=== PATIENT | female | born 1960 | race Caucasian/White ===

== ENCOUNTER 2023-08-09 15:04 | Outpatient (AMB) | payer OTHER, SELFPAY ==
[2023-08-09 15:06] VITALS: BP 124/82; PULSE 69; O2SAT 95; BMI 31.0
--- NOTE | 2023-08-09 15:06 | MHC.OFFVIS ---
Vital Signs 08/09/23 15:06 Height 5 ft 11 in Weight 222 lb 2 oz BMI 31.0 BP 124/82 Blood Pressure Location Lt brachial Position Sitting Pulse 69 Pulse Source Pulse Oximeter Pulse Oximetry (%) 95 Oxygen Delivery Method Room Air Intake Visit Reasons: COPD Allergies No Known Allergies Allergy (Verified 08/09/23 15:14) HPI HPI COPD: Details: Orly is a pleasant 63 year old female, former smoker with 34 pack year history, quit 1999, with underlying COPD, h/o PE in 2014 completed 6 months coumadin, and PTSD. She was referred by PCP for pulmonary evaluation. She was previously under the care of Dr. Hidalgo and underwent PFT and chest CT. PFT report is not available, patient reports mild COPD. Chest CT 03/09 report reveals 3 mm nodule, no location noted. 03/[address], nodules are not noted. Images not available today. She reports being suboptimally controlled on Trelegy and can not tolerate the dry powder inhaler. She continues to report dyspnea with moderate exertion, chest tightness and dry cough. She denies wheezing. She denies any hostpializations related to respiratory distress. She denies prior history of asthma. She reports seasonal allergies, no recent allergy testing. She denies any pets. She was in the [employer] x 36 years, retired in 2018, with multiple occupational exposures. She denies any pertinent family history. COUNTS INCLUDE 234 BEDS AT THE [facility] Social History (Updated 08/09/23 @ 15:22 by Grace Hernandez CMA) Patient Tobacco Use Status: Former Tobacco user Quit Date: 24 years ago Tobacco use type: Cigarette Cigarettes Per Day: 30 Review of Systems Const Denies chills, Denies excessive sweating, Denies fever(s), Denies headache(s) and Denies night sweats Eyes Denies dry eyes, Denies irritation and Denies itchy eyes ENT Reports Normal hearing present, Denies headache(s), Denies nasal congestion, Denies nasal discharge and Denies sore throat Card Denies chest pain, Denies chest pain at rest, Denies chest pain with activity, Denies claudication, Denies leg edema, Denies orthopnea and Denies paroxysmal nocturnal dyspnea Resp Denies chest congestion, Denies excessive phlegm production, Denies pain on inspiration, Denies pain with cough, Denies stridor and Denies wheezing Musc Denies myalgias Neuro Reports Normal hearing present and Denies headache(s) Endo Denies excessive sweating Lukas/Lymph Denies lymphadenopathy Aller/Immun Denies itchy eyes, Denies seasonal rhinorrhea and Denies wheezing Physical Exam Vital Signs: Last Vital Signs Pulse 69 08/09/23 15:06 BP 124/82 08/09/23 15:06 Pulse Ox 95 08/09/23 15:06 Oxygen Delivery Method Room Air 08/09/23 15:06 BMI result Body Mass Index 31.0 Const General: cooperative, healthy appearing, comfortable, no acute distress, well developed and alert Orientation/consciousness: patient oriented x3 Limitations: no limitations HEENT Head: Yes normal to inspection, Yes normocephalic and Yes atraumatic Ears: hearing grossly normal bilaterally and external ears normal Eyes General: appearance normal, both eyes and all related structures Eyelids: Yes eyelids normal Sclerae: sclerae normal EOM: EOMs intact bilaterally Neck Neck: Yes normal visual inspection and Yes no lymphadenopathy Lymphatic: no lymphadenopathy noted Chest Chest palpation & inspection: normal inspection of the chest Resp Effort & Inspection: normal respiratory effort, able to speak in complete sentences, no audible wheezes, no cough, no stridor, not tachypneic, no tripod positioning and no use of accessory muscles Auscultation: diminished lung sounds Cardio Jugular venous distension: no JVD Rate: regular rate Rhythm: regular rhythm Skin Other: warm, dry General skin exam: no rashes or lesions noted Neuro General: patient oriented x3 Cranial nerves: Yes Normal hearing present Cognition (Neuro): normal cognition Gait exam (Neuro): Normal gait present Extrem General: Yes normal to inspection, Yes capillary refill normal, Yes no clubbing, cyanosis or edema and Yes no pedal edema Psych Appearance: grossly normal and well kempt Speech and movement: Normal speech and movement present and Clear speech present Affect: normal affect Attitude: cooperative Thought process: Normal thought process present Thought content: Normal thought content present Insight: Good insight present (Psych) Judgement: Good judgement present (Psych) Assessment & Plan Assessment & Plan (1) COPD (chronic obstructive pulmonary disease): Code(s): J44.9 - Chronic obstructive pulmonary disease, unspecified Category: Medical (2) Environmental allergies: Code(s): Z91.09 - Other allergy status, other than to drugs and biological substances Category: Medical (3) Personal history of tobacco use: Code(s): Z87.891 - Personal history of nicotine dependence Category: Social Hx Plan Orly's symptoms are likely related to underlying COPD. Will switch Trelegy to Breztri, as patient can not tolerate dry powder inhaler. Will attempt to obtain CT images as well as prior PFT. Patient reports increase of symptoms suggestive of allergies with the change of season. Will send for allergy testing. All questions were answered and patient is in agreement of plan. Will follow up to review results and response to Breztri. Orders: Orders Immunoglobulin E Today Z91.09 - Other allergy status, other than to drugs and biological substances Complete Blood Count Auto Diff Today Z91.09 - Other allergy status, other than to drugs and biological substances Rast Allergen Today Z91.09 - Other allergy status, other than to drugs and biological substances Medications: New numsmekqie-eslqilen-yfaxxejsdd 160-9-4.8 mcg/actuation (Breztri Aerosphere) 2 inhalations inhalation BID 10.7 grams 6RF Coding Level of Care Code New Pt Level 4 (38626) Diagnoses COPD (chronic obstructive pulmonary disease) J44.9 Environmental allergies Z91.09 Personal history of tobacco use Z87.891
== END 2023-08-09 15:58 | disposition home or self-care (01) ==
PROVIDERS: PCP Nurse Practitioner Gerontology; Visit Provider Nurse Practitioner Family
DX: J44.9 Chronic obstructive pulmonary disease, unspecified (principal); Z91.09 Other allergy status, other than to drugs and biological substances; Z87.891 Personal history of nicotine dependence
CPT/HCPCS: 99204

== ENCOUNTER → 2023-08-09 15:04 | Outpatient (BNVA) | payer OTHER, SELFPAY | PROVIDERS: Visit Provider Nurse Practitioner Family | DX: J44.9 Chronic obstructive pulmonary disease, unspecified (principal); Z91.09 Other allergy status, other than to drugs and biological substances; Z87.891 Personal history of nicotine dependence | CPT/HCPCS: 99202 ==

== ENCOUNTER 2023-08-16 10:53 | Outpatient (REF) | payer OTHER, SELFPAY ==
[2023-08-16 14:19] LABS: MANUAL DIFF FLAG NO
[2023-08-16 14:25] LABS: Basophils Percent Auto 0.4 % (0-2); Eosinophils Absolute Auto 0.1 X10*3/uL (0.0-0.4); Eosinophils Percent Auto 1.5 % (0-4); Hematocrit 45.1 % (37.0-47.0); Hemoglobin 14.7 g/dl (12.0-16.0); Imm Gran Abs Auto 0.02 X10*3/uL (0.00-0.03); Imm Gran Pct Auto 0.4 % (0.0-0.4); Lymphocytes Absolute Auto 1.7 X10*3/uL (1.2-4.9); Lymphocytes Percent Auto 31.5 % (20-40); Mean Corpuscular HGB Conc 32.6 g/dl (31.0-35.0); Mean Corpuscular Hemoglobin 30.7 pg (27.0-33.0); Mean Corpuscular Volume 94.2 fL (80.0-98.0); Mean Platelet Volume 10.6 fL (9.4-12.3); Monocytes Absolute Auto 0.4 X10*3/uL (0.1-1.2); Monocytes Percent Auto 7.5 % (2-11); Neutrophils Absolute Auto 3.1 x10*3/uL (2.0-8.3); Neutrophils Percent Auto 58.7 % (45-73); Platelet Count 242 X10*3/uL (160-400); Red Blood Count 4.79 X10*6/uL (4.20-5.50); Red Cell Distribution Width 13.1 % (11.0-16.0); White Blood Count 5.3 X10*3/uL (4.8-10.8)
[2023-08-17 14:34] LABS: Immunoglobulin E 502 kU/L (<OR=114)
[2023-08-19 23:28] LABS: Class Alternaria alternata 0; Class Aspergillus fumigatus 0; Class Bermuda Grass 2; Class Birch 3; Class Cat Dander 2; Class Cladosporium herbarum 0; Class Cockroach 1; Class Common Ragweed 3; Class Cottonwood 2; Class Derm. pterony 2; Class Dermatophagoides farinae 2; Class Dog Dander 0/1; Class Elm 3; Class Maple Box Elder 1; Class Mountain Cedar 0/1; Class Mouse Urine Protein 0; Class Mugwort 0/1; Class Oak 3; Class Penicillium crysogenum 0; Class Rough Pigweed 2; Class Sheep Sorrel 0; Class Sycamore 1; Class Timothy Grass 3; Class Walnut Tree 2; Class White Ash 1; Class White Mulberry 0; D001 IgE D pteronyssinus 1.58 kU/L; D002 - IgE D farinae 2.91 kU/L; E001 - IgE Cat Dander 0.86 kU/L; E005 - IgE Dog Dander 0.15 kU/L; E072-IgE Mouse Urine <0.10 kU/L; G006 - IgE Timothy Grass 5.31 kU/L; I006-IgE Cockroach, German 0.44 kU/L; M001 IgE Penicillium chrysogen <0.10 kU/L; M002 - IgE Cladosporium herbar <0.10 kU/L; M003 - IgE Aspergillus fumigat <0.10 kU/L; M006 - IgE Alternaria alternat <0.10 kU/L; T001 IgE Maple/Box Elder 0.49 kU/L; T006 - IgE Cedar, Mountain 0.24 kU/L; T010 - IgE Walnut 2.06 kU/L; T011 - IgE Maple Leaf Sycamore 0.52 kU/L; T014 - IgE Cottonwood 1.26 kU/L; T015 - IgE Ash, White 0.51 kU/L; T070 - IgE White Mulberry <0.10 kU/L; W006 - IgE Mugwort 0.25 kU/L; W014 IgE Pigweed, Common 0.72 kU/L; W018 IgE Sheep Sorrel <0.10 kU/L
== END 2023-08-16 10:54 | disposition home or self-care (01) ==
LOC: HO.WFDLDS 10:53
PROVIDERS: Visit Provider Nurse Practitioner Family
DX: Z91.09 Other allergy status, other than to drugs and biological substances (principal)
CPT/HCPCS: 36415; 82785; 85025; 86003

== ENCOUNTER 2023-11-02 09:48 | Outpatient (AMB) | payer OTHER, SELFPAY ==
--- NOTE | 2023-11-02 09:57 | A.OFFVIS_ITS ---
Vital Signs 11/02/23 09:58 Height 5 ft 11 in Weight 224 lb BMI 31.2 BP 124/86 Blood Pressure Location Lt brachial Position Sitting Pulse 74 Pulse Source Pulse Oximeter Pulse Oximetry (%) 97 Oxygen Delivery Method Room Air Intake Visit Reasons: COPD Allergies No Known Allergies Allergy (Verified 11/02/23 10:03) HPI HPI COPD: Details: Orly is a pleasant 63 year old female, former smoker with 34 pack year history, quit 1999, with underlying COPD, h/o PE in 2015 completed 6 months coumadin, and PTSD. She was previously under the care of Dr. Hidalgo and underwent PFT and chest CT. Results reviewed today. FEV1/FVC 75%, DLCO 70. CT revealed emphysematous changes. At the last visit, she was switched from Trelegy to Breztri. She reports minimal improvement in symptoms, however she only recently started using twice daily, as she was unaware of frequency. She also notes that she has occasionally missed the second dose. She continues to report dyspnea with moderate exertion, persistent throat clearing and dry cough. She denies wheezing. Today she presents to review RAST testing. [facility] Social History Patient Tobacco Use Status: Former Tobacco user Tobacco use type: Cigarette Cigarettes Per Day: 30 Review of Systems Const Denies chills, Denies excessive sweating, Denies fever(s), Denies headache(s) and Denies night sweats Eyes Denies dry eyes, Denies irritation and Denies itchy eyes ENT Reports Normal hearing present, Denies headache(s), Denies nasal congestion, Denies nasal discharge and Denies sore throat Card Denies chest pain, Denies chest pain at rest, Denies chest pain with activity, Denies claudication, Denies leg edema, Denies orthopnea and Denies paroxysmal nocturnal dyspnea Resp Denies chest congestion, Denies excessive phlegm production, Denies pain on inspiration, Denies pain with cough, Denies stridor and Denies wheezing Musc Denies myalgias Neuro Reports Normal hearing present and Denies headache(s) Endo Denies excessive sweating Lukas/Lymph Denies lymphadenopathy Aller/Immun Denies itchy eyes, Denies seasonal rhinorrhea and Denies wheezing Physical Exam Vital Signs: Last Vital Signs Pulse 74 11/02/23 09:58 BP 124/86 11/02/23 09:58 Pulse Ox 97 11/02/23 09:58 Oxygen Delivery Method Room Air 11/02/23 09:58 BMI result Body Mass Index 31.2 Const General: cooperative, healthy appearing, comfortable, no acute distress, well developed and alert Orientation/consciousness: patient oriented x3 Limitations: no limitations HEENT Head: Yes normal to inspection, Yes normocephalic and Yes atraumatic Ears: hearing grossly normal bilaterally and external ears normal Eyes General: appearance normal, both eyes and all related structures Eyelids: Yes eyelids normal Sclerae: sclerae normal EOM: EOMs intact bilaterally Neck Neck: Yes normal visual inspection and Yes no lymphadenopathy Lymphatic: no lymphadenopathy noted Chest Chest palpation & inspection: normal inspection of the chest Resp Other: persistent throat clearing and dry cough throughout visit. Effort & Inspection: normal respiratory effort, able to speak in complete sentences, no audible wheezes, no stridor, not tachypneic, no tripod positioning and no use of accessory muscles Auscultation: diminished lung sounds Cardio Jugular venous distension: no JVD Rate: regular rate Rhythm: regular rhythm Skin Other: warm, dry General skin exam: no rashes or lesions noted Neuro General: patient oriented x3 Cranial nerves: Yes Normal hearing present Cognition (Neuro): normal cognition Gait exam (Neuro): Normal gait present Extrem General: Yes normal to inspection, Yes capillary refill normal, Yes no clubbing, cyanosis or edema and Yes no pedal edema Psych Appearance: grossly normal and well kempt Speech and movement: Normal speech and movement present and Clear speech present Affect: normal affect Attitude: cooperative Thought process: Normal thought process present Thought content: Normal thought content present Insight: Good insight present (Psych) Judgement: Good judgement present (Psych) Assessment & Plan Assessment & Plan (1) COPD (chronic obstructive pulmonary disease): Code(s): J44.9 - Chronic obstructive pulmonary disease, unspecified Category: Medical (2) Environmental allergies: Code(s): Z91.09 - Other allergy status, other than to drugs and biological substances Category: Medical (3) Personal history of tobacco use: Code(s): Z87.891 - Personal history of nicotine dependence Category: Social Hx Plan Reviewed RAST and revealed significant environmental allergies. Encouraged patient to use antihistamine PRN. Will consider singulair in the future. Patient also with moderate PND, will trial ipratropium nasal spray. Patient was given spacer in office and encouraged to use Breztri as prescribed to better assess response to regimen. All questions were answered and patient is in agreement of plan. Will follow up in 6-8 weeks or sooner if needed. Medications: New ipratropium bromide administer into each nostril 2 sprays intranasal BID 30 mL 2RF Coding Level of Care Code Est Pt Level 4 (31552) Diagnoses COPD (chronic obstructive pulmonary disease) J44.9 Environmental allergies Z91.09 Personal history of tobacco use Z87.891
[2023-11-02 09:58] VITALS: BP 124/86; PULSE 74; O2SAT 97; BMI 31.2
== END 2023-11-02 10:38 | disposition home or self-care (01) ==
PROVIDERS: PCP Nurse Practitioner Gerontology; Visit Provider Nurse Practitioner Family
DX: J44.9 Chronic obstructive pulmonary disease, unspecified (principal); Z91.09 Other allergy status, other than to drugs and biological substances; Z87.891 Personal history of nicotine dependence
CPT/HCPCS: 99214

== ENCOUNTER → 2023-11-02 09:48 | Outpatient (BNVA) | payer OTHER, SELFPAY | PROVIDERS: Visit Provider Nurse Practitioner Family | DX: J44.9 Chronic obstructive pulmonary disease, unspecified (principal); Z91.09 Other allergy status, other than to drugs and biological substances; Z87.891 Personal history of nicotine dependence; Z79.01 Long term (current) use of anticoagulants | CPT/HCPCS: 99212 ==

== ENCOUNTER 2023-12-14 08:49 | Outpatient (AMB) | payer OTHER, SELFPAY ==
--- NOTE | 2023-12-14 08:51 | MHC.OFFVIS ---
Vital Signs 12/14/23 08:55 Height 5 ft 11 in Weight 226 lb 2 oz BMI 31.5 BP 124/76 Blood Pressure Location Rt brachial Position Sitting Pulse 64 Pulse Source Pulse Oximeter Pulse Oximetry (%) 98 Oxygen Delivery Method Room Air Intake Visit Reasons: COPD Allergies No Known Allergies Allergy (Verified 12/14/23 09:00) HPI HPI COPD: Details: Orly is a pleasant 63 year old female, former smoker with 34 pack year history, quit 1999, with underlying COPD, h/o PE in 2015 completed 6 months coumadin, and PTSD. Orly reports suboptimal effect with Breztri, continues to require albuterol MDI frequently. She attributes poorly controlled symptoms to allergies, prior RAST revealed multiple environmental allergies. She has been using ipratropium nasal and antihistamine PRN with mild improvement. She denies any visits to urgent care or hospitalizations since the last visit. [facility] Social History Patient Tobacco Use Status: Former Tobacco user Tobacco use type: Cigarette Cigarettes Per Day: 30 Review of Systems Const Denies chills, Denies excessive sweating, Denies fever(s), Denies headache(s) and Denies night sweats Eyes Denies dry eyes, Denies irritation and Denies itchy eyes ENT Reports Normal hearing present, Denies headache(s), Denies nasal congestion, Denies nasal discharge and Denies sore throat Card Denies chest pain, Denies chest pain at rest, Denies chest pain with activity, Denies claudication, Denies leg edema, Denies orthopnea and Denies paroxysmal nocturnal dyspnea Resp Denies chest congestion, Denies excessive phlegm production, Denies pain on inspiration, Denies pain with cough, Denies stridor and Denies wheezing Musc Denies myalgias Neuro Reports Normal hearing present and Denies headache(s) Endo Denies excessive sweating Lukas/Lymph Denies lymphadenopathy Aller/Immun Denies itchy eyes, Denies seasonal rhinorrhea and Denies wheezing Physical Exam Vital Signs: Last Vital Signs Pulse 64 12/14/23 08:55 BP 124/76 12/14/23 08:55 Pulse Ox 98 12/14/23 08:55 Oxygen Delivery Method Room Air 12/14/23 08:55 BMI result Body Mass Index 31.5 Const General: cooperative, healthy appearing, comfortable, no acute distress, well developed and alert Orientation/consciousness: patient oriented x3 Limitations: no limitations HEENT Head: Yes normal to inspection, Yes normocephalic and Yes atraumatic Ears: hearing grossly normal bilaterally and external ears normal Eyes General: appearance normal, both eyes and all related structures Eyelids: Yes eyelids normal Sclerae: sclerae normal EOM: EOMs intact bilaterally Neck Neck: Yes normal visual inspection and Yes no lymphadenopathy Lymphatic: no lymphadenopathy noted Chest Chest palpation & inspection: normal inspection of the chest Resp Other: persistent throat clearing and dry cough throughout visit. Effort & Inspection: normal respiratory effort, able to speak in complete sentences, no audible wheezes, no stridor, not tachypneic, no tripod positioning and no use of accessory muscles Auscultation: diminished lung sounds Cardio Jugular venous distension: no JVD Rate: regular rate Rhythm: regular rhythm Skin Other: warm, dry General skin exam: no rashes or lesions noted Neuro General: patient oriented x3 Cranial nerves: Yes Normal hearing present Cognition (Neuro): normal cognition Gait exam (Neuro): Normal gait present Extrem General: Yes normal to inspection, Yes capillary refill normal, Yes no clubbing, cyanosis or edema and Yes no pedal edema Psych Appearance: grossly normal and well kempt Speech and movement: Normal speech and movement present and Clear speech present Affect: normal affect Attitude: cooperative Thought process: Normal thought process present Thought content: Normal thought content present Insight: Good insight present (Psych) Judgement: Good judgement present (Psych) Assessment & Plan Assessment & Plan (1) COPD (chronic obstructive pulmonary disease): Code(s): J44.9 - Chronic obstructive pulmonary disease, unspecified Category: Medical (2) Environmental allergies: Code(s): Z91.09 - Other allergy status, other than to drugs and biological substances Category: Medical (3) Personal history of tobacco use: Code(s): Z87.891 - Personal history of nicotine dependence Category: Social Hx Plan Advised to continue Breztri, will add singulair. Patient also noted suboptimal relief from albuterol MDI, will trial DuoNeb and send nebulizer for home use. She is aware to call the office if worsening control of sympoms. Patient had chest CT last February which did not have concerning nodules. Will send for repeat chest C in February, given prior smoking history. All questions were answered and patient is in agreement of plan. Will follow up in 8-10 weeks or sooner if needed. Medications: New montelukast (Singulair) 10 mg PO BEDTIME 30 tabs 2RF ipratropium-albuterol 0.5 mg-3 mg(2.5 mg base)/3 mL 3 mL inhalation Q6H PRN 180 mL 0RF wheezing Coding Level of Care Code Est Pt Level 4 (91965) Diagnoses COPD (chronic obstructive pulmonary disease) J44.9 Environmental allergies Z91.09 Personal history of tobacco use Z87.891
[2023-12-14 08:55] VITALS: BP 124/76; PULSE 64; O2SAT 98; BMI 31.5
== END 2023-12-14 09:33 | disposition home or self-care (01) ==
PROVIDERS: PCP Nurse Practitioner Gerontology; Visit Provider Nurse Practitioner Family
DX: J44.9 Chronic obstructive pulmonary disease, unspecified (principal); Z91.09 Other allergy status, other than to drugs and biological substances; Z87.891 Personal history of nicotine dependence
CPT/HCPCS: 99214

== ENCOUNTER → 2023-12-14 08:49 | Outpatient (BNVA) | payer OTHER, SELFPAY | PROVIDERS: PCP Nurse Practitioner Gerontology; Visit Provider Nurse Practitioner Family | DX: J44.9 Chronic obstructive pulmonary disease, unspecified (principal); Z91.09 Other allergy status, other than to drugs and biological substances; Z87.891 Personal history of nicotine dependence | CPT/HCPCS: 99212 ==

== ENCOUNTER 2024-02-21 08:45 | Outpatient (AMB) | payer OTHER, SELFPAY ==
--- NOTE | 2024-02-21 08:45 | A.OFFVIS_ITS ---
Vital Signs 02/21/24 08:48 Height 5 ft 11 in Weight 232 lb 4 oz BMI 32.4 BP 114/76 Blood Pressure Location Rt brachial Position Sitting Pulse 77 Pulse Source Pulse Oximeter Pulse Oximetry (%) 98 Oxygen Delivery Method Room Air Intake Visit Reasons: COPD Allergies No Known Allergies Allergy (Verified 02/21/24 08:51) HPI HPI COPD: Details: Orly is a pleasant 63 year old female, former smoker with 34 pack year history, quit 1999, with underlying COPD, h/o PE in 2015 completed 6 months coumadin, and PTSD. At the last visit she reported suboptimal effect with Breztri. Singulair and DuoNeb PRN was trialed. Overall she repors improvement in symptoms however she continues to report cough that worsens at night time however is not using Breztri BID. Today she presents to review chest CT results. She denies any visits to urgent care or hospitalizations since the last visit. [facility] Social History Patient Tobacco Use Status: Former Tobacco user Tobacco use type: Cigarette Cigarettes Per Day: 30 Review of Systems Const Denies chills, Denies excessive sweating, Denies fever(s), Denies headache(s) and Denies night sweats Eyes Denies dry eyes, Denies irritation and Denies itchy eyes ENT Reports Normal hearing present, Denies headache(s), Denies nasal congestion, Denies nasal discharge and Denies sore throat Card Denies chest pain, Denies chest pain at rest, Denies chest pain with activity, Denies claudication, Denies leg edema, Denies orthopnea and Denies paroxysmal nocturnal dyspnea Resp Denies chest congestion, Denies excessive phlegm production, Denies pain on inspiration, Denies pain with cough, Denies stridor and Denies wheezing Musc Denies myalgias Neuro Reports Normal hearing present and Denies headache(s) Endo Denies excessive sweating Lukas/Lymph Denies lymphadenopathy Aller/Immun Denies itchy eyes, Denies seasonal rhinorrhea and Denies wheezing Physical Exam Vital Signs: Last Vital Signs Pulse 77 02/21/24 08:48 BP 114/76 02/21/24 08:48 Pulse Ox 98 02/21/24 08:48 Oxygen Delivery Method Room Air 02/21/24 08:48 BMI result Body Mass Index 32.4 Const General: cooperative, healthy appearing, comfortable, no acute distress, well developed and alert Orientation/consciousness: patient oriented x3 Limitations: no limitations HEENT Head: Yes normal to inspection, Yes normocephalic and Yes atraumatic Ears: hearing grossly normal bilaterally and external ears normal Eyes General: appearance normal, both eyes and all related structures Eyelids: Yes eyelids normal Sclerae: sclerae normal EOM: EOMs intact bilaterally Neck Neck: Yes normal visual inspection and Yes no lymphadenopathy Lymphatic: no lymphadenopathy noted Chest Chest palpation & inspection: normal inspection of the chest Resp Other: persistent throat clearing and dry cough throughout visit. Effort & Inspection: normal respiratory effort, able to speak in complete sentences, no audible wheezes, no stridor, not tachypneic, no tripod positioning and no use of accessory muscles Auscultation: diminished lung sounds Cardio Jugular venous distension: no JVD Rate: regular rate Rhythm: regular rhythm Skin Other: warm, dry General skin exam: no rashes or lesions noted Neuro General: patient oriented x3 Cranial nerves: Yes Normal hearing present Cognition (Neuro): normal cognition Gait exam (Neuro): Normal gait present Extrem General: Yes normal to inspection, Yes capillary refill normal, Yes no clubbing, cyanosis or edema and Yes no pedal edema Psych Appearance: grossly normal and well kempt Speech and movement: Normal speech and movement present and Clear speech present Affect: normal affect Attitude: cooperative Thought process: Normal thought process present Thought content: Normal thought content present Insight: Good insight present (Psych) Judgement: Good judgement present (Psych) Assessment & Plan Assessment & Plan (1) COPD (chronic obstructive pulmonary disease): Code(s): J44.9 - Chronic obstructive pulmonary disease, unspecified Category: Medical (2) Environmental allergies: Code(s): Z91.09 - Other allergy status, other than to drugs and biological substances Category: Medical (3) Personal history of tobacco use: Code(s): Z87.891 - Personal history of nicotine dependence Category: Social Hx Plan Reviewed chest CT which revealed mild emphysematous changes otherwise no concerning pulmonary nodules. No need for further imaging at this time. Advised patient to use Breztri BID, as prescribed as well as singulair, DuoNeb and ipratropium nasal spray. All questions were answered and patient is in agreement of plan. Will follow up3 months or sooner if needed. Medications: Refilled ldjetvrjzk-rpjwccit-rlgmapmkeo 160-9-4.8 mcg/actuation (Breztri Aerosphere) 2 inhalations inhalation BID 10.7 grams 6RF Coding Level of Care Code Est Pt Level 4 (04864) Diagnoses COPD (chronic obstructive pulmonary disease) J44.9 Environmental allergies Z91.09 Personal history of tobacco use Z87.891
[2024-02-21 08:48] VITALS: BP 114/76; PULSE 77; O2SAT 98; BMI 32.4
== END 2024-02-21 09:07 | disposition home or self-care (01) ==
LOC: HO.HPSW 08:45
PROVIDERS: PCP Nurse Practitioner Gerontology; Visit Provider Nurse Practitioner Family
DX: J44.9 Chronic obstructive pulmonary disease, unspecified (principal); Z91.09 Other allergy status, other than to drugs and biological substances; Z87.891 Personal history of nicotine dependence
CPT/HCPCS: 99214

== ENCOUNTER → 2024-02-21 08:45 | Outpatient (BNVA) | payer OTHER, SELFPAY | PROVIDERS: PCP Nurse Practitioner Gerontology; Visit Provider Nurse Practitioner Family | DX: J44.9 Chronic obstructive pulmonary disease, unspecified (principal); Z87.891 Personal history of nicotine dependence; Z79.899 Other long term (current) drug therapy; Z91.09 Other allergy status, other than to drugs and biological substances | CPT/HCPCS: 99212 ==

== ENCOUNTER 2024-05-23 08:53 | Outpatient (AMB) | payer OTHER, SELFPAY ==
[2024-05-23 09:01] VITALS: BP 126/60; PULSE 85; O2SAT 99; BMI 33.1
--- NOTE | 2024-05-23 09:01 | A.OFFVIS_ITS ---
Vital Signs 05/23/24 09:01 Height 5 ft 11 in Weight 237 lb BMI 33.1 BP 126/60 Blood Pressure Location Rt brachial Position Sitting Pulse 85 Pulse Source Pulse Oximeter Pulse Oximetry (%) 99 Oxygen Delivery Method Room Air Intake Visit Reasons: COPD Manager Managing Required: No Security Incident Handler: Security Incident Handler offered & declined Accompanied by: Self / Same As Patient Allergies No Known Allergies Allergy (Verified 05/23/24 09:04) Medication List - Last Reconciled 05/23/24 by Natalia White LPN albuterol sulfate 90 mcg/actuation 2 puffs inhalation Q6H PRN ascorbate calcium (vitamin C) 500 mg PO DAILY aspirin (Adult Low Dose Aspirin) 81 mg PO DAILY atorvastatin 20 mg PO BEDTIME oktcierolv-[id number]-hpchyyfppz 160-9-4.8 mcg/actuation (Breztri Aerosphere) 2 inhalations inhalation BID cholecalciferol (vitamin D3) 25 mcg PO DAILY ferrous sulfate (Feosol) 325 mg PO 2XW ipratropium bromide 2 sprays intranasal BID ipratropium-albuterol 0.5 mg-3 mg(2.5 mg base)/3 mL 3 mL inhalation Q6H PRN losartan 25 mg PO DAILY montelukast (Singulair) 10 mg PO BEDTIME multivitamin (Daily Multi-Vitamin tablet) 1 tab PO DAILY HPI HPI COPD: Details: Orly is a pleasant 64 year old female, former smoker with 34 pack year history, quit 1999, with underlying COPD, h/o provoked PE in 2014 completed 6 months coumadin, now on ASA 81mg and PTSD. At baseline, she has been moderately controlled on Breztri, ipratropium nasal spray and Singulair, using DuoNeb PRN infrequently. She continues to report infrequent use of Breztri and continued dyspnea as well as dry cough. She also notes that exertional dyspnea has been more frequent with associated chest heaviness. She denies any orthopnea or BLE edema. There was note of moderate cardiomegaly on prior imaging as well as CAD. She denies any recent evaluation by cardiology. She denies any visits to urgent care or hospitalizations since the last visit related to respiratory distress. COUNTS INCLUDE 234 BEDS AT THE [facility] Social History Patient Tobacco Use Status: Former Tobacco user Tobacco use type: Cigarette Cigarettes Per Day: 30 Review of Systems Const Denies chills, Denies excessive sweating, Denies fever(s), Denies headache(s) and Denies night sweats Eyes Denies dry eyes, Denies irritation and Denies itchy eyes ENT Reports Normal hearing present, Denies headache(s), Denies nasal congestion, Denies nasal discharge, Denies post nasal drip and Denies sore throat Card Denies chest pain, Denies chest pain at rest, Denies chest pain with activity, Denies claudication, Denies leg edema, Denies orthopnea and Denies paroxysmal nocturnal dyspnea Resp Denies chest congestion, Denies excessive phlegm production, Denies pain on inspiration, Denies pain with cough and Denies stridor Musc Denies myalgias Neuro Reports Normal hearing present and Denies headache(s) Endo Denies excessive sweating Lukas/Lymph Denies lymphadenopathy Aller/Immun Denies itchy eyes and Denies seasonal rhinorrhea Physical Exam Vital Signs: Last Vital Signs Pulse 85 05/23/24 09:01 BP 126/60 05/23/24 09:01 Pulse Ox 99 05/23/24 09:01 Oxygen Delivery Method Room Air 05/23/24 09:01 BMI result Body Mass Index 33.1 Const General: cooperative, healthy appearing, comfortable, no acute distress, well developed and alert Nutritional Appearance: obese Orientation/consciousness: patient oriented x3 Limitations: no limitations HEENT Head: Yes normal to inspection, Yes normocephalic and Yes atraumatic Ears: hearing grossly normal bilaterally and external ears normal Eyes General: appearance normal, both eyes and all related structures Eyelids: Yes eyelids normal Sclerae: sclerae normal EOM: EOMs intact bilaterally Neck Neck: Yes normal visual inspection and Yes no lymphadenopathy Lymphatic: no lymphadenopathy noted Chest Chest palpation & inspection: normal inspection of the chest Resp Effort & Inspection: normal respiratory effort, able to speak in complete sentences, no audible wheezes, no cough, no stridor, not tachypneic, no tripod positioning and no use of accessory muscles Auscultation: clear to auscultation bilaterally Cardio Jugular venous distension: no JVD Rate: regular rate Rhythm: regular rhythm Skin Other: warm, dry General skin exam: no rashes or lesions noted Neuro General: patient oriented x3 Cranial nerves: Yes Normal hearing present Cognition (Neuro): normal cognition Gait exam (Neuro): Normal gait present Extrem General: Yes normal to inspection, Yes capillary refill normal, Yes no clubbing, cyanosis or edema and Yes no pedal edema Psych Appearance: grossly normal and well kempt Speech and movement: Normal speech and movement present and Clear speech present Affect: normal affect Attitude: cooperative Thought process: Normal thought process present Thought content: Normal thought content present Insight: Good insight present (Psych) Judgement: Good judgement present (Psych) Assessment & Plan Assessment & Plan (1) COPD (chronic obstructive pulmonary disease): Code(s): J44.9 - Chronic obstructive pulmonary disease, unspecified Category: Medical (2) Environmental allergies: Code(s): Z91.09 - Other allergy status, other than to drugs and biological substances Category: Medical (3) Personal history of tobacco use: Code(s): Z87.891 - Personal history of nicotine dependence Category: Social Hx (4) Dyspnea on exertion: Code(s): R06.09 - Other forms of dyspnea Category: Medical Plan Since the last visit, Orly reports increased exertional dyspnea with associated chest tightness/heaviness. Prior imaging noted moderate cardiomegaly and on exam patient with irregular extra beat noted. Will send for EKG and Echo as well as enter cardiology referral. We did discuss when to seek emergent care. Advised patient to use Breztri BID, as prescribed as well as singulair, DuoNeb and ipratropium nasal spray. All questions were answered and patient is in agreement of plan. Will follow up in 4-6 weeks or sooner if needed. Orders: Orders ECG 12 lead EKG Today I49.9 - Cardiac arrhythmia, unspecified CA echo transthoracic complete Today R06.09 - Other forms of dyspnea Referrals Cardiology Referral I51.7 - Cardiomegaly, R06.09 - Other forms of dyspnea Coding Level of Care Code Est Pt Level 4 (46195) Diagnoses COPD (chronic obstructive pulmonary disease) J44.9 Environmental allergies Z91.09 Personal history of tobacco use Z87.891 Dyspnea on exertion R06.09
--- OUTSIDE RECORDS SUMMARY | 2024-05-23 09:01 | XMS_ITS | Encounter Summary ---
Author Name [facility] [place] Address [address] [place] [address] Care Team Providers Care Construction Electrician Name Role Phone JULIO CÉSAR ALMEIDA Primary Care Provider Unavailabl e Insurance Providers: All historical and current Section Date Range: From patient's date of to the date document was created. This section includes the names of all active insurance providers for the patient. Insurance Provider Type of Coverage Plan Name Start of Policy Coverage End of Policy Coverage Group Number Member ID Insurance Provider's Telephone Number Policy Stoddard's Name Patient's Relationship to Policy Stoddard HANNAH [address] FEDERAL PREFERRED PROVIDER ORGANIZAT ION (PPO) STAND AMEE SELF Apr 21, 1997 [id number] TINO DYE PATIENT BCBS [place] F[place] PREFERRED PROVIDER ORGANIZAT ION (PPO) STAND AMEE INDIV IDUAL Apr 21, 1997 [id number] TINO DYE PATIENT CAREMARK PRESCRIPT ION [id number] Apr 18, 2020 [id number] [phone] TINO DYE PATIENT [employer] PRESCRIPT ION [id number] 1 Apr 18, 2020 [id number] [phone] [id number] TINO DYE PATIENT CAR[employer]ARK FEPRX PLAN PRESCRIPT ION BCBS FEP Apr 18, 2010 [id number] [phone] TINO DYE PATIENT CAREMARK-F EP BCBS PRESCRIPT ION FEP CAREM ARK Apr 18, 2010 [id number] [phone] TINO DYE PATIENT OPTUM RX PRESCRIPT ION RX Apr 18, 2022 [id number] TINO DYE PATIENT [facility] USP Apr 18, 2020 USP [id number] TINO DYE PATIENT [facility] BRIGH TON DAVE E Apr 18, 2020 [id number] TINO DYE PATIENT Selected Encounter This section includes the information on record at [place] for the Encounter. Date/Time Encounter Type Encounter Description Reason Provider Source Jul 22, 2023 07:30 AM THERAPEUTIC EXERCISES PHYSICAL THERAPY ICD-10-CM M54.50 Low back pain, unspecified BEN NUNEZ Lisa Encounter Template Text not used by [place] Assessments - Encounter Diagnoses This section includes the primary and secondary diagnoses documented for the Encounter. Date/Time Primary/Secondary Diagnosis Diagnosis Name Provider Source Jul 22, 2023 07:37 AM PRIMARY Low back pain, unspecified SANTHOSH NUNEZ Plan of Treatment: Future Appointments (+ 6 months) and Future Tests (+/- 45 days) The Plan of Treatment section includes future care activities for the patient from all [place] treatmentfacilities. This section includes future appointments and future orders which are active, pending or scheduled. Future Appointments This section includes appointments that were scheduled to occur 6 months from the date of the Encounter, up to a maximum of 20 appointments. The data comes from all [place] treatment facilities. Appointment Date/Time Appointment Type Appointme nt Facility Name Jul 26, 2023 08:00 AM AMBULATORY - MEDICINE [facility] Aug 09, 2023 03:15 PM AMBULATORY - MEDICINE [facility] August 26, 2023 08:00 AM AMBULATORY - PSYCHIATRY [facility] Sep 20, 2023 08:00 AM [facility] Sep 30, 2023 08:00 AM AMBULATORY - PSYCHIATRY [facility] Nov 04, 2023 11:00 AM AMBULATORY - PS[facility]CHIATRY [facility] Nov 08, 2023 01:30 PM [facility] [place] [facility] Nov 21, 2023 09:00 AM AMBULAT[facility] [place] [facility] Dec 02, 2023 01:00 PM AMBULATORY - PSYCHIATRY [facility] Dec 23, 2023 08:00 AM AMBULATORY [facility] [place] [facility] Dec 27, 2023 10:30 AM [facility] [place] [facility] Dec 29, 2023 08:00 AM AMBULATORY - [facility]AB [facility]IN [facility] [place] [facility] Jan 16, 2024 10:45 AM AM[facility]UL[facility] - [facility]ICINE [facility] Jan 17, 2024 08:00 AM [facility] [place] [facility] Jan 18, 2024 10:00 AM AMBULATORY - [facility]AB [facility]ICIN [facility] [place] [facility] Jan 18, 2024 01:00 PM AMBULATORY - PSYCHIATRY [facility] Advance Directives: All historical and current Section Date Range: From patient's date of to the date document was created. This section includes ALL of a patient's completed or amended [place] Advance and Rescinded Directives. The entries below indicate that a directive exists for the patient, but an actual copy is not included with this document. The data comes from all [place] facilities. Date Advance Directives Provider Source Dec 21, 2023 ADVANCE DIRECTIVE DESIREE OLIVAREZ [place] [facility] [place] [facility] Encounter Notes: All associated encounter notes This section contains the clinical notes associated to the Encounter. Date/Time Encounter Note(s) Provider Source Jul 22, 2023 07:12 AM PHYSICAL THERAPY N OTE: LOCAL TITLE: PHYSICAL THERAPY STANDARD TITLE: PHYSICAL THERAPY NOTE DATE OF NOTE: JUL 22, 2023@07:12 ENTRY DATE: JUL 22, 2023@07:12:24 AUTHOR: SANTHOSH NUNEZ COSIGNER: URGENCY: STATUS: COMPLETED Initial Evaluation date: 06/24/23 Progress Note Date: 07/25/23 Treatment #: 2 Treatment time: 30 Diagnosis: Low back pain, unspecified(ICD-10-CM M54.50) Provider: JULIO CÉSAR ALMEIDA PT Treatment Precautions: Patient identified by full name and date of SUBJECTIVE: Patient states the lower back has been sore the past few days as they have been doing more lifting at work OBJECTIVE: Therapeutic Exercise: Mins: 24 nustep 6mins standing hip abduction band 2x15 orange standing hip extension band 2x15 orange abdominal curl with ball 10reps sit to stand 10reps Manual therapy: Mins: Neuro re-ed: Mins: Other: Mins: Modalities: Mins: [] contraindication screen completed prior to modality [] skin intact pre/post modality Access Code: [email or web address] URL: [email or web address] Date: 07/15/2023 Prepared by: Santhosh Nunez Exercises - Supine Lower Trunk Rotation - 1 x daily - 7 x weekly - 2 sets - 10-20 reps - Supine Posterior Pelvic Tilt - 1 x daily - 7 x weekly - 3 sets - 10 reps - Supine Bridge with Spinal Articulation - 1 x daily - 7 x weekly - 2 sets - 10-15 reps - Supine Piriformis Stretch with Foot on Ground - 1 x daily - 7 x weekly - 3 sets - 30 hold - Clamshell with Resistance - 1 x daily - 7 x weekly - 2-3 sets - 15-20 reps - Supine Quadriceps Stretch with Strap on Table - 1 x daily - 7 x weekly - 3 sets - 30 hold - Prone Quadriceps Stretch with Strap - 1 x daily - 7 x weekly - 3 sets - 30 hold - Prone Press Up On Elbows - 1 x daily - 7 x weekly - 5-10 reps - 5 hold PATIENT EDUCATION: Mins: 5 Patient education was provided for all aspects of care during this clinical encounter. Provided updated written HEP to patient reviewing proper form sets reps and frequency and safety precautions with patient verbalizing and demonstrating good understanding during visit. Reviewed proper lifting mechanics avoiding lifting with a rounded spine. Patient will require continued teaching for consistent carryover. ASSESSMENT: Patient seen for routine follow up. Instructed patient through progressions in abdominal and gluteal strengthening tolerated well with mod fatigue of glutes with standing band hip extension/abduction. Patient becomes short of breath and slightly lightheaded mid-way through visit today. Patient took their rescue inhaler, sat and rested, and symptoms dissipated fully within 1min of rest. Able to tolerate the rest of the activity during the session without symtpoms. Provided updated written HEP. PLAN: Progress as tolerated focusing on quad/hip flexor and hamstring flexibility, lumbar ROM, abdominal and gluteal strengthening, HEP teaching and progression Progress LE strengthening exercises, squat/deadlift with KB elevated on step [x]Low impact cardio: [x]Nustep []Recumbent bike []Recumbent elliptical []TM []Manual: []STM/DTM []METs/SCS []IASTM []Joint mobilizations [x]Therex: []Progressive UQ [x]Progressive Core [x]Progressive LQ []UQ flex [x] Lumbar flex [x]LQ flex []Foam rolling []Proprioception []Neuro Re-education: []Static []Dynamic []Dual-Task [x]Education: []Posture []Ergonomics [x]Bodymechanics [x]Self-care strategies [] PNE []Modalities(PRN): []Heat/Ice []Estim/Tens []Mechanical traction []K-tape [] Biofreeze /es/ SANTHOSH NUNEZ PT, DPT PHYSICAL THERAPIST Signed: 07/22/2023 07:59 SANTHOSH NUNEZ SPRUCE
--- OUTSIDE RECORDS SUMMARY | 2024-05-23 09:01 | XMS_ITS | Encounter Summary ---
Author Name [facility] [place] Address [address] [place] [id number] Care Team Providers Care Branch Logistics Supervisor Name Role Phone JULIO CÉSAR ALMEIDA Primary [...] Name Patient's Relationship to Policy Stoddard HANNAH [facility] FEDERAL PREFERRED PROVIDER ORGANIZAT ION (PPO) STAND AMEE SELF Apr 21, 1997 [id number] TINO DYE PATIENT BS MA FEP PREFERRED PROVIDER ORGANIZAT ION (PPO) STAND AMEE INDIV IDUAL Apr 21, 1997 [id number] TINO DYE PATIENT CAREMARK PRESCRIPT ION [id number] 1 Apr 18, 2020 [id number] [phone] MARNIETINO RODRIGUEZ PATIENT CAR[employer]ARK PRESCRIPT ION [id number] 1 Apr 18, 2020 [id number] [phone] TINO DYE PATIENT [employer]ARK FEPRX PLAN PRESCRIPT ION BCBS FEP Apr 18, 2010 [id number] TINO DYE PATIENT CAREMARK-F EP BCBS PRESCRIPT ION FEP CAREM ARK Apr 18, 2010 [id number] [phone] TINO DYE PATIENT OPTUM RX PRESCRIPT ION RX Apr 18, 2022 [id number] [phone] TINO DYE PATIENT [facility] USFHP Apr 18, 2020 USP [id number] TINO DYE PATIENT [facility] BRIGH TON DAVE E Apr 18, 2020 [id number] TINO DYE PATIENT Selected Encounter This section includes the information on record at [place] for the Encounter. Date/Time Encounter Type Encounter Description Reason Provider Source Feb 20, 2024 01:00 PM PSYTX W PT 60 [facility]ES [facility] - IND ICD-10-CM F43.12 Post-traumatic stress disorder, chronic [facility]AM [facility]JANDRE [facility] Encounter Template Text not used by [place] Assessments - Encounter Diagnoses This section includes the primary and secondary diagnoses documented for the Encounter. Date/Time Primary/Secondary Diagnosis Diagnosis Name Provider Source Feb 20, 2024 02:43 PM PRIMARY Post-traumatic stress disorder, chronic GAUTAM ALEJANDRE [place] Plan of Treatment: Future Appointments (+ 6 months) and Future Tests (+/- 45 days) The Plan of Treatment section includes future care activities for the patient from all [place] treatmentfacilities. This section includes future appointments and future orders which are active, pending or scheduled. Future Appointments This section includes appointments that were scheduled to occur 6 months from the date of the Encounter, up to a maximum of 20 appointments. The data comes from all [place] treatment facilities. Appointment Date/Time Appointment Type Appointme nt Facility Name Feb 21, 2024 09:00 AM AM[place]ULATORY [place] [facility] [place] [facility] Feb 23, 2024 10:30 AM AMBULATORY [place]IC[place] [facility] [place] [facility] Mar 05, 2024 09:00 AM AMBULATORY - [place]ICINE [place] [facility] [place] [facility] Mar 07, 2024 10:00 AM AMBULATORY - REHAB MEDICIN [place] [facility] [place] [facility] Mar 07, 2024 10:30 AM AMBULATORY - NONE [facility] [place] [facility] Mar 09, 2024 09:15 AM AMBULATORY [place] MEDICINE [facility] [place] [facility] Mar 09, 2024 01:00 PM AMBULATORY - MEDICINE [facility] [place] [facility] Mar 27, 2024 01:00 PM AMBULATORY - [facility]ATRY [facility] Apr 24, 2024 03:00 PM AMBULATORY - MEDICINE [facility] [place] [facility] May 01, 2024 02:00 PM AMBULATORY - PSYCHIATRY [facility] May 18, 2024 10:00 AM AMBULATORY - MEDICINE [facility] [place] [facility] May 29, 2024 01:00 PM AMBULATORY - PSYCHIATRY [facility] May 30, 2024 01:00 PM AMBULATORY - REHAB MEDICIN [place] [facility] [place] [facility] Jul 31, 2024 11:00 AM AMBULATORY - MEDICINE [place] [facility] [place] [facility] Lab Results: +/- 30 days of the encounter This section includes the Chemistry and Hematology Lab Results on record with [place] for the patient. Radiology Reports and Pathology Reports are provided separately, in subsequent sections. Lab Results This section contains the Chemistry/Hematology Results that were resulted 30 days before or 30 daysafter the date of the Encounter. Date/Time Source Result Type Result - Unit Interpretation Reference Range Comment Mar 05, 2024 10:02 AM [place] [facility] [place] [facility] MAGNESIUM Specimen Type: SERUM No comment entered. Ordering Provider: JULIO CÉSAR ALMEIDA Report Released Date/Time: Mar 05, 2024 09:42 AM Reporting Lab: [place] [facility] [place] [facility] [address] [address] Performing Lab: [place] [facility] [place] [facility] [address] [address] MAGNESIUM 2.3 mg/dL 1.6-2.6 Mar 05, 2024 10:02 AM [place] [facility] [place] [facility] FERRITIN Specimen Type: SERUM No comment entered. Ordering Provider: JULIO CÉSAR ALMEIDA Report Released Date/Time: Mar 05, 2024 09:42 AM Reporting Lab: [place] [facility] [place] [facility] [address] [facility] [address] Performing Lab: [facility] [address] [facility] [address] FERRITIN 509 ng/mL H 10-200 Mar 05, 2024 10:02 AM [facility] LIPID PANEL FASTING Specimen Type: SERUM No comment entered. Ordering Provider: JULIO CÉSAR ALMEIDA Report Released Date/Time: Mar 05, 2024 09:42 AM Reporting Lab: [address] [address] Performing Lab: [address] [address] CHOLESTEROL 183 mg/dL TRIGLYCERIDE 109 mg/dL 0-150 LDL calculated 116 mg/dL 0-129 CHOL/HDL 4.1 HDL CHOLESTEROL 45 mg/dL 40-60 Mar 05, 2024 10:02 AM [facility] LIVER FUNCTION Specimen Type: SERUM No comment entered. Ordering Provider: JULIO CÉSAR ALMEIDA Report Released Date/Time: Mar 05, 2024 09:42 AM Reporting Lab: [address] [address] Performing Lab: [address] [address] PROTEIN,TOTAL 6.4 g/dL 6.0-8.3 ALBUMIN 3.5 g/dL 3.5-5.0 ALKALINE PHOSPHATASE 80 U/L 40-150 AST 22 U/L 5-34 ALT 34 U/L BILIRUBIN, TOTAL 0.4 mg/dL 0.2-1.2 Mar 05, 2024 10:02 AM [facility] BASIC METABOLIC PANEL (non-fasting) Specimen Type: SERUM No comment entered. Ordering Provider: JULIO CÉSAR ALMEIDA Report Released Date/Time: Mar 05, 2024 09:42 AM Reporting Lab: [address] [address] Performing Lab: [address] [address] UREA NITROGEN 22 mg/dL 7-25 GLUCOSE 92 mg/dL 65-100 SODIUM 140 mmol/L 135-145 POTASSIUM 4.2 mmol/L 3.5-5.0 CHLORIDE 109 mmol/L 100-110 CO2 22 meq/L 20-30 CREATININE, Serum 0.78 mg/dL 0.50-1.40 eGFR(CKD-EPI 2020) 85 mL/min >60 Mar 05, 2024 10:02 AM [facility] HEMOGLOBIN A1C PANEL Specimen Type: BLOOD Comment: Values obtained from A1C measurements can vary. For atypical A1C assays, a reported value of 7.0 could actually be between 6.72 and 7.28 if measured by a reference method. A reported value of 9.0 could actually be between 8.73 and 9.27. Ref: http://www.ngs p.org/CAPdata. asp Ordering Provider: JULIO CÉSAR ALMEIDA Report Released Date/Time: Mar 05, 2024 09:42 AM Reporting Lab: [address] [address] Performing Lab: [address] [address] HEMOGLOBIN A1C 5.5 4.0-5.6 Mar 05, 2024 10:02 AM [facility] TSH Specimen Type: SERUM No comment entered. Ordering Provider: JULIO CÉSAR ALMEIDA Report Released Date/Time: Mar 05, 2024 09:42 AM Reporting Lab: [facility] [address] [facility] [address] Performing Lab: [facility] [address] TSH 2.43 u[IU]/mL 0.35-5.00 Mar 05, 2024 10:02 AM [facility] CBC AND DIFF (AUTO) Specimen Type: BLOOD No comment entered. Ordering Provider: JULIO CÉSAR ALMEIDA Report Released Date/Time: Mar 05, 2024 09:42 AM Reporting Lab: [address] [address] Performing Lab: [address] [address] WBC 5.14 10*3/uL 4.50-11.00 RBC 4.77 10*6/uL 3.93-5.16 HGB 14.4 g/dL 12-15.2 HCT 43.2 36.6-45.6 MCV 90.6 fL 82-99 MCHC 33.3 g/dL 30.8-35.1 PLT 233 10*3/uL 140-360 RDW-CV 12.7 12.0-16.0 MONO, ABS 0.48 10*3/uL 0.30-1.10 MCH 30.2 pg 26.2-32.6 NEUT % 61.5 43.7-75.8 LYMPH % 26.8 14.0-42.3 MONO % 9.3 5.1-13.7 EOS % 1.8 0.4-6.8 BASO % 0.4 0.1-2.0 NEUT, ABS 3.16 10*3/uL 2.20-7.60 LYMPH, ABS 1.38 10*3/uL 1.00-3.20 EOS, ABS 0.09 10*3/uL 0.03-0.44 BASO, ABS 0.02 10*3/uL 0.01-0.13 IMMATURE GRAN % 0.2 0.0-0.7 IMMATURE GRAN, ABS 0.01 10*3/uL 0.00-0.06 NRBC % 0.0 0.0-0.0 NRBC, ABS 0.00 10*3/uL 0.00-0.00 Advance Directives: All historical and current Section Date Range: From patient's date of to the date document was created. This section includes ALL of a patient's completed or amended [place] Advance and Rescinded Directives. The entries below indicate that a directive exists for the patient, but an actual copy is not included with this document. The data comes from all [place] facilities. Date Advance Directives Provider Source Dec 21, 2023 ADVANCE DIRECTIVE DESIREE OLIVAREZ [place] [facility] Radiology Reports: +/- 30 days of the encounter Radiology Reports For cases when an order for radiology services may have been completed prior to the date of the Encounter, the report list includes the Radiology Reports that were completed up to 30 days before dateof the Encounter. For cases when an order for radiology services may have been completed after the date of the Encounter, the report list also includes the Radiology Reports that were completed up to30 days after date of the Encounter. The data comes from all [place] treatment facilities. Date/Time Radiology Report Provider Source Mar 09, 2024 09:15 AM OUTSIDE MAMMO/SCRE ENING, INCLUDING CAD, BILAT: KENY DYE [id number] -1960 F Exm Date: MAR 09, 2024@09:15 Req Phys: JULIO CÉSAR ALMEIDA Loc: CWM/NO/PACT 5 (Req'g Loc) Img Loc: OUTSIDE GENERAL RADIOLOGY Service: Unknown (Case [id number] COMPLETE) OUTSIDE MAMMO/SCREENING, INCLUDIN(RAD Detailed) CPT:87231 Reason for Study: annual sreening mammogram Clinical History: Report Status: Electronically Filed Date Reported: MAR 09, 2024 Report: Community care exam; see CPRS/JLV for outside radiology report/results Impression: Community care exam; see CPRS/JLV for outside radiology report/results Primary Diagnostic Code: BI-RADS CATEGORY 0 (Incomplete: Need Additional Imaging Evaluation) VERIFIED BY: / *ELECTRONICALLY FILED* [facility] Mar 07, 2024 10:39 AM ULTRASOUND NECK (THYROID,HEAD,SOFT TISSUE): KENY DYE [id number] -[id number] F Exm Date: MAR 07, 2024@10:39 Req Phys: JULIO CÉSAR ALMEIDA Loc: CWM/NO/PACT 5 (Req'g Loc) Img Loc: ULTRASOUND Service: [place] [address] (Case [id number] COMPLETE) ULTRASOUND NECK (THYROID,HEAD,SOF(US Detailed) CPT:27678 Reason for Study: left arm nodule Clinical History: Report Status: Verified Date Reported: MAR 07, 2024 Date Verified: MAR 07, 2024 Customer Experience Leader E-Sig:/ES/EZ DELGADO JR Report: Study: Soft tissue mass evaluation ultrasound of the left forearm. COMPARISON: None. TECHNIQUE: Grayscale and color-flow sonography were used to evaluate a palpable lump in the left forearm soft tissues. FINDINGS: At the site of Doppler abnormality there is a subcutaneous, solid, ovoid, well-circumscribed mass measuring 2.2 cm cephalocaudad by 0.8 cm AP by 2.3 cm transversely that has similar echogenicity to subcutaneous fat. This mass demonstrates no internal calcifications, septations or mural nodules and shows no significant internal color flow. This mass is technically indeterminant but likely represents a small lipoma. Definitive diagnosis is only available via biopsy. Impression: Nonaggressive appearing subcutaneous nodule of the left forearm likely representing lipoma, as described above. Primary Diagnostic Code: No immediate attention required Primary Interpreting Staff: EZ DELGADO JR, Radiologist (Customer Experience Leader) /EZ LARA JR [facility] [place] [facility] Encounter Notes: All associated encounter notes This section contains the clinical notes associated to the Encounter. Date/Time Encounter Note(s) Provider Source Feb 20, 2024 01:00 PM SOCIAL WORK NOTE: LOCAL TITLE: SOCIAL WORK NOTE STANDARD TITLE: SOCIAL WORK NOTE DATE OF NOTE: FEB 20, 2024@13:00 ENTRY DATE: FEB 20, 2024@14:36:27 AUTHOR: GAUTAM ALEJANDRE COSIGNER: URGENCY: STATUS: COMPLETED INFORMED CONSENT REVIEWED: At beginning of session reviewed rights and limits of confidentiality, mandatory reporting situations, duty to warn and protect, [employer] Warning, (if treatment team finds patient to be an acute danger to himself or others, that this information could be relayed to a court of law and presented to a cant hooker), and [facility] access for active duty service members. Provided Suicide Prevention Hotline number, and other contact numbers as necessary. VISIT DURATION 60 minutes [place] identified with 2 identifiers: Full Name, Facial Recognition DIAGNOSES: PTSD chronic (F43.12) [employer] STATEMENT OF GOALS/CONCERNS: I'm good. I am glad my is home. SESSION FOCUS: Met with face to face for individual counseling. stated her was gone for 2 weeks in [place]. He went to take care of some family business but was not able to complete. stated she does not like when he leaves. She worries about him and has a hard time focusing and getting things done. stated he is now home safe and they are spending a lot of time together. She spoke about their upcoming trips, working around their appts. 's dream is to [place]. She feels annoyed that her spends most of his monthly income on his family. She is worried they will not be able to save for a down payment. spoke about her family and her relationship with them. They see each other a few times a year due to people living in different areas and scheduling. She states she always enjoys their times together. INTERVENTIONS: Psychotherapeutic Interventions: CT; Reflective listening and support ASSESSMENT: BRIEF ASSESSMENT OF MENTAL STATUS: 1. Appearance (grooming, attire, apparent age) within normal limits: Yes 2. Thought content was organized and goal directed: Yes 3. Speech was coherent and unimpaired: Yes 4. Affect was appropriate and unremarkable: Yes 5. Demeanor was calm, with no signs of agitation or restlessness: Yes 6. Sleep was largely unimpaired and restful: Yes 7. No evidence of psychosis (hallucinations or delusions): Yes 8. Mood was normal: Yes Other Observations: RISK ASSESSMENT: Denies current suicidal ideation PLAN FOR FOLLOW-UP: Next session planned for: 03/27/24 at 1pm /es/ MEREDITH BRYANT Proteomics Scientist Mental Health Signed: 02/20/2024 14:44 GAUTAM ALEJANDRE
--- OUTSIDE RECORDS SUMMARY | 2024-05-23 09:01 | XMS_ITS ---
Author Name [facility] [place] [facility] [place] Address [address] [place] [id number] Care Team Providers Care Reproduction Artist Name Role Phone JULIO CÉSAR ALMEIDA Primary [...] Name Patient's Relationship to Policy Stoddard HANNAH [facility] CT FEDERAL PREFERRED PROVIDER ORGANIZAT ION (PPO) STAND AMEE SELF Apr 21, 1997 [id number] TINO DYE PATIENT BS [place] FEP PREFERRED PROVIDER ORGANIZAT ION (PPO) STAND AMEE INDIV IDUAL Apr 21, 1997 [id number] TINO DYE PATIENT CAREMARK PRESCRIPT ION [id number] 1 Apr 18, 2020 [id number] TINO DYE PATIENT CAREMARK PRESCRIPT ION [id number] 1 Apr 18, 2020 [id number] TION DYE PATIENT CAREMARK FEPRX PLAN PRESCRIPT ION BCBS FEP Apr 18, 2010 [id number] TINO DYE PATIENT CAREMARK-F EP BCBS PRESCRIPT ION FEP CAREM ARK Apr 18, 2010 [id number] TINO DYE PATIENT OPTUM RX PRESCRIPT ION RX Apr 18, 2022 [id number] TINO DYE PATIENT [facility] USFHP Apr 18, 2020 USP [id number] [phone] TINO DYE PATIENT [facility] BRIGH TON DAVE E Apr 18, 2020 [id number] TINO DYE PATIENT Selected Encounter This section includes the information on record at [place] for the Encounter. Date/Time Encounter Type Encounter Description Reason Provider Source Mar 09, 2024 01:00 PM OFF/OP CNSLTJ NEW/EST MOD 40 GENERAL SURGERY ICD-10-CM 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, subcu of left arm GODULCE MARIA S [facility] Encounter Template Text not used by [place] Assessments - Encounter Diagnoses This section includes the primary and secondary diagnoses documented for the Encounter. Date/Time Primary/Secondary Diagnosis Diagnosis Name Provider Source Mar 09, 2024 05:21 PM PRIMARY Benign lipomatous neoplasm of skin, subcu of left arm JUAN JOSÉMARINODULCE MARIA S [facility] [place] [facility] Mar 09, 2024 05:21 PM SECONDARY Pain in left forearm MINH VALDEZE Jeronimo [facility] [place] [facility] Mar 09, 2024 05:21 PM SECONDARY Paresthesia of skin JUAN JOSÉDULCE MARIA S [facility] [place] [facility] Plan of Treatment: Future Appointments (+ 6 months) and Future Tests (+/- 45 days) The Plan of Treatment section includes future care activities for the patient from all [place] treatmentfacilities. This section includes future appointments and future orders which are active, pending or scheduled. Future Appointments This section includes appointments that were scheduled to occur 6 months from the date of the Encounter, up to a maximum of 20 appointments. The data comes from all [place] treatment facilities. Appointment Date/Time Appointment Type Appointme nt Facility Name Mar 27, 2024 01:00 PM AMBULATORY - PSYCHIATRY [facility] Apr 24, 2024 03:00 PM AMBULATORY - MEDICINE [place] [facility] [place] [facility] May 01, 2024 02:00 PM AMBULATORY - PSYCHIATRY [facility] May 18, 2024 10:00 AM AMBULATORY - MEDICINE [place] [facility] [place] [facility] May 29, 2024 01:00 PM AMBULATORY - PSYCHIATRY [facility] May 30, 2024 01:00 PM AMBULATORY - REH[place] MEDICIN [place] [facility] [place] [facility] Jul 31, 2024 11:00 AM [facility] [place] [facility] Lab Results: +/- 30 days of the encounter This section includes the Chemistry and Hematology Lab Results on record with [place] for the patient. Radiology Reports and Pathology Reports are provided separately, in subsequent sections. Lab Results This section contains the Chemistry/Hematology Results that were resulted 30 days before or 30 daysafter the date of the Encounter. Date/Time Source Result Type Result - Unit Interpretation Reference Range Comment Mar 05, 2024 10:02 AM [facility] MAGNESIUM Specimen Type: SERUM No comment entered. Ordering Provider: JULIO CÉSAR ALMEIDA Report Released Date/Time: Mar 05, 2024 09:42 AM Reporting Lab: [facility] [address] [facility] [address] Performing Lab: [facility] [address] [address] MAGNESIUM 2.3 mg/dL 1.6-2.6 Mar 05, 2024 10:02 AM [facility] FERRITIN Specimen Type: SERUM No comment entered. Ordering Provider: JULIO CÉSAR ALMEIDA Report Released Date/Time: Mar 05, 2024 09:42 AM Reporting Lab: [facility] [address] [facility] [address] Performing Lab: [facility] [address] [address] FERRITIN 509 ng/mL H 10-200 Mar 05, 2024 10:02 AM [facility] LIPID PANEL FASTING Specimen Type: SERUM No comment entered. Ordering Provider: JULIO CÉSAR ALMEIDA Report Released Date/Time: Mar 05, 2024 09:42 AM Reporting Lab: [facility] [address] [facility] [address] Performing Lab: [facility] [address] [facility] [address] CHOLESTEROL 183 mg/dL TRIGLYCERIDE 109 mg/dL 0-150 LDL calculated 116 mg/dL 0-129 CHOL/HDL 4.1 HDL CHOLESTEROL 45 mg/dL 40-60 Mar 05, 2024 10:02 AM [facility] BASIC METABOLIC PANEL (non-fasting) Specimen Type: SERUM No comment entered. Ordering Provider: JULIO CÉSAR ALMEIDA Report Released Date/Time: Mar 05, 2024 09:42 AM Reporting Lab: [facility] [address] [facility] [address] Performing Lab: [facility] [address] [facility] [address] UREA NITROGEN 22 mg/dL 7-25 GLUCOSE 92 mg/dL 65-100 SODIUM 140 mmol/L 135-145 POTASSIUM 4.2 mmol/L 3.5-5.0 CHLORIDE 109 mmol/L 100-110 CO2 22 meq/L 20-30 CREATININE, Serum 0.78 mg/dL 0.50-1.40 eGFR(CKD-EPI 2020) 85 mL/min >60 Mar 05, 2024 10:02 AM [facility] HEMOGLOBIN A1C PANEL Specimen Type: BLOOD Comment: [...] Mar 05, 2024 09:42 AM Reporting Lab: [facility] [address] [facility] [address] Performing Lab: [address] [address] HEMOGLOBIN A1C 5.5 4.0-5.6 Mar 05, 2024 10:02 AM [facility] TSH Specimen Type: SERUM No comment entered. Ordering Provider: JULIO CÉSAR ALMEIDA Report Released Date/Time: Mar 05, 2024 09:42 AM Reporting Lab: [facility] [address] [facility] [address] Performing Lab: [address] [address] TSH 2.43 u[IU]/mL 0.35-5.00 Mar 05, 2024 10:02 AM [facility] LIVER FUNCTION Specimen Type: SERUM No comment entered. Ordering Provider: JULIO CÉSAR ALMEIDA Report Released Date/Time: Mar 05, 2024 09:42 AM Reporting Lab: [facility] [address] [facility] [address] Performing Lab: [address] [address] PROTEIN,TOTAL 6.4 g/dL 6.0-8.3 ALBUMIN 3.5 g/dL 3.5-5.0 ALKALINE PHOSPHATASE 80 U/L 40-150 AST 22 U/L 5-34 ALT 34 U/L BILIRUBIN, TOTAL 0.4 mg/dL 0.2-1.2 Mar 05, 2024 10:02 AM [facility] CBC AND DIFF (AUTO) Specimen Type: BLOOD No comment entered. Ordering Provider: JULIO CÉSAR ALMEIDA Report Released Date/Time: Mar 05, 2024 09:42 AM Reporting Lab: [address] [address] Performing Lab: [address] [address] WBC 5.14 10*3/uL 4.50-11.00 RBC 4.77 10*6/uL [...] 0.0 0.0-0.0 NRBC, ABS 0.00 10*3/uL 0.00-0.00 Vital Signs: All taken on the encounter date This section contains inpatient and outpatient Vital Signs collected on the date of the Encounter. Date/Time Temperature Pulse Blood Pressure Respiratory Rate SP02 Pain Height Weight Body Mass Index Source Mar 09, 2024 01:14 PM 97 76 138/85 18 97 7 234.2 33 [facility] Social History: Smoking Status (Most current) and Tobacco Use (All prior to encounter date) This section includes the most current, and the historical, smoking and tobacco- related health factors from the [place] facility where the Encounter took place. Current Smoking Status This section includes the most current smoking, or tobacco-related health factor, from the [place] facility where the Encounter took place. Date/Time Current Smoking Status Comment [facility] May 27, 2023 09:30 AM [place]-TOBACCO FORMER USER [facility] Tobacco Use History This section includes a history of the smoking, or tobacco-related health factors, that were collected on or before the date of the Encounter. The data comes from the [place] facility where the Encounter took place. Date/Time Smoking Status/Tobac co Use Comment Facility May 27, 2023 09:30 AM VA-TOBACCO QUIT 15 YRS OR MORE [place] [facility] [place] [facility] Feb 02, 2022 08:30 AM VA-TOBACCO FORMER USER [place] [facility] [place] [facility] Feb 02, 2022 08:30 AM VA-TOBACCO QUIT 15 YRS OR MORE [place] [facility] [place] [facility] Dec 09, 2020 10:00 AM VA-TOBACCO FORMER USER [place] [facility] [place] [facility] Dec 09, 2020 10:00 AM VA-TOBACCO QUIT 15 YRS OR MORE [place] [facility] [place] [facility] Nov 28, 2019 11:26 AM VA-TOBACCO FORMER USER [place] [facility] [place] [facility] Nov 28, 2019 11:26 AM VA-TOBACCO QUIT 15 YRS OR MORE [place] [facility] [place] [facility] Oct 23, 2018 02:51 PM VA-TOBACCO FORMER USER [place] [facility] [place] [facility] Oct 23, 2018 02:51 PM VA-TOBACCO QUIT 15 YRS OR MORE [place] [facility] [place] [facility] Oct 17, 2017 09:14 AM QUIT TOBACCO USE > 7 YEARS AGO [place] [facility] [place] [facility] September 15, 2016 08:50 AM QUIT TOBACCO USE > 7 YEARS AGO [place] [facility] [place] [facility] Jul 02, 2015 09:15 AM QUIT TOBACCO USE > 7 YEARS AGO non tobacco user since [facility] [place] [facility] Advance Directives: All historical and current Section Date Range: From patient's date of to the date document was created. This section includes ALL of a patient's completed or amended [place] Advance and Rescinded Directives. The entries below indicate that a directive exists for the patient, but an actual copy is not included with this document. The data comes from all [place] facilities. Date Advance Directives Provider Source Dec 21, 2023 ADVANCE DIRECTIVE DESIREE OLIVAREZ [place] [facility] [place] [facility] Radiology Reports: +/- 30 days of the [...] the Encounter. The data comes from all [place] treatment facilities. Date/Time Radiology Report Provider Source Mar 09, 2024 09:15 AM OUTSIDE MAMMO/SCRE ENING, INCLUDING CAD, BILAT: KENY DYE [id number] F Exm Date: MAR 09, 2024@09:15 Req Phys: JULIO CÉSAR ALMEIDA Loc: CWM/NO/PACT 5 (Req'g Loc) Img Loc: OUTSIDE GENERAL RADIOLOGY Service: Unknown (Case [id number] COMPLETE) OUTSIDE MAMMO/SCREENING, INCLUDIN(RAD Detailed) CPT:20020 Reason for Study: annual sreening mammogram Clinical History: Report Status: Electronically Filed Date Reported: MAR 09, 2024 Report: Community care exam; see CPRS/JLV for outside radiology report/results Impression: Community care exam; see CPRS/JLV for outside radiology report/results Primary Diagnostic Code: BI-RADS CATEGORY 0 (Incomplete: Need Additional Imaging Evaluation) VERIFIED BY: / *ELECTRONICALLY FILED* [facility] RIMAEDDIKARTHIKSUNY [facility] Mar 07, 2024 10:39 AM ULTRASOUND NECK (THYROID,HEAD,SOFT TISSUE): KENY DYE [id number] F Exm Date: MAR 07, 2024@10:39 Req Phys: JULIO CÉSAR ALMEIDA Loc: CWM/NO/PACT 5 (Req'g Loc) Img Loc: ULTRASOUND Service: [place] [address] (Case [id number] COMPLETE) ULTRASOUND NECK (THYROID,HEAD,SOF(US Detailed) CPT:81729 Reason for Study: left arm nodule Clinical History: Report Status: Verified Date Reported: MAR 07, 2024 Date Verified: MAR 07, 2024 Thread Winder E-Sig:/ES/EZ DELGADO JR Report: Study: Soft tissue [...] Primary Interpreting Staff: EZ DELGADO JR, Radiologist (Thread Winder) /EZ LARA JR [place] [facility] [place] [facility] Encounter Notes: All associated encounter notes This section contains the clinical notes associated to the Encounter. Date/Time Encounter Note(s) Provider Source Mar 09, 2024 12:27 PM SURGERY CONSULT: LOCAL TITLE: CONSULT REPORT/SURGICAL EVALUATION STANDARD TITLE: SURGERY CONSULT DATE OF NOTE: MAR 09, 2024@12:27 ENTRY DATE: MAR 09, 2024@12:27:32 AUTHOR: DULCE MARIA VALDEZ COSIGNER: URGENCY: STATUS: COMPLETED MAR 09, 2024 KENY DYE is a 64 y/o FEMALE, previously in the [employer] FROM APR 01, 2013 TO APR 01, 2013 during the [place], who is referred by her PCP with complaints of a lump on her left forearm. The patient says that this forearm lump or mass has been present for about one year. She complains that she has pain and tingling running down her left arm and into her hand, which she blames on the lump in her forearm. She gets the pins and needles sensation in all the fingers of her left hand. When questioned about the lump itself, she denies any pain or tenderness related to the lump. ( I can touch it all day. ) She denies any redness or skin thickening. There has been no drainage or overlying skin changes. The patient was seen by her PCP on 03/05/2024. A non-tender nodule was noted on her left forearm that was thought to possibly be a lipoma. The patient was sent for an ultrasound of the lump which was performed on 03/07/2024. This showed a subcutaneous, solid, ovoid, well-circumscribed mass measuring 2.2 cm cephalocaudad by 0.8 cm AP by 2.3 cm transversely that has similar echogenicity to subcutaneous fat . The patient denies any change in the left forearm mass. She does not think it is growing. It has always remained soft and non-tender. She reports that when she get the pain and tingling running down her left forearm and left hand, it feels better if she raises her left arm and places her left forearm on top of her head. (Of note, the patient reports a history of a DVT in her left leg in 2013. She did not know of it at the time, and so, she ended up going on vacation to [place] where she developed a hacking cough, SOB, mucus, and CP. She subsequently was diagnosed with a pulmonary embous (and DVT). She says that she was hospitalized for 3 days. She was placed on warfarin for 7 months. She was told that the etiology of her blood clots was related to her being on HRT at the time and her eating excessive green leafy vegetables (??). The patient is no longer on any anti-coagulants.) Past Medical History: Active problems - Computerized Problem List is the source for the followin. Lumbago 2. Solitary nodule of lung 3. Exposure to potentially hazardous substance 4. Perimenopausal atrophic vaginitis 5. Former smoker 6. COPD - Chronic Obstructive Pulmonary Disease ([facility] [id number]) 7. Posttraumatic stress disorder 8. Myalgia 9. Bilateral tinnitus 10. Shoulder pain 11. Overweight 12. PE - Pulmonary embolism 13. Menopausal flushing 14. Female urinary stress incontinence Service Connected Disabilities with % Eligibility: SERVICE CONNECTED 50% to 100% VERIFIED Total S/C %: 60 POST-TRAUMATIC STRESS DISORDER 50% S/C CHRONIC OBSTRUCTIVE PULMONARY DISEASE 0% S/C IMPAIRED HEARING 0% S/C TINNITUS 10% S/C Past Surgical History: 1. Excision of basal cell carcinoma on nose 2. Irrigation and clean up of her right knee (after an injury) as a teenager 3. Gum surgery 4. Injection of right knee for pain 5. Ovarian cystectomy plus removal of some sort of polyp ALLERGIES: Patient has answered NKA MEDICATIONS: Active Outpatient Medications (including Supplies): ACETAMINOPHEN 325MG TAB TAKE TWO TABLETS BY MOUTH THREE ACTIVE TIMES DAILY NEEDED FOR PAIN ALBUTEROL 90MCG (CFC-F) 200D ORAL INHL INHALE 2 PUFFS BY ACTIVE MOUTH EVERY 4 HOURS NEEDED FOR BREATHING ASCORBIC ACID 500MG TAB TAKE ONE TABLET BY MOUTH ONCE ACTIVE DAILY FOR VITAMIN/NUTRITION SUPPLEMENT ASPIRIN 81MG EC TAB TAKE ONE TABLET BY MOUTH ONCE DAILY TO ACTIVE PREVENT STROKE/HEART ATTACK ATORVASTATIN CALCIUM 40MG TAB TAKE ONE-HALF TABLET BY ACTIVE MOUTH ONCE DAILY FOR HIGH CHOLESTEROL BREZTRI 160/9/4.8MCG/ACT 120D ORAL INHL INHALE 2 ACTIVE INHALATIONS BY MOUTH TWICE DAILY -RINSE MOUTH AFTER USE CELECOXIB 100MG CAP TAKE ONE CAPSULE BY MOUTH ONCE DAILY ACTIVE FOR ARTHRITIS CHOLECALCIF 50MCG (D3-2,000UNIT) TAB TAKE ONE TABLET BY ACTIVE MOUTH ONCE DAILY FOR VITAMIN SUPPLEMENTATION FERROUS SULFATE 325MG TAB TAKE ONE TABLET BY MOUTH TWICE A ACTIVE WEEK NEEDED TO SUPPLEMENT IRON IPRATROPIUM BR 0.03% NASAL SPRAY INSTILL 2 SPRAYS INTO ACTIVE EACH NOSTRIL TWICE DAILY FOR NASAL IRRITATION/CONGESTION LIDOCAINE 5% OINT APPLY DIRECTED TOPICALLY TWICE DAILY ACTIVE NEEDED FOR MINOR SKIN WOUND PAIN LOSARTAN 25MG TAB TAKE ONE TABLET BY MOUTH ONCE DAILY FOR ACTIVE BLOOD PRESSURE/HEART MONTELUKAST NA 10MG TAB TAKE ONE TABLET BY MOUTH AT ACTIVE BEDTIME FOR ASTHMA Non-VA ALBUTEROL 90MCG (CFC-F) 200D ORAL INHL 1 PUFF BY ACTIVE MOUTH Non-VA FLUTICASONE/UMECLID/VILANT (TRELEGY 200) INHL,ORAL ACTIVE BY MOUTH Non-VA FLUTICASONE/VILANTEROL (BREO) INHL,ORAL BY MOUTH ACTIVE ONCE DAILY NOTE: 03/09/2024: Patient states that she also takes: 30 meq potassium for leg cramps at night Gatorade once in a while for the electrolytes She also takes an occasional ropinirole that she takes from her 's prescription for muscle cramps at night Social History: Patient is to her . She has no children. She has stepchildren. She is a former cigarette smoker, smoking 1.5 ppd x 25 years ([phone]) She drinks about 3 alcoholic drinks per week. However, she says that she has gone over 4 weeks without EtOH. She denies drug use. She was in [place] in 2001 She retired this year in September. MARITAL STATUS - Family History: Her younger sister had ovarian cancer Her older sister had basal cell cancer Review of Systems: Constitutional: (-)fevers (-)chills Eyes: (-)blurry vision (-)diplopia (-)eye pain (-)red eye (-)discharge ENT: (+)mucus from COPD and asthma (+)congestion (+)bilateral tinnitus (-)sore throat (-)cough (-)reflux Cardiac: (-)CP (-)palpitations (-)edema (+)HTN Pulmonary: (-)SOB (-)MORAN (-)orthopnea (-)pleuritic pain (-)recent respiratory illness (+)COPD (+)asthma GI: (-)pain (-)distension (-)N/V : (+)Hx of TRAV Musculoskeletal: (+)shoulder pain (+)arthritis of the lower back (+)lower back pain (+)muscle cramps in legs at night (+)arthritis pains in neck (+)plantar fasciitis Neuro: (+)pain in left forearm (+)shooting pain and pins and needles sensation in left forearm and left hand (-)JUSTICE (-)dizziness (-)falls (+)restless legs at night Psychiatric: (-)anxiety (-)depression (+)PTSD Derm: (-)redness (-)rash (-)ulcers (-)edema (-)pruritis (+)lump on left forearm Vascular: (+)Hx of PE and DVT Vital Signs: T: 97.0 F (36.1 C) P: 76 R: 18 B/P: 138/85 Wt: 234.20 lb (106.23 kg) Body Mass Index: 33* Pulse Oximetry: 97% via AT REST Pain: 7 EXAM: General: Alert, pleasant, very talkative, cooperative, WDWN, NAD. HEENT: NC/AT. She wears glasses. Anicteric. EOMI. Mucous membranes are moist, conjunctivae are clear. Lungs: Clear. No rales or wheezes. No pleuritic pain. Heart: RRR. No murmurs or rubs heard. Abdomen: Obese Ext: She is right-handed. There is a superficial mass on the left forearm on the dorsal surface. One can see a subtle change in the contour of the forearm where the mass is located. Palpation here reveals a 2 cm x 2 cm, non-tender, mobile, well-circumscribed, soft, fatty-textured mass. It is uniform in texture and is completely non-tender. There is no overlying punctum. There is no overlying skin change, edema, or erythema. There is no skin discoloration. There are no other masses. Skin: Warm, dry. Psych: AAO x3. Mood is up, affect is appropriate. Labs/Rads: Collection DT Spec WBC HGB HCT PLT K+/Pot Sodium HGBA1c 03/05/2024 10:02 BLOOD 5.5 03/05/2024 10:02 BLOOD 5.14 14.4 43.2 233 03/05/2024 10:02 SERUM 4.2 140 06/29/2021 10:17 SERUM 4.7 141 06/29/2021 10:17 BLOOD 5.1 Collection DT Spec GLUCOSE CREATIN AST ALT T BILI ALK JEREMIAH CHOL 03/05/2024 10:02 SERUM 92 0.78 22 34 0.4 80 183 06/29/2021 10:17 SERUM 96 0.80 22 30 0.6 85 148 07/24/2020 07:58 SERUM 104 H 0.81 26 29 0.4 85 258H 02/24/2017 07:03 SERUM 88 0.76 24 27 0.4 110 221H Collection DT Spec LDL-c HDL TRIG TSH 03/05/2024 10:02 SERUM 2.43 03/05/2024 10:02 SERUM 116 45 109 06/29/2021 10:17 SERUM 88 51 44 07/24/2020 07:58 SERUM 188 H 56 68 3.05 02/24/2017 07:03 SERUM 156 H 51 71 Other Studies and Medical Notes: ULTRASOUND NECK (THYROID,HEAD,SOFT TISSUE) Exm Date: MAR 07, 2024@10:39 Req Phys: JULIO CÉSAR ALMEIDA Pat Loc: CWM/NO/PACT 5 (Req'g Loc) Img Loc: ULTRASOUND Service: [place] [address] (Case 144 COMPLETE) ULTRASOUND NECK (THYROID,HEAD,SOF(US Detailed) CPT:73577 Reason for Study: left arm nodule Clinical History: Report Status: Verified Date Reported: MAR 07, 2024 Date Verified: MAR 07, 2024 Thread Winder E-Sig:/ES/EZ DELGADO JR Report: Study: Soft tissue [...] Primary Interpreting Staff: EZ DELGADO JR, Radiologist (Thread Winder) /CRYSTAL Outpatient Medication Reconciliation: NO DISCREPANCIES FOUND other than those listed in note. The patient's medication list/medication history to include Active local VA prescriptions, Active remote VA (dispensed from another [place] or [facility] facility) prescriptions, local non-VA medications,recently VA prescriptions (90-180 days), recently discontinued VA prescriptions (90-180 days), and pending Medication Orders where relevant (e.g., patient is seen by multiple providers on the same day) was compared with CPRS and reviewed with the patient and reconciled. Any changes in medications and any medications prescribed by this provider and discontinued are documented in this note. Medications not prescribed by this provider will be addressed by pt's PCM or appropriate specialty provider. The patient was instructed to update the Medication list, discard old lists, and take the current list to appointments, whether it is with a VA or non-VA community provider. MRP - Medication Reconciliation Alphabetized list of outpatient Rx's, inpatient orders, remote and Non-VA meds Legend: OPT = VA issued outpatient prescription, INP = VA issued inpatient order Non-VA Meds Last Documented On: Jul 26, 2023 OPT ACETAMINOPHEN 325MG TAB (Status = ACTIVE) TAKE TWO TABLETS BY MOUTH THREE TIMES DAILY NEEDED FOR PAIN Last Released: 11/25/23 Supply: 45 Rx Expiration Date: 11/21/24 Refills Remainin Non VA ALBUTEROL 90MCG (CFC-F) 200D ORAL INHL INHALE 1 PUFF BY MOUTH Medication prescribed by Non-VA provider. OPT ALBUTEROL 90MCG (CFC-F) 200D ORAL INHL (Status = ACTIVE) INHALE 2 PUFFS BY MOUTH EVERY 4 HOURS NEEDED FOR BREATHING Last Released: 08/30/23 Supply: 90 Rx Expiration Date: 07/26/24 Refills Remainin OPT ASCORBIC ACID 500MG TAB (Status = ACTIVE) TAKE ONE TABLET BY MOUTH ONCE DAILY FOR VITAMIN/NUTRITION SUPPLEMENT Last Released: 08/30/23 Supply: 90 Rx Expiration Date: 07/26/24 Refills Remainin OPT ASPIRIN 81MG EC TAB (Status = ACTIVE) TAKE ONE TABLET BY MOUTH ONCE DAILY TO PREVENT STROKE/HEART ATTACK Last Released: 08/30/23 Supply: 90 Rx Expiration Date: 07/26/24 Refills Remainin OPT ATORVASTATIN CALCIUM 40MG TAB (Status = ACTIVE) TAKE ONE-HALF TABLET BY MOUTH ONCE DAILY FOR HIGH CHOLESTEROL Last Released: 02/22/24 Supply: 90 Rx Expiration Date: 07/26/24 Refills Remainin OPT BREZTRI 160/9/4.8MCG/ACT 120D ORAL INHL (Status = ACTIVE) INHALE 2 INHALATIONS BY MOUTH TWICE DAILY -RINSE MOUTH AFTER USE Last Released: 01/02/24 Supply: 30 Rx Expiration Date: 09/02/24 Refills Remainin OPT CELECOXIB 100MG CAP (Status = ACTIVE) TAKE ONE CAPSULE BY MOUTH ONCE DAILY FOR ARTHRITIS Last Released: 02/24/24 Supply: 90 Rx Expiration Date: 02/23/25 Refills Remainin OPT CHOLECALCIF 50MCG (D3-2,000UNIT) TAB (Status = ACTIVE) TAKE ONE TABLET BY MOUTH ONCE DAILY FOR VITAMIN SUPPLEMENTATION Last Released: 08/30/23 Days Supply: 90 Rx Expiration Date: 07/26/24 Refills Remainin OPT FERROUS SULFATE 325MG TAB (Status = ACTIVE) TAKE ONE TABLET BY MOUTH TWICE A WEEK NEEDED TO SUPPLEMENT IRON Last Released: 08/30/23 Days Supply: 90 Rx Expiration Date: 07/26/24 Refills Remainin Non VA FLUTICASONE/UMECLID/VILANT (TRELEGY 200) INHL,ORAL INHALE BY MOUTH ONCE DAILY Medication prescribed by Non-VA provider. Non VA FLUTICASONE/VILANTEROL (BREO) INHL,ORAL INHALE BY MOUTH ONCE DAILY Medication prescribed by Non-VA provider. OPT IPRATROPIUM BR 0.03% NASAL SPRAY (Status = ACTIVE) INSTILL 2 SPRAYS INTO EACH NOSTRIL TWICE DAILY FOR NASAL IRRITATION/CONGESTION Last Released: 11/10/23 Days Supply: 30 Rx Expiration Date: 11/02/24 Refills Remainin OPT LIDOCAINE 5% OINT (Status = ACTIVE) APPLY DIRECTED TOPICALLY TWICE DAILY NEEDED FOR MINOR SKIN WOUND PAIN Last Released: 05/27/23 Days Supply: 90 Rx Expiration Date: 05/27/24 Refills Remainin OPT LOSARTAN 25MG TAB (Status = ACTIVE) TAKE ONE TABLET BY MOUTH ONCE DAILY FOR BLOOD PRESSURE/HEART Last Released: 08/30/23 Days Supply: 90 Rx Expiration Date: 07/26/24 Refills Remainin OPT MONTELUKAST NA 10MG TAB (Status = ACTIVE) TAKE ONE TABLET BY MOUTH AT BEDTIME FOR ASTHMA Last Released: Days Supply: 90 Rx Expiration Date: 03/06/25 Refills Remainin Other medications previously dispensed in the last year: OPT ALBUTEROL 3/IPRATROP 0.5MG/3ML INHL 3ML (/30 Days Supply Last Released: 12/15/23) INHALE 1 VIAL (3ML) IN NEBULIZER EVERY 6 HOURS NEEDED FOR WHEEZING Assessment/Plan MAR 09, 2024: This is a 64 year old woman with a palpable discrete mass on her left forearm. By exam and US, this mass is likely a benign lipoma. This was discussed with the patient. Discussed with the patient that this mass is superficial and is likely a benign fatty growth or lipoma. On US, it appears likely to be a lipoma. This mass is non-tender. Discussed with the patient that this mass could be removed (with the procedure done under local anesthesia if she was amenable to that). The nature of the excisional procedure was described to the patient. Risks and benefits were discussed. Risks discussed include, but are not limited to, bleeding, infection, having a scar, pain, bruising, numbness, injury to nearby structures, recurrence, and need for further procedures. The patient understood and accepted the risks. All of her questions were answered to her satisfaction. However, I also discussed with the patient that the pains and paresthesias she is complaining of is likely unrelated to this mass. This mass is very superficial under the skin. It would not be really impinging on any nerves that affect the forearm and hand. Discussed that since this mass is superficial and likely a lipoma, removal of the mass would not eliminate the pains and symptoms in her left arm and hand or change her symptoms, and she should not expect this after excision of the mass. The patient was quite dismayed to hear this as she was counting on excision of the mass to relieve all her recurrent left forearm and left hand symptoms of pain, paresthesias, and occasional numbness. Discussed with the patient that the procedure to remove the mass would only remove the mass (which would get evaluated by Pathology) and not resolve her left arm and hand symptoms. I suspect that her recurrent symptoms are related to perhaps a pinched nerve in her neck given the relief that she gets with raising of her arm. To evaluate her symptoms, recommend that the patient have evaluation by Neurology. She would likely need other testing and imaging, such as with an MRI. This was discussed at length with the patient. All of her questions were answered to her satisfaction. Ultimately, the patient wanted to pursue neurologic evaluation as her left arm and left hand symptoms are the most troublesome to her. The patient will follow up with her PCP with regards to arranging for this. (She will return to this Clinic at another time after her neurologic evaluation.) 40 minutes were spent on reviewing the pertinent medical records, obtaining a history from the patient, performing an exam and assessment, counseling, answering questions, and shared decision-making. Dulce Maria Valdez MD Staff General Surgeon Medication Reconciliation: Outpatient: Has the patient been taking medications as documented in the EMLR? No: Discrepencies were identified. See below. Essential Medication List for Review used to complete this medication reconciliation. INCLUDED IN THIS LIST: Alphabetical list of active outpatient prescriptions dispensed from this [place] (local) and dispensed from another [place] or [facility] facility (remote) as well as inpatient orders (local, pending and active), local clinic medications, locally documented non-VA medications, and local prescriptions that have or been discontinued in the past 90 days. - Discrepancies were identified, addressed, and discussed with the patient/caregiver at this encounter. Discrepancies: Patient states that she takes potassium occasionally for leg cramps. She also takes her 's ropinirole at times for restless legs at night. She drinks Gatorade for the electrolytes - All changes in medications, including all non-VA/Herbal/OTC medications were entered into CPRS. - If there were any medications the patient should no longer take, they were discontinued. - The patient/caregiver was instructed to update this list, discard old lists, and take this list to the next appointment, whether with a VA or non-VA provider. JLV Link Data on this list may not be complete. Please check JLV. Allergies/ADRs (Tool #5) FACILITY ALLERGY/ADR -------- No Remote Allergy/ADR Data available for this patient [place] [facility] No Known Allergies Med Recon NoGlossary (Tool #1) INCLUDED IN THIS LIST: Alphabetical list of active outpatient prescriptions dispensed from this [place] (local) and dispensed from another [place] or [facility] facility (remote) as well as inpatient orders (local pending and active), local clinic medications, locally documented non-VA medications, and local prescriptions that have or been discontinued in the past 90 days. Non-VA Meds Last Documented On: Jul 26, 2023 NOTE The display of VA prescriptions dispensed from another [place] or [facility]D facility (remote) is limited to active outpatient prescription entries matched to National Drug File at the originating site and may not include some items such as investigational drugs, compounds, etc. NOT INCLUDED IN THIS LIST: Medications self-entered by the patient into personal health records (i.e. [employer]) are NOT included in this list. Non-VA medications documented outside this [place], remote inpatient orders (regardless of status) and remote clinic medications are NOT included in this list. The patient and provider must always discuss medications the patient is taking, regardless of where the medication was dispensed or obtained. OUTPT ACETAMINOPHEN 325MG TAB (Status = Active) TAKE TWO TABLETS BY MOUTH THREE TIMES DAILY NEEDED FOR PAIN Rx# [id number] Last Released: 11/25/23 Qty/Days Supply: 300/45 Rx Expiration Date: 11/21/24 Refills Remainin Indication: FOR PAIN OUTPT ALBUTEROL 3/IPRATROP 0.5MG/3ML INHL 3ML (Status = ) INHALE 1 VIAL (3ML) IN NEBULIZER EVERY 6 HOURS NEEDED FOR WHEEZING Rx# [id number] Last Released: 12/15/23 Qty/Days Supply: 120/30 Rx Expiration Date: 01/13/24 Refills Remainin Non-VA ALBUTEROL 90MCG (CFC-F) 200D ORAL INHL INHALE 1 PUFF BY MOUTH Medication prescribed by Non-VA provider. OUTPT ALBUTEROL 90MCG (CFC-F) 200D ORAL INHL (Status = Active) INHALE 2 PUFFS BY MOUTH EVERY 4 HOURS NEEDED FOR BREATHING Rx# [id number] Last Released: 08/30/23 Qty/Days Supply: Rx Expiration Date: 07/26/24 Refills Remainin Indication: FOR ASTHMA ATTACK OUTPT ASCORBIC ACID 500MG TAB (Status = Active) TAKE ONE TABLET BY MOUTH ONCE DAILY FOR VITAMIN/NUTRITION SUPPLEMENT Rx# [id number] Last Released: 08/30/23 Qty/Days Supply: 100/ Rx Expiration Date: 07/26/24 Refills Remainin Indication: FOR INADEQUATE VITAMIN C OUTPT ASPIRIN 81MG EC TAB (Status = Active) TAKE ONE TABLET BY MOUTH ONCE DAILY TO PREVENT STROKE/HEART ATTACK Rx# [id number] Last Released: 08/30/23 Qty/Days Supply: 120 Rx Expiration Date: 07/26/24 Refills Remainin Indication: FOR BLOOD CLOT PREVENTION FOLLOWING PCI OUTPT ATORVASTATIN CALCIUM 40MG TAB (Status = Active) TAKE ONE-HALF TABLET BY MOUTH ONCE DAILY FOR HIGH CHOLESTEROL Rx# [id number] Last Released: 02/22/24 Qty/Days Supply: 45 Rx Expiration Date: 07/26/24 Refills Remainin Indication: FOR HIGH CHOLESTEROL OUTPT BREZTRI 160/9/4.8MCG/ACT 120D ORAL INHL (Status = Active) INHALE 2 INHALATIONS BY MOUTH TWICE DAILY -RINSE MOUTH AFTER USE Rx# [id number] Last Released: 01/02/24 Qty/Days Supply: 05/17 Rx Expiration Date: 09/02/24 Refills Remainin OUTPT CELECOXIB 100MG CAP (Status = Active) TAKE ONE CAPSULE BY MOUTH ONCE DAILY FOR ARTHRITIS Rx# [id number] Last Released: 02/24/24 Qty/Days Supply: Rx Expiration Date: 02/23/25 Refills Remainin Indication: ARTHRITIS OUTPT CHOLECALCIF 50MCG (D3-2,000UNIT) TAB (Status = Active) TAKE ONE TABLET BY MOUTH ONCE DAILY FOR VITAMIN SUPPLEMENTATION Rx# [id number] Last Released: 08/30/23 Qty/Days Supply: 100/90 Rx Expiration Date: 07/26/24 Refills Remainin Indication: FOR VITAMIN D DEFICIENCY OUTPT FERROUS SULFATE 325MG TAB (Status = Active) TAKE ONE TABLET BY MOUTH TWICE A WEEK NEEDED TO SUPPLEMENT IRON Rx# [id number] Last Released: 08/30/23 Qty/Days Supply: Rx Expiration Date: 07/26/24 Refills Remainin Indication: TO SUPPLEMENT IRON Non-VA FLUTICASONE/UMECLID/VILANT (TRELEGY 200) INHL,ORAL INHALE BY MOUTH ONCE DAILY Medication prescribed by Non-VA provider. Non-VA FLUTICASONE/VILANTEROL (BREO) INHL,ORAL INHALE BY MOUTH ONCE DAILY Medication prescribed by Non-VA provider. OUTPT IPRATROPIUM BR 0.03% NASAL SPRAY (Status = Active) INSTILL 2 SPRAYS INTO EACH NOSTRIL TWICE DAILY FOR NASAL IRRITATION/CONGESTION Rx# [id number] Last Released: 11/10/23 Qty/Days Supply: Rx Expiration Date: 11/02/24 Refills Remainin OUTPT LIDOCAINE 5% OINT (Status = Active) APPLY DIRECTED TOPICALLY TWICE DAILY NEEDED FOR MINOR SKIN WOUND PAIN Rx# [id number] Last Released: 05/27/23 Qty/Days Supply: Rx Expiration Date: 05/27/24 Refills Remainin Indication: FOR MINOR SKIN WOUND PAIN OUTPT LOSARTAN 25MG TAB (Status = Active) TAKE ONE TABLET BY MOUTH ONCE DAILY FOR BLOOD PRESSURE/HEART Rx# [id number] Last Released: 08/30/23 Qty/Days Supply: Rx Expiration Date: 07/26/24 Refills Remainin Indication: FOR HIGH BLOOD PRESSURE OUTPT MONTELUKAST NA 10MG TAB (Status = Discontinued) TAKE ONE TABLET BY MOUTH AT BEDTIME FOR ASTHMA Rx# [id number] Last Released: 03/01/24 Qty/Days Supply: Rx Expiration Date: 12/14/24 Refills Remainin OUTPT MONTELUKAST NA 10MG TAB (Status = Active) TAKE ONE TABLET BY MOUTH AT BEDTIME FOR ASTHMA Rx# [id number] Last Released: Qty/Days Supply: Rx Expiration Date: 03/06/25 Refills Remainin SUPPLIES /gustabo/ DULCE MARIA VALDEZ MD SURGEON Signed: 03/12/2024 08:24 DULCE MARIA VALDEZ [facility]
--- OUTSIDE RECORDS SUMMARY | 2024-05-23 09:01 | XMS_ITS ---
Author Name [facility] [place] [facility] [place] Address [address] [place] [id number] Care Team Providers Care Mastic Sprayer Name Role Phone JUAN PABLOJULIO CÉSAR GOLDMAN Primary Care Provider Unavailabl e Insurance Providers: [...] Name Patient's Relationship to Policy [facility] FEDERAL PREFERRED PROVIDER ORGANIZAT ION (PPO) STAND AMEE SELF Apr 21, 1997 [id number] [phone] TINO DYE PATIENT BS MA FEP PREFERRED PROVIDER ORGANIZAT ION (PPO) STAND AMEE INDIV IDUAL Apr 21, 1997 [id number] TINO DYE PATIENT [place] PRESCRIPT ION [id number] 1 Apr 18, 2020 [id number] [phone] TINO DYE PATIENT [place] PRESCRIPT ION [id number] 1 Apr 18, 2020 [id number] [phone] TINO DYE PATIENT [place] FEPRX PLAN PRESCRIPT ION BCBS FEP Apr 18, 2010 [id number] TINO DYE PATIENT CAREMARK-F EP BCBS PRESCRIPT ION FEP CAREM ARK Apr 18, 2010 [id number] TINO DYE PATIENT OPTUM RX PRESCRIPT ION RX Apr 18, 2022 [id number] [phone] TINO DYE PATIENT [facility] USP Apr 18, 2020 USP [id number] TINO DYE PATIENT [facility] BRLUKE TON DAVE E Apr 18, 2020 [id number] [phone] TINO DYE PATIENT Selected Encounter This section includes the information on record at [place] for the Encounter. Date/Time Encounter Type Encounter Description Reason Provider Source Dec 23, 2023 08:00 AM HEARING AID FITTING/CHECKIN G AUDIOLOGY ICD-10-CM H90.3 Sensorineural hearing loss, bilateral RICE,KIMBERL Y KAYA E Encounter Template Text not used by [place] Assessments - Encounter Diagnoses This section includes the primary and secondary diagnoses documented for the Encounter. Date/Time Primary/Secondary Diagnosis Diagnosis Name Provider Source Dec 23, 2023 08:49 AM PRIMARY Sensorineural hearing loss, bilateral RICE,KIMBERL Y KAYA [facility] Dec 23, 2023 08:49 AM SECONDARY Encounter for fitting and adjustment [facility] hearing aid [facility] Dec 23, 2023 08:49 AM SECONDARY Tinnitus, bilateral RICE,KIMBERL Y KAYA [facility] Plan of Treatment: Future Appointments (+ 6 months) and Future Tests (+/- 45 days) The Plan of Treatment section includes future care activities for the patient from all [place] treatmentfacilities. This section includes future appointments and future orders which are active, pending or scheduled. Future Appointments This section includes appointments that were scheduled to occur 6 months from the date of the Encounter, up to a maximum of 20 appointments. The data comes from all [place] treatment facilities. Appointment Date/Time Appointment Type Appointme nt Facility Name Dec 27, 2023 10:30 AM AMBULATORY [facility] MEDICINE [facility] [place] [facility] Dec 29, 2023 08:00 AM AMBULATORY - REHAB MEDICIN E [facility] [place] [facility] Jan 16, 2024 10:45 AM AMBULATORY - MED[facility] Jan 17, 2024 08:00 AM AMBULATORY - MEDICINE [facility] [place] [facility] Jan 18, 2024 10:00 AM AMBULATORY - REHAB MEDICIN E [facility] [place] [facility] Jan 18, 2024 01:00 PM AMBULATORY - PSYCHIATRY [facility] Jan 24, 2024 08:00 AM AMBULATORY - MEDICINE [facility] [place] [facility] Jan 26, 2024 01:30 PM AMBULATORY - REHAB MEDICIN E [facility] [place] [facility] Jan 31, 2024 08:00 AM AMBULATORY - MEDICINE [facility] [place] [facility] Feb 09, 2024 01:30 PM AMBULATORY - REHAB MEDICIN E [facility] [place] [facility] Feb 20, 2024 01:00 PM AMBULATORY - PSYCHIATRY [facility] Feb 21, 2024 09:00 AM AMBULATORY - MEDICINE [facility] [place] [facility] Feb 23, 2024 10:30 AM AMBULATORY - MEDICINE [facility] [place] [facility] Mar 05, 2024 09:00 AM AMBULATORY - MEDICINE [facility] [place] [facility] Mar 07, 2024 10:00 AM AMBULATORY - REHAB MEDICIN E [facility] [place] [facility] Mar 07, 2024 10:30 AM AMBULATORY - NONE [facility] [place] [facility] Mar 09, 2024 09:15 AM AMBULATORY - MEDICINE [facility] [place] [facility] Mar 09, 2024 01:00 PM AMBULATORY - MEDICINE [facility] [place] [facility] Mar 27, 2024 01:00 PM AMBULATORY - PSYCHIATRY [facility] Apr 24, 2024 03:00 PM AMBULATORY - MEDICINE [facility] [place] [facility] Social History: Smoking Status (Most current) and Tobacco Use (All prior to encounter date) This section includes the most current, and the historical, smoking and tobacco- related health factors from the [place] facility where the Encounter took place. Current Smoking Status This section includes the most current smoking, or tobacco-related health factor, from the [place] facility where the Encounter took place. Date/Time Current Smoking Status Comment [facility] May 27, 2023 09:30 AM VA-TOBACCO FORMER USER [place] [facility] [place] [facility] Tobacco Use History This section includes a history of the smoking, or tobacco-related health factors, that were collected on or before the date of the Encounter. The data comes from the [place] facility where the Encounter took place. Date/Time Smoking Status/Tobac co Use Comment Facility May 27, 2023 09:30 AM VA-TOBACCO QUIT 15 YRS OR MORE [place] [facility] [place] [facility] Feb 02, 2022 08:30 AM VA-TOBACCO FORMER USER [place] [facility] [place] [facility] Feb 02, 2022 08:30 AM VA-TOBACCO QUIT 15 YRS OR MORE [place] [facility] [place] [facility] Dec 09, 2020 10:00 AM VA-TOBACCO FORMER USER [place] [facility] [place] [facility] Dec 09, 2020 10:00 AM VA-TOBACCO QUIT 15 YRS OR MORE [place] [facility] [place] [facility] Nov 28, 2019 11:26 AM VA-TOBACCO FORMER USER [place] [facility] [place] [facility] Nov 28, 2019 11:26 AM VA-TOBACCO QUIT 15 YRS OR MORE [place] [facility] [place] [facility] Oct 23, 2018 02:51 PM VA-TOBACCO FORMER USER [place] [facility] [place] [facility] Oct 23, 2018 02:51 PM VA-TOBACCO QUIT 15 YRS OR MORE [place] [facility] [place] [facility] Oct 17, 2017 09:14 AM QUIT TOBACCO USE > 7 YEARS AGO [place] [facility] [place] [facility] September 15, 2016 08:50 AM QUIT TOBACCO USE > 7 YEARS AGO [place] [facility] [place] [facility] Jul 02, 2015 09:15 AM QUIT TOBACCO USE > 7 YEARS AGO non tobacco user since 1998 [place] [facility] [place] [facility] Advance Directives: All historical and current Section Date Range: From patient's date of to the date document was created. This section includes ALL of a patient's completed or amended VA Advance and Rescinded Directives. The entries below indicate that a directive exists for the patient, but an actual copy is not included with this document. The data comes from all [place] facilities. Date Advance Directives Provider Source Dec 21, 2023 ADVANCE DIRECTIVE DESIREE OLIVAREZ [place] [facility] Encounter Notes: All associated encounter notes This section contains the clinical notes associated to the Encounter. Date/Time Encounter Note(s) Provider Source Dec 23, 2023 07:15 AM AUDIOLOGY E & M NOTE: LOCAL TITLE: AUDIOLOGY CLINIC STANDARD TITLE: AUDIOLOGY E & M NOTE DATE OF NOTE: DEC 23, 2023@07:15 ENTRY DATE: DEC 23, 2023@07:15:17 AUTHOR: SAMIR RICE COSIGNER: URGENCY: STATUS: COMPLETED Dx CODE: H90.3-Sensorineural Hearing Loss, Bilateral; Z46.1- Encounter for Fitting/Adjusting Hearing Aid(s) APPOINTMENT TYPE: Hearing Re-Evaluation and Hearing Aid Programming BACKGROUND/HISTORY: [place] was seen 12/23/23 for a hearing re-evaluation and hearing aid programming appointment, unaccompanied. Her last hearing evaluation was a C&P on 05/26/22 and she believes her hearing has declined since then, as she has increased difficulty in daily conversation. She has also noticed a worsening in her bilateral tinnitus. She reports feeling dizzy if she closes her eyes in the shower. She was fit with ReSound One 61 mini PRATEEK-Rs on 01/27/22. She reports these devices do not help with her tinnitus. ASSESMENT: Results of today's testing are as follows: Otoscopy was WNL bilaterally. Normal tympanograms obtained bilaterally. Pure tone audiometric testing under headphones in the right ear revealed hearing WNL through 1 kHz sloping to a severe SNHL. Testing in the left ear revealed hearing WNL through 2 kHz sloping to a severe SNHL. Stable asymmetry at 3 kHz, right ear poorer. SRT WORD RECOGNITION (Recorded [place] CNC 1/2 Word List) Right 20dBHL 68% @ 75dBHL/45dBm Left 15dBHL 72% @ 80dBHL/50dBm No significant changes were found when compared to the 05/26/22 audiological evaluation. HEARING AID CHECK: Both hearing aids were cleaned and checked, and found to be in good working order. Domes, wax guards, and retention tails were replaced. Hearing aids were adjusted to today's test results. She will try out the new settings and return as needed. *PTM was offered to , however she declined. EDUCATION/COUNSELING: The patient was counseled re: today's hearing test results. He demonstrated satisfactory understanding of the education and plan, and was given the opportunity to ask questions throughout today's visit. PLAN: 1. Follow-up for hearing aid programming as needed. 2. Hearing re-evaluation in 1-2 years, or sooner if change in hearing occurs. * Patient Education Education provided on the following topics: Hearing test results Education provided to: P Response to Education: VU Gallo Patient P Family F Significant Other SO Verbalizes Understanding VU Returns Demonstration RD Performs Independently PI Lacks Comprehension LC Refused Education RE Not Applicable NA * /gustabo/ SAMIR RICE STAFF HOMOGENIZER OPERATOR Signed: 12/23/2023 08:49 SAMIR RICE [facility] Dec 21, 2023 09:30 AM ADVANCE DIRECTIVE: LOCAL TITLE: ADVANCE DIRECTIVE STANDARD TITLE: ADVANCE DIRECTIVE DATE OF NOTE: DEC 21, 2023@09:30 ENTRY DATE: DEC 21, 2023@09:30:33 AUTHOR: DESIREE OLIVAREZ EXP COSIGNER: URGENCY: STATUS: COMPLETED * [ ]Advance Directive executed with . [X]Patient brought in his/her own Advance Directive. Scanned Advance Directive or Advance Directive/AOD Flowsheet is located in [employer]. /gustabo/ DESIREE OLIVAREZ [employer] Signed: 12/21/2023 09:30 DESIREE OLIVAREZ [facility]
--- OUTSIDE RECORDS SUMMARY | 2024-05-23 09:02 | XMS_ITS ---
Author Name [facility] [facility] [place] [facility] [place] Address [address] [place] [address] Care Team Providers Care Cotton Roll Packer Name Role Phone JUAN PABLOSYBILA Primary Care Provider Unavailabl e Insurance Providers: [...] Name Patient's Relationship to Policy Stoddard HANNAH [facility] FEDERAL PREFERRED PROVIDER ORGANIZAT ION (PPO) STAND AMEE SELF Apr 21, 1997 [id number] [phone] TINO DYE PATIENT BS MA FEP PREFERRED PROVIDER ORGANIZAT ION (PPO) STAND AMEE INDIV IDUAL Apr 21, 1997 [id number] TINO DYE PATIENT [employer] PRESCRIPT ION [id number] 1 Apr 18, 2020 [id number] [phone] TINO DYE PATIENT [employer] PRESCRIPT ION [id number] 1 Apr 18, 2020 [id number] TINO DYE PATIENT [place] FEPRX PLAN PRESCRIPT ION BCBS FEP Apr 18, 2010 [id number] TINO DYE PATIENT CAREMARK-F EP BCBS PRESCRIPT ION FEP CAREM ARK Apr 18, 2010 [id number] TINO DYE PATIENT OPTUM RX PRESCRIPT ION RX Apr 18, 2022 [id number] TINO DYE PATIENT [facility] USP Apr 18, 2020 [id number] [id number] [phone] TINO DYE PATIENT [facility] BRIGH TON DAVE E Apr 18, 2020 [id number] [phone] TINO DYE PATIENT Selected Encounter This section includes the information on record at [place] for the Encounter. Date/Time Encounter Type Encounter Description Reason Provider Source Nov 08, 2023 01:30 PM OFFICE O/P EST MOD 30 MIN PODIATRY ICD-10-CM S93.611A Sprain of tarsal ligament of right foot, initial encounter MICHEL ROJO [facility] Encounter Template Text not used by [place] Assessments - Encounter Diagnoses This section includes the primary and secondary diagnoses documented for the Encounter. Date/Time Primary/Secondary Diagnosis Diagnosis Name Provider Source Nov 08, 2023 04:29 PM PRIMARY Sprain of tarsal ligament of right foot, initial encounter MICHEL ROJO [facility] Plan of Treatment: Future Appointments (+ 6 [...] Date/Time Appointment Type Appointme nt Facility Name Nov 21, 2023 09:00 AM [facility] Dec 02, 2023 01:00 PM AMBULATORY - PSYCHIATRY [facility] Dec 23, 2023 08:00 AM [facility] Dec 27[facility] 2023 10:30 AM [facility] [place] [facility] Dec 29, 2023 08:00 AM AMBULAT[facility] [place] [facility] Jan 16, 2024 10:45 AM AMBULAT[facility]ICINE [facility] Jan 17, 2024 08:00 AM [facility] [place] [facility] Jan 18, 2024 10:00 AM AMBULATORY [facility] [place] [facility] Jan 18, 2024 01:00 PM AMBULATORY - PSYCHIATRY [facility] Jan 24, 2024 08:00 AM [facility] [place] [facility] Jan 26, 2024 01:30 PM AMBULATORY [facility] [place] [facility] Jan 31, 2024 08:00 AM AMBULATORY [facility]IC[facility] [place] [facility] Feb 09, 2024 01:30 PM AMBULATORY - [facility]ICIN [facility] [place] [facility] Feb 20, 2024 01:00 PM AMBULATORY - PSYCHIATRY [facility] Feb 21, 2024 09:00 AM [facility]ORY [facility] [place] [facility] Feb 23, 2024 10:30 AM AMBULATORY [facility]IC[facility] [place] [facility] Mar 05, 2024 09:00 AM AMBULATORY [facility] MEDICINE [facility] [place] [facility] Mar 07, 2024 10:00 AM AMBULATORY - [facility]ICIN [facility] [place] [facility] Mar 07, 2024 10:30 AM AMBULATORY - NONE [facility] [place] [facility] Mar 09, 2024 09:15 AM AMBULATORY [facility] MEDIC[facility] [place] [facility] Vital Signs: All taken on the encounter date This section contains inpatient and outpatient Vital Signs collected on the date of the Encounter. Date/Time Temperature Pulse Blood Pressure Respiratory Rate SP02 Pain Height Weight Body Mass Index Source Nov 08, 2023 03:10 PM 98 64 153/79 18 95 [facility] [place] [facility] Social History: Smoking Status (Most current) and Tobacco Use (All prior to encounter date) This section includes the most current, and the historical, smoking and tobacco- related health factors from the [place] facility where the Encounter took place. Current Smoking Status This section includes the most current smoking, or tobacco-related health factor, from the [place] facility where the Encounter took place. Date/Time Current Smoking Status Comment Becka hi May 27, 2023 09:30 AM VA-TOBACCO FORMER USER [place] [facility] [place] [facility] Tobacco Use History This section includes a history of the smoking, or tobacco-related health factors, that were collected on or before the date of the Encounter. The data comes from the [place] facility where the Encounter took place. Date/Time Smoking Status/Tobac co Use Comment Facility May 27, 2023 09:30 AM VA-TOBACCO QUIT 15 YRS OR MORE [facility] [place] [facility] Feb 02, 2022 08:30 AM VA-TOBACCO FORMER USER [place] [facility] [place] [facility] Feb 02, 2022 08:30 AM VA-TOBACCO QUIT 15 YRS OR MORE [facility] [place] [facility] Dec 09, 2020 10:00 AM VA-TOBACCO FORMER USER [facility] [place] [facility] Dec 09, 2020 10:00 AM VA-TOBACCO QUIT 15 YRS OR MORE [facility] [place] [facility] Nov 28, 2019 11:26 AM VA-TOBACCO FORMER USER [facility] [place] [facility] Nov 28, 2019 11:26 AM VA-TOBACCO QUIT 15 YRS OR MORE [facility] [place] [facility] Oct 23, 2018 02:51 PM VA-TOBACCO FORMER USER [facility] [place] [facility] Oct 23, 2018 02:51 PM VA-TOBACCO QUIT 15 YRS OR MORE [facility] [place] [facility] Oct 17, 2017 09:14 AM QUIT TOBACCO USE > 7 YEARS AGO [facility] [place] [facility] September 15, 2016 08:50 AM QUIT TOBACCO USE > 7 YEARS AGO [facility] [place] [facility] Jul 02, 2015 09:15 AM QUIT TOBACCO USE > 7 YEARS AGO non tobacco user since 1998 [facility] [place] [facility] Advance Directives: All historical and current Section [...] Dec 21, 2023 ADVANCE DIRECTIVE DESIREE OLIVAREZ [facility] Radiology Reports: +/- 30 days of the [...] the Encounter. The data comes from all [place] treatment facilities. Date/Time Radiology Report Provider Source Nov 08, 2023 02:04 PM CALCANEOUS 2 VIEWS: KENY DYE [id number] -[id number] F Exm Date: NOV 08, 2023@14:04 Req Phys: MICHEL ROJO Loc: CWM/NO/PODIATRY A (Req'g Loc) Img Loc: [facility]/BUILDING 1 Service: Unknown [facility] , (Case [id number] COMPLETE) CALCANEOUS 2 VIEWS (RAD Detailed) CPT:22365 Proc Modifiers : RIGHT Reason for Study: pain heel 9 mons Clinical History: Report Status: Verified Date Reported: NOV 08, 2023 Date Verified: NOV 08, 2023 Invasive Manager E-Sig:/ES/EZ DELGADO JR Report: Study: AP and lateral views of the right calcaneus. Comparison: None. Findings: No abnormal soft tissue swelling is identified. No radiopaque foreign body is identified. The Achilles tendon stripe appears intact and normal. There is a small inferior calcaneal spur present. The calcaneus is otherwise unremarkable. The plantar arch appears maintained on these nonweightbearing views. The bony mineralization appears normal. No bony fracture, dislocation or subluxation is identified. The visualized joint spaces are intact. Impression: No acute abnormality identified with small inferior calcaneal spur, as described above. Primary Diagnostic Code: No immediate attention required Primary Interpreting Staff: EZ DELGADO JR, Radiologist (Invasive Manager) /EZ LARA JR [facility] [place] [facility] Encounter Notes: All associated encounter notes This section contains the clinical notes associated to the Encounter. Date/Time Encounter Note(s) Provider Source Nov 08, 2023 01:56 PM PODIATRY NOTE: LOCAL TITLE: PODIATRY NOTE STANDARD TITLE: PODIATRY NOTE DATE OF NOTE: NOV 08, 2023@13:56 ENTRY DATE: NOV 08, 2023@13:56:34 AUTHOR: MICHEL ROJO EXP COSIGNER: URGENCY: STATUS: COMPLETED Podiatry [facility] New Consult Provider: Michel Rojo Date: NOV 08, 2023 KENY CERON MARNIE [address] [place], [place] [address] Jan 63 FEMALE [id number] PATIENT PHONE - NONE FOUND Primary Care: JULIO CÉSAR ALMEIDA Visit concern: 63-year-old female with history of bilateral plantar fasciitis more so diagnosed by other providers in who had chronic heel pain in both feet for many years 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 She has been treated with orthotics. She states that when she retired her symptoms improved significantly but approximately 9 months ago she redeveloped pain in the right heel and has had significant and severe pain in this area since. She reports inability to bear weight on the heel for at least 20 to 30 minutes in the morning and then able to put her foot down but continues to have pain throughout the day pain again intensifies after she has been off of it. She also has a history of significant low back pain to the extent that when she leaned over the sink in the morning to brush her teeth and then stand back up she has to push against the sink in order to avoid significant pain in the back. She has tried CBD oil on her heel she has tried diclofenac gel applied up to 3 or 4 times a day of the heel and has orthotics none of which are currently benefiting her. 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] Surgical Hx: No foot or ankle prior surgical history, no history of ankle or foot trauma Medical problems active: Active Problem Lumbago M54.50 07/26/2023 JULIO CÉSAR ALMEIDA Solitary nodule of lung R91.1 04/29/2022 EBONI S[facility] Exposure to potentially hazardous s 03/26/2022 [facility] Perimenopausal atrophic vaginitis N 03/26/2022 [facility] Former smoker Z87.891 02/02/2022 EBONI SONG COPD - Chronic Obstructive Pulmonar 02/02/2022 EBONI SONG Posttraumatic stress disorder F43.1 04/01/2020 DIONNA NICHOLS Myalgia M79.10 11/28/2019 [facility] Bilateral tinnitus H93.13 07/02/2015 [facility] Shoulder pain M25.519 07/02/2015 [facility] Overweight E66.3 07/02/2015 [facility] PE - Pulmonary embolism Z86.711 07/02/2015 [facility] Menopausal flushing N95.1 07/02/2015 [facility] Female urinary stress incontinence 07/02/2015 [facility] Active mediciation: Active Outpatient Medications (including Supplies): Active Outpatient Medications Status 1) ALBUTEROL 90MCG (CFC-F) 200D ORAL INHL INHALE 2 PUFFS ACTIVE BY MOUTH EVERY 4 HOURS NEEDED FOR BREATHING 2) ASCORBIC ACID 500MG TAB TAKE ONE TABLET BY MOUTH ONCE ACTIVE DAILY FOR VITAMIN/NUTRITION SUPPLEMENT 3) ASPIRIN 81MG EC TAB TAKE ONE TABLET BY MOUTH ONCE ACTIVE DAILY TO PREVENT STROKE/HEART ATTACK 4) ATORVASTATIN CALCIUM 40MG TAB TAKE ONE-HALF TABLET BY ACTIVE MOUTH ONCE DAILY FOR HIGH CHOLESTEROL 5) BREZTRI 160/9/4.8MCG/ACT 120D ORAL INHL INHALE 2 ACTIVE INHALATIONS BY MOUTH TWICE DAILY -RINSE MOUTH AFTER USE 6) CHOLECALCIF 50MCG (D3-2,000UNIT) TAB TAKE ONE TABLET ACTIVE BY MOUTH ONCE DAILY FOR VITAMIN SUPPLEMENTATION 7) FERROUS SULFATE 325MG TAB TAKE ONE TABLET BY MOUTH ACTIVE TWICE A WEEK NEEDED TO SUPPLEMENT IRON 8) IPRATROPIUM BR 0.03% NASAL SPRAY INSTILL 2 SPRAYS ACTIVE INTO EACH NOSTRIL TWICE DAILY FOR NASAL IRRITATION/CONGESTION 9) LIDOCAINE 5% OINT APPLY DIRECTED TOPICALLY TWICE ACTIVE DAILY NEEDED FOR MINOR SKIN WOUND PAIN 10) LOSARTAN 25MG TAB TAKE ONE TABLET BY MOUTH ONCE DAILY ACTIVE FOR BLOOD PRESSURE/HEART Active Non-VA Medications Status 1) Non-VA ALBUTEROL 90MCG (CFC-F) 200D ORAL INHL 1 PUFF ACTIVE BY MOUTH 2) Non-VA FLUTICASONE/UMECLID/VILANT (TRELEGY 200) ACTIVE INHL,ORAL BY MOUTH 3) Non-VA FLUTICASONE/VILANTEROL (BREO) INHL,ORAL BY ACTIVE MOUTH ONCE DAILY 13 Total Medications Allergies: Data on this list may not be complete. Please check [facility] ALLERGY/ADR -------- No Remote Allergy/ADR Data available for this patient [place] [facility] No Known Allergies Lab data: CBC TREND Collection DT Spec WBC RBC HGB HCT MCV MCH PLT 06/29/2021 10:17 BLOOD 4.93 5.01 14.8 46.1 H 92.0 29.5 244 07/24/2020 07:58 BLOOD 4.38 L 5.01 15.2 46.3 H 92.4 30.3 250 02/24/2017 07:03 BLOOD 4.75 4.81 14.5 43.9 91.3 30.1 239 -- -- PT INR TREND No data available -- Imaging Reports: Report Status: Verified Date Reported: FEB 03, 2022 Date Verified: FEB 03, 2022 Invasive Manager E-Sig: Report: SPINE LUMBOSACRAL MIN 2 VIEWS History: low back pain Comparison: None. Findings: There are 5 [id number] lumbar vertebrae. Vertebral body heights are normal. No listhesis. Degenerative changes characterized by disc space narrowing and osteophytosis,mild L1-S1 . Facet and spinous process arthrosis in the lower lumbar spine. No radiopaque foreign bodies. Impression: 1. Lumbar spine- bone mineral density is considered osteopenic, based on WHO criteria. 2. Left hip- bone mineral density is considered osteopenic, based on WHO criteria. Reference values: T Score > -1 considered normal T Score between -1 to -2.5 = Osteopenia T Scrore < -2.5 = Osteoporosis READING PHYSICIAN: Tiffanie Taveras M.D. -[id number] 04/27/2022 6:40 EST [facility] Burppleradiology Program [phone] (For Medical Practitioner Use Only) Attention Patients / Veterans: If you have questions or concerns about these test results, please contact your ordering provider or primary care team. Primary Diagnostic Code: SIGNIFICANT ABNORMALITY, ATTN NEEDED REVIEW OF SYSTEMS: CONSTITUTIONAL: No fever/chills, unintended wgt loss. SKIN: No rashes, pruritis, new/changed skin lesions. ENDOCRINE: No excess thirst, heat/cold intolerance ALLERGY/IMMUNE: No recurrent infections. HEMATOL/LYMPH: No hx of abnl bleeding/bruising, no night sweats. EYES: No change in vision, no eye pain. ENMT: no tinnitus and hearing loss, has had audiology exam. No nasal rachel/rhinorrhea, sore throat/gums/mouth, difficulty swallowing. CARDIOVASCULAR: No chest pain, palpitations, no orthopnea/pnd. RESPIRATORY: No dyspnea at rest or with exertion. No cough, wheezing GI: No n/v, abd pain, change in bowel habits, blood in stool, melena. : No dysuria, hematuria, frequency. No difficulty starting the stream, hesitancy, nocturia. No difficulty achieving or maintaining erection. MSC-SKEL: No arthralgias, myalgias. NEURO: No vertigo, espinosa, numbness/weakness, unstable balance or falls. PSYCHIATRIC: no depressed mood, racing thought, anxiety, or difficulty sleeping General exam: Patient is a 63-year-old female who was awake alert oriented x3 independently ambulatory casually dressed neatly groomed NAD. Bilateral pulses are palpable DP PT Skin is warm pink and well hydrated Muscle bulk and tone is normal bilateral bilateral Sensation to light touch pain and temperature is normal Tarsal tunnel percussion bilaterally is unremarkable Lower leg ankle hindfoot midfoot and forefoot alignment is all normal though patient has well-formed arch it is not pathologically cavus there are no hallux varus or valgus deformities no hammertoe deformities present. There is no soft tissue swelling present in the right heel there is no palpable plantar fascial deficit or plantar fascial fibromatosis appreciated. Side to side compression of the calcaneal tuber does not produce pain[stress fracture] Tarsal tunnel percussion is noted above is unremarkable Palpation to the central heel is acutely painful Palpation to the posterior medial lateral and central areas of the Achilles insertion are unremarkable and nontender The Achilles tendon itself is normal and without anatomic anomolly Staight leg raise and df foot produces pain into the heel and also felt down the leg. Report Status: Verified Date Reported: NOV 08, 2023 Date Verified: NOV 08, 2023 [email or web address] E-Sig:/ES/EZ DELGADO JR Report: Study: AP and lateral views of the right calcaneus. Comparison: None. Findings: No abnormal soft tissue swelling is identified. No radiopaque foreign body is identified. The Achilles tendon stripe appears intact and normal. There is a small inferior calcaneal spur present. The calcaneus is otherwise unremarkable. The plantar arch appears maintained on these nonweightbearing views. The bony mineralization appears normal. No bony fracture, dislocation or subluxation is identified. The visualized joint spaces are intact. Impression: No acute abnormality identified with small inferior calcaneal spur, as described above. Primary Diagnostic Code: No immediate attention required Primary Interpreting Staff: EZ DELGADO JR, Radiologist (Invasive Manager) /CRYSTAL Impression: -Although condition has features of possible S1 radiculopathy, the majority of the clinical findings suggest acute on chronic Planter fasciitis. Patient already has custom and very supportive orthotics that are appropriate and not harmful in nature, she does not have significant other biomechanical faults, she has had physical therapy in terms of stretching and other soft tissue mobilization treatments without benefit. -It is reasonable to consider a steroid injection. Plan: -Discussed steroid injection into the right heel plantar fascia with about 80% success rate in terms of at least a 50% reduction symptoms and a 10% possibility of complete resolution with a 10% risk of no benefit at all. There is about a 1 and 1000 risk of abrupt and acute plantar fascial rupture after steroid injection otherwise risks include toes attendant with injection such as bruising and irritation at the site. After discussing this with patient patient would like to proceed -And consent was obtained for injection right heel plantar fascia steroid -Timeout performed patient's FULL name, date of , FULL Social Security number, procedure identification, laterality, medication review, allergy review, all verified with patient and correlated to the medical record AND CONSENT prior to start of procedure. Staff present during timeout: [place] Carlos -Right heel was prepped with alcohol -1 mL of Kenalog 40 triamcinolone acetonide 40 mg/mL, and 4 mg/mL of dexamethasone 1 mL, and 1 mL of 2% lidocaine plain for a total volume of 3 mL injected to the right heel -Patient monitored for 10 minutes after procedure -Patient cautioned to avoid heavy lifting pushing or pulling of anything over 50 pounds, to avoid any high impact aerobic activities but may engage in normal walking and other ADLs. Vital signs taken post discharge stable Date Vital Measurement Qualifiers 11/08/2023 15:10 Temp F (C) 98 (36.7) Pulse 64 Respir 18 BP 153/79 POx (L/Min)(%) 95 At Rest Follow-up: Patient will follow up via iGo within 5 to 7 days /gustabo/ MICHEL ROJO DPM PODIATRY ATTENDING Signed: 11/08/2023 16:29 MICHEL ROJO [facility]
--- OUTSIDE RECORDS SUMMARY | 2024-05-23 09:02 | XMS_ITS ---
Author Name [facility] [facility] [place] Address [address] [place] [id number] Care Team Providers Care Mutton Puncher Name Role Phone JUAN PABLOJULIO CÉSAR GOLDMAN [...] Name Patient's Relationship to Policy Stoddard [facility] FEDERAL PREFERRED PROVIDER ORGANIZAT ION (PPO) STAND AMEE SELF Apr 21, 1997 [id number] TINO DYE PATIENT BS MA FEP PREFERRED PROVIDER ORGANIZAT ION (PPO) STAND AMEE INDIV IDUAL Apr 21, 1997 [id number] TINO DYE PATIENT CAREMARK PRESCRIPT ION [id number] Apr 18, 2020 [id number] TINO DYE PATIENT [place]ARK PRESCRIPT ION [id number] 1 Apr 18, 2020 [id number] TINO DYE PATIENT [place]ARK FEPRX PLAN PRESCRIPT ION BCBS FEP Apr 18, 2010 [id number] TINO DYE PATIENT CAREMARK-F EP BCBS PRESCRIPT ION FEP CAREM ARK Apr 18, 2010 [id number] TINO DYE PATIENT OPTUM RX PRESCRIPT ION RX Apr 18, 2022 [id number] TINO DYE PATIENT [facility] USFHP Apr 18, 2020 [id number] TINO DYE PATIENT [facility] BRLUKE TON DAVE E Apr 18, 2020 [id number] [phone] TINO DYE PATIENT Selected Encounter This section includes the information on record at [place] for the Encounter. Date/Time Encounter Type Encounter Description Reason Provider Source Jan 24, 2024 08:00 AM MANUAL THERAPY 1/> [facility] RN BSN ICD-10-CM M54.59 Other low back pain PETER JEFFERS [facility] Encounter Template Text not used by [place] Assessments - Encounter Diagnoses This section includes the primary and secondary diagnoses documented for the Encounter. Date/Time Primary/Secondary Diagnosis Diagnosis Name Provider Source Jan 24, 2024 08:29 AM PRIMARY Other low back pain PETER JEFFERS [facility] Plan of Treatment: Future Appointments (+ 6 months) and Future Tests (+/- 45 days) The Plan of Treatment section includes future care activities for the patient from all [place] treatmentfacilities. This section includes future appointments and future orders which are active, pending or scheduled. Future Appointments This section includes appointments that were scheduled to occur 6 months from the date of the Encounter, up to a maximum of 20 appointments. The data comes from all [place] treatment facilities. Appointment Date/Time Appointment Type Appointme nt Facility Name Jan 26, 2024 01:30 PM [facility] [place] [facility] Jan 31, 2024 08:00 AM [facility] Feb 09, 2024 01:30 PM AMBULATORY - [place] [facility] [place] [place] [facility] Feb 20, 2024 01:00 PM AMBULATORY - PSYCHIATRY [facility] Feb 21, 2024 09:00 AM [facility] [place] [facility] Feb 23, 2024 10:30 AM AM[facility]ULATORY [facility] MEDIC[place] [facility] [place] [facility] Mar 05, 2024 09:00 AM AMBULATORY - MEDICINE [facility] [place] [facility] Mar 07, 2024 10:00 AM AMBULATORY - RE[facility]AB [facility]ICIN [place] [facility] [place] [facility] Mar 07, 2024 10:30 AM AMBULATORY - NONE [facility] [place] [facility] Mar 09, 2024 09:15 AM AMBULATORY - MEDICINE [place] [facility] [place] [facility] Mar 09, 2024 01:00 PM AMBULATORY - MEDICINE [place] [facility] [place] [facility] Mar 27, 2024 01:00 PM AMBULATORY - PSYCHIATRY [facility] Apr 24, 2024 03:00 PM AMBULATORY - MEDICINE [place] [facility] [place] [facility] May 01, 2024 02:00 PM AMBULATORY - PSYCHIATRY [facility] May 18, 2024 10:00 AM AMBULATORY - MEDICINE [place] [facility] [place] [facility] May 29, 2024 01:00 PM AMBULATORY - PSYCHIATRY [facility] May 30, 2024 01:00 PM AMBULATORY - REHAB MEDICIN [place] [facility] [place] [facility] Social History: Smoking Status (Most current) and Tobacco Use (All prior to encounter date) This section includes the most current, and the historical, smoking and tobacco- related health factors from the NE facility where the Encounter took place. Current Smoking Status This section includes the most current smoking, or tobacco-related health factor, from the NE facility where the Encounter took place. Date/Time Current Smoking Status Comment [facility] May 27, 2023 09:30 AM VA-TOBACCO FORMER USER [facility] Tobacco Use History This section includes a history of the smoking, or tobacco-related health factors, that were collected on or before the date of the Encounter. The data comes from the NE facility where the Encounter took place. Date/Time Smoking Status/Tobac co Use Comment Facility May 27, 2023 09:30 AM VA-TOBACCO QUIT 15 YRS OR MORE [place] [facility] [place] [facility] Feb 02, 2022 08:30 AM VA-TOBACCO FORMER USER [place] [facility] [place] [facility] Feb 02, 2022 08:30 AM VA-TOBACCO QUIT 15 YRS OR MORE [place] [facility] [place] [facility] Dec 09, 2020 10:00 AM VA-TOBACCO FORMER USER [place] [facility] [place] [facility] Dec 09, 2020 10:00 AM VA-TOBACCO QUIT 15 YRS OR MORE [place] [facility] [place] [facility] Nov 28, 2019 11:26 AM VA-TOBACCO FORMER USER [place] [facility] [place] [facility] Nov 28, 2019 11:26 AM VA-TOBACCO QUIT 15 YRS OR MORE [place] [facility] [place] [facility] Oct 23, 2018 02:51 PM VA-TOBACCO FORMER USER [place] [facility] [place] [facility] Oct 23, 2018 02:51 PM VA-TOBACCO QUIT 15 YRS OR MORE [place] [facility] [place] [facility] Oct 17, 2017 09:14 AM QUIT TOBACCO USE > 7 YEARS AGO [place] [facility] [place] [facility] September 15, 2016 08:50 AM QUIT TOBACCO USE > 7 YEARS AGO [place] [facility] [place] [facility] Jul 02, 2015 09:15 AM QUIT TOBACCO USE > 7 YEARS AGO non tobacco user since 1998 [facility] Advance Directives: All historical and current Section Date Range: From patient's date of to the date document was created. This section includes ALL of a patient's completed or amended [place] Advance and Rescinded Directives. The entries below indicate that a directive exists for the patient, but an actual copy is not included with this document. The data comes from all [place] facilities. Date Advance Directives Provider Source Dec 21, 2023 ADVANCE DIRECTIVE DESIREE OLIVAREZ [place] [facility] [place] [facility] Encounter Notes: All associated encounter notes This section contains the clinical notes associated to the Encounter. Date/Time Encounter Note(s) Provider Source Jan 24, 2024 08:09 AM CHIROPRACTIC NOTE: LOCAL TITLE: CHIROPRACTOR PROGRESS NOTE STANDARD TITLE: CHIROPRACTIC NOTE DATE OF NOTE: JAN 24, 2024@08:09 ENTRY DATE: JAN 24, 2024@08:09:16 AUTHOR: PETER JEFFERS EXP COSIGNER: URGENCY: STATUS: COMPLETED WALKERKENY is a 63 DECLINED TO ANSWER FEMALE with prior history of COMBAT SERVICE INDICATED: No POS: PERIOD OF SERVICE - OTHER OR NONE SERVICE BRANCH: Service Connected Disabilities with % Eligibility: Active Problem Lumbago M54.50 07/26/2023 JULIO CÉSAR [...] Female urinary stress incontinence 07/02/2015 [facility] Past Surgeries: HX R shoulder injury and had PT HX Osteopenia Injection with cortisone into the heel of R foot for calcaneal spur Surgeries - None [facility] with C/C of low back pain, bilat. After the last visit her low back is improving. she felt relief for a couple of days. She reports lbp when folding laundry which involves reaching down and pulling up ----- She C/O Numbness in R anterior thigh Vet rates the pain on the NPRS today 9/10 but now a 7/10 Onset: couple of years ago during heavy lifting at her work; one time she twisted to change directions and felt a shooting pain. The pain resolved after a couple of days with heating pad and Voltarin, Biofreeze application. Palliative: warm shower, Tylenol on occasion Provocative: bending, laundry; bending over sink; stretching hursts Timing: feels good in morning Prior treatment: last year Physical therapy. 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 Patient denies bowel/bladder dysfunction saddle anesthesia, recent fevers, infections, night sweats, unexplained weight loss, dysphagia, dysarthria, numbness, diploplia Reviewed Radiologist's reports: FEB 03, 2022 Report: SPINE LUMBOSACRAL MIN 2 VIEWS History: low back pain Comparison: None. Findings: There are 5 [id number] lumbar vertebrae. Vertebral body heights are normal. No listhesis. Degenerative changes characterized by disc space narrowing and osteophytosis,mild L1-S1 . Facet and spinous process arthrosis in the lower lumbar spine. No radiopaque foreign bodies. EXAM Patient enters clinic FWB without need of assistive device - without signs of acute distress, antalgia, or gait alteration Patient appears to be well nourished, is well groomed, pleasant, cooperative in NAD, gait and station unremarkable. AAOx3, speech is fluent. Ramos's: Neg bilat Rhombergs no sway Toe walk/Heel walk General exam findings Cursory PE demonstrates no acute or emergent health conditions. No signs of acute pulmonary distress, breathing is steady and non-labored. No distal edema or signs of peripheral circulatory distress. No saddle paresthesia and no acute bowel or bladder dysfunction. Active CERVICAL ROM NOT perforemd largely WNL limited and provocative into: Extension Flexion Lateral Bending Rotation UE Motor strength graded 5/5 NOT perforemd Sensation grossly intact to light touch DTRs 2+ biceps triceps brachioradialis Cervical Orthopedic Tests NOT perforemd Compression Distraction Shoulder depression UE tension test Active LUMBAR ROM limited and provocative into: all the following Extension Flexion Lateral Bendin Motor strength graded 5/5 hip flexion 5/5 5/5 knee extension 5/5 5/5 foot dorsifexion 5/5 5/5 foot inversion 5/5 5/5 foot eversion 5/5 5/5 L4-S1 (B) DTR's at L4 & S1 Sensation grossly intact to light touch L4-S1 (B) No clonus appreciated upon ankle dorsiflexion. Denies calf tenderness (B) Lumbar Orthopedic testing: Valsalva Maneuver: Neg SLR/seated slump pos Kemps pos Prone knee bending Neg SI provocation testing NEG Fabere's pos L FADIR pos L Seated Dural Tension Test neg Direct S-I palpation pos supine SLR pos pain in low back and L hip Soft tissue palpation reveals hypertonicity and tenderness mario iliopsoas, L/S and lumbar paraspinal mm Motion palpation reveals intersegmental lumbar somatic dysfunction with relative joint hypomobility. IMPRESSION: It is reasonable in this case to apply a conservative course of manual therapy to address myofascial and joint findings while encouraging activity and stretching specific to the patient's presentation. PLAN: Treatment #1. I explained all of this to the patient and the patient seemed to understand. Treatment options from least invasive to most with the associated risks, benefits, alternatives, and potential outcomes were discussed in detail. Potential risks associated with spinal manipulative therapy, the following were shared with the patient: Likely (transient mild post-treatment soreness); Less Likely (Bruising, sprain/strain); Rare but potentially serious (disc herniation, fracture); Extremely Rare but serious (epidural spinal hematoma, cauda equina syndrome). Informed consent obtained to provide management consisting of: ~ Lumbar F/D decompression manipulation with the intended goal of the reduction of LBP and limitations related to LBP through the mechanical action of lumbar flexion with a gentle distractive force. ~ MFR as per palpation (10 minutes) ~ Mobilization/SMT to Cervical, Thoracic, and/or Lumbar and S-I regions in lateral decubitus posture ~ Prone or supine thoracic mobilization/SMT ~ Prone hip flexor/quadriceps stretching as per palpation ~ Supine gluteal stretching as per palpation objectives 01/24/24 hypertonicity and tenderness lumbar, L/S Restrictions lumbar and lower thoracic Treatment: active/corrective Manual therapy, 8 min, lumbar and mid thoracic MFR CMT lumbar side posture CMT thoracic seated Treatment The prognosis,at this time,is fair to good Short term goals include improvement in excess 25% on regional disability questionnaire and/or NRS over the first 3-4 treatment visits. It was explained to the patient that resolution of soft tissue complaints through conservative management requires compliance with at home recommendations and avoidance of aggravating factors. Self-Care Recommendations: take breaks from sitting ~Patient encouraged to engage in activities such as a walking program with established goals to reduce fear-avoidance behaviors with regard to movement,and improve overall health and fitness. emphasis placed upon function over pain with effort made each day to remain active understanding that normal daily activities may temporarily increase pain experience but are not inherently injurious and should be explored to the extent possible. Provided patient with Yoga flyer ~ Activity such as Yoga encouraged to enhance relaxation, flexibility, posture, core stability, balance, and pain modulation. Plan: Trial Chiropractic Visit 4 F/U 1 more scheduled weekly Seek urgent care as needed. CMT: chiropractic manipulative therapy SMT: Spinal Manipulative Therapy F/D: Flexion Distraction MFR: Myofascial Release S-I: Sacroiliac MFTP: Myofascial Trigger Point NRS: Numeric Rating Scale N/T: Numbness/Tingling PIR: Post isometric relaxation /es/ PETER JEFFERS D[facility] CHIROPRACTOR Signed: 01/24/2024 08:29 PETER JEFFERS [facility]
--- OUTSIDE RECORDS SUMMARY | 2024-05-23 09:02 | XMS_ITS | Encounter Summary ---
Author Name [facility] [place] Organization [place] Address [address] [place] [address] Care Team Providers Care Shoe Associate Name Role Phone JUAN PABLOSYBILA Primary Care [...] Name Patient's Relationship to Policy Stoddard [facility] CT FEDERAL PREFERRED PROVIDER ORGANIZAT ION (PPO) STAND AMEE SELF Apr [birth year], 1997 [id number] TINO DYE PATIENT BS MA FEP PREFERRED PROVIDER ORGANIZAT ION (PPO) STAND AMEE INDIV IDUAL Apr 21, 1997 [id number] TINO DYE PATIENT CAREMARK PRESCRIPT ION [id number] 1 Apr 18, 2020 [id number] TINO DYE PATIENT CAREMARK PRESCRIPT ION [id number] 1 Apr 18, 2020 [id number] TINO DYE PATIENT [employer]ARK FEPRX PLAN PRESCRIPT ION BCBS FEP Apr 18, 2010 [id number] TINO DYE PATIENT CAREMARK-F EP BCBS PRESCRIPT ION FEP CAREM ARK Apr 18, 2010 [id number] [phone] TINO DYE PATIENT OPTUM RX PRESCRIPT ION RX Apr 18, 2022 [id number] TINO DYE PATIENT [facility] USP Apr 18, 2020 [id number] TINO DYE PATIENT [facility] BRIGH TON DAVE E Apr 18, 2020 [id number] TINO DYE PATIENT Selected Encounter This section includes the information on record at [place] for the Encounter. Date/Time Encounter Type Encounter Description Reason Provider Source Feb 23, 2024 10:30 AM OFFICE O/P EST LOW 20 MIN PM&RS PHYSICIAN ICD-10-CM M54.50 Low back pain, unspecified YOLY NICHOLAS [facility] Encounter Template Text not used by [place] Assessments - Encounter Diagnoses This section includes the primary and secondary diagnoses documented for the Encounter. Date/Time Primary/Secondary Diagnosis Diagnosis Name Provider Source Feb 23, 2024 11:17 AM PRIMARY Low back pain, unspecified [facility] Feb 23, 2024 11:17 AM SECONDARY Other spondylosis, lumbar region YOLY NICHOLAS [facility] Plan of Treatment: Future Appointments (+ 6 months) and Future Tests (+/- 45 days) The Plan of Treatment section includes future care activities for the patient from all [place] treatmentfacilities. This section includes future appointments and future orders which are active, pending or scheduled. Future Appointments This section includes appointments that were scheduled to occur 6 months from the date of the Encounter, up to a maximum of 20 appointments. The data comes from all [place] treatment facilities. Appointment Date/Time Appointment Type Appointme nt Facility Name Mar 05, 2024 09:00 AM [facility] Mar 07, 2024 10:00 AM [facility] Mar 07, 2024 10:30 AM [facility]BULATORY - NONE [facility] [place] [facility] Mar 09, 2024 09:15 AM AMBULATORY [facility] MEDICINE [facility] [place] [facility] Mar 09, 2024 01:00 PM AMBULATORY - MEDICINE [facility] [place] [facility] Mar 27, 2024 01:00 PM AMBULATORY - PSYCHIATRY [facility] Apr 24, 2024 03:00 PM AMBULATORY - MEDICINE [facility] [place] [facility] May 01, 2024 02:00 PM AMBULATORY - PSYCHIATRY [facility] May 18, 2024 10:00 AM AMBULATORY - MEDICINE [facility] [place] [facility] May 29, 2024 01:00 PM AMBULATORY - PSYCHIATRY [facility] May 30, 2024 01:00 PM AMBULATORY - REHAB MEDICIN E [facility] [place] [facility] Jul 31, 2024 11:00 AM AMBULATORY - MEDICINE [facility] Lab Results: +/- 30 days of the encounter This section includes the Chemistry and Hematology Lab Results on record with [place] for the patient. Radiology Reports and Pathology Reports are provided separately, in subsequent sections. Lab Results This section contains the Chemistry/Hematology Results that were resulted 30 days before or 30 daysafter the date of the Encounter. Date/Time Source Result Type Result - Unit Interpretation Reference Range Comment Mar 05, 2024 10:02 [facility] MAGNESIUM Specimen Type: SERUM No comment entered. Ordering Provider: JULIO CÉSAR ALMEIDA Report Released Date/Time: Mar 05, 2024 09:42 AM Reporting Lab: [facility] [place] [facility] [address] [facility] [address] Performing Lab: [facility] [place] [address] [address] MAGNESIUM 2.3 mg/dL 1.6-2.6 Mar 05, 2024 10:02 AM [facility] [place] [facility] FERRITIN Specimen Type: SERUM No comment entered. Ordering Provider: JULIO CÉSAR ALMEIDA Report Released Date/Time: Mar 05, 2024 09:42 AM Reporting Lab: [facility] [place] [address] [address] Performing Lab: [facility] [address] [facility] [address] FERRITIN 509 ng/mL H 10-200 Mar 05, 2024 10:02 AM [facility] LIPID PANEL FASTING Specimen Type: SERUM No comment entered. Ordering Provider: JULIO CÉSAR ALMEIDA Report Released Date/Time: Mar 05, 2024 09:42 AM Reporting Lab: [facility] [address] [facility] [address] Performing Lab: [facility] [address] [facility] [address] CHOLESTEROL 183 mg/dL TRIGLYCERIDE 109 mg/dL 0-150 LDL calculated 116 mg/dL 0-129 CHOL/HDL 4.1 HDL CHOLESTEROL 45 mg/dL 40-60 Mar 05, 2024 10:02 AM [facility] BASIC METABOLIC PANEL (non-fasting) Specimen Type: SERUM No comment entered. Ordering Provider: JULIO CÉSAR ALMEIDA Report Released Date/Time: Mar 05, 2024 09:42 AM Reporting Lab: [facility] [address] [facility] [address] Performing Lab: [facility] [address] [facility] [address] UREA NITROGEN 22 mg/dL 7-25 GLUCOSE 92 mg/dL 65-100 SODIUM 140 mmol/L 135-145 POTASSIUM 4.2 mmol/L 3.5-5.0 CHLORIDE 109 mmol/L 100-110 CO2 22 meq/L 20-30 CREATININE, Serum 0.78 mg/dL 0.50-1.40 eGFR(CKD-EPI 2020) 85 mL/min >60 Mar 05, 2024 10:02 AM [facility] HEMOGLOBIN A1C PANEL Specimen Type: BLOOD [...] Mar 05, 2024 09:42 AM Reporting Lab: [facility] [place] [facility] [address] [facility] [address] Performing Lab: [facility] [place] [facility] [address] [facility] [address] HEMOGLOBIN A1C 5.5 4.0-5.6 Mar 05, 2024 10:02 AM [facility] [place] [facility] TSH Specimen Type: SERUM No comment entered. Ordering Provider: JULIO CÉSAR ALMEIDA Report Released Date/Time: Mar 05, 2024 09:42 AM Reporting Lab: [facility] [place] [facility] [address] [facility] [address] Performing Lab: [facility] [place] [facility] [address] [facility] [address] TSH 2.43 u[IU]/mL 0.35-5.00 Mar 05, 2024 10:02 AM [facility] LIVER FUNCTION Specimen Type: SERUM No comment entered. Ordering Provider: JULIO CÉSAR ALMEIDA Report Released Date/Time: Mar 05, 2024 09:42 AM Reporting Lab: [facility] [address] [facility] [address] Performing Lab: [facility] [address] [facility] [address] PROTEIN,TOTAL 6.4 g/dL 6.0-8.3 ALBUMIN 3.5 g/dL 3.5-5.0 ALKALINE PHOSPHATASE 80 U/L 40-150 AST 22 U/L 5-34 ALT 34 U/L BILIRUBIN, TOTAL 0.4 mg/dL 0.2-1.2 Mar 05, 2024 10:02 AM [facility] CBC AND DIFF (AUTO) Specimen Type: BLOOD No comment entered. Ordering Provider: JULIO CÉSAR ALMEIDA Report Released Date/Time: Mar 05, 2024 09:42 AM Reporting Lab: [facility] [address] [facility] [address] Performing Lab: [facility] [address] [address] WBC 5.14 10*3/uL 4.50-11.00 RBC 4.77 10*6/uL [...] Pain Height Weight Body Mass Index Source Feb 23, 2024 10:29 AM 70 100/70 16 96 3 [facility] Social History: Smoking Status (Most current) and Tobacco Use (All prior to encounter date) This section includes the most current, and the historical, smoking and tobacco- related health factors from the [place] facility where the Encounter took place. Current Smoking Status This section includes the most current smoking, or tobacco-related health factor, from the [place] facility where the Encounter took place. Date/Time Current Smoking Status Terrance roblero May 27, 2023 09:30 AM VA-TOBACCO FORMER USER [facility] [place] [facility] Tobacco Use History This section includes a history of the smoking, or tobacco-related health factors, that were collected on or before the date of the Encounter. The data comes from the [place] facility where the Encounter took place. Date/Time Smoking Status/Tobac co Use Comment Facility May 27, 2023 09:30 AM VA-TOBACCO QUIT 15 YRS OR MORE [facility] [place] [facility] Feb 02, 2022 08:30 AM VA-TOBACCO FORMER USER [facility] [place] [facility] Feb 02, 2022 08:30 AM VA-TOBACCO QUIT 15 YRS OR MORE [facility] [place] [facility] Dec 09, 2020 10:00 AM VA-TOBACCO FORMER USER [facility] [place] [facility] Dec 09, 2020 10:00 AM VA-TOBACCO QUIT 15 YRS OR MORE [facility] [place] [facility] Nov 28, 2019 11:26 AM VA-TOBACCO FORMER USER [facility] [place] [facility] Nov 28, 2019 11:26 AM VA-TOBACCO QUIT 15 YRS OR MORE [facility] [place] [facility] Oct 23, 2018 02:51 PM VA-TOBACCO FORMER USER [facility] [place] [facility] Oct 23, 2018 02:51 PM VA-TOBACCO QUIT 15 YRS OR MORE [facility] [place] [facility] Oct 17, 2017 09:14 AM QUIT TOBACCO USE > 7 YEARS AGO [facility] [place] [facility] September 15, 2016 08:50 AM QUIT TOBACCO USE > 7 YEARS AGO [facility] [place] [facility] Jul 02, 2015 09:15 AM QUIT TOBACCO USE > 7 YEARS AGO non tobacco user since 1998 [facility] [place] [facility] Advance Directives: All historical and current Section Date Range: From patient's date of to the date document was created. This section includes ALL of a patient's completed or amended [place] Advance and Rescinded Directives. The entries below indicate that a directive exists for the patient, but an actual copy is not included with this document. The data comes from all [place] facilities. Date Advance Directives Provider Source Dec 21, 2023 ADVANCE DIRECTIVE DESIREE OLIVAREZ [facility] Radiology Reports: +/- 30 days of [...] the Encounter. The data comes from all [place] treatment facilities. Date/Time Radiology Report Provider Source Mar 09, 2024 09:15 AM OUTSIDE MAMMO/SCRE ENING, INCLUDING CAD, BILAT: KENY DYEN -1960 F Exm Date: MAR 09, 2024@09:15 Req Phys: JULIO CÉSAR ALMEIDA Loc: CWM/NO/PACT 5 (Req'g Loc) Img Loc: OUTSIDE GENERAL RADIOLOGY Service: Unknown (Case [id number] COMPLETE) OUTSIDE MAMMO/SCREENING, INCLUDIN(RAD Detailed) CPT:65560 Reason for Study: annual sreening mammogram Clinical History: Report Status: Electronically Filed Date Reported: MAR 09, 2024 Report: Community care exam; see CPRS/JLV for outside radiology report/results Impression: Community care exam; see CPRS/JLV for outside radiology report/results Primary Diagnostic Code: BI-RADS CATEGORY 0 (Incomplete: Need Additional Imaging Evaluation) VERIFIED BY: / *ELECTRONICALLY FILED* [facility] Mar 07, 2024 10:39 AM ULTRASOUND NECK (THYROID,HEAD,SOFT TISSUE): KENY DYE -1960 F Exm Date: MAR 07, 2024@10:39 Req Phys: JULIO CÉSAR ALMEIDA Loc: CWM/NO/PACT 5 (Req'g Loc) Img Loc: ULTRASOUND Service: Unknown [facility] [place] [id number] (Case [id number] COMPLETE) ULTRASOUND NECK (THYROID,HEAD,SOF(US Detailed) CPT:25637 Reason for Study: left arm nodule Clinical History: Report Status: Verified Date Reported: MAR 07, 2024 Date Verified: MAR 07, 2024 Child Care Lead Teacher E-Sig:/ES/EZ DELGADO JR Report: Study: Soft tissue [...] Primary Interpreting Staff: EZ DELGADO JR, Radiologist (Veto) /EZ LARA JR [facility] Encounter Notes: All associated encounter notes This section contains the clinical notes associated to the Encounter. Date/Time Encounter Note(s) Provider Source Feb 23, 2024 11:10 AM PHYSICAL MEDICINE REHAB PHYSICIAN NOTE: LOCAL TITLE: PM&R FOLLOW-UP STANDARD TITLE: PHYSICAL MEDICINE REHAB PHYSICIAN NOTE DATE OF NOTE: FEB 23, 2024@11:10 ENTRY DATE: FEB 23, 2024@11:10:40 AUTHOR: KRYSTA NICHOLAS COSIGNER: URGENCY: STATUS: COMPLETED FEB 23, 2024 KENY DYE is a 64 y/o FEMALE who presents today for follow-up of low back pain. She is making gains through physical therapy. Pain levels have been downward trending. She continues to have some pain particularly with slight forward flexion and lifting. Home chores aggravate symptoms. She is a tall woman and food preparation oftentimes aggravate symptoms as well. She has pain with extension activities getting up from seated position is uncomfortable. She is not experiencing any pain radiating distally to the lower extremities. She has been walking using a treadmill on her own for which she is quite proud. She additionally has been effective in losing 5 pounds. PMHx as obtained from Chart: Active problems - Computerized Problem List is the source for the followin. Lumbago 2. Solitary nodule of lung 3. Exposure to potentially hazardous substance 4. Perimenopausal atrophic vaginitis 5. Former smoker 6. COPD - Chronic Obstructive Pulmonary Disease (SCT [id number]) 7. Posttraumatic stress disorder 8. Myalgia 9. Bilateral tinnitus 10. Shoulder pain 11. Overweight 12. PE - Pulmonary embolism 13. Menopausal flushing 14. 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 Head/Eyes/Ears/Neck- Denies headaches, visual changes. Cardiovascular - Denies chest pain/tightness, lower extremity swelling. Respiratory - Denies shortness of breath, or cough. GI - Denies nausea, vomiting, or loss of bowel fx/control. - Denies pelvic pain or loss of bladder function. Musculoskeletal - See HPI. Neuro - Denies numbness or tingling of the extremities. Skin/integuments - Denies rashes, lesions, or skin breakdown in the extremities. All other systems reviewed and are negative. PHYSICAL EXAMINATION: Vitals in chart. GEN: WD, WN. Awake, alert, cooperative with exam. PSYCH: Good eye contact. Appropriate affect and social interaction. HEENT: Normocephalic, atraumatic. CVS: Extremities warm/well perfused. No lower extremity edema. PULM: Breathing unlabored, no accessory muscle use. ABD: Nondistended. EXTREMITIES: No cyanosis or edema of bilateral upper and lower extremities. MUSCULOSKELETAL EXAM: Low back pain is present particularly with extension and lateral flexion. More prominent on the right than on the left today. Lateral flexion is to 15 degrees and she experiences discomfort with extension and rotation as well. No sciatic notch irritability. No sensory changes in lower extremities. No SI joint irritability with Panda's and Gaenslen's. Lower extremity strength is adequate. She does have some weakness with hip abduction. Diagnostic Studies: X-rays January 2022 There are 5 [id number] lumbar vertebrae. Vertebral body heights are normal. No listhesis. Degenerative changes characterized by disc space narrowing and osteophytosis,mild L1-S1 . Facet and spinous process arthrosis in the lower lumbar spine. No radiopaque foreign bodies. ASSESSMENT/PLAN: Patient is a 64-year-old with spondylosis lumbar spine. We will proceed with MBB L3-L4 and L5 with corticosteroid. If she sees significant improvement she may be candidate for RFNA. Encouraged to continue strengthening. Encouraged to continue efforts in lower extremity mobility. She does take a low-dose aspirin. We discussed risks and benefits to anti- inflammatory. She sees improvement when she takes Tylenol but she may see more benefit from anti-inflammatory and a trial of low-dose Celebrex would be reasonable. She will be monitored for bleeding. Risks and benefits discussed today. FOLLOW-UP: MBB L3-L4-L5 bilateral with corticosteroid. Potential risks and side effects of any medication(s) prescribed today was reviewed with . Patient had many excellent questions, which I answered to the best of my ability and to patient's apparent satisfaction. MDM: __20___ minutes which includes reviewing records, evaluating patient, documenting in medical record, educating, counseling and coordinating care. /gustabo/ [facility] Signed: 02/23/2024 11:17 KRYSTA NICHOLAS [facility]
--- OUTSIDE RECORDS SUMMARY | 2024-05-23 09:02 | XMS_ITS | Encounter Summary ---
Author Name [facility] [place] Organization [place] Address [address] [place] [id number] Care Team Providers Care Facility Maintenance Mechanic Name Role Phone JULIO CÉSAR ALMEIDA Primary [...] Name Patient's Relationship to Policy Stoddard HANNAH [facility] CT FEDERAL PREFERRED PROVIDER ORGANIZAT ION (PPO) STAND AMEE SELF Apr 21, 1997 [id number] TINO DYE PATIENT BS MA FEP PREFERRED PROVIDER ORGANIZAT ION (PPO) STAND AMEE INDIV IDUAL Apr 21, 1997 [id number] TINO DYE PATIENT CAREMARK PRESCRIPT ION [id number] 1 Apr 18, 2020 [id number] MARNIETINO RODRIGUEZ PATIENT CAREMARK PRESCRIPT ION [id number] 1 Apr 18, 2020 [id number] [phone] TINO DYE PATIENT CAREMARK FEPRX PLAN PRESCRIPT ION BCBS FEP Apr 18, 2010 [id number] TINO DYE PATIENT CAREMARK-F EP BCBS PRESCRIPT ION FEP CAREM ARK Apr 18, 2010 [id number] [phone] [id number] TINO DYE PATIENT OPTUM RX PRESCRIPT ION RX Apr 18, 2022 [id number] TINO DYE PATIENT [facility] USFHP Apr 18, 2020 USP [id number] [phone] TINO DYE PATIENT [facility] BRIGH TON DAVE E Apr 18, 2020 [id number] [phone] TINO DYE PATIENT Selected Encounter This section includes the information on record at [place] for the Encounter. Date/Time Encounter Type Encounter Description Reason Provider Source May 01, 2024 02:00 PM PSYTX W PT 60 MINUTES [facility] - IND ICD-10-CM F43.12 Post-traumatic stress disorder, chronic GAUTAM ALEJANDRE [facility] Encounter Template Text not used by [place] Assessments - Encounter Diagnoses This section includes the primary and secondary diagnoses documented for the Encounter. Date/Time Primary/Secondary Diagnosis Diagnosis Name Provider Source May 01, 2024 04:04 PM PRIMARY Post-traumatic stress disorder, chronic GAUTAM ALEJANDRE [place] Plan of Treatment: Future Appointments (+ 6 months) and Future Tests (+/- 45 days) The Plan of Treatment section includes future care activities for the patient from all [place] treatmentfacilities. This section includes future appointments and future orders which are active, pending or scheduled. Future Appointments This section includes appointments that were scheduled to occur 6 months from the date of the Encounter, up to a maximum of 20 appointments. The data comes from all [place] treatment facilities. Appointment Date/Time Appointment Type Appointme nt Facility Name May 18, 2024 10:00 AM AMBULATORY - MEDICINE [place] [facility] [place] [facility] May 29, 2024 01:00 PM AMBULATORY - PSYCHIATRY [facility] May 30, 2024 01:00 PM AMBULATORY - REHAB MEDICIN [facility] [place] [facility] Jul 31, 2024 11:00 AM AMBULATORY - MEDICINE [facility] Active, Pending, and Scheduled Orders This section includes a listing of several types of active, pending, and scheduled orders, including clinic medications orders, diagnostic test orders, procedure orders and consult orders; where the start date of the order is 45 days before the date of the Encounter or 45 days after the date of theEncounter. The data comes from all [place] treatment facilities. Test Date/Time Test Type Test Details Facility Name May 18, 2024 11:18 AM Consult Order COMMUNITY CARE-MRI Cons [employer] [facility] Advance Directives: All historical and current Section Date Range: From patient's date of to the date document was created. This section includes ALL of a patient's completed or amended [place] Advance and Rescinded Directives. The entries below indicate that a directive exists for the patient, but an actual copy is not included with this document. The data comes from all [place] facilities. Date Advance Directives Provider Source Dec 21, 2023 ADVANCE DIRECTIVE DESIREE OLIVAREZ [facility] Encounter Notes: All associated encounter notes This section contains the clinical notes associated to the Encounter. Date/Time Encounter Note(s) Provider Source May 01, 2024 02:00 PM SOCIAL WORK NOTE: LOCAL TITLE: SOCIAL WORK NOTE STANDARD TITLE: SOCIAL WORK NOTE DATE OF NOTE: MAY 01, 2024@14:00 ENTRY DATE: MAY 01, 2024@15:59:13 AUTHOR: GAUTAM ALEJANDRE EXP COSIGNER: URGENCY: STATUS: COMPLETED INFORMED CONSENT REVIEWED: At beginning of session reviewed rights and limits of confidentiality, mandatory reporting situations, duty to warn and protect, [employer] Warning, (if treatment team finds patient to be an acute danger to himself or others, that this information could be relayed to a court of law and presented to a field horticultural specialty grower), and [facility] access for active duty service members. Provided Suicide Prevention Hotline number, and other contact numbers as necessary. VISIT DURATION 60 minutes identified with 2 identifiers: Full Name, Facial Recognition DIAGNOSES: PTSD chronic (F43.12) [employer] STATEMENT OF GOALS/CONCERNS: I'm ok, I've had better days. SESSION FOCUS: Met with [place] face to face for individual counseling. [place] stated her Anuja was not good. Her woke up in the middle of the night the Tuesday before [place] with extreme pains in his abdomen. called 911 and [facility] [place]. They assessed him and thought it better to send him to [place]. [place] stated they kept him through [place] so she was with him. He was discharged with no diagnosis. [place] spoke about the home in [facility] that they had put an offer on. They could not afford it so they backed out. was very disappointed. She became teary eyed and stated all I want in life is to own my own home. Encouraged her to keep looking. She agreed. INTERVENTIONS: Psychotherapeutic Interventions: CO; Reflective listening and support ASSESSMENT: BRIEF ASSESSMENT [...] PLAN FOR FOLLOW-UP: Next session planned for: 05/29/24 at 1pm /es/ MEREDITH BRYANT Prior Authorization Nurse Mental Health Signed: 05/01/2024 16:04 GAUTAM ALEJANDRE
--- OUTSIDE RECORDS SUMMARY | 2024-05-23 09:02 | XMS_ITS | Encounter Summary ---
Author Name [facility] [place] Address [address] [place] [address] Care Team Providers Care Brake Coupler Dinkey Name Role Phone JULIO CÉSAR ALMEIDA Primary [...] STAND AMEE SELF Apr 21, 1997 [id number] [phone] TINO DYE PATIENT BCBS [place] FEP PREFERRED PROVIDER ORGANIZAT ION (PPO) STAND AMEE INDIV IDUAL Apr 21, 1997 [id number] TINO DYE PATIENT CAREMARK PRESCRIPT ION [id number] 1 Apr 18, 2020 [id number] TINO DYE PATIENT CAREMARK PRESCRIPT ION [id number] 1 Apr 18, 2020 [id number] [phone] TINO DYE PATIENT CAREMARK FEPRX PLAN PRESCRIPT ION BCBS FEP Apr 18, 2010 [id number] TINO DYE PATIENT CAREMARK-F EP BCBS PRESCRIPT ION FEP CAREM ARK Apr 18, 2010 [id number] TINO DYE PATIENT OPTUM RX PRESCRIPT ION RX Apr 18, 2022 [id number] TINO DYE PATIENT [facility] USFHP Apr 18, 2020 USP [id number] TINO DYE PATIENT [facility] BRIGH TON DAVE E Apr 18, 2020 [id number] TINO DYE PATIENT Selected Encounter This section includes the information on record at [place] for the Encounter. Date/Time Encounter Type Encounter Description Reason Provider Source Jul 15, 2023 07:30 AM THERAPEUTIC EXERCISES PHYSICAL THERAPY ICD-10-CM M54.50 Low back pain, unspecified BEN NUNEZ Lisa Encounter Template Text not used by [place] Assessments - Encounter Diagnoses This section includes the primary and secondary diagnoses documented for the Encounter. Date/Time Primary/Secondary Diagnosis Diagnosis Name Provider Source Jul 15, 2023 07:58 AM PRIMARY Low back pain, unspecified SANTHOSH NUNEZ Plan of Treatment: Future Appointments (+ 6 months) and Future Tests (+/- 45 days) The Plan of Treatment section includes future care activities for the patient from all [place] treatmentfacilities. This section includes future appointments and future orders which are active, pending or scheduled. Future Appointments This section includes appointments that were scheduled to occur 6 months from the date of the Encounter, up to a maximum of 20 appointments. The data comes from all [place] treatment facilities. Appointment Date/Time Appointment Type Appointme nt Facility Name Jul 22, 2023 07:30 AM AMBULATORY - RE[facility]AB [facility]ICIN [facility] Jul 22, 2023 08:00 AM AMBULATORY - PSYCHIATRY [facility] Jul 26, 2023 08:00 AM AMBULATORY - MEDICINE [facility] [place] [facility] Aug 09, 2023 03:15 PM AMBULATORY - MEDICINE [place] [facility] August 26, 2023 08:00 AM AMBULATORY - PSYCHIATRY [facility] Sep 20, 2023 08:00 AM AMBULATORY - REHAB MEDICIN [place] [facility] Sep 30, 2023 08:00 AM AMBULATORY - PSYCHIATRY [facility] Nov 04, 2023 11:00 AM AMBULATORY - PSYCHIATRY [facility] Nov 08, 2023 01:30 PM AMBULATORY - MEDICINE [place] [facility] Nov 21, 2023 09:00 AM AMBULATORY - REHAB MEDICIN [place] [facility] Dec 02, 2023 01:00 PM AMBULATORY - PSYCHIATRY [facility] Dec 23, 2023 08:00 AM AMBULATORY - REHAB MEDICIN [place] [facility] Dec 27, 2023 10:30 AM AMBULATORY - MEDICINE [place] [facility] Dec 29, 2023 08:00 AM AMBULATORY - [facility] [place] [facility] Advance Directives: All historical and current Section Date Range: From patient's date of to the date document was created. This section includes ALL of a patient's completed or amended [place] Advance and Rescinded Directives. The entries below indicate that a directive exists for the patient, but an actual copy is not included with this document. The data comes from all [place] facilities. Date Advance Directives Provider Source Dec 21, 2023 ADVANCE DIRECTIVE [facility]REE [facility]Z [facility] Encounter Notes: All associated encounter notes This section contains the clinical notes associated to the Encounter. Date/Time Encounter Note(s) Provider Source Jul 15, 2023 07:18 AM PHYSICAL THERAPY N OTE: LOCAL TITLE: PHYSICAL THERAPY STANDARD TITLE: PHYSICAL THERAPY NOTE DATE OF NOTE: JUL 15, 2023@07:18 ENTRY DATE: JUL 15, 2023@07:18:55 AUTHOR: SANTHOSH NUNEZ COSIGNER: URGENCY: STATUS: COMPLETED Initial Evaluation date: 06/24/23 Progress Note Date: 07/25/23 Treatment #: 1 Treatment time: 30 Diagnosis: Low back pain, unspecified(ICD-10-CM M54.50) Provider: JULIO CÉSAR ALMEIDA PT Treatment Precautions: Patient identified by full name and date of SUBJECTIVE: Patient states they had a bad day yesterday. 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 and their back pain worsened OBJECTIVE: Therapeutic Exercise: Mins: 24 lower trunk rotation with ball between knees 20reps pelvic tilt 15reps articulating bridge 10reps 90/90 hamstring stretch 30s piriformis stretch 30s quad/hip flexor stretch off table 30s sidelying clamshell 15reps prone press up on elbows 10x5s Manual therapy: Mins: Neuro re-ed: Mins: Other: Mins: Modalities: Mins: [] contraindication screen completed prior to modality [] skin intact pre/post modality Access Code: [email or web address] URL: [email or web address] Date: 07/15/2023 Prepared by: Santhosh Nunez Exercises [...] reps - 5 hold PATIENT EDUCATION: Mins: 2 Patient education was provided for all aspects of care during this clinical encounter. Provided updated written HEP to patient reviewing proper form sets reps and frequency and safety precautions with patient verbalizing and demonstrating good understanding during visit. ASSESSMENT: Patient seen for routine follow up. Instructed patient in progressions in lumbar ROM and LE flexibility exercises as patient reports higher pain levels yesterday. Patient tolerated therex well without increase in symptoms. Provided updated written HEP for carryover. PLAN: Progress as tolerated focusing on quad/hip flexor and hamstring flexibility, lumbar ROM, abdominal and gluteal strengthening, HEP teaching and progression [x]Low impact cardio: [x]Nustep []Recumbent bike []Recumbent elliptical []TM []Manual: []STM/DTM []METs/SCS []IASTM []Joint mobilizations [x]Therex: []Progressive UQ [x]Progressive Core [x]Progressive LQ []UQ flex [x] Lumbar flex [x]LQ flex []Foam rolling []Proprioception []Neuro Re-education: []Static []Dynamic []Dual-Task [x]Education: []Posture []Ergonomics [x]Bodymechanics [x]Self-care strategies [] PNE []Modalities(PRN): []Heat/Ice []Estim/Tens []Mechanical traction []K-tape [] Biofreeze /es/ SANTHOSH NUNEZ PT, DPT PHYSICAL THERAPIST Signed: 07/15/2023 07:58 SANTHOSH NUNEZ [facility]
--- OUTSIDE RECORDS SUMMARY | 2024-05-23 09:02 | XMS_ITS ---
Author Name [place] Address [address] [place] [id number] Care Team Providers Care Supervisor Furnace Room Name Role Phone JULIO CÉSAR ALMEIDA Primary [...] Patient's Relationship to Policy Stoddard HANNAH [facility] FEDERAL PREFERRED PROVIDER ORGANIZAT ION (PPO) STAND AMEE SELF Apr 21, 1997 [id number] TINO DYE PATIENT BS MA FEP PREFERRED PROVIDER ORGANIZAT ION (PPO) STAND AMEE INDIV IDUAL Apr 21, 1997 [id number] TINO DYE PATIENT CAREMARK PRESCRIPT ION [id number] 1 Apr 18, 2020 [id number] [phone] TINO DYE PATIENT CAREMARK PRESCRIPT ION [id number] 1 Apr 18, 2020 [id number] TINO DYE PATIENT CAREMARK FEPRX PLAN PRESCRIPT ION BCBS FEP Apr 18, 2010 [id number] [phone] TINO DYE PATIENT CAREMARK-F EP BCBS PRESCRIPT ION FEP CAREM ARK Apr 18, 2010 [id number] TINO DYE PATIENT OPTUM RX PRESCRIPT ION RX Apr 18, 2022 [id number] TINO DYE PATIENT [facility] USP Apr 18, 2020 USP [id number] [phone] TINO DYE PATIENT [facility] DANTE TON DAVE E Apr 18, 2020 [id number] TINO DYE PATIENT Selected Encounter This section includes the information on record at [place] for the Encounter. Date/Time Encounter Type Encounter Description Reason Provider Source Jan 18, 2024 10:00 AM THERAPEUTIC EXERCISES PHYSICAL THERAPY ICD-10-CM M47.896 Other spondylosis, lumbar region PARKER PALOMINO [facility] Encounter Template Text not used by [place] Assessments - Encounter Diagnoses This section includes the primary and secondary diagnoses documented for the Encounter. Date/Time Primary/Secondary Diagnosis Diagnosis Name Provider Source Jan 18, 2024 02:07 PM PRIMARY Other spondylosis, lumbar region PARKER PALOMINO [facility] Plan of Treatment: Future Appointments (+ 6 [...] Appointment Type Appointme nt Facility Name Jan 24, 2024 08:00 AM [facility] Jan 26, 2024 01:30 PM [place] [facility] [place] [facility] [place] [facility] Jan 31, 2024 08:00 AM AMBULATORY - [facility]IC[facility] [facility] Feb 09, 2024 01:30 PM AMBULAT[facility] [place] [facility] Feb 20, 2024 01:00 PM AMBULATORY - PSYCHIATRY [facility] Feb 21, 2024 09:00 AM AMBULATORY - MEDICINE [place] [facility] Feb 23, 2024 10:30 AM AMBULATORY - MEDICINE [place] [facility] Mar 05, 2024 09:00 AM AMBULATORY - MEDICINE [place] [facility] Mar 07, 2024 10:00 AM AMBULATORY - REHAB MEDICIN [place] [facility] Mar 07, 2024 10:30 AM AMBULATORY - NONE [place] [facility] Mar 09, 2024 09:15 AM AMBULATORY - MEDICINE [place] [facility] Mar 09, 2024 01:00 PM AMBULATORY - MEDICINE [place] [facility] Mar 27, 2024 01:00 PM AMBULATORY - PSYCHIATRY [facility] Apr 24, 2024 03:00 PM AMBULATORY - MEDICINE [place] [facility] May 01, 2024 02:00 PM AMBULATORY - PSYCHIATRY [facility] May 18, 2024 10:00 AM AMBULATORY - MEDICINE [facility] [place] [place] [facility] May 29, 2024 01:00 PM AMBULATORY - PSYCHIATRY [facility] May 30, 2024 01:00 PM AMBULATORY - REHAB MEDICIN [place] [facility] Social History: Smoking Status (Most current) [...] took place. Date/Time Current Smoking Status Comment [facility] May 27, 2023 09:30 AM [place]-TOBACCO FORMER USER [facility] Tobacco Use History This section includes a history of the smoking, or tobacco-related health factors, that were collected on or before the date of the Encounter. The data comes from the [place] facility where the Encounter took place. Date/Time Smoking Status/Tobac co Use Comment Facility May 27, 2023 09:30 AM [place]-TOBACCO QUIT 15 YRS OR MORE [place] [facility] Feb 02, 2022 08:30 AM VA-TOBACCO FORMER USER [place] [facility] Feb 02, 2022 08:30 AM VA-TOBACCO QUIT 15 YRS OR MORE [place] [facility] Dec 09, 2020 10:00 AM VA-TOBACCO FORMER USER [place] [facility] Dec 09, 2020 10:00 AM VA-TOBACCO QUIT 15 YRS OR MORE [place] [facility] Nov 28, 2019 11:26 AM VA-TOBACCO FORMER USER [place] [facility] Nov 28, 2019 11:26 AM VA-TOBACCO QUIT 15 YRS OR MORE [place] [facility] Oct 23, 2018 02:51 PM VA-TOBACCO FORMER USER [place] [facility] Oct 23, 2018 02:51 PM VA-TOBACCO QUIT 15 YRS OR MORE [place] [facility] Oct 17, 2017 09:14 AM QUIT TOBACCO USE > 7 YEARS AGO [place] [facility] September 15, 2016 08:50 AM QUIT TOBACCO USE > 7 YEARS AGO [place] [facility] Jul 02, 2015 09:15 AM QUIT TOBACCO USE > 7 YEARS AGO non tobacco user since 1998 [place] [facility] Advance Directives: All historical and current [...] ADVANCE DIRECTIVE DESIREE OLIVAREZ [place] [facility] Encounter Notes: All associated encounter notes This section contains the clinical notes associated to the Encounter. Date/Time Encounter Note(s) Provider Source Jan 18, 2024 10:22 AM PHYSICAL THERAPY N OTE: LOCAL TITLE: PHYSICAL THERAPY STANDARD TITLE: PHYSICAL THERAPY NOTE DATE OF NOTE: JAN 18, 2024@10:22 ENTRY DATE: JAN 18, 2024@10:22:13 AUTHOR: PARKER PALOMINO EXP COSIGNER: URGENCY: STATUS: COMPLETED Initial Evaluation date: 12/29/23 Progress Note Date: n/a Treatment #: 1 Treatment time: 30min Diagnosis: Spondylosis lumbar region Provider: bong PT Treatment Precautions: n/a Patient identified by full name and date of SUBJECTIVE: I had a bad couple days when we drove down to [place] but after that the pain cleared up and it felt okay Pt reports consistency with HEP One of the exercises you gave me really huts my hips/leg OBJECTIVE: currently at rest 2/10 central and out to the sides B, pain earlier today 7-8/10 intermittent/sharp centrally located non radicular THERAPEUTIC EXERCISE: MINUTES: 30 - nustep x6min L1-2 - review of hip abd in s/l 2x10 review of this, muscle burn noted per pt report no elevation in LBP with the activity - bridging 2x10 - clamshells 2x10 B - paloff press red band 2x10 SELF CARE/EDUCATION: MINUTES: -- HEP modified, encouraged regular low impact activity and continued HEP performance Access Code: [email or web address] URL: [email or web address] Date: 12/29/2023 Prepared by: [facility] Patient education was provided for all aspects of care during this clinical encounter. ASSESSMENT: tolerated treatment well, fatigue noted with hip abd activity d/t glut weakness this could account for the increase in B trunk SB during gait PLAN: continue per plan of care, continue to maximize glut strength work on core/L stab in neutral and slight extension, pt going to [place] in February for the winter so several more appts reassess and anticipate dc with HEP in place /gustabo/ PARKER PALOMINO PT PHYSICAL THERAPIST Signed: 01/18/2024 14:07 PARKER PALOMINO [place] [facility]
--- OUTSIDE RECORDS SUMMARY | 2024-05-23 09:02 | XMS_ITS | Encounter Summary ---
Author Name [place] Address [address] [place] [address] Care Team Providers Care Wool Grower Name Role Phone JULIO CÉSAR ALMEIDA Primary [...] Patient's Relationship to Policy Stoddard HANNAH [facility] FEDERAL PREFERRED PROVIDER ORGANIZAT ION (PPO) STAND AMEE SELF Apr 21, 1997 [id number] TINO DYE PATIENT BS MA FEP PREFERRED PROVIDER ORGANIZAT ION (PPO) STAND AMEE INDIV IDUAL Apr 21, 1997 [id number] TINO DYE PATIENT CAREMARK PRESCRIPT ION [id number] 1 Apr 18, 2020 [id number] TINO DYE PATIENT CAREMARK PRESCRIPT ION [id number] 1 Apr 18, 2020 [id number] TINO DYE PATIENT CAREMARK FEPRX PLAN PRESCRIPT ION BCBS FEP Apr 18, 2010 [id number] TINO DYE PATIENT CAREMARK-F EP BCBS PRESCRIPT ION FEP CAREM ARK Apr 18, 2010 [id number] TINO DYE PATIENT OPTUM RX PRESCRIPT ION RX Apr 18, 2022 [id number] TINO DYE PATIENT [facility] USFHP Apr 18, 2020 USP [id number] TINO DYE PATIENT [facility] BRIGH TON DAVE E Apr 18, 2020 [id number] TINO DYE PATIENT Selected Encounter This section includes the information on record at [place] for the Encounter. Date/Time Encounter Type Encounter Description Reason Provider Source September 02, 2023 03:48 PM QNHP OL DIG ASSMT&MGMT 11-20 CLINICAL PHARMACY ICD-10-CM J44.9 Chronic obstructive pulmonary disease, unspecified VAMSHI JAMES IHE Encounter Template Text not used by [place] Assessments - Encounter Diagnoses This section includes the primary and secondary diagnoses documented for the Encounter. Date/Time Primary/Secondary Diagnosis Diagnosis Name Provider Source September 02, 2023 04:03 PM PRIMARY Chronic obstructive pulmonary disease, unspecified VAMSHI JAMES [facility] ([id number]) Plan of Treatment: Future Appointments (+ 6 months) and Future Tests (+/- 45 days) The Plan of Treatment section includes future care activities for the patient from all [place] treatmentfacilities. This section includes future appointments and future orders which are active, pending or scheduled. Future Appointments This section includes appointments that were scheduled to occur 6 months from the date of the Encounter, up to a maximum of 20 appointments. The data comes from all [place] treatment facilities. Appointment Date/Time Appointment Type Appointme nt Facility Name Sep 20, 2023 08:00 AM AMBULATORY - [place]HAB MEDICIN [place] [facility]UN[facility] Sep 30, 2023 08:00 AM AMBULATORY - PSYCHIATRY [facility] Nov 04, 2023 11:00 AM AMBULATORY - PSYCHIATRY [facility] Nov 08, 2023 01:30 PM AMBULATORY - MEDICINE [place] C NTRL Y[facility]I [facility] Nov 21, 2023 09:00 AM AMBULATORY - REHAB MEDICIN [place] [facility] Dec 02, 2023 01:00 PM AMBULATORY - PSYCHIATRY [facility] Dec 23, 2023 08:00 AM AMBULATORY - REHAB MEDICIN E [place] [facility] Dec 27, 2023 10:30 AM AMBULATORY - MEDICINE [place] [facility] Dec 29, 2023 08:00 AM AMBULATORY - REHAB MEDICIN E [place] [facility] Jan 16, 2024 10:45 AM AMBULATORY - MEDICINE [facility] Jan 17, 2024 08:00 AM AMBULATORY - MEDICINE [place] [facility] Jan 18, 2024 10:00 AM AMBULATORY - REHAB MEDICIN E [place] [facility] Jan 18, 2024 01:00 PM AMBULATORY - PSYCHIATRY [facility] Jan 24, 2024 08:00 AM AMBULATORY - MEDICINE [place] [facility] Jan 26, 2024 01:30 PM AMBULATORY - REHAB MEDICIN E [place] [facility] Jan 31, 2024 08:00 AM AMBULATORY - MEDICINE [place] [facility] Feb 09, 2024 01:30 PM AMBULATORY - REHAB MEDICIN E [place] [facility] Feb 20, 2024 01:00 PM AMBULATORY - PSYCHIATRY [facility] Feb 21, 2024 09:00 AM AMBULATORY - MEDICINE [place] [facility] Feb 23, 2024 10:30 AM AMBULATORY - MEDICINE [place] [facility] Advance Directives: All historical and current Section Date Range: From patient's date of to the date document was created. This section includes ALL of a patient's completed or amended [place] Advance and Rescinded Directives. The entries below indicate that a directive exists for the patient, but an actual copy is not included with this document. The data comes from all [place] facilities. Date Advance Directives Provider Source Dec 21, 2023 ADVANCE DIRECTIVE DESIREE OLIVAREZ [place] [facility] Encounter Notes: All associated encounter notes This section contains the clinical notes associated to the Encounter. Date/Time Encounter Note(s) Provider Source September 02, 2023 03:48 PM PHARMACY OUTPATIEN T MEDICATION MGT NOTE: LOCAL TITLE: COMM[facility]ITY PHARMACY PRESCRIPTION NOTE STANDARD TITLE: PHARMACY OUTPATIENT MEDICATION MGT NOTE DATE OF NOTE: SEPTEMBER 02, 2023@15:48 ENTRY DATE: SEPTEMBER 02, 2023@15:48:32 AUTHOR: VAMSHI JAMES EXP COSIGNER: URGENCY: STATUS: COMPLETED [place] Keny Dye is approved for community care PULMONARY though Referral Number: [id number] Expiration Date: 2024-02-05 First Appointment Date: 2023-08-09 [facility] [address] [place] [address] [place] [address] Received prescription for the following: [MEDICATION NAME/DOSE] THE ABOVE MEDICATION(S) ARE NON-FORMULARY NON-VA PRESCRIPTION DETAILS Rx written: BREZTRI AEROSPHERE [id number]/ACTUATIO N HFA AEROSOL INHALER Dose/Directions: 2 INH INHALED 2 TIMES A DAY Quantity: 10.7 Refills: 6 Prescriber: APRYL HERNÁNDEZ Practice site: [address] [place] [address], [facility] [address] [address] JOEY: [id number] NPI (if available): [id number] Medical history relevant to this request: The answers to ALL of the following must be fulfilled in order to meet criteria. [MET] Initial prescription is by or in consult with a [place] Care checker stocker or designated expert [MET] Diagnosis of chronic obstructive pulmonary disease (post- bronchodilator ratio of FEV1/FVC less than 70%) [MET] Receiving ICS/LABA or LAMA/LABA but requires additional maintenance treatment for uncontrolled COPD symptoms and/or exacerbations1 [N/A] If currently receiving an ICS, patient is NOT a candidate for ICS de- escalation AND at least ONE of the following: [N/A] Documented difficulty adhering to 3-drug therapy via 2 separate inhalers (ICS/LABA + LAMA or LABA/LAMA + ICS) [N/A] Unable to use multiple inhalers due to underlying conditions (e.g., cognitive deficits, dexterity or visual impairment, etc.) [MET] Uncontrolled COPD symptoms and/or exacerbations while using formulary LABA/LAMA + ICS or ICS/LABA + LAMA Per provider's note (service date 08/09/23): Pt reports being suboptimally controlled on Trelegy (fluticasone/umeclidinium/v ilanterol) and cannot tolerate the dry power inhaler. She continues to report dyspnea with moderate exertion, chest tightness and dry cough. She denies wheezing. Even though pt was on Trelegy (nonVA) which is not a VA formulary alternative, the cost of obtaining current VA alternative ciclesonide + Stiolto together is actually higher than single Breztri MDI ACTION TAKEN/STATUS OF NON-VA RX: [ ] Initiate request for Non-formulary or Prior Authorization medication ( ) Contacted provider's office to consider a formulary therapeutic alternative ( ) Contacted provider's office for additional necessary information to review PA & N/F ( ) Requested PA & NF to be reviewed by Clinical Pharmacist Specialist (x) Medication approved and processed ( ) Medication does not meet criteria and therapeutic alternative suggested Time Spent: 15 MIN /gustabo/ VAMSHI JAMES PHARMD CLINICAL SKATE SHOP ATTENDANT Signed: 09/02/2023 16:03 Receipt Acknowledged By: 09/05/2023 13:10 /es/ RICKY R HASSAN CC Title I Assistant VAMSHI JAMES [facility] ([id number])
--- OUTSIDE RECORDS SUMMARY | 2024-05-23 09:02 | XMS_ITS ---
Author Name [facility] [place] [facility] [place] Organization [place] Address [address] [place] [address] Care Team Providers Care Aerospace Engineer Officer Armament Name Role Phone JUAN PABLOSYBILA Primary Care [...] Policy Stoddard's Name Patient's Relationship to Policy Stoddrad [facility]ANNAH [facility] FEDERAL PREFERRED PROVIDER ORGANIZAT ION (PPO) STAND AMEE SELF Apr 21, 1997 [id number] TINO DYE PATIENT BS MA FEP PREFERRED PROVIDER ORGANIZAT ION (PPO) STAND AMEE INDIV IDUAL Apr [birth year], 1997 [id number] TINO DYE PATIENT CAREMARK PRESCRIPT ION [id number] 1 Apr 18, 2020 [id number] [phone] TINO DYE PATIENT CAREMARK PRESCRIPT ION [id number] 1 Apr 18, 2020 [id number] TINO DYE PATIENT CAR[facility]ARK FEPRX PLAN PRESCRIPT ION BCBS FEP Apr 18, 2010 [id number] TINO DYE PATIENT CAREMARK-F EP BCBS PRESCRIPT ION FEP CAREM ARK Apr 18, 2010 [id number] TINO DYE PATIENT OPTUM RX PRESCRIPT ION RX Apr 18, 2022 [id number] TINO DYE PATIENT [facility] USFHP Apr 18, 2020 USP [id number] TINO DYE PATIENT [facility] BRIGH TON DAVE E Apr 18, 2020 [id number] TINO DYE PATIENT Selected Encounter This section includes the information on record at [place] for the Encounter. Date/Time Encounter Type Encounter Description Reason Provider Source May 27, 2023 09:30 AM OFFICE O/P EST LOW 20 MIN PRIMARY CARE/MEDICINE ICD-10-CM M62.830 Muscle spasm of back VICKI [facility] Encounter Template Text not used by [place] Assessments - Encounter Diagnoses This section includes the primary and secondary diagnoses documented for the Encounter. Date/Time Primary/Secondary Diagnosis Diagnosis Name Provider Source May 27, 2023 10:22 AM PRIMARY Muscle spasm of back VICKI MC [place] [facility] [place] [facility] Plan of Treatment: Future Appointments (+ 6 months) and Future Tests (+/- 45 days) The Plan of Treatment section includes future care activities for the patient from all [place] treatmentfacilities. This section includes future appointments and future orders which are active, pending or scheduled. Future Appointments This section includes appointments that were scheduled to occur 6 months from the date of the Encounter, up to a maximum of 20 appointments. The data comes from all [place] treatment facilities. Appointment Date/Time Appointment Type Appointme nt Facility Name Jun 24, 2023 08:00 AM AMBULATORY - PSYCHIATRY [facility] Jun 24, 2023 10:00 AM AMBULATORY - REHAB [facility] Jul 15, 2023 07:30 AM [facility] Jul 22, 2023 07:30 AM [facility] Jul 22, 2023 08:00 AM AMBULATORY - PSYCHIATRY [facility] Jul 26, 2023 08:00 AM AMBULATORY [place]ICINE [place] [facility] [place] [facility] Aug 09, 2023 03:15 PM AMBULATORY - MEDICINE [place] [facility] [place] [facility] August 26, 2023 08:00 AM AMBULATORY - PSYCHIATRY [facility] Sep 20, 2023 08:00 AM AMBULATORY - [facility]AB [facility] [place] [facility] [place] [facility] Sep 30, 2023 08:00 AM AMBULATORY - PSYCHIATRY [facility] Nov 04, 2023 11:00 AM AMBULATORY - PSYCHIATRY [facility] Nov 08, 2023 01:30 PM AMBULATORY - MEDICINE [place] [facility] [place] [facility] Nov 21, 2023 09:00 AM AMBULATORY - REHAB MEDICIN [place] [facility] [place] [facility] Vital Signs: All taken on the encounter date This section contains inpatient and outpatient Vital Signs collected on the date of the Encounter. Date/Time Temperature Pulse Blood Pressure Respiratory Rate SP02 Pain Height Weight Body Mass Index Source May 27, 2023 09:35 AM 75 135/85 19 97 [place] [facility] [place] [facility] Social History: Smoking Status (Most current) and Tobacco Use (All prior to encounter date) This section includes the most current, and the historical, smoking and tobacco- related health factors from the [place] facility where the Encounter took place. Current Smoking Status This section includes the most current smoking, or tobacco-related health factor, from the [place] facility where the Encounter took place. Date/Time Current Smoking Status Comment [facility] May 27, 2023 09:30 AM VA-TOBACCO [facility] Tobacco Use History This section includes a history of the smoking, or tobacco-related health factors, that were collected on or before the date of the Encounter. The data comes from the [place] facility where the Encounter took place. Date/Time Smoking Status/Tobac co Use Comment Facility May 27, 2023 09:30 AM VA-TOBACCO QUIT 15 YRS OR MORE [place] [facility] [facility] Feb 02, 2022 08:30 AM VA-TOBACCO FORMER USER [place] [facility] [place] [facility] Feb 02, 2022 08:30 AM VA-TOBACCO QUIT 15 YRS OR MORE [place] [facility] Dec 09, 2020 10:00 AM [facility]AC[facility] [place] [facility] Dec 09, 2020 10:00 AM VA-TOBACCO QUIT 15 YRS OR MORE [facility] Nov 28, 2019 11:26 AM VA-TOBACCO [facility] Nov 28, 2019 11:26 AM VA-TOBACCO QUIT 15 YRS OR MORE [facility] Oct 23, 2018 02:51 PM VA-TOBACCO [facility] Oct 23, 2018 02:51 PM VA-TOBACCO QUIT 15 YRS OR MORE [facility] Oct 17, 2017 09:14 AM QUIT TOBACCO USE > 7 YEARS AGO [facility] September 15, 2016 08:50 AM QUIT TOBACCO USE > 7 YEARS AGO [facility] Jul 02, 2015 09:15 AM QUIT TOBACCO USE > 7 YEARS AGO non tobacco user since 1998 [facility] Advance Directives: All historical and current Section Date Range: From patient's date of to the date document was created. This section includes ALL of a patient's completed or amended [place] Advance and Rescinded Directives. The entries below indicate that a directive exists for the patient, but an actual copy is not included with this document. The data comes from all [place] facilities. Date Advance Directives Provider Source Dec 21, 2023 ADVANCE DIRECTIVE DESIREE OLIVAREZ [facility] Encounter Notes: All associated encounter notes This section contains the clinical notes associated to the Encounter. Date/Time Encounter Note(s) Provider Source May 27, 2023 10:00 AM PHYSICIAN NOTE: LOCAL TITLE: MD NOTE STANDARD TITLE: PHYSICIAN NOTE DATE OF NOTE: MAY 27, 2023@10:00 ENTRY DATE: MAY 27, 2023@10:00:14 AUTHOR: VICKI MC COSIGNER: URGENCY: STATUS: COMPLETED Patient Name: KENY DYE Ms. is here for a sick visit. cc: back pain Yesterday, she was walking around around the floor at her work. When she got back to her office, she felt sever muscle spasms in the lower back b/l. She took some Tylenol 500mg without relief. When she got home, her gave her a massage with menthol and she used a TENS unit. This lessened her pain, she felt 100% better and was able to move easily. When she woke this morning, she felt the muscle spasm again, but not as severe as yesterday. When she is sitting still, she feels ok, but getting into and out of a seated postion is painful with muscle spasm. 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 She is not able to bend her knees. She reports drinking 1 beer a day on weekdays and 2-3 on weekends. A bottle of Baileys will last her a month. Past Medical History: Active problems - Computerized Problem List is the source for the followin. Solitary nodule of lung 0.3mm nodule on ct 02/[address] 2. Exposure to potentially hazardous substance 3. Perimenopausal atrophic vaginitis 4. Former smoker quit around [id number] 5. COPD - Chronic Obstructive Pulmonary Disease ([facility] [id number]) following nonVA Pulmonary 6. Posttraumatic stress disorder 7. Myalgia 8. Bilateral tinnitus 9. Shoulder pain 10. Overweight 11. PE - Pulmonary embolism b/l lower lobe PE 09/2014 on HRT s/p 6mo coumadin 12. Menopausal flushing 13. Female urinary stress incontinence Allergies: Patient has answered NKA Current Medications: Active Outpatient Medications (including Supplies): LIDOCAINE 5% OINT APPLY DIRECTED TOPICALLY TWICE DAILY ACTIVE NEEDED FOR MINOR SKIN WOUND PAIN Non-VA ALBUTEROL 90MCG (CFC-F) 200D ORAL INHL 1 PUFF BY ACTIVE MOUTH Non-VA ASCORBIC ACID 500MG TAB 1000MG BY MOUTH ONCE DAILY ACTIVE Non-VA ASPIRIN 81MG EC TAB 81MG BY MOUTH DAILY ACTIVE Non-VA ATORVASTATIN CALCIUM 40MG TAB 20MG BY MOUTH ONCE ACTIVE DAILY Non-VA CHOLECALCIF 25MCG (D3-1,000UNIT) TAB 25MCG BY MOUTH ACTIVE ONCE DAILY Non-VA FERROUS SULFATE 325MG TAB 325MG BY MOUTH TWO TIMES ACTIVE A WEEK Non-VA FLUTICASONE/VILANTEROL (BREO) INHL,ORAL BY MOUTH ACTIVE ONCE DAILY Non-VA LOSARTAN 25MG TAB 25MG BY MOUTH ONCE DAILY ACTIVE Non-VA MULTIVITAMIN/MINERALS CAP/TAB 1 TABLET BY MOUTH ACTIVE DAILY ROS: General: no fever CV: no cp, no sob, no palpitations Lung: no MORAN, no cough, no wheezing Abd: no n/v/d, no pain Psych: no SI PE: BP:135/85 (05/27/2023 09:35) Pulse:75 (05/27/2023 09:35) Resp:19 (05/27/2023 09:35) Temp:97.6 F [36.4 C] (07/26/2022 08:07) Pulse Oximetry VITAL SIGNS SELECTED Measurement DT POx (L/MIN)(%) 05/27/2023 09:35 97 Pain:9 (07/26/2022 08:07) Weight:216 lb [97.98 kg] (07/26/2022 08:07) Height:71 in [180.3 cm] (07/02/2015 09:55) BMI: 30.2 General: moving very stiffly when changing positions, not in distress when sitting still no warmth or mass over lower back, ttp throughout lumbar paraspinals b/l, no erythema, 4+/5 streght and hip flexors and extendors due to pain, nl DTR at knee and nl great toe strength b/l, back flexion to 90 degrees limitted by pain and tightness in lower back and hamstrings, nl toe and heel walk, nl back extension and side twist and bend Psych: A&O x3, appropriate mood and affect A/P LUMBAR MUSCLE SPASMS -continue with topical menthol creams and TENS unit for acute relief - recommend local heat - NSAID or Tylenol prn - referring to PT for core strengthening and better body mechanics - advised to limit alcohol to one drink a day f/u PCP as melinda The above plan and education was reviewed with the and they verbalized understanding. Alcohol Use Screen (AUDIT-C): Alcohol Screen: SCREEN FOR ALCOHOL (AUDIT-C) An alcohol screening test (AUDIT-C) was negative (score=4). 1. How often did you have a drink containing alcohol in the past year? Consider a drink to be a 12 ounce can or bottle of regular beer, 8 ounces of malt liquor, a 5 ounce glass of table wine, or a 1.5 ounce shot of liquor (like scotch, gin, or vodka). Four or more times a week 2. How many drinks containing alcohol did you have on a typical day when you were drinking in the past year? One or two drinks 3. How often did you have 4 or more drinks on one occasion in the past year? Never Medication Reconciliation: Outpatient: Has the patient been taking medications as documented in the EMLR? YES: The patient has been taking medications as documented in the EMLR. Essential Medication List for Review used to complete this medication reconciliation. INCLUDED IN THIS LIST: Alphabetical list of active outpatient prescriptions dispensed from this [place] (local) and dispensed from another [place] or [facility] facility (remote) as well as inpatient orders (local, pending and active), local clinic medications, locally documented non-VA medications, and local prescriptions that have or been discontinued in the past 90 days. - All changes in medications, including all non-VA/Herbal/OTC medications were entered into CPRS. - If there were any medications the patient should no longer take, they were discontinued. - The patient/caregiver was instructed to update this list, discard old lists, and take this list to the next appointment, whether with a VA or non-VA provider. Tobacco Use Screening: The patient is a former tobacco user. The patient quit fifteen or more years ago. /gustabo/ VICKI MC M.D. PHYSICIAN Signed: 05/27/2023 10:22 [facility]ICKI [facility]
--- OUTSIDE RECORDS SUMMARY | 2024-05-23 09:02 | XMS_ITS | Encounter Summary ---
Author Name [facility] [place] Address [address] [place] [id number] Care Team Providers Care Senior Estimator Name Role Phone JULIO CÉSAR ALMEIDA Primary [...] Name Patient's Relationship to Policy Stoddard [facility] FEDERAL PREFERRED PROVIDER ORGANIZAT ION (PPO) STAND AMEE SELF Apr 21, 1997 [id number] TINO DYE PATIENT BS MA FEP PREFERRED PROVIDER ORGANIZAT ION (PPO) STAND AMEE INDIV IDUAL Apr 21, 1997 [id number] TINO DYE PATIENT CAREMARK PRESCRIPT ION [id number] 1 Apr 18, 2020 [id number] MARNIETINO RODRIGUEZ PATIENT CAREMARK PRESCRIPT ION [id number] 1 Apr 18, 2020 [id number] MARNIETINO RODRIGUEZ PATIENT CAREMARK FEPRX PLAN PRESCRIPT ION BCBS FEP Apr 18, 2010 [id number] TINO DYE PATIENT CAREMARK-F EP BCBS PRESCRIPT ION FEP CAREM ARK Apr 18, 2010 [id number] TINO DYE PATIENT OPTUM RX PRESCRIPT ION RX Apr 18, 2022 [id number] TINO DYE PATIENT [facility] USFHP Apr 18, 2020 USP [id number] [phone] TINO DYE PATIENT [facility] BRIGH TON DAVE E Apr 18, 2020 [id number] [phone] TINO DYE PATIENT Selected Encounter This section includes the information on record at [place] for the Encounter. Date/Time Encounter Type Encounter Description Reason Provider Source Jun 24, 2023 08:00 AM PSYTX W PT 60 MINUTES [facility] - IND ICD-10-CM F43.12 Post-traumatic stress disorder, chronic GAUTAM ALEJANDRE [facility] Encounter Template Text not used by [place] Assessments - Encounter Diagnoses This section includes the primary and secondary diagnoses documented for the Encounter. Date/Time Primary/Secondary Diagnosis Diagnosis Name Provider Source Jun 24, 2023 11:10 AM PRIMARY Post-traumatic stress disorder, chronic GAUTAM ALEJANDRE [place] Plan of Treatment: Future Appointments (+ 6 months) and Future Tests (+/- 45 days) The Plan of Treatment section includes future care activities for the patient from all [place] treatmentfacilities. This section includes future appointments and future orders which are active, pending or scheduled. Future Appointments This section includes appointments that were scheduled to occur 6 months from the date of the Encounter, up to a maximum of 20 appointments. The data comes from all [place] treatment facilities. Appointment Date/Time Appointment Type Appointme nt Facility Name Jul 15, 2023 07:30 AM AMBULATORY - REHAB [facility] Jul 22, 2023 07:30 AM AMBULATORY - REHAB [facility] Jul 22, 2023 08:00 AM AMBULATORY - PSYCHIATRY [facility] Jul 26, 2023 08:00 AM [facility] Aug 09, 2023 03:15 PM AMBULATORY - MEDICINE [facility] August 26, 2023 08:00 AM AMBULATORY - PSYCHIATRY [facility] Sep 20, 2023 08:00 AM AMBULATORY - REHAB MEDICIN [place] [facility] [place] [facility] Sep 30, 2023 08:00 AM AMBULATORY - PSYCHIATRY [facility] Nov 04, 2023 11:00 AM AMBULATORY - PSYCHIATRY [facility] Nov 08, 2023 01:30 PM AMBULATORY - MEDICINE [facility] [place] [facility] Nov 21, 2023 09:00 AM AMBULATORY - REHAB MEDICIN [place] [facility] [place] [facility] Dec 02, 2023 01:00 PM AMBULATORY - PSYCHIATRY [facility] Dec 23, 2023 08:00 AM AMBULATORY - REHAB MEDICIN [place] [facility] [place] [facility] Advance Directives: All historical and current Section Date Range: From patient's date of to the date document was created. This section includes ALL of a patient's completed or amended [place] Advance and Rescinded Directives. The entries below indicate that a directive exists for the patient, but an actual copy is not included with this document. The data comes from all [place] facilities. Date Advance Directives Provider Source Dec 21, 2023 ADVANCE DIRECTIVE DESIREE OLIVAREZ [place] [facility] [place] [facility] Encounter Notes: All associated encounter notes This section contains the clinical notes associated to the Encounter. Date/Time Encounter Note(s) Provider Source Jun 24, 2023 08:00 AM SOCIAL WORK NOTE: LOCAL TITLE: SOCIAL WORK NOTE STANDARD TITLE: SOCIAL WORK NOTE DATE OF NOTE: JUN 24, 2023@08:00 ENTRY DATE: JUN 24, 2023@11:02:56 AUTHOR: GAUTAM ALEJANDRE EXP COSIGNER: URGENCY: STATUS: COMPLETED INFORMED CONSENT REVIEWED: At beginning of session reviewed rights and limits of confidentiality, mandatory reporting situations, duty to warn and protect, [employer] Warning, (if treatment team finds patient to be an acute danger to himself or others, that this information could be relayed to a court of law and presented to a clinical services manager), and DOD access for active duty service members. Provided Suicide Prevention Hotline number, and other contact numbers as necessary. VISIT DURATION 60 minutes DIAGNOSES: PTSD chronic (F43.12) [employer]ERANS STATEMENT OF GOALS/CONCERNS: I had a good vacation and now I am back at work SESSION FOCUS: Met with [place] face to face for individual counseling. [place] stated she and her went [place] [facility] [place]. [place] and [place] and had a good time. She stated she was stressed when traveling but was able to relax while there. She stated now that she is back at work she is realizing she cannot work for much longer. Her feet and back hurt while walking on the cement floor. She is anticipating that she can retire either in September or October and is looking forward to doing more traveling when she has more time. She spoke alot about the trip and how relaxing it was. INTERVENTIONS: Psychotherapeutic Interventions: NH; Reflective listening and support ASSESSMENT: BRIEF ASSESSMENT [...] PLAN FOR FOLLOW-UP: Next session planned for: 07/22/23 at 8am /gustabo/ MEREDITH BRYANT Pump Assembler Mental Health Signed: 06/24/2023 11:10 GAUTAM ALEJANDRE
--- OUTSIDE RECORDS SUMMARY | 2024-05-23 09:02 | XMS_ITS ---
Author Name [facility] [place] Organization [place] Address [address] [place] [id number] Care Team Providers Care Restaurant Attendant Name Role Phone JUAN PABLOJULIO CÉSAR GOLDMAN [...] Name Patient's Relationship to Policy Stoddard [facility] FEDERAL PREFERRED PROVIDER ORGANIZAT ION (PPO) STAND AMEE SELF Apr 21, 1997 104 [id number] TINO DYE PATIENT BS MA FEP PREFERRED PROVIDER ORGANIZAT ION (PPO) STAND AMEE INDIV IDUAL Apr 21, 1997 [id number] TINO DYE PATIENT [facility] PRESCRIPT ION [id number] 1 Apr 18, 2020 [id number] TINO DYE PATIENT [facility] PRESCRIPT ION [id number] 1 Apr 18, 2020 [id number] TINO DYE PATIENT [facility] FEPRX PLAN PRESCRIPT ION BCBS FEP Apr 18, 2010 [id number] TINO DYE PATIENT CAREMARK-F EP BCBS PRESCRIPT ION FEP CAREM ARK Apr 18, 2010 [id number] TINO DYE PATIENT OPTUM RX PRESCRIPT ION RX Apr 18, 2022 [id number] TINO DYE PATIENT [facility] USFHP Apr 18, 2020 [id number] [phone] [id number] TINO DYE PATIENT [facility] BRIGH TON DAVE E Apr 18, 2020 [id number] TINO DYE PATIENT Selected Encounter This section includes the information on record at [place] for the Encounter. Date/Time Encounter Type Encounter Description Reason Provider Source Jan 17, 2024 08:00 AM MANUAL THERAPY 1/> [facility] ASSOCIATE ICD-10-CM M54.59 Other low back pain PETER JEFFERS [facility] Encounter Template Text not used by [place] Assessments - Encounter Diagnoses This section includes the primary and secondary diagnoses documented for the Encounter. Date/Time Primary/Secondary Diagnosis Diagnosis Name Provider Source Jan 17, 2024 08:28 AM PRIMARY Other low back pain PETER JEFFERS [facility] Plan of Treatment: Future [...] Appointment Type Appointme nt Facility Name Jan 18, 2024 10:00 AM AMBULATORY - REHAB MEDICIN E [facility] Jan 18, 2024 01:00 PM AMBULATORY - PSYCHIATRY [facility] Jan 24, 2024 08:00 AM AMBULATORY - MEDICINE [facility] Jan 26, 2024 01:30 PM AMBULATORY - REHAB MEDICIN E [facility] Jan 31, 2024 08:00 AM [facility] [place] [facility] Feb 09, 2024 01:30 PM AMBULATORY - REHAB MEDICIN E [facility] [place] [facility] Feb 20, 2024 01:00 PM AMBULATORY - PSYCHIATRY [facility] Feb 21, 2024 09:00 AM AMBULATORY - MEDICINE [facility] [place] [place] [facility] Feb 23, 2024 10:30 AM AMBULATORY - MEDICINE [facility] [place] [facility] Mar 05, 2024 09:00 AM AMBULATORY - MEDICINE [facility] [place] [facility] Mar 07, 2024 10:00 AM AMBULATORY - REHAB MEDICIN E [facility] [place] [facility] Mar 07, 2024 10:30 AM AMBULATORY - NONE [facility] [place] [facility] Mar 09, 2024 09:15 AM AMBULATORY - MEDICINE [facility] [place] [facility] Mar 09, 2024 01:00 PM AMBULATORY - MEDICINE [facility] [place] [facility] Mar 27, 2024 01:00 PM AMBULATORY - PSYCHIATRY [facility] Apr 24, 2024 03:00 PM AMBULATORY - MEDICINE [place] [facility] [place] [facility] May 01, 2024 02:00 PM AMBULATORY - PSYCHIATRY [facility] May 18, 2024 10:00 AM AMBULATORY - MEDICINE [place] [facility] [place] [facility] May 29, 2024 01:00 PM AMBULATORY - PSYCHIATRY [facility] May 30, 2024 01:00 PM AMBULATORY - REHAB MEDICIN E [facility] [place] [facility] Social History: Smoking Status (Most current) and Tobacco Use (All prior to encounter date) This section includes the most current, and the historical, smoking and tobacco- related health factors from the [place] facility where the Encounter took place. Current Smoking Status This section includes the most current smoking, or tobacco-related health factor, from the [place] facility where the Encounter took place. Date/Time Current Smoking Status Terrance roblero May 27, 2023 09:30 AM [facility] Tobacco Use History This section includes a history of the smoking, or tobacco-related health factors, that were collected on or before the date of the Encounter. The data comes from the [place] facility where the Encounter took place. Date/Time Smoking Status/Tobac co Use Comment Facility May 27, 2023 09:30 AM VA-TOBACCO QUIT 15 YRS OR MORE [place] [facility] [place] [facility] Feb 02, 2022 08:30 AM VA-TOBACCO FORMER USER [place] [facility] [place] [facility] Feb 02, 2022 08:30 AM VA-TOBACCO QUIT 15 YRS OR MORE [place] [facility] [place] [facility] Dec 09, 2020 10:00 AM VA-TOBACCO FORMER USER [place] [facility] [place] [facility] Dec 09, 2020 10:00 AM VA-TOBACCO QUIT 15 YRS OR MORE [place] [facility] [place] [facility] Nov 28, 2019 11:26 AM VA-TOBACCO FORMER USER [place] [facility] [place] [facility] Nov 28, 2019 11:26 AM VA-TOBACCO QUIT 15 YRS OR MORE [place] [facility] [place] [facility] Oct 23, 2018 02:51 PM VA-TOBACCO FORMER USER [place] [facility] [place] [facility] Oct 23, 2018 02:51 PM VA-TOBACCO QUIT 15 YRS OR MORE [place] [facility] [place] [facility] Oct 17, 2017 09:14 AM QUIT TOBACCO USE > 7 YEARS AGO [place] [facility] [place] [facility] September 15, 2016 08:50 AM QUIT TOBACCO USE > 7 YEARS AGO [place] [facility] [place] [facility] Jul 02, 2015 09:15 AM QUIT TOBACCO USE > 7 YEARS AGO non tobacco user since 1998 [place] [facility] Advance Directives: All historical and current [...] Dec 21, 2023 ADVANCE DIRECTIVE DESIREE OLIVAREZ [facility]SN [facility] Encounter Notes: All associated encounter notes This section contains the clinical notes associated to the Encounter. Date/Time Encounter Note(s) Provider Source Jan 17, 2024 08:03 AM CHIROPRACTIC NOTE: LOCAL TITLE: CHIROPRACTOR PROGRESS NOTE STANDARD TITLE: CHIROPRACTIC NOTE DATE OF NOTE: JAN 17, 2024@08:03 ENTRY DATE: JAN 17, 2024@08:03:16 AUTHOR: PETER JEFFERS COSIGNER: URGENCY: STATUS: COMPLETED WALKERKENY is a [...] VICKI MC Menopausal flushing N95.1 07/02/2015 VICKI CM Female urinary stress incontinence 07/02/2015 VICKI MC Past Surgeries: HX R shoulder injury and had PT HX Osteopenia Injection with cortisone into the heel of R foot for calcaneal spur Surgeries - None Patient [facility] [place] [facility] with C/C of low back pain, bilat. After the last visit she felt relief for a couple of days. Drive to [place] exacerbated the sx. She also aggravated sx by filling a tea kettle. She reports a pinching pain in upper back. She C/O Numbness in R anterior thigh [...] last year Physical therapy. 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 Patient denies bowel/bladder dysfunction saddle anesthesia, recent fevers, infections, night sweats, unexplained weight loss, dysphagia, dysarthria, numbness, diploplia Reviewed Radiologist's reports: FEB 03, 2022 Report: SPINE LUMBOSACRAL MIN 2 VIEWS History: low back pain Comparison: None. Findings: There are 5 ipq-pam-avogtpb lumbar vertebrae. Vertebral body heights are normal. [...] ~ Supine gluteal stretching as per palpation Treatment: active/corrective Manual therapy, 8 min, lumbar and mid thoracic MFR CMT lumbar side posture CMT thoracic seated The prognosis,at this time,is fair to good [...] and pain modulation. Plan: Trial Chiropractic Visit 3 F/U 2 more scheduled weekly Seek urgent care as needed. CMT: chiropractic manipulative therapy SMT: Spinal Manipulative Therapy F/D: Flexion Distraction MFR: Myofascial Release S-I: Sacroiliac MFTP: Myofascial Trigger Point NRS: Numeric Rating Scale N/T: Numbness/Tingling PIR: Post isometric relaxation /es/ PETER JEFFERS [facility] CHIROPRACTOR Signed: 01/17/2024 08:28 PETER JEFFERS [facility]
--- OUTSIDE RECORDS SUMMARY | 2024-05-23 09:02 | XMS_ITS ---
Author Name [facility] [place] Organization [place] Address [address] [place] [address] Care Team Providers Care Barber Apprentice Name Role Phone JUAN PABLOSYBILA Primary Care [...] Patient's Relationship to Policy Stoddard [facility] CT FEDERAL PREFERRED PROVIDER ORGANIZAT ION (PPO) STAND AMEE SELF Apr 21, 1997 [id number] TINO DYE PATIENT BS MA FEP PREFERRED PROVIDER ORGANIZAT ION (PPO) STAND AMEE INDIV IDUAL Apr 21, 1997 [id number] TINO DYE PATIENT [facility] PRESCRIPT ION [id number] 1 Apr 18, 2020 [id number] TINO DYE PATIENT [facility] PRESCRIPT ION [id number] 1 Apr 18, 2020 [id number] TINO DYE PATIENT [facility] FEPRX PLAN PRESCRIPT ION BCBS FEP Apr 18, 2010 [id number] TINO YDE PATIENT CAREMARK-F EP BCBS PRESCRIPT ION FEP CAREM ARK Apr 18, 2010 [id number] TINO DYE PATIENT OPTUM RX PRESCRIPT ION RX Apr 18, 2022 [id number] TINO DYE PATIENT [facility] USP Apr 18, 2020 [id number] TINO DYE PATIENT [facility] BRLUKE TON DAVE E Apr 18, 2020 [id number] [phone] TINO DYE PATIENT Selected Encounter This section includes the information on record at [place] for the Encounter. 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 Date/Time Primary/Secondary Diagnosis Diagnosis Name Provider Source Jan 17, 2024 01:07 PM PRIMARY Other low back pain [facility] JEFFERS [facility] Plan of Treatment: Future Appointments (+ 6 months) and Future Tests (+/- 45 days) The Plan of Treatment section includes future care activities for the patient from all [place] treatmentfacilities. This section includes future appointments and future orders which are active, pending or scheduled. Future Appointments This section includes appointments that were scheduled to occur 6 months from the date of the Encounter, up to a maximum of 20 appointments. The data comes from all [place] treatment facilities. Appointment Date/Time Appointment Type Appointme nt Facility Name Dec 29, 2023 08:00 AM AMBULATORY - REHAB MEDICIN E [place] [facility] [place] [facility] Jan 16, 2024 10:45 AM AMBULATORY - MEDICINE [facility] Jan 17, 2024 08:00 AM AMBULATORY - MEDICINE [place] [facility] [place] [facility] Jan 18, 2024 10:00 AM AMBULATORY - REHAB MEDICIN E [place] [facility] [place] [facility] Jan 18, 2024 01:00 PM AMBULATORY - PSYCHIATRY [facility] Jan 24, 2024 08:00 AM AMBULATORY - MEDICINE [facility] [place] [facility] Jan 26, 2024 01:30 PM AMBULATORY - REHAB MEDICIN E [facility] [place] [facility] Jan 31, 2024 08:00 AM AMBULATORY - MEDICINE [facility] [place] [facility] Feb 09, 2024 01:30 PM AMBULATORY - REHAB MEDICIN E [facility] [place] [facility] Feb 20, 2024 01:00 PM AMBULATORY - PSYCHIATRY [facility] Feb 21, 2024 09:00 AM AMBULATORY - MEDICINE [facility] [place] [facility] Feb 23, 2024 10:30 AM AMBULATORY - MEDICINE [facility] [place] [facility] Mar 05, 2024 09:00 AM AMBULATORY - MEDICINE [facility] [place] [facility] Mar 07, 2024 10:00 AM AMBULATORY - REHAB MEDICIN E [facility] [place] [facility] Mar 07, 2024 10:30 AM AMBULATORY - NONE [place] [facility] [place] [facility] Mar 09, 2024 09:15 AM AMBULATORY - MEDICINE [facility] [place] [facility] Mar 09, 2024 01:00 PM AMBULATORY - MEDICINE [facility] [place] [facility] Mar 27, 2024 01:00 PM AMBULATORY - PSYCHIATRY [facility] Apr 24, 2024 03:00 PM AMBULATORY - MEDICINE [place] [facility] May 01, 2024 02:00 PM AMBULATORY - PSYCHIATRY [facility] Social History: Smoking Status (Most current) and Tobacco Use (All prior to encounter date) This section includes the most current, and the historical, smoking and tobacco- related health factors from the [place] facility where the Encounter took place. Current Smoking Status This section includes the most current smoking, or tobacco-related health factor, from the [place] facility where the Encounter took place. Date/Time Current Smoking Status Comment Becka roblero May 27, 2023 09:30 AM VA-TOBACCO FORMER USER [place] CNT [facility] Tobacco Use History This section includes a history of the smoking, or tobacco-related health factors, that were collected on or before the date of the Encounter. The data comes from the [place] facility where the Encounter took place. Date/Time Smoking Status/Tobac co Use Comment Facility May 27, 2023 09:30 AM VA-TOBACCO QUIT 15 YRS OR MORE [place] [facility] [place] [facility] Feb 02, 2022 08:30 AM VA-TOBACCO FORMER USER [place] [facility] [place] [facility] Feb 02, 2022 08:30 AM VA-TOBACCO QUIT 15 YRS OR MORE [place] [facility] [place] [facility] Dec 09, 2020 10:00 AM VA-TOBACCO FORMER USER [place] [facility] [place] [facility] Dec 09, 2020 10:00 AM VA-TOBACCO QUIT 15 YRS OR MORE [place] [facility] [place] [facility] Nov 28, 2019 11:26 AM VA-TOBACCO FORMER USER [place] [facility] [place] [facility] Nov 28, 2019 11:26 AM VA-TOBACCO QUIT 15 YRS OR MORE [place] [facility] [place] [facility] Oct 23, 2018 02:51 PM VA-TOBACCO FORMER USER [place] [facility] [place] [facility] Oct 23, 2018 02:51 PM VA-TOBACCO QUIT 15 YRS OR MORE [place] [facility] [place] [facility] Oct 17, 2017 09:14 AM QUIT TOBACCO USE > 7 YEARS AGO [place] [facility] [place] [facility] September 15, 2016 08:50 AM QUIT TOBACCO USE > 7 YEARS AGO [place] [facility] [place] [facility] Jul 02, 2015 09:15 AM QUIT TOBACCO USE > 7 YEARS AGO non tobacco user since 1998 [facility]N [facility] Advance Directives: All historical and current Section Date Range: From patient's date of to the date document was created. This section includes ALL of a patient's completed or amended [place] Advance and Rescinded Directives. The entries below indicate that a directive exists for the patient, but an actual copy is not included with this document. The data comes from all [place] facilities. Date Advance Directives Provider Source Dec 21, 2023 ADVANCE DIRECTIVE DESIREE OLIVAREZ [facility] WSN [facility] Encounter Notes: All associated encounter notes This section contains the clinical notes associated to the Encounter. Date/Time Encounter Note(s) Provider Source Dec 27, 2023 11:15 AM CHIROPRACTIC CONSU LT: LOCAL TITLE: CONSULT REPORT/CHIROPRACTOR STANDARD TITLE: CHIROPRACTIC CONSULT DATE OF NOTE: DEC 27, 2023@11:15 ENTRY DATE: DEC 27, 2023@11:15:54 AUTHOR: PETER JEFFERS COSIGNER: URGENCY: STATUS: COMPLETED [...] spur Surgeries - None Patient [facility] [place] [facility] with C/C of low back pain, bilat. Occasional pain posterior R LE to thigh Quality: deep ache and constant Vet rates the pain on the NPRS [...] last year Physical therapy. 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 Patient denies bowel/bladder dysfunction saddle anesthesia, recent fevers, infections, night sweats, unexplained weight loss, dysphagia, dysarthria, numbness, diploplia Reviewed Radiologist's reports: FEB 03, 2022 Report: SPINE LUMBOSACRAL MIN 2 VIEWS History: low back pain Comparison: None. Findings: There are 5 loy-ell-ylmwecf lumbar vertebrae. Vertebral body heights are normal. [...] gluteal stretching as per palpation Treatment: active/corrective Mechanical lumbar traction w F/D CMT lumbar side posture CMT thoracic seated F/D provoked lbp Treatment carried out today and well tolerated. Lying prone with table tilted and cough aggravated LBP The prognosis,at this time,is fair to good [...] and pain modulation. Plan: Trial Chiropractic Visit 1 F/U 3 weekly Seek urgent care as needed. CMT: chiropractic manipulative therapy SMT: Spinal Manipulative Therapy F/D: Flexion Distraction MFR: Myofascial Release S-I: Sacroiliac MFTP: Myofascial Trigger Point NRS: Numeric Rating Scale N/T: Numbness/Tingling PIR: Post isometric relaxation /es/ [facility]ER JE[facility]ERS [facility] CHIROPRACTOR Signed: 12/27/2023 12:38 PETER JEFFERS [facility]
--- OUTSIDE RECORDS SUMMARY | 2024-05-23 09:02 | XMS_ITS | Encounter Summary ---
Author Name [facility] [place] Address [address] [place] [id number] Care Team Providers Care Airveyor Operator Name Role Phone JULIO CÉSAR ALMEIDA Primary [...] Name Patient's Relationship to Policy Stoddard [facility] FEDERAL PREFERRED PROVIDER ORGANIZAT ION (PPO) STAND AMEE SELF Apr 21, 1997 104 [id number] TINO DYE PATIENT BS MA FEP PREFERRED PROVIDER ORGANIZAT ION (PPO) STAND AMEE INDIV IDUAL Apr 21, 1997 104 [id number] TINO DYE PATIENT [facility] PRESCRIPT ION [id number] 1 Apr 18, 2020 [id number] [phone] MARNIETINO RODRIGUEZ PATIENT [facility]ARK PRESCRIPT ION [id number] 1 Apr 18, 2020 [id number] MARNIETINO RODRIGUEZ PATIENT [facility] FEPRX PLAN PRESCRIPT ION BCBS FEP Apr 18, 2010 [id number] TINO DYE PATIENT CAREMARK-F EP BCBS PRESCRIPT ION FEP CAREM ARK Apr 18, 2010 [id number] TINO DYE PATIENT OPTUM RX PRESCRIPT ION RX Apr 18, 2022 [id number] [phone] [id number] TINO DYE PATIENT [facility] USFHP Apr 18, 2020 [id number] [id number] TINO DYE PATIENT [facility] BRIGH TON DAVE E Apr 18, 2020 [id number] TINO DYE PATIENT Selected Encounter This section includes the information on record at [place] for the Encounter. Date/Time Encounter Type Encounter Description Reason Provider Source Jan 18, 2024 01:00 PM PSYTX W PT 60 MINUTES [facility] ICD-10-CM F43.12 Post-traumatic stress disorder, chronic GAUTAM ALEJANDRE [facility] Encounter Template Text not used by [place] Assessments - Encounter Diagnoses This section includes the primary and secondary diagnoses documented for the Encounter. Date/Time Primary/Secondary Diagnosis Diagnosis Name Provider Source Jan 18, 2024 02:06 PM PRIMARY Post-traumatic stress disorder, chronic GAUTAM ALEJANDRE [place] Plan of Treatment: Future Appointments (+ 6 [...] 24, 2024 08:00 AM AMBULATORY - MEDICINE [facility] Jan 26, 2024 01:30 PM AMBULATORY - [place] [facility] Jan 31, 2024 08:00 AM AMBULATORY - MEDICINE [facility] N[place] [facility] Feb 09, 2024 01:30 PM AMBULATORY - [place] [facility] Feb 20, 2024 01:00 PM AMBULATORY - PSYCHIATRY [facility] [place] Feb 21, 2024 09:00 AM AMBULATORY [place]ICINE [place] [facility] Feb 23, 2024 10:30 AM AM[facility] [place]INE [place] [facility] [place] [facility] Mar 05, 2024 09:00 AM AMBULATORY - MEDICINE [place] [facility] [place] [facility] Mar 07, 2024 10:00 AM AMBULATORY - REHAB MEDICIN [place] [facility] [place] [facility] Mar 07, 2024 10:30 AM AMBULATORY - NONE [place] [facility] Mar 09, 2024 09:15 AM AM[place]ORY [place] [facility] Mar 09, 2024 01:00 PM AMBULATORY [place] [facility] Mar 27, 2024 01:00 PM AMBULATORY - PSYCHIATRY [facility] Apr 24, 2024 03:00 PM AM[place]UL[place]ORY [place]INE [place] [facility] May 01, 2024 02:00 PM AMBULATORY - PSYCHIATRY [facility] May 18, 2024 10:00 AM AM[place]ULATORY [place] [facility] May 29, 2024 01:00 PM AMBULATORY - PSYCHIATRY [facility] May 30, 2024 01:00 PM AMBULATORY - REHAB MEDICIN [place] [facility] [place] [facility] Advance Directives: All historical and current Section Date Range: From patient's date of to the date document was created. This section includes ALL of a patient's completed or amended [place] Advance and Rescinded Directives. The entries below indicate that a directive exists for the patient, but an actual copy is not included with this document. The data comes from all [place] facilities. Date Advance Directives Provider Source Dec 21, 2023 ADVANCE DIRECTIVE DESIREE OLIVAREZ [place] [facility] Encounter Notes: All associated encounter notes This section contains the clinical notes associated to the Encounter. Date/Time Encounter Note(s) Provider Source Jan 18, 2024 01:00 PM SOCIAL WORK NOTE: LOCAL TITLE: SOCIAL WORK NOTE STANDARD TITLE: SOCIAL WORK NOTE DATE OF NOTE: JAN 18, 2024@13:00 ENTRY DATE: JAN 18, 2024@13:58:16 AUTHOR: GAUTAM ALEJANDRE EXP COSIGNER: URGENCY: STATUS: COMPLETED INFORMED CONSENT REVIEWED: At beginning of session reviewed rights and limits of confidentiality, mandatory reporting situations, duty to warn and protect, [place] Warning, (if treatment team finds patient to be an acute danger to himself or others, that this information could be relayed to a court of law and presented to a staff anesthetist), and DOD access for active duty service members. Provided Suicide Prevention Hotline number, and other contact numbers as necessary. VISIT DURATION 60 minutes DIAGNOSES: PTSD chronic (F43.12) V[employer]ERANS STATEMENT OF GOALS/CONCERNS: I'm good. Our trip to [place] was wonderful. SESSION FOCUS: Met with [place] face to face for individual counseling. stated she [place] her [place] a few weeks this past month. They wanted to explore the community and inquire about homes for sale. She stated they really enjoyed themselves and would definately like to purchase a home there. The problem right now is the cost. She stated the home they want is much to expensive for them. She stated they will work on saving more for a significant down payment. [place] spoke about her family and her husbands family. She has good relationships with all although she mentioned wanting to have more friends to hang out with. She believes she would have more ability to make friends in [place]. Overall she states she is enjoying [facility] and doing well. INTERVENTIONS: Psychotherapeutic Interventions: GA; Reflective listening and support ASSESSMENT: BRIEF ASSESSMENT [...] PLAN FOR FOLLOW-UP: Next session planned for: 02/20/24 at 1pm /gustabo/ MEREDITH BRYANT Fireworks Inspector Mental Health Signed: 01/18/2024 14:06 GAUTAM ALEJANDRE
--- OUTSIDE RECORDS SUMMARY | 2024-05-23 09:02 | XMS_ITS ---
Author Name [facility] [place] Address [address] [place] [address] Care Team Providers Care Robot Programmer Name Role Phone JUAN PABLOSYBILA Primary Care [...] Name Patient's Relationship to Policy Stoddard [facility] CT FEDERAL PREFERRED PROVIDER ORGANIZAT ION (PPO) STAND AMEE SELF Apr 21, 1997 [id number] TINO DYE PATIENT BS MA FEP PREFERRED PROVIDER ORGANIZAT ION (PPO) STAND AMEE INDIV IDUAL Apr 21, 1997 [id number] TINO DYE PATIENT [facility] PRESCRIPT ION [id number] 1 Apr 18, 2020 [id number] TINO DYE PATIENT [facility] PRESCRIPT ION [id number] 1 Apr 18, 2020 [id number] TINO DYE PATIENT [facility] FEPRX PLAN PRESCRIPT ION BCBS FEP Apr 18, 2010 [id number] TINO DYE PATIENT [facility]-F EP BCBS PRESCRIPT ION FEP CAREM ARK Apr 18, 2010 [id number] TINO DYE PATIENT OPTUM RX PRESCRIPT ION RX Apr 18, 2022 [id number] TINO DYE PATIENT [facility] USP Apr 18, 2020 USP [id number] TINO DYE PATIENT [facility] BRIGH TON DAVE E Apr 18, 2020 [id number] [phone] TINO DYE PATIENT Selected Encounter This section includes the information on record at [place] for the Encounter. Date/Time Encounter Type Encounter Description Reason Provider Source Dec 29, 2023 08:00 AM OFFICE O/P NEW LOW 30 MIN PHYSICAL THERAPY ICD-10-CM M47.896 Other spondylosis, lumbar region PARKER PALOMINO E Encounter Template Text not used by [place] Assessments - Encounter Diagnoses This section includes the primary and secondary diagnoses documented for the Encounter. Date/Time Primary/Secondary Diagnosis Diagnosis Name Provider Source Jan 10, 2024 09:34 AM PRIMARY Other spondylosis, lumbar region PARKER PALOMINO [facility] Plan of Treatment: Future Appointments (+ 6 months) and Future Tests (+/- 45 days) The Plan of Treatment section includes future care activities for the patient from all [place] treatmentfacilities. This section includes future appointments and future orders which are active, pending or scheduled. Future Appointments This section includes appointments that were scheduled to occur 6 months from the date of the Encounter, up to a maximum of 20 appointments. The data comes from all [place] treatment facilities. Appointment Date/Time Appointment Type Appointme nt Facility Name Jan 16, 2024 10:45 AM AMBULATORY - [place]ICINE [place] [facility] Jan 17, 2024 08:00 AM [facility] Jan 18, 2024 10:00 AM [facility] Jan 18, 2024 01:00 PM AMBULATORY - PSYCHIATRY [facility] Jan 24, 2024 08:00 AM AMBULATORY [place] MEDICINE [place] [facility] Jan 26, 2024 01:30 PM AMBULATORY - REH[place] MEDICIN [place] [facility] Jan 31, 2024 08:00 AM AMBULATORY [place] MEDICINE [place] [facility] Feb 09, 2024 01:30 PM AMBULATORY - REHAB MEDICIN [place] [facility] Feb 20, 2024 01:00 PM AMBULATORY - PSYCHIATRY [facility] Feb 21, 2024 09:00 AM AM[facility]ULATORY [place] MEDICINE [place] [facility] Feb 23, 2024 10:30 AM AMBULATORY [place] MEDICINE [place] [facility] [place] [facility] Mar 05, 2024 09:00 AM AMBULATORY - MEDICINE [place] [facility] [place] [facility] Mar 07, 2024 10:00 AM AMBULATORY - REHAB MEDICIN [place] [facility] [place] [facility] Mar 07, 2024 10:30 AM AMBULATORY - NONE [place] [facility] [place] [facility] Mar 09, 2024 09:15 AM AMBULATORY - MEDICINE [place] [facility] [place] [facility] Mar 09, 2024 01:00 PM AMBULATORY - MEDICINE [place] [facility] [place] [facility] Mar 27, 2024 01:00 PM AMBULATORY - PSYCHIATRY [facility] Apr 24, 2024 03:00 PM AMBULATORY - MEDICINE [place] [facility] May 01, 2024 02:00 PM AMBULATORY - PSYCHIATRY [facility] May 18, 2024 10:00 AM AMBULATORY [place] MEDICINE [place] [facility] Social History: Smoking Status (Most current) and Tobacco Use (All prior to encounter date) This section includes the most current, and the historical, smoking and tobacco- related health factors from the [place] facility where the Encounter took place. Current Smoking Status This section includes the most current smoking, or tobacco-related health factor, from the [place] facility where the Encounter took place. Date/Time Current Smoking Status Comment Becka roblero May 27, 2023 09:30 AM VA-TOBACCO FORMER USER [facility] [place] [facility] Tobacco Use History This section includes a history of the smoking, or tobacco-related health factors, that were collected on or before the date of the Encounter. The data comes from the [place] facility where the Encounter took place. Date/Time Smoking Status/Tobac co Use Comment Facility May 27, 2023 09:30 AM VA-TOBACCO QUIT 15 YRS OR MORE [place] [facility] [facility] Feb 02, 2022 08:30 AM VA-TOBACCO FORMER USER [place] [facility] [facility] Feb 02, 2022 08:30 AM VA-TOBACCO QUIT 15 YRS OR MORE [place] [facility] [place] [facility] Dec 09, 2020 10:00 AM VA-TOBACCO FORMER USER [place] [facility] [facility] Dec 09, 2020 10:00 AM VA-TOBACCO QUIT 15 YRS OR MORE [place] [facility] [facility] Nov 28, 2019 11:26 AM VA-TOBACCO FORMER USER [place] [facility] [place] [facility] Nov 28, 2019 11:26 AM VA-TOBACCO QUIT 15 YRS OR MORE [place] [facility] [place] [facility] Oct 23, 2018 02:51 PM VA-TOBACCO FORMER USER [place] [facility] [place] [facility] Oct 23, 2018 02:51 PM VA-TOBACCO QUIT 15 YRS OR MORE [place] [facility] [place] [facility] Oct 17, 2017 09:14 AM QUIT TOBACCO USE > 7 YEARS AGO [place] [facility] [place] [facility] September 15, 2016 08:50 AM QUIT TOBACCO USE > 7 YEARS AGO [place] [facility] [facility] Jul 02, 2015 09:15 AM QUIT TOBACCO USE > 7 YEARS AGO non tobacco user since 1998 [facility] Advance Directives: All historical and current Section Date Range: From patient's date of to the date document was created. This section includes ALL of a patient's completed or amended [place] Advance and Rescinded Directives. The entries below indicate that a directive exists for the patient, but an actual copy is not included with this document. The data comes from all [place] facilities. Date Advance Directives Provider Source Dec 21, 2023 ADVANCE DIRECTIVE DESIREE OLIVAREZ [facility] Encounter Notes: All associated encounter notes This section contains the clinical notes associated to the Encounter. Date/Time Encounter Note(s) Provider Source Dec 29, 2023 08:05 AM PHYSICAL THERAPY CONSULT: LOCAL TITLE: PHYSICAL THERAPY CONSULT STANDARD TITLE: PHYSICAL THERAPY CONSULT DATE OF NOTE: DEC 29, 2023@08:05 ENTRY DATE: DEC 29, 2023@08:05:17 AUTHOR: PARKER PALOMINO COSIGNER: URGENCY: STATUS: COMPLETED Initial Evaluation date: 12/29/23 Progress Note Date: n/a Treatment #: eval Treatment time: 45min Diagnosis: Spondylosis lumbar region Provider: bong VENTURA Treatment Precautions: n/a Patient identified by full name and date of SUBJECTIVE: Pt with recent visit to PT in May 2023 several visits . Issues getting up/off the floor issues w/ getting up/down etc so not doing all of them, cut back on some of them. 3 or 4 of them on a regular basis and not necessarily daily. LBP off and on for the past couple years, visit in june she had pain ongoing for several weeks. LBP used to come and go, now there every morning. Doesn't subside until later on in the afternoon, flexing at the sink to brush teeth to get upright has to push against the sink, difficulty getting up off the bed has to log roll and push self up w/ hand. C/O: ( x ) Pain: central, intermittent radicular pains down R LE a couple times over the last yr or so, lasts a couple days and then subsides avg 4/10 increasing to 8-9/10 first thing in morning ( ) ROM: ( x ) Strength: not new but yes progressively weaker over last 5-10 years ( x ) Sensation: no parasthesias into the feet at all Pt. goal: get exercises that help Pain decreases with: rest (kind of) resting does stop the pain, sitting/relaxing 30-45min Pain increase with: Tuesday morning does laundry folding it off the bed causes LBP, flexing forward at the trunk, longer walks 15-20min walks will increase the pain, uneven ground walking, lifting grocery bags, cases of water, anything more than 10lbs, getting in/out of car, driving longer distances (drives to [place] often) Has tried HP, CP, voltarin, cream not helpful a lot Medical Screening Questionnaire: 1)Does your pain ease when in a comfortable position? Yes 2)Have you recently had a major trauma such as a vehicle accident, or a fall from a height? (consider Fracture) No 3)Have you noticed a recent onset of difficulty with retaining your urine? No, occasionally may have a problem ongoing for a while when at work the bathroom was very far 4)Have you noticed a recent need to urinate more frequently? yes but drinking more water 5)Have you noticed a recent onset of numbness in the area of our bottom where you would sit on a bicycle seat? No 6)Have you recently noticed your legs becoming weak while walking or climbing stairs? yes but ongoing for a while Muscle cramps at night LE spasms, ongoing for 20 years Exercise: mago on phone trying to do exercises that involve legs and arms and some for LB but most of the time they hurt, using the mgao 3 times stretching/strengthening, walking for cardio 3 times/week 15-20min at a time husbands knee pain pending RED FLAGS: []Recent Trauma [x]Age (50+) [x]Hx of Cancer carcinoma on nose- 12 years ago no reoccurrences [x]Fever/chills/night sweats suffering from menopause no longer estrogen as it was caused blood clot so not on hormones []Unexplained weight loss []Recent infection []Immunosuppression []Night pain []Saddle anesthesia []Bowel/bladder dysfunction []LE neurological deficit OBJECTIVE: Vitals: BP 139/82 O2 97% HR 72 Posture: stands with decrease in lordosis, remainder of posture unremarkable Functional Mobility: Amb I'ly w/o A.D. increase in trunk B SB Palpation: TTP L3-5 centrally, R sided erector spinae more tight than L Lumbar AROM: Flexion: decreased by 30% * Extension: Full R SB: impaired by 25% * L SB: Full R Rot: Full L Rot: Full B LE wnl's PROM Neurological: Deep Tendon Reflexes: 1. Quadriceps (L3): normal B 2. Achilles (L5-S1): normal B Sensation: intact LT t/o LE's Resisted Tests: Hip Flexion (L2-L4): L:5 R:5 Hip Extension(L5-S2): L:4- R:4- Knee Extension(L2-L4): L:5 R:5 Ankle Dorsiflexion(L4): L:5 R:5 Ankle Plantarflexion (S1-2) L:5 R:5 Ankle Eversion (S1): L:5 R:5 Great Toe Extension(L5): L:5 R:5 Hip Abduction (L5-S1) L:4 R:4 Muscle Length/Flexibility: Diego Test: Left: Normal____x_ Limited Degrees: Pain Right: Normal_x Limited Degrees: Yamila's Test: Left: Normal___x__ Limited Degrees: Right: Normal__x____ Limited Degrees: Hamstring (90-90): Left: Normal____ Limited__x___ Degrees:__135 Right: Normal Limited____x____ Degrees:_135 Joint Mobility Assessment: TTP w/ CPA mobs L5- L3 Lumbar Special Tests Straight Leg Raise (sn=0.91): neg B Crossed Straight Leg Raise (sp=0.88): neg B Slump Test (sn=0.84 sp=0.83): neg B Pelvic Special Tests CONCEPCION: neg Distraction test (sp=0.81): neg Thigh Thrust (sn=0.88): neg Compression test(sn=0.69 sp=0.69): neg Sacral Thrust(sp=0.75): neg Gaenslen's Test(sp=0.71): neg Directional Preference: Extension bias (-) Symptoms distal to the buttock Symptoms centralize with lumbar extension Symptoms peripheralize with lumbar flexion Flexion bias (-) Older age >50 years Imaging evidence of spinal stenosis Symptoms worsen with lumbar extension Lumbar Traction Test Cluster (identified positive variables) (-) Pain in the leg Signs of nerve root compression Peripheralization of symptoms with lumbar extension movements Positive Crossed SLR Lumbar Stenosis Test Cluster (-) Bilateral symptoms Leg pain>back pain Pain during walking/standing Pain relief upon sitting >48 years old Treatment Provided: Access Code: [email or web address] URL: [email or web address] Date: 12/29/2023 Prepared by: [facility] Exercises - Supine Piriformis Stretch with Foot on Ground - 1 x daily - 7 x weekly - 3 sets - 30 hold - Supine Quadriceps Stretch with Strap on Table - 1 x daily - 7 x weekly - 3 sets - 30 hold - Prone Press Up On Elbows - 1 x daily - 7 x weekly - 5-10 reps - 5 hold - Seated Hamstring Stretch - 1 x daily - 7 x weekly - 3 sets - 5 reps - 30sec hold - Sidelying Hip Abduction - 1 x daily - 7 x weekly - 2 sets - 10 reps - Supine Single Knee to Chest Stretch - 1 x daily - 7 x weekly - 3 sets - 5 reps - 30sec hold Assessment:Pt presents to PT with LBP more chronic in nature, pt with recent visit to PT was provided HEP at that time however, has not been performing HEP consistently. Pt with lower back pain without radiation today. PMH significant for Solitary nodule of lung, Exposure to potentially hazardous substance, Perimenopausal atrophic vaginitis, Former smoker, COPD - Chronic Obstructive Pulmonary Disease, Posttraumatic stress disorder, Myalgia, Bilateral tinnitus, Shoulder pain, Overweight, PE - Pulmonary embolism b/l lower lobe PE 09/2014 on HRT s/p 6mo coumadin, Menopausal flushing, Female urinary stress incontinence. Pt demonstrates with reduced hip strength, impaired core strength, impaired knowledge of diagnosis and management of it, does go to [place] for 6 months in the winter time but won't be leaving until early February Rehabilitation Potential: good Goals (4 Weeks) 1. Pt will decrease pain to by 1 pt on VAS to improve ability to return to walking program 2. Pt to demonstrate with B hip abd 5/5 to aid in negotiating stairs 3. I and consistency with HEP for improved carryover PLAN: Pt to be seen 1x/week for 2-3 weeks POC to include: use of nustep/cardio for warm up LE stretching Core stab/lumbar stab strengthening, neutral and slight extension bias lifting techniques HEP assignment /gustabo/ PARKER PALOMINO PT PHYSICAL THERAPIST Signed: 01/04/2024 12:56 PARKER PALOMINO [place] [facility] [place] [facility]
--- OUTSIDE RECORDS SUMMARY | 2024-05-23 09:02 | XMS_ITS | Encounter Summary ---
Author Name [facility] [facility] [facility] [place] Address [address] [place] [address] Care Team Providers Care Biological Chemist Name Role Phone JUAN PABLOSYBILA Primary Care [...] Name Patient's Relationship to Policy Stoddard [facility] FEDERAL PREFERRED PROVIDER ORGANIZAT ION (PPO) STAND AMEE SELF Apr 21, 1997 [id number] TINO DYE PATIENT BS MA FEP PREFERRED PROVIDER ORGANIZAT ION (PPO) STAND AMEE INDIV IDUAL Apr 21, 1997 [id number] TINO DYE PATIENT [place] PRESCRIPT ION [id number] 1 Apr 18, 2020 [id number] TINO DYE PATIENT [place] PRESCRIPT ION [id number] 1 Apr 18, 2020 [id number] TINO DYE PATIENT [place] FEPRX PLAN PRESCRIPT ION BCBS FEP Apr 18, 2010 [id number] TINO DYE PATIENT CAREMARK-F EP BCBS PRESCRIPT ION FEP CAREM ARK Apr 18, 2010 [id number] TINO DYE PATIENT OPTUM RX PRESCRIPT ION RX Apr 18, 2022 [id number] TINO DYE PATIENT [facility] USFHP Apr 18, 2020 [id number] [phone] TINO DYE PATIENT [facility] BRIGH TON DAVE E Apr 18, 2020 [id number] TINO DYE PATIENT Selected Encounter This section includes the information on record at [place] for the Encounter. Date/Time Encounter Type Encounter Description Reason Provider Source Apr 24, 2024 03:00 PM NRV CNDJ TEST 7-8 STUDIES EMG - ELECTROMYOGRAM ICD-10-CM R20.2 Paresthesia of skin MILLY ROSARIO Encounter Template Text not used by [place] Assessments - Encounter Diagnoses This section includes the primary and secondary diagnoses documented for the Encounter. Date/Time Primary/Secondary Diagnosis Diagnosis Name Provider Source Apr 24, 2024 03:00 PM PRIMARY Paresthesia of skin JULIAN ROSARIO [facility] ([id number]) Plan of Treatment: Future Appointments (+ 6 months) and Future Tests (+/- 45 days) The Plan of Treatment section includes future care activities for the patient from all [place] treatmentfacilities. This section includes future appointments and future orders which are active, pending or scheduled. Future Appointments This section includes appointments that were scheduled to occur 6 months from the date of the Encounter, up to a maximum of 20 appointments. The data comes from all [place] treatment facilities. Appointment Date/Time Appointment Type Appointme nt Facility Name May 01, 2024 02:00 PM AMBULATORY - PSYCHIATRY [facility] May 18, 2024 10:00 AM [facility] [place] [facility] May 29, 2024 01:00 PM AMBULATORY - PSYCHIATRY [facility] May 30, 2024 01:00 PM AMBULATORY - [facility]HAB MEDICIN [facility] Jul 31, 2024 11:00 AM AMBULATORY - MEDICINE [facility] Active, Pending, and Scheduled Orders This section includes a listing of several types of active, pending, and scheduled orders, including clinic medications orders, diagnostic test orders, procedure orders and consult orders; where the start date of the order is 45 days before the date of the Encounter or 45 days after the date of theEncounter. The data comes from all [place] treatment facilities. Test Date/Time Test Type Test Details Facility Name May 18, 2024 11:18 AM Consult Order COMMUNITY CARE-MRI Cons [facility] Advance Directives: All historical and current Section Date Range: From patient's date of to the date document was created. This section includes ALL of a patient's completed or amended [place] Advance and Rescinded Directives. The entries below indicate that a directive exists for the patient, but an actual copy is not included with this document. The data comes from all [place] facilities. Date Advance Directives Provider Source Dec 21, 2023 ADVANCE DIRECTIVE DESIREE OLIVAREZ [facility] Encounter Notes: All associated encounter notes This section contains the clinical notes associated to the Encounter. Date/Time Encounter Note(s) Provider Source Apr 24, 2024 02:58 PM NEUROLOGY CONSULT: LOCAL TITLE: CONSULT REPORT/NCS ELECTROMYOGRAPHY NEUROLOGY STANDARD TITLE: NEUROLOGY CONSULT DATE OF NOTE: APR 24, 2024@14:58 ENTRY DATE: APR 24, 2024@14:58:19 AUTHOR: KRISTEN ROSARIO EXP COSIGNER: URGENCY: STATUS: COMPLETED EMG/NCS [address] REFERRING PHYSICIAN: Dr. Florian HISTORY: Left lateral upper arm and medial forearm numbness, tingling and pain triggered by pain in the left medial forearm Samad lipoma, rule out neuropathy, radiculopathy. She is right-handed. SUMMARY: 1. The left median, ulnar and radial sensory nerve conductions were normal. The left median and ulnar palmar mixed nerve action potential peak latencies were symmetrical without any significant difference. 2. The left median and ulnar (for both ADM and FDI muscles) motor nerve conductions were also normal. 3. The needle examination of the left upper extremity muscles including the left Cervical paraspinal muscles did not show any evidence of acute or chronic denervation changes. IMPRESSION: This is a normal EMG study without electrodiagnostic evidence of Left ulnar neuropathy, other mononeuropathy, cervical radiculopathy or large fiber peripheral neuropathy in the left upper extremity. NOTE: For NCS/EMG data sheet please see vista images. Kristen Rosario MD Staff Neurologist, [facility], [place] Suicide Screen: C-SSRS Screening [place]-Suicide Severity Rating Scale (C-SSRS Screener) 1. Over the past month, have you wished you were or wished you could go to sleep and not wake up? No 2. Over the past month, have you had any actual thoughts of killing yourself? No 3. Over the past month, have you been thinking about how you might do this? Response not required due to responses to other questions. 4. Over the past month, have you had these thoughts and had some intention of acting on them? Response not required due to responses to other questions. 5. Over the past month, have you started to work out or worked out the details of how to kill yourself? Response not required due to responses to other questions. 6. If yes, at any time in the past month did you intend to carry out this plan? Response not required due to responses to other questions. 7. In your lifetime, have you ever done anything, started to do anything, or prepared to do anything to end your life (for example, collected pills, obtained a gun, gave away valuables, went to the roof but didn't jump)? No 8. If YES, was this within the past 3 months? Response not required due to responses to other questions. /gustabo/ KRISTEN ROSARIO MD NEUROLOGIST Signed: 04/24/2024 15:48 KRISTEN ROSARIO [facility] ([id number])
--- OUTSIDE RECORDS SUMMARY | 2024-05-23 09:02 | XMS_ITS | Encounter Summary ---
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 Name Role Phone JUAN PABLOSYBILA Primary Care [...] STAND AMEE SELF Apr 21, 1997 [id number] [phone] TINO DYE PATIENT BS MA FEP PREFERRED PROVIDER ORGANIZAT ION (PPO) STAND AMEE INDIV IDUAL Apr 21, 1997 104 [id number] TINO DYE PATIENT CAREMARK PRESCRIPT ION [id number] Apr 18, 2020 [id number] TINO DYE PATIENT [place] PRESCRIPT ION [id number] Apr 18, 2020 [id number] TINO DYE PATIENT [place] FEPRX PLAN PRESCRIPT ION BCBS FEP Apr 18, 2010 [id number] TINO DYE PATIENT CAREMARK-F EP BCBS PRESCRIPT ION FEP CAREM ARK Apr 18, 2010 [id number] [phone] TINO DYE PATIENT OPTUM RX PRESCRIPT ION RX Apr 18, 2022 [id number] TINO DYE PATIENT [facility] USP Apr 18, 2020 [id number] [id number] TINO DYE PATIENT [facility] DANTE ABELN E Apr 18, 2020 [id number] TINO DYE PATIENT Selected Encounter This section includes the information on record at [place] for the Encounter. Date/Time Encounter Type Encounter Description Reason Provider Source Sep 20, 2023 08:00 AM OFFICE O/P NEW MOD 45 MIN PM&RS PHYSICIAN ICD-10-CM M54.50 Low back pain, unspecified YOLY NICHOLAS [facility] Encounter Template Text not used by [place] Assessments - Encounter Diagnoses This section includes the primary and secondary diagnoses documented for the Encounter. Date/Time Primary/Secondary Diagnosis Diagnosis Name Provider Source Sep 21, 2023 10:20 AM PRIMARY Low back pain, unspecified YOLY NICHOLAS [facility] Sep 21, 2023 10:20 AM SECONDARY Myalgia, unspecified site YOLY NICHOLAS [facility] Plan of Treatment: Future Appointments (+ 6 months) and Future Tests (+/- 45 days) The Plan of Treatment section includes future care activities for the patient from all [place] treatmentfacilities. This section includes future appointments and future orders which are active, pending or scheduled. Future Appointments This section includes appointments that were scheduled to occur 6 months from the date of the Encounter, up to a maximum of 20 appointments. The data comes from all [place] treatment facilities. Appointment Date/Time Appointment Type Appointme nt Facility Name Sep 30, 2023 08:00 AM AMBULATORY - PSYCHIATRY [facility] Nov 04, 2023 11:00 AM AMBULATORY - PSYCHIATRY [facility] Nov 08, 2023 01:30 PM [facility] Nov 21, 2023 09:00 AM AMBULAT[facility] Dec 02, 2023 01:00 PM AMBULATORY - PSYCHIATRY [facility] Dec 23, 2023 08:00 AM AMBULATORY [facility] Dec 27, 2023 10:30 AM [facility] Dec 29, 2023 08:00 AM AMBULATORY - REHAB MEDICIN [facility] Jan 16, 2024 10:45 AM AMBULATORY - MEDICINE [facility] Jan 17, 2024 08:00 AM AM[facility]ORY [facility]IC[facility] Jan 18, 2024 10:00 AM AMBULATORY - REHAB MEDICIN [facility] Jan 18, 2024 01:00 PM AMBULATORY - PSYCHIATRY [facility] Jan 24, 2024 08:00 AM [facility]ORY [facility] Jan 26, 2024 01:30 PM AMBULATORY - [facility]AB MEDICIN [facility] Jan 31, 2024 08:00 AM AM[facility]ULATORY [facility] Feb 09, 2024 01:30 PM AMBULATORY - REHAB MEDICIN [facility] Feb 20, 2024 01:00 PM AMBULATORY - PSYCHIATRY [facility] Feb 21, 2024 09:00 AM [facility] Feb 23, 2024 10:30 AM [facility]UL[facility]ORY [facility] Mar 05, 2024 09:00 AM AMBULATORY [facility] MEDICINE [facility] Vital Signs: All taken on the encounter date This section contains inpatient and outpatient Vital Signs collected on the date of the Encounter. Date/Time Temperature Pulse Blood Pressure Respiratory Rate SP02 Pain Height Weight Body Mass Index Source Sep 20, 2023 08:05 AM 160/90 2 [facility] Social History: Smoking Status (Most current) and Tobacco Use (All prior to encounter date) This section includes the most current, and the historical, smoking and tobacco- related health factors from the VA facility where the Encounter took place. Current Smoking Status This section includes the most current smoking, or tobacco-related health factor, from the [place] facility where the Encounter took place. Date/Time Current Smoking Status Comment Becka hi May 27, 2023 09:30 AM VA-TOBACCO FORMER USER [facility] Tobacco Use History This section includes a history of the smoking, or tobacco-related health factors, that were collected on or before the date of the Encounter. The data comes from the [place] facility where the Encounter took place. Date/Time Smoking Status/Tobac co Use Comment Facility May 27, 2023 09:30 AM VA-TOBACCO QUIT 15 YRS OR MORE [facility] Feb 02, 2022 08:30 AM VA-TOBACCO FORMER USER [facility] Feb 02, 2022 08:30 AM VA-TOBACCO QUIT 15 YRS OR MORE [facility] Dec 09, 2020 10:00 AM VA-TOBACCO FORMER USER [facility] Dec 09, 2020 10:00 AM VA-TOBACCO QUIT 15 YRS OR MORE [facility] Nov 28, 2019 11:26 AM VA-TOBACCO FORMER USER [facility] Nov 28, 2019 11:26 AM VA-TOBACCO QUIT 15 YRS OR MORE [facility] Oct 23, 2018 02:51 PM VA-TOBACCO FORMER USER [facility] Oct 23, 2018 02:51 PM VA-TOBACCO QUIT 15 YRS OR MORE [facility] Oct 17, 2017 09:14 AM QUIT TOBACCO USE > 7 YEARS AGO [facility] September 15, 2016 08:50 AM QUIT TOBACCO USE > 7 YEARS AGO [facility] Jul 02, 2015 09:15 AM QUIT TOBACCO USE > 7 YEARS AGO non tobacco user since 1998 [facility] Advance Directives: All historical and current Section Date Range: From patient's date of to the date document was created. This section includes ALL of a patient's completed or amended VA Advance and Rescinded Directives. The entries below indicate that a directive exists for the patient, but an actual copy is not included with this document. The data comes from all [place] facilities. Date Advance Directives Provider Source Dec 21, 2023 ADVANCE DIRECTIVE DESIREE OLIVAREZ [facility] Encounter Notes: All associated encounter notes This section contains the clinical notes associated to the Encounter. Date/Time Encounter Note(s) Provider Source Sep 20, 2023 08:12 AM PHYSICAL MEDICINE REHAB CONSULT: LOCAL TITLE: CONSULT REPORT/PM&R STANDARD TITLE: PHYSICAL MEDICINE REHAB CONSULT DATE OF NOTE: SEP 20, 2023@08:12 ENTRY DATE: SEP 20, 2023@08:12:29 AUTHOR: KRYSTA NICHOLAS COSIGNER: URGENCY: STATUS: COMPLETED SEP 20, 2023 KENY DYE is a 63 y/o RHD DECLINED TO ANSWER FEMALE, previously in AIR [employer] FROM Mar TO Mar from PERIOD OF SERVICE - [place] [employer], who was seen today for consultation requested by _ today for chief complaint of low back pain. 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 She was lifting 40 lbs and pushed 50 lbs. Trauma/inciting events:Repetetive Quality/associated symptoms:aching pain low back daily. Sitting is uncomfortable when upright. Denies weakness, numbness, or tingling in the lower extremities. Radiation: Aggravating factors:She has plantar fasciitis bilaterally and is treated by podiatry. She has inserts for her steel toed sneakers. Alleviating factors:Voltaren can help. Ice can help Severity: 7/10 Overall average level of function: 8/10 Timing: (constant) Medications/Therapy/Interv entions history:tylenol helps for about 3 hours, Voltaren gel in am and possibly at end of day. Biofreeze. No nsaid. Aleve was not as helpful as the tylenol. Systemic/Other symptoms: Denies fever, Does have night sweats since menopause 15 years ago, weight loss, saddle paresthesia, or bowel/bladder incontinence. Daily activities/exercise:Works 7 am - 430 five days per week Pertinent prior procedures and/or imaging: No injections in the back PMHx as obtained from Chart: Active problems - Computerized Problem List is the source for the followin. Lumbago 2. Solitary nodule of lung 3. Exposure to potentially hazardous substance 4. Perimenopausal atrophic vaginitis 5. Former smoker 6. COPD - Chronic Obstructive Pulmonary Disease ([facility] [id number]) 7. Posttraumatic stress disorder 8. Myalgia 9. Bilateral tinnitus 10. Shoulder pain 11. Overweight 12. PE - Pulmonary embolism 13. Menopausal flushing 14. 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 Service Connected Disabilities with % Eligibility: SERVICE CONNECTED 50% to 100% VERIFIED Total S/C %: 60 CHRONIC OBSTRUCTIVE PULMONARY DISEASE 0% S/C IMPAIRED HEARING 0% S/C TINNITUS 10% S/C POST-TRAUMATIC STRESS DISORDER 50% S/C ALL: Patient has answered NKA MEDS: Active Outpatient Medications (including Supplies): ALBUTEROL 90MCG (CFC-F) 200D ORAL INHL INHALE [...] MOUTH TWICE DAILY -RINSE MOUTH AFTER USE CHOLECALCIF 50MCG (D3-2,000UNIT) TAB TAKE ONE TABLET BY ACTIVE MOUTH ONCE DAILY FOR VITAMIN SUPPLEMENTATION FERROUS SULFATE 325MG TAB TAKE ONE TABLET BY MOUTH TWICE A ACTIVE WEEK NEEDED TO SUPPLEMENT IRON LIDOCAINE 5% OINT APPLY DIRECTED TOPICALLY TWICE DAILY ACTIVE NEEDED FOR MINOR SKIN WOUND PAIN LOSARTAN 25MG TAB TAKE ONE TABLET BY MOUTH ONCE DAILY FOR ACTIVE BLOOD PRESSURE/HEART Non-VA ALBUTEROL 90MCG (CFC-F) 200D ORAL INHL 1 PUFF BY ACTIVE MOUTH Non-VA FLUTICASONE/UMECLID/VILANT (TRELEGY 200) INHL,ORAL ACTIVE BY MOUTH Non-VA FLUTICASONE/VILANTEROL (BREO) INHL,ORAL BY MOUTH ACTIVE ONCE DAILY No Active Remote Medications for this patient ROS: Constitutional - Denies fever or chills, night sweats, or unexplained weight loss. Head/Eyes/Ears/Neck- Denies headaches, dizziness, visual changes. Cardiovascular - Denies chest pain/palpitations, lower extremity swelling. Respiratory - Denies shortness of breath, or cough. GI - Denies nausea, vomiting, or loss of bowel fx/control. - Denies urinary difficulties or loss of bladder function. Musculoskeletal - See HPI. Neuro - See HPI. Psychiatric - See PMHx. Denies mood swings or change in behavior. Sleep - Denies nocturnal pain or excessive daytime fatigue. Skin/integuments - Denies rashes, lesions, or skin breakdown in the extremities. All other systems reviewed and are negative. PHYSICAL EXAMINATION: Vitals in chart. GEN: WD, WN. Awake, alert, cooperative with exam. In NAD. PSYCH: Good eye contact. Normal mood. Appropriately concerned. CVS: Extremities warm/well perfused. No lower extremity edema appreciated. PULM: Breathing unlabored, no accessory muscle use. ABD: Nondistended. EXTREMITIES: No cyanosis or edema of bilateral upper and lower extremities. SKIN: No rashes, lesions, or skin breakdown over exposed areas. MUSCULOSKELETAL/NEURO EXAM: Gait: normal, symmetric, negative Trendelenburg. Able to perform tandem walk and heel/toe walk. Labs: Collection DT Spec WBC HGB HCT PLT K+/Pot Sodium HGBA1c 06/29/2021 10:17 SERUM 4.7 141 06/29/2021 10:17 BLOOD 5.1 06/29/2021 10:17 BLOOD 4.93 14.8 46.1 H 244 07/24/2020 07:58 BLOOD 5.3 07/24/2020 07:58 BLOOD 4.38 L 15.2 46.3 H 250 Collection DT Spec GLUCOSE CREATIN AST ALT T BILI ALK JEREMIAH CHOL 06/29/2021 10:17 SERUM 96 0.80 22 30 0.6 85 148 07/24/2020 07:58 SERUM 104 H 0.81 26 29 0.4 85 258 H 02/24/2017 07:03 SERUM 88 0.76 24 27 0.4 110 221 H Collection DT Spec LDL-c HDL TRIG TSH 06/29/2021 10:17 SERUM 88 51 44 07/24/2020 07:58 SERUM 188 H 56 68 3.05 02/24/2017 07:03 SERUM 156 H 51 71 CHEM 7 TREND LAB CUMULATIVE SELECTED Collection DT Spec GLUCOSE BUN CREATIN Sodium K+/Pot CL CO2 06/29/2021 10:17 SERUM 96 22 0.80 141 4.7 107 27 07/24/2020 07:58 SERUM 104 H 24 0.81 142 4.3 107 25 02/24/2017 07:03 SERUM 88 18 0.76 142 4.3 109 27 LAB CUMULATIVE SELECTED 2 No selection items chosen for this component. CHEM 7 Results Collection DT Spec Sodium K+/Pot CL CO2 GLUCOSE BUN 06/29/2021 10:17 SERUM 141 4.7 107 27 96 22 07/24/2020 07:58 SERUM 142 4.3 107 25 104 H 24 02/24/2017 07:03 SERUM 142 4.3 109 27 88 18 Liver Function Tests No data available for: AST ALT ALKALINE PHOSPHATASE ALBUMIN BILIRUBIN, TOTAL LDH PROTEIN,TOTAL HEMOGLOBIN A1C TREND Collection DT Spec HGBA1c 06/29/2021 10:17 BLOOD 5.1 07/24/2020 07:58 BLOOD 5.3 Diagnostic Studies: X-rays lumbar [facility], 2021-month minimal disc degeneration and spondylosis lumbar ASSESSMENT/PLAN: Patient is a 63 year old with spondylosis and impaired lower extremity mobility. Continue working with PT on ankle knee and hip mobility. She is retiring as of the end of this month and therefore will not be lifting as frequently. Her body mechanics have been a large contributor to her overall back discomfort. She would have minimal strength contribution from the lower extremities given her rigidity and therefore overload of the small muscles of the back is the result. Encouraged to work on lower extremity mobility. She is hopeful that they will be doing a great deal of traveling. A home exercise program that does not require gym facility but could be done while in transit such as aleida chi or Xigong may be a reasonable strategy for her. FOLLOW-UP: 2 months. Potential risks and side effects of any medication(s) prescribed today was reviewed with [place]. Patient had many excellent questions, which I answered to the best of my ability and to patient's apparent satisfaction. MDM: 40 minutes which includes reviewing records, evaluating patient, documenting in medical record, educating, counseling and coordinating care. Medication Reconciliation: Outpatient: Has the patient been taking medications as documented in the EMLR? YES: The patient has been taking medications as documented in the EMLR. Essential Medication List for Review used to complete this medication reconciliation. INCLUDED IN THIS LIST: Alphabetical list of active outpatient prescriptions dispensed from this [place] (local) and dispensed from another VA or DoD facility (remote) as well as [...] whether with a VA or non-VA provider. Medication List: JLV Link Data on this list may not be complete. Please check JLV. Allergies/ADRs (Tool #5) FACILITY ALLERGY/ADR -------- No Remote Allergy/ADR Data available for this patient [facility] No Known Allergies Med. Reconciliation (Tool #1) INCLUDED IN THIS LIST: Alphabetical list of active outpatient prescriptions dispensed from this VA (local) and dispensed from another VA or DoD facility (remote) as well as inpatient orders (local pending and active), local clinic medications, locally documented non-VA medications, and local prescriptions that have or been discontinued in the past 90 days. Non-VA Meds Last Documented On: Jul 26, 2023 NOTE The display of VA prescriptions dispensed from another [place] or [facility] facility (remote) is limited to active outpatient prescription entries matched to National Drug File at the originating site and may not include some items such as investigational drugs, compounds, etc. NOT INCLUDED IN THIS LIST: Medications self-entered by the patient into personal health records (i.e. [employer]) are NOT included in this list. Non-VA medications documented outside this [place], remote inpatient orders (regardless of status) and remote clinic medications are NOT included in this list. The patient and provider must always discuss medications the patient is taking, regardless of where the medication was dispensed or obtained. Non-VA ALBUTEROL 90MCG (CFC-F) 200D ORAL INHL INHALE 1 PUFF BY MOUTH Medication prescribed by Non-VA provider. OUTPT ALBUTEROL 90MCG (CFC-F) 200D ORAL INHL (Status = Active) INHALE 2 PUFFS BY MOUTH EVERY 4 HOURS NEEDED FOR BREATHING Rx# [id number] Last Released: 08/30/23 Qty/Days Supply: Rx Expiration Date: 07/26/24 Refills Remainin Indication: FOR ASTHMA ATTACK OUTPT ASCORBIC ACID 500MG TAB (Status = Active) TAKE ONE TABLET BY MOUTH ONCE DAILY FOR VITAMIN/NUTRITION SUPPLEMENT Rx# [id number] Last Released: 08/30/23 Qty/Days Supply: 100 Rx Expiration Date: 07/26/24 Refills Remainin Indication: FOR INADEQUATE VITAMIN C OUTPT ASPIRIN 81MG EC TAB (Status = Active) TAKE ONE TABLET BY MOUTH ONCE DAILY TO PREVENT STROKE/HEART ATTACK Rx# [id number] Last Released: 08/30/23 Qty/Days Supply: 120 Rx Expiration Date: 07/26/24 Refills Remainin Indication: FOR BLOOD CLOT PREVENTION FOLLOWING PCI OUTPT ATORVASTATIN CALCIUM 40MG TAB (Status = Active) TAKE ONE-HALF TABLET BY MOUTH ONCE DAILY FOR HIGH CHOLESTEROL Rx# [id number] Last Released: 08/30/23 Qty/Days Supply: Rx Expiration Date: 07/26/24 Refills Remainin Indication: FOR HIGH CHOLESTEROL OUTPT BREZTRI 160/9/4.8MCG/ACT 120D ORAL INHL (Status = Active) INHALE 2 INHALATIONS BY MOUTH TWICE DAILY -RINSE MOUTH AFTER USE Rx# [id number] Last Released: 09/06/23 Qty/Days Supply: 05/17 Rx Expiration Date: 09/02/24 Refills Remainin OUTPT CHOLECALCIF 50MCG (D3-2,000UNIT) TAB (Status = Active) TAKE ONE TABLET BY MOUTH ONCE DAILY FOR VITAMIN SUPPLEMENTATION Rx# [id number] Last Released: 08/30/23 Qty/Days Supply: Rx Expiration Date: 07/26/24 Refills Remainin Indication: FOR VITAMIN D DEFICIENCY OUTPT FERROUS SULFATE 325MG TAB (Status = Active) TAKE ONE TABLET BY MOUTH TWICE A WEEK NEEDED TO SUPPLEMENT IRON Rx# [id number] Last Released: 08/30/23 Qty/Days Supply: Rx Expiration Date: 07/26/24 Refills Remainin Indication: TO SUPPLEMENT IRON Non-VA FLUTICASONE/UMECLID/VILANT (TRELEGY 200) INHL,ORAL INHALE BY MOUTH ONCE DAILY Medication prescribed by Non-VA provider. Non-VA FLUTICASONE/VILANTEROL (BREO) INHL,ORAL INHALE BY MOUTH ONCE DAILY Medication prescribed by Non-VA provider. OUTPT LIDOCAINE 5% OINT (Status = Active) APPLY DIRECTED TOPICALLY TWICE DAILY NEEDED FOR MINOR SKIN WOUND PAIN Rx# [id number] Last Released: 05/27/23 Qty/Days Supply: Rx Expiration Date: 05/27/24 Refills Remainin Indication: FOR MINOR SKIN WOUND PAIN OUTPT LOSARTAN 25MG TAB (Status = Active) TAKE ONE TABLET BY MOUTH ONCE DAILY FOR BLOOD PRESSURE/HEART Rx# [id number] Last Released: 08/30/23 Qty/Days Supply: Rx Expiration Date: 07/26/24 Refills Remainin Indication: FOR HIGH BLOOD PRESSURE SUPPLIES PHARMACY TERMS AND POSSIBLE PATIENT ACTIONS INPT = HI inpatient order IV = HI intravenous medication OUTPT = HI outpatient prescription PHARMACY POSSIBLE PATIENT TERMS EXPLANATION ACTIONS -------- ------ ACTIVE A prescription that can be If you have refills, filled at the local [place] pharmacy. you may request a refill of this prescription from your HI pharmacy. CLINIC A medication you received during If you have questions a visit to a HI clinic or about this medication emergency department. contact your HI healthcare team. DISCONTINUED A prescription your provider has Contact your HI stopped. It is no longer healthcare team if you available to be sent to you or need more of this picked up at the HI pharmacy medication. window. A prescription which is too old Contact your VA to fill. This does not refer to healthcare team if you the expiration date of the need more of this medication in the container. medication. NON-VA A medication that came from If this medication someplace other than a VA information is pharmacy. This may be a incorrect or out of prescription from either the VA date, please tell your or non VA providers that was VA healthcare team. filled outside the VA. Or, it may be an [id number] (OTC), herbal, dietary supplements or sample medication. ON HOLD An active prescription that will Contact your VA not be filled until pharmacy pharmacy when you need resolves the issue. more of this medication. PARKED An active prescription that will Contact your VA not be filled until the patient pharmacy when you need requests it. this medication. PENDING This prescription order has been If you have been sent to the pharmacy for review instructed to start and is not ready yet. this medication now, contact your VA pharmacy. SUSPENDED An active prescription that is Contact your VA not scheduled to be filled yet. pharmacy if you need You should receive it before this medication now. you run out. /gustabo/ KRYSTA NICHOLAS [facility] Signed: 09/20/2023 08:44 KRYSTA NICHOLAS [facility]
--- OUTSIDE RECORDS SUMMARY | 2024-05-23 09:02 | XMS_ITS | Encounter Summary ---
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 Name Role Phone JULIO CÉSAR ALMEIDA [...] STAND AMEE SELF Apr 21, 1997 [id number] TINO DYE PATIENT BS MA FEP PREFERRED PROVIDER ORGANIZAT ION (PPO) STAND AMEE INDIV IDUAL Apr 21, 1997 [id number] TINO DYE PATIENT CAREMARK PRESCRIPT ION [id number] 1 Apr 18, 2020 [id number] TINO DYE PATIENT [employer] PRESCRIPT ION [id number] 1 Apr 18, 2020 [id number] TINO DYE PATIENT [employer]ARK FEPRX PLAN PRESCRIPT ION BCBS FEP Apr 18, 2010 [id number] TINO DYE PATIENT CAREMARK-F EP BCBS PRESCRIPT ION FEP CAREM ARK Apr 18, 2010 [id number] [phone] TINO DYE PATIENT [employer] RX PRESCRIPT ION RX Apr 18, 2022 [id number] [id number] TINO DYE PATIENT [facility] USFHP Apr 18, 2020 [id number] TINO DYE PATIENT [facility] BRLUKE ABELN E Apr 18, 2020 [id number] TINO DYE PATIENT Selected Encounter This section includes the information on record at [place] for the Encounter. Date/Time Encounter Type Encounter Description Reason Provider Source Jun 24, 2023 10:00 AM SELF CARE MNGMENT TRAINING PHYSICAL THERAPY ICD-10-CM M54.50 Low back pain, unspecified MONTSE NUNEZ Lisa Encounter Template Text not used by DC Assessments - Encounter Diagnoses This section includes the primary and secondary diagnoses documented for the Encounter. Date/Time Primary/Secondary Diagnosis Diagnosis Name Provider Source Jun 24, 2023 12:35 PM PRIMARY Low back pain, unspecified MONTSE NUNEZ [place] Plan of Treatment: Future Appointments (+ 6 months) and Future Tests (+/- 45 days) The Plan of Treatment section includes future care activities for the patient from all [place] treatmentfacilities. This section includes future appointments and future orders which are active, pending or scheduled. Future Appointments This section includes appointments that were scheduled to occur 6 months from the date of the Encounter, up to a maximum of 20 appointments. The data comes from all [place] treatment facilities. Appointment Date/Time Appointment Type Appointme nt Facility Name Jul 15, 2023 07:30 AM AMBULATORY - REHAB [facility] Jul 22, 2023 07:30 AM AMBULATORY - REHAB [facility] Jul 22, 2023 08:00 AM AMBULATORY - PSYCHIATRY [facility] Jul 26, 2023 08:00 AM AMBULATORY - MEDICINE [facility] NTR YONI ABARCAGEMA [facility] Aug 09, 2023 03:15 PM AMBULATORY - [facility] August 26, 2023 08:00 AM AMBULATORY - PSYCHIATRY [facility] Sep 20, 2023 08:00 AM AMBULATORY - REHAB MEDICIN [place] [facility] [place] [facility] Sep 30, 2023 08:00 AM AMBULATORY - PSYCHIATRY [facility] Nov 04, 2023 11:00 AM AMBULATORY - PSYCHIATRY [facility] Nov 08, 2023 01:30 PM AMBULATORY - MEDICINE [place] [facility] [place] [facility] Nov 21, 2023 09:00 AM AMBULATORY - REHAB MEDICIN E [place] [facility] [place] [facility] Dec 02, 2023 01:00 PM AMBULATORY - PSYCHIATRY [facility] Dec 23, 2023 08:00 AM AMBULAT[facility] - [facility] Advance Directives: All historical and current Section Date Range: From patient's date of to the date document was created. This section includes ALL of a patient's completed or amended [place] Advance and Rescinded Directives. The entries below indicate that a directive exists for the patient, but an actual copy is not included with this document. The data comes from all [place] facilities. Date Advance Directives Provider Source Dec 21, 2023 ADVANCE DIRECTIVE DESIREE OLIVAREZ [facility] Encounter Notes: All associated encounter notes This section contains the clinical notes associated to the Encounter. Date/Time Encounter Note(s) Provider Source Jun 24, 2023 07:29 AM PHYSICAL THERAPY C ONSULT: [facility] TITLE: PHYSICAL THERAPY CONSULT STANDARD TITLE: PHYSICAL THERAPY CONSULT DATE OF NOTE: JUN 24, 2023@07:29 ENTRY DATE: JUN 24, 2023@07:29:55 AUTHOR: MONTSE NUNEZ COSIGNER: URGENCY: STATUS: COMPLETED Initial Evaluation date: 06/24/23 Progress Note Date: 07/25/23 Treatment #: eval Treatment time: 45 Diagnosis: Low back pain, unspecified(ICD-10-CM M54.50) Provider: JULIO CÉSAR ALMEIDA PT Treatment Precautions: Patient identified by full name and date of Vitals: HR: 62 BP: 134/82 SUBJECTIVE: History of Current injury: Patient states about 2-3 weeks ago they molina to notice onset of lower back pain/spasms while working at [employer]. Notes the pain went across their lower back, but denies radiation down the legs. Patient notes that symptoms have improved since their onset, but reports their pain does tend to worsen after a day at work doing manual labor. Patient noted that the transition from sit to stand and stand to sit were the most painful. Reports the pain was not too bad once they were sitting and once they were standing. Patient notes the pain was localized to the lower back at the beltline. Patient notes lifting tasks at work primarily aggravate their symptoms. Patient notes previous hx of bilateral plantar fasciitis pain. Notes these symptoms were under control, however notes the R foot has been symptomatic since back pain worsened. Notes the pain is primarly in the R heel. Patient denies previous hx of trauma or surgery to the lower backs or hips. 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 Patient Goal: develop more strength in the legs and back to avoid having pain at work Number of days per week with pain: 10/22 ADIE report Please rate your ability to use your injured area on a 0% to 100% scale, with 0% being unable to use the injured area and 100% being normal use of injured area in your daily activity: 70% OBJECTIVE: * = pain during testing Red flags:Age (50+) Psychosocial flags: mental health dx Lumbar ROM: Lumbar Flexion WNL* Lumbar Extension WNL* Lumbar Left side bend WNL Lumbar Right side bend WNL Lumbar Left rotation WNL Lumbar Right rotation WNL Hip ROM: Hip flexion(120): L: R: Hip Abduction(40): L: R: Hip Internal rotation(30): L: R: Hip external rotation(30): L: R: Hip Extension(20): L: 5 R: 0 Lumbar/Hip Special Tests: SLR - SLUMP - Sign of the Buttock - CONCEPCION + Scour - FADDIR - SHILA ADRIEL + 90/90 HS + LEG LENGTH [facility] battery SI joint: - distraction thigh thrust Compression sacral thrust Strength: Hip flexion L: /5 R: /5 Knee extension: L: /5 R: /5 Knee flexion L: /5 R: /5 Ankle DF L: /5 R: /5 Ankle INV L: /5 R: /5 Ankle EV L: /5 R: /5 Hip ER L: /5 R: /5 Hip ABD L: 4-/5 R: 4-/5 Hip Extension L: 4/5 R: 4/5 Glute Max: L: 3+/5 R: 3+/5 Palpation: Joint Mobility: normal 3/6 CPA glides and non-tender Directional Preference: Extension bias (-) Symptoms distal [...] Pain relief upon sitting >48 years old Sacroiliac joint dysfunction Rosi Finger Test (-) (-) Trendelenburg (-) (-) INTERVENTIONS: Therapeutic Exercise: Mins: 12 lower trunk rotation with ball between knees 20reps abdominal press into ball 15reps exhale press, inhale release pelvic tilting in hooklying 15reps in pain free ROM Clamshell with resistance 10reps each orange band cat cow 10reps q-ped alt LE extension 10reps Manual therapy: Mins: Neuro re-ed: Mins: Other: Mins: Modalities: Mins: [] contraindication screen completed prior to modality [] skin intact pre/post modality Access Code: [email or web address] URL: [email or web address] Date: 06/24/2023 Prepared by: Montse Nunez Exercises - Supine Lower Trunk Rotation - 1 x daily - 7 x weekly - 2 sets - 10-20 reps - Abdominal Press into Ball - 1 x daily - 7 x weekly - 2 sets - 10-15 reps - Supine Posterior Pelvic Tilt - 1 x daily - 7 x weekly - 3 sets - 10 reps - Clamshell with Resistance - 1 x daily - 7 x weekly - 2 sets - 6-10 reps - Cat Cow - 1 x daily - 7 x weekly - 2 sets - 5-10 reps - Quadruped Alternating Leg Extensions - 1 x daily - 7 x weekly - 2 sets - 5-10 reps Patient education: Mins: 10 Discussed potential etiology of symptoms with patient including potential structures involved and how this relates to exercises prescribed and POC discussing frequency and duration of services to be provided with patient verbalizing good understanding and agreement with POC. Provided written HEP to patient with therex from today reviewing proper form sets reps and frequency and safety precautions with patient verbalizing and demonstrating good understanding in clinic. ASSESSMENT: Patient is a 63yo seen for physical therapy evaluation following referral for acute lower back pain without radiation. PMH significant for Solitary nodule of lung, Exposure to potentially hazardous substance, Perimenopausal atrophic vaginitis, Former smoker, COPD - Chronic Obstructive Pulmonary Disease, Posttraumatic stress disorder, Myalgia, Bilateral tinnitus, Shoulder pain, Overweight, PE - Pulmonary embolism b/l lower lobe PE 09/2014 on HRT s/p 6mo coumadin, Menopausal flushing, Female urinary stress incontinence. Patient presents with primary complaint of acute lower back pain without radiation. Onset reported to be 2-3weeks ago with DAISY reported to be lifting something heavy at work. Symptoms reported to be improving since onset. Pain localized midline lower back around the beltline with occasional pain spreaing out to the L/R side of the lower back. Pain rated 2/10 at best and current, 10/10 at worst on NPRS. Primary aggravating factors include lifting objects, transitioning from sit to stand and stand to sit. On physical assessment, patient primary symptoms reproduced with repeated lumbar extension > flexion. Additional impairments that may contribute to condition include significant glute max and hip ABD/ER weakness, impaired abdominal strength. Based on patient hx and findings of assessment, symptoms appear most consistent with lumbar sprain/strain. Patient reports these symptoms impact their ability to complete their normal daily tasks like rise from chair and sit in chair, lift objects at work. Patient requires skilled physical therapy services in order to address these impairments ad activity limitations and to achieve patient goal of develop more strength in the legs and back to avoid having pain at work . GOALS: in 4-6weeks, patient will demonstrate: consistent carryover of HEP 5/7 days per week with patient able to independently teach back 75% of exercises 2pt decrease in pain level at worst to improve patient ability to complete most symptomatic tasks 10% improvement on SANE score to improve patient ability to complete typical daily tasks decrease in total days with pain by 2 days to improve patient QOL 1/2 grade improvement in glute max MMT 1/2 grade improvement in hip ABD MT PLAN: Discussed POC with patient who verbalizes agreement with skilled PT services [id number] focusing on quad/hip flexor and hamstring flexibility, lumbar ROM, abdominal and gluteal strengthening, HEP teaching and progression Next visit: hamstring and quad/hip flexor stretching, progress abdominal and glute strengthening [x]Low impact cardio: [x]Nustep []Recumbent bike []Recumbent elliptical []TM []Manual: []STM/DTM []METs/SCS []IASTM []Joint mobilizations [x]Therex: []Progressive UQ [x]Progressive Core [x]Progressive LQ []UQ flex [x] Lumbar flex [x]LQ flex []Foam rolling []Proprioception []Neuro Re-education: []Static []Dynamic []Dual-Task [x]Education: []Posture []Ergonomics [x]Bodymechanics [x]Self-care strategies [] PNE []Modalities(PRN): []Heat/Ice []Estim/Tens []Mechanical traction []K-tape [] Biofreeze /es/ MONTSE NUNEZ PT, DPT PHYSICAL THERAPIST Signed: 06/24/2023 12:35 MONTSE NUNEZ [place]
--- OUTSIDE RECORDS SUMMARY | 2024-05-23 09:02 | XMS_ITS ---
Author Name [facility] [place] Organization [place] Address [address] [place] [address] Care Team Providers Care Fur Cleaner Name Role Phone JUAN PABLOSYBILA Primary Care [...] Name Patient's Relationship to Policy Stoddard HANNAH [facility] CT FEDERAL PREFERRED PROVIDER ORGANIZAT ION (PPO) STAND AMEE SELF Apr 21, 1997 [id number] TINO DYE PATIENT BS MA FEP PREFERRED PROVIDER ORGANIZAT ION (PPO) STAND AMEE INDIV IDUAL Apr 21, 1997 [id number] TINO DYE PATIENT CAREMARK PRESCRIPT ION [id number] 1 Apr 18, 2020 [id number] TINO DYE PATIENT CAREMARK PRESCRIPT ION [id number] 1 Apr 18, 2020 [id number] TINO DYE PATIENT CAREMARK FEPRX PLAN PRESCRIPT ION BCBS FEP Apr 18, 2010 [id number] TINO DYE PATIENT CAREMARK-F EP BCBS PRESCRIPT ION FEP CAREM ARK Apr 18, 2010 [id number] TINO DYE PATIENT OPTUM RX PRESCRIPT ION RX Apr 18, 2022 [id number] TINO DYE PATIENT [facility] USP Apr 18, 2020 USP [id number] TINO DYE PATIENT [facility] [place] TON DAVE E Apr 18, 2020 [facility] [id number] [phone] TINO DYE PATIENT Selected Encounter This section includes the information on record at [place] for the Encounter. Date/Time Encounter Type Encounter Description Reason Provider Source Nov 21, 2023 09:00 AM OFFICE O/P EST LOW 20 MIN PM&RS PHYSICIAN ICD-10-CM M54.50 Low back pain, unspecified YOLY NICHOLAS [facility] Encounter Template Text not used by [place] Assessments - Encounter Diagnoses This section includes the primary and secondary diagnoses documented for the Encounter. Date/Time Primary/Secondary Diagnosis Diagnosis Name Provider Source Nov 30, 2023 07:11 AM PRIMARY Low back pain, unspecified [facility] [place] [facility] Nov 30, 2023 07:11 AM SECONDARY Other spondylosis, lumbar region [facility] Plan of Treatment: Future Appointments (+ 6 months) and Future Tests (+/- 45 days) The Plan of Treatment section includes future care activities for the patient from all [place] treatmentfacilities. This section includes future appointments and future orders which are active, pending or scheduled. Future Appointments This section includes appointments that were scheduled to occur 6 months from the date of the Encounter, up to a maximum of 20 appointments. The data comes from all [place] treatment facilities. Appointment Date/Time Appointment Type Appointme nt Facility Name Dec 02, 2023 01:00 PM AMBULATORY - PSYCHIATRY [facility] Dec 23, 2023 08:00 AM AMBULATORY - REHAB MEDICIN [place] [facility] [place] [place] [facility] Dec 27, 2023 10:30 AM AMBULATORY [facility] MEDICINE [facility] [place] [facility] Dec 29, 2023 08:00 AM AMBULATORY - REHAB MEDICIN E [facility] [place] [facility] Jan 16, 2024 10:45 AM [facility]INE [facility] Jan 17, 2024 08:00 AM AMBULATORY - MEDICINE [facility] [place] [facility] Jan 18, 2024 10:00 AM AMBULATORY - REHAB MEDICIN E [facility] [place] [facility] Jan 18, 2024 01:00 PM AMBULATORY - PSYCHIATRY [facility] Jan 24, 2024 08:00 AM AMBULATORY - MEDICINE [facility] [place] [facility] Jan 26, 2024 01:30 PM AMBULATORY - REHAB MEDICIN E [facility] [place] [facility] Jan 31, 2024 08:00 AM AMBULATORY - MEDICINE [facility] [place] [place] [facility] Feb 09, 2024 01:30 PM AMBULATORY - REHAB MEDICIN E [facility] [place] [facility] Feb 20, 2024 01:00 PM AMBULATORY - PSYCHIATRY [facility] Feb 21, 2024 09:00 AM AMBULATORY - MEDICINE [facility] [place] [place] [facility] Feb 23, 2024 10:30 AM AMBULATORY - MEDICINE [facility] [place] [facility] Mar 05, 2024 09:00 AM AMBULATORY - MEDICINE [facility] [place] [facility] Mar 07, 2024 10:00 AM AMBULATORY - REHAB MEDICIN E [facility] [place] [facility] Mar 07, 2024 10:30 AM AMBULATORY - NONE [facility] [place] [facility] Mar 09, 2024 09:15 AM AMBULATORY - MEDICINE [facility] [place] [place] [facility] Mar 09, 2024 01:00 PM AMBULATORY - MEDICINE [facility] [place] [facility] Vital Signs: All taken on the encounter date This section contains inpatient and outpatient Vital Signs collected on the date of the Encounter. Date/Time Temperature Pulse Blood Pressure Respiratory Rate SP02 Pain Height Weight Body Mass Index Source Nov 21, 2023 09:00 AM 140/70 2 [place] [facility] [place] [facility] Social History: Smoking Status (Most current) and Tobacco Use (All prior to encounter date) This section includes the most current, and the historical, smoking and tobacco- related health factors from the [place] facility where the Encounter took place. Current Smoking Status This section includes the most current smoking, or tobacco-related health factor, from the [place] facility where the Encounter took place. Date/Time Current Smoking Status Comment Becka hi May 27, 2023 09:30 AM VA-TOBACCO QUIT 15 YRS OR MORE IN [place] [facility] Tobacco Use History This section includes a history of the smoking, or tobacco-related health factors, that were collected on or before the date of the Encounter. The data comes from the [place] facility where the Encounter took place. Date/Time Smoking Status/Tobac co Use Comment Facility May 27, 2023 09:30 AM VA-TOBACCO QUIT 15 YRS OR MORE IN [facility] [place] [facility] Feb 02, 2022 08:30 AM VA-TOBACCO FORMER USER [facility] [facility] Feb 02, 2022 08:30 AM VA-TOBACCO QUIT 15 YRS OR MORE IN [facility] [place] [facility] Dec 09, 2020 10:00 AM VA-TOBACCO FORMER USER [facility] [facility] Dec 09, 2020 10:00 AM VA-TOBACCO QUIT 15 YRS OR MORE IN [facility] [place] [facility] Nov 28, 2019 11:26 AM VA-TOBACCO FORMER USER [facility] [facility] Nov 28, 2019 11:26 AM VA-TOBACCO QUIT 15 YRS OR MORE IN [facility] [place] [facility] Oct 23, 2018 02:51 PM VA-TOBACCO FORMER USER [facility] [place] [facility] Oct 23, 2018 02:51 PM VA-TOBACCO QUIT 15 YRS OR MORE [facility] [place] [facility] Oct 17, 2017 09:14 AM QUIT TOBACCO USE > 7 YEARS AGO [facility] [place] [facility] September 15, 2016 08:50 AM QUIT TOBACCO USE > 7 YEARS AGO [facility] [place] [facility] Jul 02, 2015 09:15 AM QUIT TOBACCO USE > 7 YEARS AGO non tobacco user since 1998 [place] [facility] [facility] Advance Directives: All historical and current Section Date Range: From patient's date of to the date document was created. This section includes ALL of a patient's completed or amended [place] Advance and Rescinded Directives. The entries below indicate that a directive exists for the patient, but an actual copy is not included with this document. The data comes from all [place] facilities. Date Advance Directives Provider Source Dec 21, 2023 ADVANCE DIRECTIVE DESIREE OLIVAREZ [facility] Radiology Reports: +/- 30 days of the [...] the Encounter. The data comes from all [place] treatment facilities. Date/Time Radiology Report Provider Source Nov 08, 2023 02:04 PM CALCANEOUS 2 VIEWS: MARNIEKENYPRASHANT CERON [id number] -[id number] F Exm Date: NOV 08, 2023@14:04 Req Phys: TRE STARKEY Loc: CWM/NO/PODIATRY A (Req'g Loc) Img Loc: [facility]/BUILDING 1 Service: Unknown [facility] , (Case [id number] COMPLETE) CALCANEOUS 2 VIEWS (RAD Detailed) CPT:63845 Proc Modifiers : RIGHT Reason for Study: pain heel 9 mons Clinical History: Report Status: Verified Date Reported: NOV 08, 2023 Date Verified: NOV 08, 2023 [employer] E-Sig:/ES/EZ DELGADO JR Report: Study: AP and [...] Primary Interpreting Staff: EZ DELGADO JR, Radiologist ([employer]) /EZ LARA JR [facility] Encounter Notes: All associated encounter notes This section contains the clinical notes associated to the Encounter. Date/Time Encounter Note(s) Provider Source Nov 21, 2023 09:20 AM PHYSICAL MEDICINE REHAB PHYSICIAN NOTE: LOCAL TITLE: PM&R FOLLOW-UP STANDARD TITLE: PHYSICAL MEDICINE REHAB PHYSICIAN NOTE DATE OF NOTE: NOV 21, 2023@09:20 ENTRY DATE: NOV 21, 2023@09:20:13 AUTHOR: KRYSTA NICHOLAS COSIGNER: URGENCY: STATUS: COMPLETED NOV 21, 2023 NOV 21, 2023 KENY DYE is a 63 y/o FEMALE who presents today for follow-up of low back pain due to spondylosis. Back pain has improved since beginning her fdc however they are doing a fair bit of driving. Sitting for long periods of time aggravates the low back. She feels stiffness when initiating movement. She has a very stiff lower extremities. She does not feel that she has the strength to get up easily from the ground. She went through 4 visits with physical therapy and then a home program was provided. She has been somewhat diligent with this and is following an mago but finds that 8 minutes of activity is very fatiguing. No previous experience with chiropractic treatment. PMHx as obtained from Chart: Active problems - Computerized Problem List is the source for the followin. Lumbago 2. Solitary nodule of lung 3. Exposure to potentially hazardous substance 4. Perimenopausal atrophic vaginitis 5. Former smoker 6. COPD - Chronic Obstructive Pulmonary Disease ([facility] [id number]) 7. Posttraumatic stress disorder 8. Myalgia 9. [...] bilateral upper and lower extremities. MUSCULOSKELETAL EXAM: Limited motion in the lumbar spine with extension and lateral flexion. Fascia is tight laterally over the obliques. Core strength is poor. Hip mobility is limited with internal and external rotation. No hip irritability is noted with internal and external rotation. Hip flexion is difficult for her and she has weakness with hip flexion against resistance. She ambulates with a heavy heel strike and with limited motion through the ankles and knees. Knee examination shows some parapatellar tenderness bilaterally. Range of motion lacks terminal flexion beyond 120 degrees. She has terminal extension. Valgus alignment. Diagnostic Studies: No new studies. ASSESSMENT/PLAN: Patient is a 63-year-old with degenerative disc and spondylosis lumbar spine. Encouraged to follow-up with the PT program. Patience was encouraged and certainly we are grateful that she is having less discomfort from standing on cement floors for long periods of time but it will take some time for her to build up mobility and strength in the lower extremities. Tylenol 650 mg tid prn prescribed. FOLLOW-UP: 3 months. Potential risks and side effects of any medication(s) prescribed today was reviewed with [place]. Patient had many excellent questions, which I answered to the best of my ability and to patient's apparent satisfaction. MDM: __20 minutes which includes reviewing records, evaluating patient, [...] Remote Allergy/ADR Data available for this patient [place] [facility] [facility] No Known Allergies Med Recon NoGlossary (Tool [...] display of VA prescriptions dispensed from another VA or DoD facility (remote) is limited to active outpatient prescription entries matched to National Drug File at the originating site and may not include some items such as investigational drugs, compounds, etc. NOT INCLUDED IN THIS LIST: Medications self-entered by the patient into personal health records (i.e. [employer]) are NOT included in this list. Non-VA medications documented outside this [place], remote inpatient orders (regardless of status) and remote clinic medications are NOT included in this list. The patient and provider must always discuss medications the patient is taking, regardless of where the medication was dispensed or obtained. OUTPT ACETAMINOPHEN 325MG TAB (Status = Pending) TAKE TWO TABLETS BY MOUTH THREE TIMES DAILY NEEDED Login Date: 11/21/23 Qty/Days Supply: 270/45 Refills Ordered: 2 Non-VA ALBUTEROL 90MCG (CFC-F) 200D ORAL INHL INHALE 1 PUFF BY MOUTH Medication prescribed by Non-VA provider. OUTPT ALBUTEROL 90MCG (CFC-F) 200D ORAL INHL (Status = Active) INHALE 2 PUFFS BY MOUTH EVERY 4 HOURS NEEDED FOR BREATHING Rx# [id number] Last Released: 08/30/23 Qty/Days Supply: Rx Expiration Date: 07/26/24 Refills Remainin Indication: FOR ASTHMA ATTACK OUTPT ASCORBIC ACID 500MG TAB (Status = Active) TAKE ONE TABLET BY MOUTH ONCE DAILY FOR VITAMIN/NUTRITION SUPPLEMENT Rx# [id number] Last Released: 08/30/23 Qty/Days Supply: 10090 Rx Expiration Date: 07/26/24 Refills Remainin Indication: FOR INADEQUATE VITAMIN C OUTPT ASPIRIN 81MG EC TAB (Status = Active) TAKE ONE TABLET BY MOUTH ONCE DAILY TO PREVENT STROKE/HEART ATTACK Rx# [id number] Last Released: 08/30/23 Qty/Days Supply: 120/90 Rx Expiration Date: 07/26/24 Refills Remainin Indication: FOR BLOOD CLOT PREVENTION FOLLOWING PCI OUTPT ATORVASTATIN CALCIUM 40MG TAB (Status = Active) TAKE ONE-HALF TABLET BY MOUTH ONCE DAILY FOR HIGH CHOLESTEROL Rx# [id number] Last Released: 08/30/23 Qty/Days Supply: Rx Expiration Date: 07/26/24 Refills Remainin Indication: FOR HIGH CHOLESTEROL OUTPT BREZTRI 160/9/4.8MCG/ACT 120D ORAL INHL (Status = Active) INHALE 2 INHALATIONS BY MOUTH TWICE DAILY -RINSE MOUTH AFTER USE Rx# [id number] Last Released: 10/26/23 Qty/Days Supply: 05/17 Rx Expiration Date: 09/02/24 Refills Remainin OUTPT CHOLECALCIF 50MCG (D3-2,000UNIT) TAB (Status = Active) TAKE ONE TABLET BY MOUTH ONCE DAILY FOR VITAMIN SUPPLEMENTATION Rx# [id number] Last Released: 08/30/23 Qty/Days Supply: Rx Expiration Date: 07/26/24 Refills Remainin Indication: FOR VITAMIN D DEFICIENCY OUTPT FERROUS SULFATE 325MG TAB (Status = Active) TAKE ONE TABLET BY MOUTH TWICE A WEEK NEEDED TO SUPPLEMENT IRON Rx# [id number] Last Released: 08/30/23 Qty/Days Supply: Rx Expiration [...] NOSTRIL TWICE DAILY FOR NASAL IRRITATION/CONGESTION Rx# [id number] Last Released: 11/10/23 Qty/Days Supply: Rx Expiration Date: 11/02/24 Refills Remainin OUTPT LIDOCAINE 5% OINT (Status = Active) APPLY DIRECTED TOPICALLY TWICE DAILY NEEDED FOR MINOR SKIN WOUND PAIN Rx# [id number] Last Released: 05/27/23 Qty/Days Supply: Rx Expiration Date: 05/27/24 Refills Remainin Indication: FOR MINOR SKIN WOUND PAIN OUTPT LOSARTAN 25MG TAB (Status = Active) TAKE ONE TABLET BY MOUTH ONCE DAILY FOR BLOOD PRESSURE/HEART Rx# [id number] Last Released: 08/30/23 Qty/Days Supply: Rx Expiration Date: 07/26/24 Refills Remainin Indication: FOR HIGH BLOOD PRESSURE SUPPLIES /gustabo/ KRYSTA NICHOLAS [facility] Signed: 11/21/2023 09:27 KRYSTA NICHOLAS [facility]
--- OUTSIDE RECORDS SUMMARY | 2024-05-23 09:03 | XMS_ITS | Encounter Summary ---
Author Name [place] Organization [place] Address [address] [place] [id number] Care Team Providers Care Curing Pickling Packer Name Role Phone JULIO CÉSAR ALMEIDA Primary [...] Patient's Relationship to Policy Stoddard HANNAH [facility] CT FEDERAL PREFERRED PROVIDER ORGANIZAT ION (PPO) STAND AMEE SELF Apr 21, 1997 [id number] TINO DYE PATIENT BS MA FEP PREFERRED PROVIDER ORGANIZAT ION (PPO) STAND AMEE INDIV IDUAL Apr 21, 1997 [id number] TINO DYE PATIENT CAREMARK PRESCRIPT ION [id number] 1 Apr 18, 2020 [id number] TINO DYE PATIENT CAREMARK PRESCRIPT ION [id number] 1 Apr 18, 2020 [id number] TINO DYE PATIENT CAREMARK FEPRX PLAN PRESCRIPT ION BCBS FEP Apr 18, 2010 [id number] TINO DYE PATIENT CAREMARK-F EP BCBS PRESCRIPT ION FEP CAREM ARK Apr 18, 2010 [id number] TINO DYE PATIENT OPTUM RX PRESCRIPT ION RX Apr 18, 2022 [id number] [phone] TINO DYE PATIENT [facility] USP Apr 18, 2020 USP [id number] TINO DYE PATIENT [facility] [place] [place] DAVE E Apr 18, 2020 [id number] TINO DYE PATIENT Selected Encounter This section includes the information on record at [place] for the Encounter. Date/Time Encounter Type Encounter Description Reason Provider Source Jan 26, 2024 01:30 PM THERAPEUTIC EXERCISES PHYSICAL THERAPY ICD-10-CM M47.896 Other spondylosis, lumbar region PARKER PALOMINO E Encounter Template Text not used by [place] Assessments - Encounter Diagnoses This section includes the primary and secondary diagnoses documented for the Encounter. Date/Time Primary/Secondary Diagnosis Diagnosis Name Provider Source Jan 26, 2024 02:13 PM PRIMARY Other spondylosis, lumbar region PARKER PALOMINO [facility] Plan of Treatment: Future Appointments (+ [...] Appointment Type Appointme nt Facility Name Jan 31, 2024 08:00 AM [facility] Feb 09, 2024 01:30 PM AMBUL[facility] Feb 20, 2024 01:00 PM AMBULATORY - PSYCHIATRY [facility] Feb 21, 2024 09:00 AM AMBULATORY - MEDICINE [facility] Feb 23, 2024 10:30 AM AMBULATORY - MEDICINE [place] [facility] [place] [facility] Mar 05, 2024 09:00 AM AMBULATORY - MEDICINE [place] [facility] Mar 07, 2024 10:00 AM AMBULATORY - REHAB MEDICIN E [facility] [place] [facility] Mar 07, 2024 10:30 AM AMBULATORY - NONE [facility] [place] [facility] Mar 09, 2024 09:15 AM AMBULATORY - MEDICINE [place] [place] [facility] Mar 09, 2024 01:00 PM AMBULATORY - MEDICINE [place] [facility] [place] [place] [facility] Mar 27, 2024 01:00 PM AMBULATORY - PSYCHIATRY [facility] Apr 24, 2024 03:00 PM AMBULATORY - MEDICINE [place] [place] [facility] May 01, 2024 02:00 PM AMBULATORY - PSYCHIATRY [facility] May 18, 2024 10:00 AM AMBULATORY - MEDICINE [facility] [place] [facility] May 29, 2024 01:00 PM AMBULATORY - PSYCHIATRY [facility] May 30, 2024 01:00 PM AMBULATORY - REHAB MEDICIN E [place] [facility] [place] [facility] Social History: Smoking Status (Most current) [...] took place. Date/Time Current Smoking Status Comment [facility] May 27, 2023 09:30 AM VA-TOBACCO [facility] Tobacco Use History This section includes a history of the smoking, or tobacco-related health factors, that were collected on or before the date of the Encounter. The data comes from the [place] facility where the Encounter took place. Date/Time Smoking Status/Tobac co Use Comment Facility May 27, 2023 09:30 AM VA-TOBACCO QUIT 15 YRS OR MORE [place] [facility] [place] [facility] Feb 02, 2022 08:30 AM VA-TOBACCO FORMER USER [place] [facility] [place] [facility] Feb 02, 2022 08:30 AM VA-TOBACCO QUIT 15 YRS OR MORE [place] [facility] [place] [facility] Dec 09, 2020 10:00 AM VA-TOBACCO FORMER USER [place] [facility] [place] [facility] Dec 09, 2020 10:00 AM VA-TOBACCO QUIT 15 YRS OR MORE [place] [facility] Nov 28, 2019 11:26 AM VA-TOBACCO FORMER USER [place] [facility] [place] [facility] Nov 28, 2019 11:26 AM VA-TOBACCO QUIT 15 YRS OR MORE [place] [place] [facility] Oct 23, 2018 02:51 PM VA-TOBACCO FORMER USER [place] [facility] [place] [facility] Oct 23, 2018 02:51 PM VA-TOBACCO QUIT 15 YRS OR MORE [place] [facility] [place] [facility] Oct 17, 2017 09:14 AM QUIT TOBACCO USE > 7 YEARS AGO [place] [facility] [place] [facility] September 15, 2016 08:50 AM QUIT TOBACCO USE > 7 YEARS AGO [place] [facility] [place] [facility] Jul 02, 2015 09:15 AM QUIT TOBACCO USE > 7 YEARS AGO non tobacco user since [facility] Advance Directives: All historical and current [...] 21, 2023 ADVANCE DIRECTIVE DESIREE OLIVAREZ [place] [facility] Encounter Notes: All associated encounter notes This section contains the clinical notes associated to the Encounter. Date/Time Encounter Note(s) Provider Source Jan 26, 2024 01:37 PM PHYSICAL THERAPY N OTE: LOCAL TITLE: PHYSICAL THERAPY STANDARD TITLE: PHYSICAL THERAPY NOTE DATE OF NOTE: JAN 26, 2024@13:37 ENTRY DATE: JAN 26, 2024@13:37:25 AUTHOR: PARKER PALOMINO COSIGNER: URGENCY: STATUS: COMPLETED Initial Evaluation date: 12/29/23 Progress Note Date: n/a Treatment #: 2 Treatment time: 30min Diagnosis: Spondylosis lumbar region Provider: woody PT Treatment Precautions: n/a Patient identified by full name and date of SUBJECTIVE: I still have the intense pain when I brush my teeth or fold the clothes and bend over OBJECTIVE: currently at rest 3-5/10 central and out to the sides B, pain earlier today 8/10 intermittent/sharp centrally located non radicular with lumbar flexion. Pt ambulates in with less apparent compensatory movements noted during gait (less trunk SB) THERAPEUTIC EXERCISE: MINUTES: 30 - nustep x7min L1-2 - Clamshells yellow band 2x10 - hip abd yellow band 2x10 - bridge with abd 2x10 - sit to/from stand good form slow eccentric control 2x10 SELF CARE/EDUCATION: MINUTES: -- HEP modified, encouraged regular low impact activity and continued HEP performance Access Code: [email or web address] URL: [email or web address] Date: 12/29/2023 Prepared by: [facility] Patient education was provided for all aspects of care during this clinical encounter. ASSESSMENT: tolerated treatment well, less compensatory gait pattern noted today, LE strength overall improving, improving tolerance to activity PLAN: continue per plan of care maximize core/lumbar strength with neutral/ext bias, maximize glut med/max strength, pt reports no longer going to Pr until April/ PARKER PALOMINO PT PHYSICAL THERAPIST Signed: 01/26/2024 14:13 PARKER PALOMINO [facility]
--- OUTSIDE RECORDS SUMMARY | 2024-05-23 09:03 | XMS_ITS | Encounter Summary ---
Author Name [place] Organization [place] Address [address] [place] [id number] Care Team Providers Care Pharmacy Order Entry Technician Name Role Phone JULIO CÉSAR ALMEIDA Primary [...] Name Patient's Relationship to Policy [facility]oddard [facility] CT FEDERAL PREFERRED PROVIDER ORGANIZAT ION (PPO) STAND AMEE SELF Apr 21, 1997 [id number] TINO DYE PATIENT BCBS [place] FEP PREFERRED PROVIDER ORGANIZAT ION (PPO) STAND AMEE INDIV IDUAL Apr 21, 1997 [id number] TINO DYE PATIENT [facility] PRESCRIPT ION [id number] 1 Apr 18, 2020 [id number] [phone] TINO DYE PATIENT [facility] PRESCRIPT ION [id number] 1 Apr 18, 2020 [id number] [phone] TINO DYE PATIENT [facility] FEPRX PLAN PRESCRIPT ION BCBS FEP Apr 18, 2010 [id number] TINO DYE PATIENT CAREMARK-F EP BCBS PRESCRIPT ION FEP CAREM ARK Apr 18, 2010 [id number] TINO DYE PATIENT OPTUM RX PRESCRIPT ION RX Apr 18, 2022 [id number] [phone] TINO DYE PATIENT [facility] USFHP Apr 18, 2020 USP [id number] TINO DYE PATIENT [facility] BRIGH TON DAVE E Apr 18, 2020 [id number] [phone] TINO DYE PATIENT Selected Encounter This section includes the information on record at [place] for the Encounter. Date/Time Encounter Type Encounter Description Reason Pro vider Source IHE Encounter Template Text not used by [place] Advance Directives: All historical and current Section [...] Dec 21, 2023 ADVANCE DIRECTIVE DESIREE OLIVAREZ [place] [facility]
--- OUTSIDE RECORDS SUMMARY | 2024-05-23 09:03 | XMS_ITS ---
Author Name [facility] [place] Organization [place] Address [address] [place] [address] Care Team Providers Care Project Management Professor Name Role Phone JUAN PABLOSYBILA Primary Care [...] Relationship to Policy Stoddard [facility] FEDERAL PREFERRED PROVIDER ORGANIZAT ION (PPO) STAND AMEE SELF Apr 21, 1997 [id number] TINO DYE PATIENT BS [place] FEP PREFERRED PROVIDER ORGANIZAT ION (PPO) STAND AMEE INDIV IDUAL Apr 21, 1997 104 [id number] TINO DYE PATIENT [facility] PRESCRIPT ION [id number] 1 Apr 18, 2020 [id number] TINO DYE PATIENT [facility]ARK PRESCRIPT ION [id number] 1 Apr 18, 2020 [id number] [phone] TINO DYE PATIENT [facility]ARK FEPRX PLAN PRESCRIPT ION BCBS FEP Apr 18, 2010 [id number] TINO DYE PATIENT CAREMARK-F EP BCBS PRESCRIPT ION FEP CAREM ARK Apr 18, 2010 [id number] TINO DYE PATIENT OPTUM RX PRESCRIPT ION RX Apr 18, 2022 [id number] TINO DYE PATIENT [facility] USP Apr 18, 2020 USP [id number] TINO DYE PATIENT [facility] DAVE E Apr 18, 2020 [facility] [id number] TINO DYE PATIENT Selected Encounter This section includes the information on record at CT for the Encounter. Date/Time Encounter Type Encounter Description Reason Provider Source Mar 05, 2024 09:00 AM OFFICE O/P EST MOD 30 MIN PRIMARY CARE/MEDICINE ICD-10-CM R22.9 Localized swelling, mass and lump, unspecified JUAN PABLOJULIO CÉSAR [facility] Encounter Template Text not used by CT Assessments - Encounter Diagnoses This section includes the primary and secondary diagnoses documented for the Encounter. Date/Time Primary/Secondary Diagnosis Diagnosis Name Provider Source Mar 05, 2024 01:16 PM PRIMARY Localized swelling, mass and lump, unspecified JULIO CÉSAR ALMEIDA [facility] Plan of Treatment: Future Appointments (+ 6 months) and Future Tests (+/- 45 days) The Plan of Treatment section includes future care activities for the patient from all CT treatmentfacilities. This section includes future appointments and future orders which are active, pending or scheduled. Future Appointments This section includes appointments that were scheduled to occur 6 months from the date of the Encounter, up to a maximum of 20 appointments. The data comes from all CT treatment facilities. Appointment Date/Time Appointment Type Appointme nt Facility Name Mar 07, 2024 10:00 AM AMBULATORY - REHAB MEDICIN E [facility] [place] [facility] Mar 07, 2024 10:30 AM AMBULATORY - NONE [facility] [place] [facility] Mar 09, 2024 09:15 AM AMBULAT[facility] Mar 09, 2024 01:00 PM AMBULATORY - MEDICINE CT [facility] [place] [facility] Mar 27, 2024 01:00 PM AMBULATORY - PSYCHIATRY [facility] Apr 24, 2024 03:00 PM AMBULATORY - MEDICINE CT C [facility] [place] [facility] May 01, 2024 02:00 PM AMBULATORY - PSYCHIATRY [facility] May 18, 2024 10:00 AM AMBULATORY - MEDICINE CT C [facility] [place] [facility] May 29, 2024 01:00 PM AMBULATORY - PSYCHIATRY [facility] May 30, 2024 01:00 PM AMBULATORY - REHAB MEDICIN [facility] [place] [facility] Jul 31, 2024 11:00 AM AMBULATORY - MEDICINE CT C [facility] [place] [facility] Lab Results: +/- 30 days of the encounter This section includes the Chemistry and Hematology Lab Results on record with CT for the patient. Radiology Reports and Pathology Reports are provided separately, in subsequent sections. Lab Results This section contains the Chemistry/Hematology Results that were resulted 30 days before or 30 daysafter the date of the Encounter. Date/Time Source Result Type Result - Unit Interpretation Reference Range Comment Mar 05, 2024 10:02 AM [facility] [place] [facility] MAGNESIUM Specimen Type: SERUM No comment entered. Ordering Provider: JULIO CÉSAR ALMEIDA Report Released Date/Time: Mar 05, 2024 09:42 AM Reporting Lab: [facility] [place] [facility] [address] [facility] [address] Performing Lab: [facility] [place] [address] [address] MAGNESIUM 2.3 mg/dL 1.6-2.6 Mar 05, 2024 10:02 AM [facility] FERRITIN Specimen Type: SERUM No comment entered. Ordering Provider: JULIO CÉSAR ALMEIDA Report Released Date/Time: Mar 05, 2024 09:42 AM Reporting Lab: [facility] [place] [facility] [address] [facility] [address] Performing Lab: [facility] [place] [address] [address] FERRITIN 509 ng/mL H 10-200 Mar 05, 2024 10:02 AM [facility] LIPID PANEL FASTING Specimen Type: SERUM No comment entered. Ordering Provider: JULIO CÉSAR ALMEIDA Report Released Date/Time: Mar 05, 2024 09:42 AM Reporting Lab: [facility] [address] [facility] [address] Performing Lab: [address] [address] CHOLESTEROL 183 mg/dL TRIGLYCERIDE 109 mg/dL 0-150 LDL calculated 116 mg/dL 0-129 CHOL/HDL 4.1 HDL CHOLESTEROL 45 mg/dL 40-60 Mar 05, 2024 10:02 AM [facility] LIVER FUNCTION Specimen Type: SERUM No comment entered. Ordering Provider: JULIO CÉSAR ALMEIDA Report Released Date/Time: Mar 05, 2024 09:42 AM Reporting Lab: [address] [address] Performing Lab: [address] [address] PROTEIN,TOTAL 6.4 g/dL 6.0-8.3 ALBUMIN 3.5 g/dL 3.5-5.0 ALKALINE PHOSPHATASE 80 U/L 40-150 AST 22 U/L 5-34 ALT 34 U/L BILIRUBIN, TOTAL 0.4 mg/dL 0.2-1.2 Mar 05, 2024 10:02 AM [facility] BASIC METABOLIC PANEL (non-fasting) Specimen Type: SERUM No comment entered. Ordering Provider: JULIO CÉSAR ALMEIDA Report Released Date/Time: Mar 05, 2024 09:42 AM Reporting Lab: [facility] [address] [facility] [address] Performing Lab: [address] [address] UREA NITROGEN 22 mg/dL 7-25 GLUCOSE 92 mg/dL 65-100 SODIUM 140 mmol/L 135-145 POTASSIUM 4.2 mmol/L 3.5-5.0 CHLORIDE 109 mmol/L 100-110 CO2 22 meq/L 20-30 CREATININE, Serum 0.78 mg/dL 0.50-1.40 eGFR(CKD-EPI 2020) 85 mL/min >60 Mar 05, 2024 10:02 AM [facility] HEMOGLOBIN A1C PANEL Specimen Type: BLOOD [...] Mar 05, 2024 09:42 AM Reporting Lab: [address] [address] Performing Lab: [address] [address] HEMOGLOBIN A1C 5.5 4.0-5.6 Mar 05, 2024 10:02 AM [facility] TSH Specimen Type: SERUM No comment entered. Ordering Provider: JULIO CÉSAR ALMEIDA Report Released Date/Time: Mar 05, 2024 09:42 AM Reporting Lab: [address] [address] Performing Lab: [address] [address] TSH 2.43 u[IU]/mL 0.35-5.00 Mar 05, 2024 10:02 AM [facility] CBC AND DIFF (AUTO) Specimen Type: BLOOD No comment entered. Ordering Provider: JULIO CÉSAR ALMEIDA Report Released Date/Time: Mar 05, 2024 09:42 AM Reporting Lab: [address] [address] Performing Lab: [address] [address] WBC 5.14 10*3/uL 4.50-11.00 RBC 4.77 10*6/uL [...] Height Weight Body Mass Index Source Mar 05, 2024 09:45 AM 138/82 [facility] Mar 05, 2024 09:08 AM 98.5 75 158/89 16 96 233 33 [facility] Social History: Smoking Status (Most current) and Tobacco Use (All prior to encounter date) This section includes the most current, and the historical, smoking and tobacco- related health factors from the CT facility where the Encounter took place. Current Smoking Status This section includes the most current smoking, or tobacco-related health factor, from the CT facility where the Encounter took place. Date/Time Current Smoking Status Terrance roblero May 27, 2023 09:[address]-TOBACCO FORMER USER [facility] Tobacco Use History This section includes a history of the smoking, or tobacco-related health factors, that were collected on or before the date of the Encounter. The data comes from the CT facility where the Encounter took place. Date/Time Smoking Status/Tobac co Use Comment Facility May 27, 2023 09:30 AM VA-TOBACCO QUIT [address] [facility] [place] [facility] Feb 02, 2022 08:30 AM VA-TOBACCO FORMER USER CT [facility] [place] [facility] Feb 02, 2022 08:30 AM VA-TOBACCO QUIT [address] [facility] [place] [facility] Dec 09, 2020 10:00 AM VA-TOBACCO FORMER USER CT [facility] [place] [facility] Dec 09, 2020 10:00 AM VA-TOBACCO QUIT [address] [facility] [place] [facility] Nov 28, 2019 11:26 AM VA-TOBACCO FORMER USER CT [facility] [place] [facility] Nov 28, 2019 11:26 AM VA-TOBACCO QUIT [address] [facility] [place] [facility] Oct 23, 2018 02:51 PM VA-TOBACCO FORMER USER CT [facility] [place] [facility] Oct 23, 2018 02:51 PM VA-TOBACCO QUIT [address] [facility] [place] [facility] Oct 17, 2017 09:14 AM QUIT TOBACCO USE > [address] [facility] [place] [facility] September 15, 2016 08:50 AM QUIT TOBACCO USE > [address] [facility] [place] [facility] Jul 02, 2015 09:15 AM QUIT TOBACCO USE > 7 YEARS AGO non tobacco user since 1998 CT [facility] [place] [facility] Advance Directives: All historical and current Section Date Range: From patient's date of to the date document was created. This section includes ALL of a patient's completed or amended CT Advance and Rescinded Directives. The entries below indicate that a directive exists for the patient, but an actual copy is not included with this document. The data comes from all CT facilities. Date Advance Directives Provider Source Dec 21, 2023 ADVANCE DIRECTIVE DESIREE OLIVAREZ CT [facility] Radiology Reports: +/- 30 days of [...] the Encounter. The data comes from all CT treatment facilities. Date/Time Radiology Report Provider Source Mar 09, 2024 09:15 AM OUTSIDE MAMMO/SCRE ENING, INCLUDING CAD, BILAT: KENY DYE [id number] -[id number] F Exm Date: MAR 09, 2024@09:15 Req Phys: JULIO CÉSAR ALMEIDA Loc: CWM/NO/PACT 5 (Req'g Loc) Img Loc: OUTSIDE GENERAL RADIOLOGY Service: Unknown (Case [id number] COMPLETE) OUTSIDE MAMMO/SCREENING, INCLUDIN(RAD Detailed) CPT:20681 Reason for Study: annual sreening mammogram Clinical History: Report Status: Electronically Filed Date Reported: MAR 09, 2024 Report: Community care exam; see CPRS/JLV for outside radiology report/results Impression: Community care exam; see CPRS/JLV for outside radiology report/results Primary Diagnostic Code: BI-RADS CATEGORY 0 (Incomplete: Need Additional Imaging Evaluation) VERIFIED BY: / *ELECTRONICALLY FILED* [facility] Mar 07, 2024 10:39 AM ULTRASOUND NECK (THYROID,HEAD,SOFT TISSUE): KENY DYE [id number] DOB-[id number] F Exm Date: MAR 07, 2024@10:39 Req Phys: JULIO CÉSAR ALMEIDA Loc: CWM/NO/PACT 5 (Req'g Loc) Img Loc: ULTRASOUND Service: [place] [address] (Case [id number] COMPLETE) ULTRASOUND NECK (THYROID,HEAD,SOF(US Detailed) CPT:24569 Reason for Study: left arm nodule Clinical History: Report Status: Verified Date Reported: MAR 07, 2024 Date Verified: MAR 07, 2024 Diamond Grinder E-Sig:/ES/EZ DELGADO JR Report: Study: Soft tissue [...] Primary Interpreting Staff: EZ DELGADO JR, Radiologist (Diamond Grinder) /EAEZ SEXTON JR [facility] Encounter Notes: All associated encounter notes This section contains the clinical notes associated to the Encounter. Date/Time Encounter Note(s) Provider Source Mar 07, 2024 03:45 PM LETTERS: LOCAL TITLE: PATIENT LETTER (B) STANDARD TITLE: LETTERS DATE OF NOTE: MAR 07, 2024@15:45 ENTRY DATE: MAR 07, 2024@15:45:45 AUTHOR: JULIO CÉSAR ALMEIDA EXP COSIGNER: URGENCY: STATUS: COMPLETED DEPARTMENT OF [facility] [employer] and [facility] Toll Free Number Telephone Assistance can be reached at [id number] [phone] Date:MAR 07, 2024 KENY DYE [address] [place], [place], [address] Dear KENY DYE, I have reviewed your recent lab work and they are all normal. Below are a listing of upcoming appointments you have scheduled at [employer]: 03/09/2024 09:15 COM CARE-MAMMO FEM SCRN 03/09/2024 13:00 CWM/NO/GS 03/27/2024 13:00 CWM/SO/MHC/[facility] 05/30/2024 13:00 CWM/NO/MED REHAB/SPINE IN 07/31/2024 11:00 CWM/NO/PACT 5 Please feel free to call with any questions at [phone]. Sincerely, JACKIE Allen Family Nurse Practitioner Women's [facility] Environmental [employer] [facility] [address] [facility] [address] [place] [address] [place] [address] [phone] [facility] [address] [address] [place] [address] [phone] JULIO CÉSAR ALMEIDA [facility] [place] [facility] Mar 05, 2024 09:32 AM PRIMARY CARE NURSE PRACTITIONER OUTPATIENT NOTE: LOCAL TITLE: NURSE PRACTITIONER OUTPATIENT NOTE STANDARD TITLE: PRIMARY CARE NURSE PRACTITIONER OUTPATIENT NOTE DATE OF NOTE: MAR 05, 2024@09:32 ENTRY DATE: MAR 05, 2024@09:35:13 AUTHOR: JULIO CÉSAR ALMEIDA EXP COSIGNER: URGENCY: STATUS: COMPLETED is here for a Well Woman Exam HPI: Left forearm nodule that has become larger over the year and starting to cause her left hand to go numb occasionally, she denies trauma or any insect bites denies pain when pressing on nodule but has ot lift arm up occasionally to stop the pins and needles sensation She would like removed if possible PMHx: Active problems - Computerized Problem List is the source for the followin. Lumbago 2. Solitary nodule of lung 0.3mm nodule on ct 02/[address] 3. Exposure to potentially hazardous substance 4. Perimenopausal atrophic vaginitis 5. Former smoker quit around [id number] 6. COPD - Chronic Obstructive Pulmonary Disease (SCT [id number]) following nonVA Pulmonary 7. Posttraumatic stress disorder 8. Myalgia 9. Bilateral tinnitus 10. Shoulder pain 11. Overweight 12. PE - Pulmonary embolism b/l lower lobe PE 09/2014 on HRT s/p 6mo coumadin 13. Menopausal flushing 14. Female urinary stress incontinence MEDICATIONS VA and Non VA meds were reconciled with the patient who left with a corrected copy. See medication page for details. Active Outpatient Medications (including Supplies): ACETAMINOPHEN 325MG [...] (BREO) INHL,ORAL BY MOUTH ACTIVE ONCE DAILY Allergies: Patient has answered NKA ROS: General: no fever, no unexplained weight loss or gain CV: denies CP, SOB, palpitations Lung: denies Dyspnea or wheezing Abd: denies n/v/d Breast: denies discharge, lumps or pain : denies vaginal discharge, pruritis, dysuria; no urinary incontinence Ext: denies edema (+) non ttp nodule left forearm Skin: denies rash or other lesions Psych: denies SI -VITAL SIGNS- 98.5 F [36.9 C] (03/05/2024 09:08) 75 (03/05/2024 09:08) 16 (03/05/2024 09:08) 138/82 (03/05/2024 09:45) 3 (02/23/2024 10:29) 71 in [180.3 cm] (07/02/2015 09:55) 233 lb [105.69 kg] (03/05/2024 09:08) BMI: 32.6 PHYSICAL EXAM General: No acute distress, speech is clear, forming sentences. Ext: no edema, warm and well perfused bilat. Skin: Non ttp slightly bouncy nodule in left forearm around 2cm round Neuro: CN 2-12 grossly intact Psych: A&Ox3, appropriate mood and affect ASSESSMENT AND PLAN: 1)Skin nodule -US ordered -referral to Surgery/Dr Go Return to clinic to see me in 6 months, RTC sooner if needed. Clinical Reminders Medication Reconciliation: Outpatient: Has the patient been taking medications as documented in the EMLR? YES: The patient has been taking medications as documented in the EMLR. Essential Medication List for Review used to complete this medication reconciliation. INCLUDED IN THIS LIST: Alphabetical list of active outpatient prescriptions dispensed from this CT (local) and dispensed from another CT or DoD facility (remote) as well as [...] whether with a VA or non-VA provider. /gustabo/ JACKIE SPENCER Nurse Practitioner Signed: 03/05/2024 13:17 [address]MEIDA [address] [facility] [place] [facility] Mar 05, 2024 08:43 AM PREVENTIVE MEDICINE NURSING NOTE: LOCAL TITLE: CLINICAL REMINDERS/NURSING STANDARD TITLE: PREVENTIVE MEDICINE NURSING NOTE DATE OF NOTE: MAR 05, 2024@08:43 ENTRY DATE: MAR 05, 2024@08:43:30 AUTHOR: JOSE ALFREDO ENCISO COSIGNER: URGENCY: STATUS: COMPLETED Influenza Immunization: The patient has received the seasonal influenza vaccine for the current season at another location. Documented: INFLUENZA, UNSPECIFIED FORMULATION Historical Date Administered: Jan 16, 2024 Information Source: FROM PATIENT'S WRITTEN RECORD COVID-19 Immunization: Patient received a prior dose of the Moderna Monovalent vaccine. Documented: COVID-19 (MODERNA), MRNA, LNP-S, PF, 50 MCG/0.5 ML (AGES 12+ YEARS) Historical Date Administered: Jan 16, 2024 Information Source: FROM PATIENT'S WRITTEN RECORD Mammogram Screening: A mammogram is currently scheduled. /gustabo/ JOSE ALFREDO ENCISO REGISTERED NURSE Signed: 03/05/2024 09:08 JOSE ALFREDO ENCISO [facility] [place] [facility]
--- OUTSIDE RECORDS SUMMARY | 2024-05-23 09:03 | XMS_ITS ---
Author Name [facility] [place] [facility] [place] Organization [facility] [place] Address [address] [place] [address] Care Team Providers Care Court Specialist Name Role Phone JUAN PABLOSYBILA Primary Care [...] Name Patient's Relationship to Policy Stoddard [facility] FEDERAL PREFERRED PROVIDER ORGANIZAT ION (PPO) STAND AMEE SELF Apr 21, 1997 104 [id number] TINO DYE PATIENT BS MA FEP PREFERRED PROVIDER ORGANIZAT ION (PPO) STAND AMEE INDIV IDUAL Apr 21, 1997 104 [id number] TINO DYE PATIENT CAREMARK PRESCRIPT ION [id number] 1 Apr 18, 2020 [id number] TINO DYE PATIENT CAREMARK PRESCRIPT ION [id number] 1 Apr 18, 2020 [id number] TINO DYE PATIENT CAREMARK FEPRX PLAN PRESCRIPT ION BCBS FEP Apr 18, 2010 [id number] TINO DYE PATIENT CAREMARK-F EP BCBS PRESCRIPT ION FEP CAREM ARK Apr 18, 2010 [id number] TINO DYE PATIENT OPTUM RX PRESCRIPT ION RX Apr 18, 2022 [id number] TINO DYE PATIENT [facility] USP Apr 18, 2020 USP [id number] [phone] TINO DYE PATIENT [facility] DANTE ABELN E Apr 18, 2020 [facility] [id number] TINO DYE PATIENT Selected Encounter This section includes the information on record at [place] for the Encounter. 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 Date/Time Primary/Secondary Diagnosis Diagnosis Name Provider Source May 18, 2024 04:39 PM PRIMARY Benign lipomatous neoplasm of skin, subcu of left arm GODULCE MARIA S [facility] [place] [facility] May 18, 2024 04:39 PM SECONDARY Pain in left forearm [facility] [place] [facility] May 18, 2024 04:39 PM SECONDARY Radiculopathy, cervical region GO,DULCE MARIA S [facility] [place] [facility] Plan of Treatment: Future Appointments (+ [...] Appointment Type Appointme nt Facility Name May 29, 2024 01:00 PM AMBULATORY - [facility]IATRY [facility] May 30, 2024 01:00 PM AMBULATORY - REHAB MEDICIN E [place] [facility] [place] [facility] Jul 31, 2024 11:00 AM [facility] Active, Pending, and Scheduled Orders This section includes a listing of several types of active, pending, and scheduled orders, including clinic medications orders, diagnostic test orders, procedure orders and consult orders; where the start date of the order is 45 days before the date of the Encounter or 45 days after the date of theEncounter. The data comes from all [place] treatment facilities. Test Date/Time Test Type Test Details Facility Name May 18, 2024 11:18 AM Consult Order COMMUNITY CARE-MRI Cons Legal Analyst's Choice [facility] Vital Signs: All taken on the encounter date This section contains inpatient and outpatient Vital Signs collected on the date of the Encounter. Date/Time Temperature Pulse Blood Pressure Respiratory Rate SP02 Pain Height Weight Body Mass Index Source May 18, 2024 10:24 AM 98 76 128/83 18 96 2 238.3 33 [facility] Social History: Smoking Status (Most current) and Tobacco Use (All prior to encounter date) This section includes the most current, and the historical, smoking and tobacco- related health factors from the [place] facility where the Encounter took place. Current Smoking Status This section includes the most current smoking, or tobacco-related health factor, from the [place] facility where the Encounter took place. Date/Time Current Smoking Status Comment [facility] May 27, 2023 09:30 AM VA-TOBACCO FORMER USER [facility] Tobacco Use History This section includes a history of the smoking, or tobacco-related health factors, that were collected on or before the date of the Encounter. The data comes from the [place] facility where the Encounter took place. Date/Time Smoking Status/Tobac co Use Comment Facility May 27, 2023 09:30 AM VA-TOBACCO QUIT 15 YRS OR MORE [place] [facility] [place] [facility] Feb 02, 2022 08:30 AM VA-TOBACCO FORMER USER [facility] Feb 02, 2022 08:30 AM VA-TOBACCO QUIT 15 YRS OR MORE [facility] [place] [facility] Dec 09, 2020 10:00 AM VA-TOBACCO FORMER USER [facility] [place] [facility] Dec 09, 2020 10:00 AM VA-TOBACCO QUIT 15 YRS OR MORE [place] [facility] [place] [facility] Nov 28, 2019 11:26 AM VA-TOBACCO FORMER USER [place] [facility] Nov 28, 2019 11:26 AM VA-TOBACCO QUIT 15 YRS OR MORE [facility] Oct 23, 2018 02:51 PM VA-TOBACCO FORMER USER [place] [facility] [place] [facility] Oct 23, 2018 02:51 PM VA-TOBACCO QUIT 15 YRS OR MORE [facility] Oct 17, 2017 09:14 AM QUIT TOBACCO USE > 7 YEARS AGO [facility] September 15, 2016 08:50 AM QUIT TOBACCO USE > 7 YEARS AGO [facility] Jul 02, 2015 09:15 AM QUIT TOBACCO USE > 7 YEARS AGO non tobacco user since 1998 [facility] Advance Directives: All historical and current Section [...] Dec 21, 2023 ADVANCE DIRECTIVE DESIREE OLIVAREZ [facility] Encounter Notes: All associated encounter notes This section contains the clinical notes associated to the Encounter. Date/Time Encounter Note(s) Provider Source May 18, 2024 10:23 AM SURGERY OUTPATIENT NOTE: LOCAL TITLE: SURGICAL CLINIC NOTE STANDARD TITLE: SURGERY OUTPATIENT NOTE DATE OF NOTE: MAY 18, 2024@10:23 ENTRY DATE: MAY 18, 2024@10:23:27 AUTHOR: DULCE MARIA VALDEZ COSIGNER: URGENCY: STATUS: COMPLETED DATE: MAY 18, 2024 KENY DYE comes in for a follow up visit. Since she was seen here in this Clinic on 03/09/2024, she has had an EMG which was performed in [place] on April 24, 2024. Per the patient, the test was extremely painful and she did not enjoy it. She says that she was told that everything looks normal. Apparently, there are no plans for any other testing. The patient says that she continues to have pain, tingling, and paresthesias in her left arm and down to her left hand. This occurs every day in the afternoon and into the evening. The pain can last a few hours (though she recalls an episode last year that lasted 2-3 days). The pain never occurs in the morning. She has found that if she places her left arm on top of her head, then the pain resolves. However, once she puts her arm back down, the pain usually recurs. The patient says that this pain as well as back pains are affecting her quality of life. 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 With regards to the lump on her left forearm, for which she was originally referred to this Clinic, she denies any pain or tenderness. She denies any redness, skin changes, or skin thickening. She denies any changes in the lump. There has been no drainage. Touching the lump does not precipitate any pain in the area or any pain in her left arm or hand. She says that the lump does not bother her. Review of Systems is negative except for the complaints noted above. Also has arthritic back pains . She states she has an appointment on , for an injection . EXAMINATION: General: Alert, calm, pleasant, very talkative, NAD. HEENT: NC/AT. Anicteric. She wears glasses. EOMI. Mucous membranes are moist, conjunctivae are clear. Lungs: Clear. No rales, no wheezes. Heart: RRR Skin: Over the dorsal surface of the left forearm, in the midportion, there is a superficial, 2.5 cm x 1.8 cm, dome-like, rounded, firm, non-tender mass. There is no erythema or skin thickening. There is no skin discoloration. There is no overlying punctum. There is no fluctuance. One can see a subtle prominence in the contour of the forearm where this mass is located. The mass appears to be well-circumscribed and is uniform in texture. There are no other masses. Neuro: There is no current left arm or left hand pain, tingling, or paresthesias. Insurance Verification Rep strength is normal. Psych: AAO x3. Mood and affect are appropriate. Skin: Warm, dry. EMG of 04/24/2024 SUMMARY: 1. The left median, ulnar and [...] data sheet please see vista images. Kristen Bustamante MD Staff Neurologist, [facility], [place] IMPRESSION: Unchanged superficial mass in left mid forearm. This mass is likely a benign lipoma or possibly an epidermal cyst. Discussed with the patient what this mass likely is. Discussed that this mass could be removed under local anesthesia in a very straightforward fashion. Risks, benefits, and alternatives were once more discussed. However, the patient is more concerned about the pain, tingling, and paresthesias she keeps getting in her left arm and left hand. She asked again whether all her left arm and left hand symptoms would go away with excision of this superficial mass in her left forearm. I believe that excision of this mass would not affect her left arm and left hand symptoms at all. The patient reports that the pain continually recurs and is a daily occurrence that lasts for a few hours starting in the afternoon and continuing into every evening. It is becoming more problematic and frequent for her. On further questioning, by history, she has a positive Bakody's sign, with relief of her symptoms by placing her left arm on top of her head. The pain then comes back when she puts her left arm back down. I believe, that this appears to indicate a cervical radiculopathy. This is really all out of my purview, but I believe that the patient would benefit from cervical neck imaging (?MRI) and a formal Neurology evaluation. Discussed this with the patient. I will also reach out to her PCP about this. Of note, the patient stated that she did not want to undergo any excision or surgery to remove the left forearm lump if it won't take away the pains and tingling . Instead, the patient wants to address her left arm and left hand recurrent symptoms of pain, tingling, and paresthesias, and this is very reasonable of her. Will plan on discussing this with her PCP and hopefully a further workup can be done. If the patient changes her mind and desires in the future to have the left forearm mass excised, or if anything about the lump were to change, then the patient can follow up in this Clinic. The patient was happy with this plan. Follow up in this Clinic is PRN. Dulce Maria Valdez MD Staff General Surgeon 05/18/2024 Addendum: Spoke with the patient's PCP. She will arrange for MRI imaging and will call the patient with regards to what the next steps will be. (This was told to the patient prior to her leaving the Clinic.) /gustabo/ DULCE MARIA VALDEZ MD SURGEON Signed: 05/18/2024 16:41 DULCE MARIA VALDEZ [place] [facility]
--- OUTSIDE RECORDS SUMMARY | 2024-05-23 09:03 | XMS_ITS | Encounter Summary ---
Author Name [facility] [place] Organization [facility] [place] Address [address] [place] [address] Care Team Providers Care Overlock Sewing Machine Operator Name Role Phone JULIO CÉSAR [...] Name Patient's Relationship to Policy Stoddard [facility] CT FEDERAL PREFERRED PROVIDER ORGANIZAT ION (PPO) STAND AMEE SELF Apr 21, 1997 [id number] TINO DYE PATIENT BS MA FEP PREFERRED PROVIDER ORGANIZAT ION (PPO) STAND AMEE INDIV IDUAL Apr 21, 1997 [id number] TINO DYE PATIENT CAREMARK PRESCRIPT ION [id number] 1 Apr 18, 2020 [id number] MARNIETINO RODRIGUEZ PATIENT CAREMARK PRESCRIPT ION [id number] 1 Apr 18, 2020 [id number] TINO DYE PATIENT CAREMARK FEPRX PLAN PRESCRIPT ION BCBS FEP Apr 18, 2010 [id number] TINO DYE PATIENT CAREMARK-F EP BCBS PRESCRIPT ION FEP CAREM ARK Apr 18, 2010 [id number] TINO DYE PATIENT OPTUM RX PRESCRIPT ION RX Apr 18, 2022 [id number] TINO DYE PATIENT [facility] USFHP Apr 18, 2020 USP [id number] TINO DYE PATIENT [facility] BRIGH TON DAVE E Apr 18, 2020 [id number] TINO DYE PATIENT Selected Encounter This section includes the information on record at [place] for the Encounter. Date/Time Encounter Type Encounter Description Reason Provider Source August 26, 2023 08:00 AM PSYTX W PT 60 MINUTES [facility] - IND ICD-10-CM F43.12 Post-traumatic stress disorder, chronic GAUTAM ALEJANDRE [facility] Encounter Template Text not used by [place] Assessments - Encounter Diagnoses This section includes the primary and secondary diagnoses documented for the Encounter. Date/Time Primary/Secondary Diagnosis Diagnosis Name Provider Source August 26, 2023 09:09 AM PRIMARY Post-traumatic stress disorder, chronic GAUTAM ALEJANDRE [place] Plan of Treatment: Future Appointments (+ 6 months) and Future Tests (+/- 45 days) The Plan of Treatment section includes future care activities for the patient from all [place] [facility]. This section includes future appointments and future orders which are active, pending or scheduled. Future Appointments This section includes appointments that were scheduled to occur 6 months from the date of the Encounter, up to a maximum of 20 appointments. The data comes from all [place] treatment facilities. Appointment Date/Time Appointment Type Appointme nt Facility Name Sep 20, 2023 08:00 AM [facility] Sep 30, 2023 08:00 AM AM[facility]ULAT[facility] - PS[facility]CHIATRY [facility] Nov 04, 2023 11:00 AM AMBULATORY - PSYCHIATRY [facility] Nov 08, 2023 01:30 PM AMBULATORY [facility] Nov 21, 2023 09:00 AM AMBULATORY - REHAB MEDICIN E [place] [facility] [place] [facility] Dec 02, 2023 01:00 PM AMBULATORY - PSYCHIATRY [facility] Dec 23, 2023 08:00 AM AMBULATORY - REHAB MEDICIN E [facility] [place] [facility] Dec 27, 2023 10:30 AM AMBULATORY - MEDICINE [facility] [place] [facility] Dec 29, 2023 08:00 AM AMBULATORY - REHAB MEDICIN E [facility] [place] [facility] Jan 16, 2024 10:45 AM AMBULATORY - MEDICINE [facility] Jan 17, 2024 08:00 AM AMBULATORY - MEDICINE [facility] [place] [facility] Jan 18, 2024 10:00 AM AMBULATORY - REHAB MEDICIN E [facility] [place] [facility] Jan 18, 2024 01:00 PM AMBULATORY - PSYCHIATRY [facility] Jan 24, 2024 08:00 AM AMBULATORY - MEDICINE [facility] [place] [facility] Jan 26, 2024 01:30 PM AMBULATORY - REHAB MEDICIN E [facility] [place] [facility] Jan 31, 2024 08:00 AM AMBULATORY - MEDICINE [facility] [place] [facility] Feb 09, 2024 01:30 PM AMBULATORY - REHAB MEDICIN E [facility] [place] [facility] Feb 20, 2024 01:00 PM AMBULATORY - PSYCHIATRY [facility] Feb 21, 2024 09:00 AM AMBULATORY - MEDICINE [facility] [place] [facility] Feb 23, 2024 10:30 AM AMBULATORY - MEDICINE [facility] [place] [facility] Advance Directives: All historical and current Section Date Range: From patient's date of to the date document was created. This section includes ALL of a patient's completed or amended [place] Advance and Rescinded Directives. The entries below indicate that a directive exists for the patient, but an actual copy is not included with this document. The data comes from all [place] facilities. Date Advance Directives Provider Source Dec 21, 2023 ADVANCE DIRECTIVE DESIREE OLIVAREZ [facility] [place] [facility] Encounter Notes: All associated encounter notes This section contains the clinical notes associated to the Encounter. Date/Time Encounter Note(s) Provider Source August 26, 2023 08:00 AM SOCIAL WORK NOTE: LOCAL TITLE: SOCIAL WORK NOTE STANDARD TITLE: SOCIAL WORK NOTE DATE OF NOTE: AUGUST 26, 2023@08:00 ENTRY DATE: AUGUST 26, 2023@09:02:14 AUTHOR: GAUTAM ALEJANDREIGNER: URGENCY: STATUS: COMPLETED INFORMED CONSENT REVIEWED: At beginning of session reviewed rights and limits of confidentiality, mandatory reporting situations, duty to warn and protect, [employer] Warning, (if treatment team finds patient to be an acute danger to himself or others, that this information could be relayed to a court of law and presented to a coach wirer), and DOD access for active duty service members. Provided Suicide Prevention Hotline number, and other contact numbers as necessary. VISIT DURATION 60 minutes DIAGNOSES: PTSD chronic (F43.12) [employer] STATEMENT OF GOALS/CONCERNS: I'm ok, my feet are sore. It's difficult to walk. SESSION FOCUS: Met with face to face for individual counseling. stated she is finished with PT but her feet still hurt. She is continuing her PT on her own. stated her 's daughter got tickets for the [employer] and did not include her. They invited her but did not even mention it to her. She was angry and hurt. She agrees that loud sounds bother her but she would have liked to have been invited. Kelly is excited about her upcoming custodial. She and her have plans for the fall through the winter in [place] and [place]. She is hopeful it will work out. She shared that she is worried about her 's health. He is older than her and has some issues. He is getting medical care but she does not want to lose him. We discussed catastrophizing and she agreed. INTERVENTIONS: Psychotherapeutic Interventions: ND; Reflective listening and support ASSESSMENT: BRIEF ASSESSMENT [...] PLAN FOR FOLLOW-UP: Next session planned for: 09/30/23 at 8am /gustabo/ MEREDITH BRYANT [employer] [facility] Signed: 08/26/2023 09:09 GAUTAM ALEJANDRE
--- OUTSIDE RECORDS SUMMARY | 2024-05-23 09:03 | XMS_ITS | Encounter Summary ---
Author Name [facility] Organization [facility] [place] Address [address] [place] [id number] Care Team Providers Care Heel Padder Name Role Phone JULIO CÉSAR ALMEIDA Primary [...] Name Patient's Relationship to Policy Stoddard [facility] CT FEDERAL PREFERRED PROVIDER ORGANIZAT ION (PPO) STAND AMEE SELF Apr 21, 1997 [id number] TINO DYE PATIENT BS MA FEP PREFERRED PROVIDER ORGANIZAT ION (PPO) STAND AMEE INDIV IDUAL Apr 21, 1997 104 [id number] TION DYE PATIENT CAREMARK PRESCRIPT ION [id number] 1 Apr 18, 2020 [id number] MARNIETINO RODRIGUEZ PATIENT CAREMARK PRESCRIPT ION [id number] 1 Apr 18, 2020 [id number] MARNIETINO RODRIGUEZ PATIENT CAR[facility]ARK FEPRX PLAN PRESCRIPT ION BCBS FEP Apr 18, 2010 [id number] TINO DYE PATIENT CAREMARK-F EP BCBS PRESCRIPT ION FEP CAREM ARK Apr 18, 2010 [id number] TINO DYE PATIENT OPTUM RX PRESCRIPT ION RX Apr 18, 2022 THPRX [id number] TINO DYE PATIENT [facility] USFHP Apr 18, 2020 USP [id number] TINO DYE PATIENT [facility] BRIGH TON DAVE E Apr 18, 2020 [id number] TINO DYE PATIENT Selected Encounter This section includes the information on record at ID for the Encounter. Date/Time Encounter Type Encounter Description Reason Provider Source Sep 30, 2023 08:00 AM PSYTX W PT 60 MINUTES [facility] - IND ICD-10-CM F43.12 Post-traumatic stress disorder, chronic GAUTAM ALEJANDRE [facility] Encounter Template Text not used by ID Assessments - Encounter Diagnoses This section includes the primary and secondary diagnoses documented for the Encounter. Date/Time Primary/Secondary Diagnosis Diagnosis Name Provider Source Sep 30, 2023 09:14 AM PRIMARY Post-traumatic stress disorder, chronic GAUTAM ALEJANDRE [place] Plan of Treatment: Future Appointments (+ 6 months) and Future Tests (+/- 45 days) The Plan of Treatment section includes future care activities for the patient from all ID treatmentfacilities. This section includes future appointments and future orders which are active, pending or scheduled. Future Appointments This section includes appointments that were scheduled to occur 6 months from the date of the Encounter, up to a maximum of 20 appointments. The data comes from all ID treatment facilities. Appointment Date/Time Appointment Type Appointme nt Facility Name Nov 04, 2023 11:00 AM AMBULATORY - PSYCHIATRY [facility] Nov 08, 2023 01:30 PM [facility] Nov 21, 2023 09:00 AM [facility] [place] [facility] Dec 02, 2023 01:00 PM AMBULATORY - PSYCHIATRY [facility] Dec 23, 2023 08:00 AM [facility] Dec 27, 2023 10:30 AM [facility] [place] [facility] Dec 29, 2023 08:00 AM AMBULATORY - [facility]HAB [facility]IN [facility] [place] [facility] Jan 16, 2024 10:45 AM AM[facility]UL[facility]ORY - [facility]IC[place] [facility] Jan 17, 2024 08:00 AM AMBULATORY - MEDICINE [facility] [place] [facility] Jan 18, 2024 10:00 AM AMBULATORY - REHAB MEDICIN E [facility] [place] [facility] Jan 18, 2024 01:00 PM AMBULATORY - PSYCHIATRY [facility] Jan 24, 2024 08:00 AM AMBULATORY - MEDICINE [facility] [place] [facility] Jan 26, 2024 01:30 PM AMBULATORY - REHAB MEDICIN E [facility] [place] [facility] Jan 31, 2024 08:00 AM AMBULATORY - MEDICINE [facility] [place] [facility] Feb 09, 2024 01:30 PM AMBULATORY - REHAB MEDICIN E [facility] [place] [facility] Feb 20, 2024 01:00 PM AMBULATORY - PSYCHIATRY [facility] Feb 21, 2024 09:00 AM AMBULATORY - MEDICINE [facility] [place] [facility] Feb 23, 2024 10:30 AM AMBULATORY - MEDICINE [facility] [place] [facility] Mar 05, 2024 09:00 AM AMBULATORY - MEDICINE [facility] [place] [facility] Mar 07, 2024 10:00 AM AM[facility] Advance Directives: All historical and current Section Date Range: From patient's date of to the date document was created. This section includes ALL of a patient's completed or amended VA Advance and Rescinded Directives. The entries below indicate that a directive exists for the patient, but an actual copy is not included with this document. The data comes from all ID facilities. Date Advance Directives Provider Source Dec 21, 2023 ADVANCE DIRECTIVE DESIREE OLIVAREZ [facility] [place] [facility] Encounter Notes: All associated encounter notes This section contains the clinical notes associated to the Encounter. Date/Time Encounter Note(s) Provider Source Sep 30, 2023 08:00 AM SOCIAL WORK NOTE: LOCAL TITLE: SOCIAL WORK NOTE STANDARD TITLE: SOCIAL WORK NOTE DATE OF NOTE: SEP 30, 2023@08:00 ENTRY DATE: SEP 30, 2023@09:09:33 AUTHOR: GAUTAM ALEJANDRE EXP COSIGNER: URGENCY: STATUS: COMPLETED INFORMED CONSENT REVIEWED: At beginning of session reviewed rights and limits of confidentiality, mandatory reporting situations, duty to warn and protect, Calix Warning, (if treatment team finds patient to be an acute danger to himself or others, that this information could be relayed to a court of law and presented to a paddock judge), and DOD access for active duty service members. Provided Suicide Prevention Hotline number, and other contact numbers as necessary. 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 SESSION FOCUS: Met with [facility] face to face for individual counseling. stated her went to [place] for 2 weeks, came home and then went back for 10 days. She stated it makes her anxious when he is away. She worries about his health and she does not like being alone. She stated she did stay busy while he was gone but the thoughts are always there. She has 9 more days until she retires and is very excited about it. She is looking forward to doing more things and traveling with . INTERVENTIONS: Psychotherapeutic Interventions: CA; Reflective listening and support ASSESSMENT: BRIEF ASSESSMENT [...] PLAN FOR FOLLOW-UP: Next session planned for: 11/04/23 at 11am /gustabo/ MEREDITH BRYANT Primary Therapist Mental Health Signed: 09/30/2023 09:14 GAUTAM ALEJANDRE [place]
--- OUTSIDE RECORDS SUMMARY | 2024-05-23 09:03 | XMS_ITS ---
Author Name [facility] [place] [facility] [place] Organization [facility] [place] [facility] [place] Address [address] [place] [address] Care Team Providers Care Perishable Freight Inspector Name Role Phone JUAN PABLOSYBILA Primary Care [...] Name Patient's Relationship to Policy Stoddard [facility] CT FEDERAL PREFERRED PROVIDER ORGANIZAT ION (PPO) STAND AMEE SELF Apr 21, 1997 104 [id number] TINO DYE PATIENT BS MA FEP PREFERRED PROVIDER ORGANIZAT ION (PPO) STAND AMEE INDIV IDUAL Apr 21, 1997 104 [id number] TINO DYE PATIENT CAREMARK PRESCRIPT ION [id number] 1 Apr 18, 2020 [id number] TINO DYE PATIENT CAR[facility]ARK PRESCRIPT ION [id number] 1 Apr 18, 2020 [id number] TINO DYE PATIENT [facility] FEPRX PLAN PRESCRIPT ION BCBS FEP Apr 18, 2010 [id number] TINO DYE PATIENT CAREMARK-F EP BCBS PRESCRIPT ION FEP CAREM ARK Apr 18, 2010 [id number] TINO DYE PATIENT OPTUM RX PRESCRIPT ION RX Apr 18, 2022 THPRX [id number] TINO DYE PATIENT [facility] USP Apr 18, 2020 USP [id number] TINO DYE PATIENT [facility] DANTE DAVE E Apr 18, 2020 [facility] EMERGENC[facility] DEPART[facility] [id number] [phone] TINO DYE PATIENT Selected Encounter This section includes the information on record at [place] for the Encounter. Date/Time Encounter Type Encounter Description Reason Provider Source Jul 26, 2023 08:00 AM OFFICE O/P EST MOD 30 MIN PRIMARY CARE/MEDICINE ICD-10-CM R91.1 Solitary pulmonary nodule JULIO CÉSAR ALMEIDA [facility] Encounter Template Text not used by [place] Assessments - Encounter Diagnoses This section includes the primary and secondary diagnoses documented for the Encounter. Date/Time Primary/Secondary Diagnosis Diagnosis Name Provider Source Jul 26, 2023 10:28 AM PRIMARY Solitary pulmonary nodule JUAN PABLOJULIO CÉSARNita MARIN [place] [facility] [place] [facility] Jul 26, 2023 10:28 AM SECONDARY Chronic obstructive pulmonary disease, unspecified JUAN PABLOJULIO CÉSAR GOLDMAN [place] [facility] [place] [facility] Jul 26, 2023 10:28 AM SECONDARY Low back pain, unspecified JUAN PABLO,JULIO CÉSAR MARIN [place] [facility] [place] [facility] Jul 26, 2023 10:28 AM SECONDARY Personal history of pulmonary embolism SYBIL ALMEIDAA TANIA [place] [facility] [place] [facility] Jul 26, 2023 10:28 AM SECONDARY Post-traumatic stress disorder, chronic JUAN PABLO,JULIO CÉSAR MARIN [place] [facility] [place] [facility] Plan of Treatment: Future Appointments (+ 6 months) and Future Tests (+/- 45 days) The Plan of Treatment section includes future care activities for the patient from all [place] treatmentfacilities. This section includes future appointments and future orders which are active, pending or scheduled. Future Appointments This section includes appointments that were scheduled to occur 6 months from the date of the Encounter, up to a maximum of 20 appointments. The data comes from all [place] treatment [facility]. Appointment Date/Time Appointment Type Appointme nt Facility Name Aug 09, 2023 03:15 PM AMBULATORY - MEDICINE [facility] [place] [facility] August 26, 2023 08:00 AM AMBULATORY - PSYCHIATRY [facility] Sep 20, 2023 08:00 AM AMBULATORY - REHAB MEDICIN E [facility] [place] [facility] Sep 30, 2023 08:00 AM AMBULATORY - PSYCHIATRY [facility] Nov 04, 2023 11:00 AM AMBULATORY - PS[facility]CHIATRY [facility] Nov 08, 2023 01:30 PM AMBULATORY - MEDICINE [facility] [place] [facility] Nov 21, 2023 09:00 AM AMBULATORY - REHAB MEDICIN E [facility] [place] [facility] Dec 02, 2023 01:00 PM AMBULATORY - PSYCHIATRY [facility] Dec 23, 2023 08:00 AM AMBULATORY - REHAB MEDICIN E [facility] [place] [facility] Dec 27, 2023 10:30 AM AMBULATORY - MEDICINE [facility] [place] [facility] Dec 29, 2023 08:00 AM AMBULATORY - REHAB MEDICIN E [facility] [place] [facility] Jan 16, 2024 10:45 AM AMBULATORY - MEDICINE [facility] Jan 17, 2024 08:00 AM AMBULATORY - MEDICINE [facility] [place] [facility] Jan 18, 2024 10:00 AM AMBULATORY - REHAB MEDICIN E [facility] [place] [facility] Jan 18, 2024 01:00 PM AMBULATORY - PSYCHIATRY [facility] Jan 24, 2024 08:00 AM AMBULATORY - MEDICINE [place] [facility] [place] [facility] Vital Signs: All taken on the encounter date This section contains inpatient and outpatient Vital Signs collected on the date of the Encounter. Date/Time Temperature Pulse Blood Pressure Respiratory Rate SP02 Pain Height Weight Body Mass Index Source Jul 26, 2023 08:10 AM 98.1 72 129/82 16 97 5 213.7 30 [place] [facility] [facility] Social History: Smoking Status (Most current) and Tobacco Use (All prior to encounter date) This section includes the most current, and the historical, smoking and tobacco- related health factors from the [place] facility where the Encounter took place. Current Smoking Status This section includes the most current smoking, or tobacco-related health factor, from the [place] facility where the Encounter took place. Date/Time Current Smoking Status Comment Becka hi May 27, 2023 09:30 AM VA-TOBACCO FORMER USER [place] [facility] [place] [facility] Tobacco Use History This section includes a history of the smoking, or tobacco-related health factors, that were collected on or before the date of the Encounter. The data comes from the [place] facility where the Encounter took place. Date/Time Smoking Status/Tobac co Use Comment Facility May 27, 2023 09:30 AM VA-TOBACCO QUIT 15 YRS OR MORE [place] [facility] [place] [facility] Feb 02, 2022 08:30 AM VA-TOBACCO FORMER USER [facility] [place] [facility] Feb 02, 2022 08:30 AM VA-TOBACCO QUIT 15 YRS OR MORE [place] [facility] [place] [facility] Dec 09, 2020 10:00 AM VA-TOBACCO FORMER USER [place] [facility] [place] [facility] Dec 09, 2020 10:00 AM VA-TOBACCO QUIT 15 YRS OR MORE [place] [facility] [place] [facility] Nov 28, 2019 11:26 AM VA-TOBACCO FORMER USER [place] [facility] [place] [facility] Nov 28, 2019 11:26 AM VA-TOBACCO QUIT 15 YRS OR MORE [place] [facility] [facility] Oct 23, 2018 02:51 PM VA-TOBACCO FORMER USER [facility] [place] [facility] Oct 23, 2018 02:51 PM VA-TOBACCO QUIT 15 YRS OR MORE [facility] [place] [facility] Oct 17, 2017 09:14 AM QUIT TOBACCO USE > 7 YEARS AGO [facility] [place] [facility] September 15, 2016 08:50 AM QUIT TOBACCO USE > 7 YEARS AGO [facility] [place] [facility] Jul 02, 2015 09:15 AM QUIT TOBACCO USE > 7 YEARS AGO non tobacco user since 1998 [place] [facility] [place] [facility] Advance Directives: All historical and current Section Date Range: From patient's date of to the date document was created. This section includes ALL of a patient's completed or amended [place] Advance and Rescinded Directives. The entries below indicate that a directive exists for the patient, but an actual copy is not included with this document. The data comes from all [place] facilities. Date Advance Directives Provider Source Dec 21, 2023 ADVANCE DIRECTIVE DESIREE OLIVAREZ [place] [facility] [place] [facility] Encounter Notes: All associated encounter notes This section contains the clinical notes associated to the Encounter. Date/Time Encounter Note(s) Provider Source Jul 26, 2023 08:08 AM PRIMARY CARE NURSE PRACTITIONER OUTPATIENT NOTE: LOCAL TITLE: NURSE PRACTITIONER OUTPATIENT NOTE STANDARD TITLE: PRIMARY CARE NURSE PRACTITIONER OUTPATIENT NOTE DATE OF NOTE: JUL 26, 2023@08:08 ENTRY DATE: JUL 26, 2023@08:08:34 AUTHOR: JULIO CÉSAR ALMEIDA EXP COSIGNER: URGENCY: STATUS: COMPLETED Chief complaint: Pt is a 63 who comes in for follow up of medical problems as noted below. Follow with Rhys Michael MD/Zoltan Armenta NP she wants to start getting all care and meds from here at [place] HPI: Low back pain with Sciatica, Had Lumbar spine x-rays in Late 2021 APAP as needed Also doing PT on her back follows with [facility] Plantar fasciitis has inserts and had seen POD PE Cleared by heme -Continue with ASA but no longer needing DOAC/Anticoags COPD newer dx follows with Dr Monica Ramey inhaler daily and PRN albuterol Seems to be well controlled on that, I entered a Pulm consult so hopefully he can call that into our pharmacy I did counselor at law her that we have wixela on formulary here 0.3mm Pulmonary nodule repeat CT in 2022 did not reveal any pulmonary nodules, they had subsided HTN stable on losartan 25mg daily also on baby ASA for risk reduction HDL stable on Atorva her LDL was 121 in fall Takes Vitmain C and D for overall health and bone health PTSD working with here PMH: Active problems - Computerized Problem List is the source for the followin. Solitary nodule of lung 0.3mm nodule on cut 02/[address] 2. Exposure to potentially hazardous substance 3. Perimenopausal atrophic vaginitis 4. Former smoker quit around 2125-7437 5. COPD - Chronic Obstructive Pulmonary Disease (SCT [id number]) following nonVA Pulmonary 6. Posttraumatic stress disorder 7. Myalgia 8. Bilateral tinnitus 9. Shoulder pain 10. Overweight 11. PE - Pulmonary embolism b/l lower lobe PE 09/2014 on HRT s/p 6mo coumadin 12. Menopausal flushing 13. Female urinary stress incontinence Allergies: Patient has answered NKA The following VA and Non-VA meds were reconciled with patient: Active and Recently Outpatient Medications (excluding Supplies): Active Outpatient Medications Status 1) LIDOCAINE 5% OINT APPLY DIRECTED TOPICALLY TWICE ACTIVE DAILY NEEDED FOR MINOR SKIN WOUND PAIN Active Non-VA Medications Status 1) Non-VA ALBUTEROL 90MCG (CFC-F) 200D ORAL INHL 1 PUFF ACTIVE BY MOUTH 2) Non-VA ASCORBIC ACID 500MG TAB 1000MG BY MOUTH ONCE ACTIVE DAILY 3) Non-VA ASPIRIN 81MG EC TAB 81MG BY MOUTH DAILY ACTIVE 4) Non-VA ATORVASTATIN CALCIUM 40MG TAB 20MG BY MOUTH ACTIVE ONCE DAILY 5) Non-VA CHOLECALCIF 25MCG (D3-1,000UNIT) TAB 25MCG BY ACTIVE MOUTH ONCE DAILY 6) Non-VA FERROUS SULFATE 325MG TAB 325MG BY MOUTH TWO ACTIVE TIMES A WEEK 7) Non-VA FLUTICASONE/VILANTEROL (BREO) INHL,ORAL BY ACTIVE MOUTH ONCE DAILY 8) Non-VA LOSARTAN 25MG TAB 25MG BY MOUTH ONCE DAILY ACTIVE 9) Non-VA MULTIVITAMIN/MINERALS CAP/TAB 1 TABLET BY ACTIVE MOUTH DAILY 10 Total Medications Allergies: Patient has answered NKA VITAL SIGNS: 98.1 F [36.7 C] (07/26/2023 08:10) 72 (07/26/2023 08:10) 16 (07/26/2023 08:10) 129/82 (07/26/2023 08:10) 5 (07/26/2023 08:10) 71 in [180.3 cm] (07/02/2015 09:55) 213.7 lb [96.93 kg] (07/26/2023 08:10) BMI: 29.9 ROS General: no fever, no unexplained weight loss or gain HEENT: denies vision changes, CV: denies CP, SOB, palpitations Lung: denies Dyspnea, cough, wheezing Abd: denies constipation, diarrhea, reflux, abdominal pain Breast: denies discharge, lumps or pain : denies vaginal pain, discharge, pruritis denies hematuria or dysuria; no urinary incontinence Ext: denies edema, weakness, falls Skin: denies rash or other lesions Psych: denies depression, SI Neuro: denies weakness, dizziness, falls, JUSTICE PHYS ICAL EXAM General: No acute distress, speech is clear, forming sentences. HEENT: PERRL, EOMI, OP clear, No cervical lymphadenopathy, no thyromegaly CV: S1S2, RRR, no m/r/g Lung: CTAB, no wheeze, rhonchi, or crackles, good breath sounds to bases b/l Ext: no edema, warm and well perfused bilat. Skin: no lesions or rashes NEURO CN II-XII grossly intact, gait steady without shuffle MENTAL A&Ox3 Appropriate, Pleasant, Cooperative LAB RESULTS LAST 1440 HRS - NONE FOUND Future Clinic Visits 07/29/2023 07:30 CWM/SO/PHYSICAL THERAPY C 08/26/2023 08:00 CWM/SO/MHC/[facility] 11/08/2023 13:30 CWM/NO/PODIATRY A ASSESSMENT AND PLAN: #Low back pain with Sciatica -Had Lumbar spine x-rays in Late 2021 -APAP PRN -Continue PT on her back [facility] -Referral to Med rehab #Plantar fasciitis -Follows with POD and has inserts #PE -Cleared by heme -Continue with ASA but no longer needing DOAC/Anticoags #COPD -follows with Dr Anderson -Trelegy inhaler daily and PRN albuterol #Pulmonary nodule -repeat CT in 2022 did not reveal any pulmonary nodules -Monitor clinically also follows with Pulmonary who noted this #PTSD -working with here Of note she just had routine labs done in Fall 2022 through [facility] other than slightly elevated LDL 121 all normal we discussed rechecking in fall 2023 here at [place] since she will get care here now Return to clinic to see me in 6 months, RTC sooner if needed. Clinical Reminders Lipid Screening: [facility] has documentation of outside lipid profile results. Outside Location and date. Date: March 02, 2023 Location: Outside Healthcare Provider Medication Reconciliation: Outpatient: Has the patient been [...] provider. /gustabo/ JACKIE SPENCER Nurse Practitioner Signed: 07/26/2023 10:27 JULIO CÉSAR ALMEIDA [place] [facility] [place] [facility] Jul 26, 2023 08:01 AM PREVENTIVE MEDICINE NURSING NOTE: LOCAL TITLE: CLINICAL REMINDERS/NURSING STANDARD TITLE: PREVENTIVE MEDICINE NURSING NOTE DATE OF NOTE: JUL 26, 2023@08:01 ENTRY DATE: JUL 26, 2023@08:01:31 AUTHOR: TAYLER ROSALES EXP COSIGNER: URGENCY: STATUS: COMPLETED Advance Directive Screen MH AD: Patient does not have an Advance Directive completed and is requesting more information. A consult was sent to Social Work Services at this visit so that an appointment can be made with the patient to review the advance directive. The patient received education about Advance Directives and written notification of his/her rights. Homelessness/Food Insecurity Screen: In the past 2 months, have you been living in stable housing that you own, rent, or stay in as part of a household? Yes - Living in stable housing. Are you worried or concerned that in the next 2 months you may NOT have stable housing that you own, rent, or stay in as part of a household? No - Not worried about housing near future The [facility] reports the following: Within the past 12 months, you worried whether your food would run out before you got money to buy more. Never true Within the past 12 months, the food you bought just didn't last and you didn't have money to get more. Never true Depression Screening: Perform PHQ-2 A PHQ-2 screen was performed. The score was 2 which is a negative screen for depression. Over the past two weeks, how often have you been bothered by the following problems? 1. Little interest or pleasure in doing things Several days 2. Feeling down, depressed, or hopeless Several days Sexual Orientation: The patient thinks of their sexual orientation as: Straight or Heterosexual Influenza Immunization: The patient has received the seasonal influenza vaccine for the current season at another location. Documented: INFLUENZA, UNSPECIFIED FORMULATION Historical Date Administered: Jan 16, 2023 Outside Location: [facility] Information Source: FROM PATIENT'S WRITTEN RECORD COVID-19 Immunization: Patient received a prior dose of the Moderna Monovalent vaccine. Documented: COVID-19 (MODERNA), MRNA, LNP-S, PF, 50 MCG/0.5 ML (AGES 12+ YEARS) Historical Date Administered: Jan 16, 2023 Series: Series 1 Outside Location: [facility] Information Source: FROM PATIENT'S WRITTEN RECORD RHS Screen: RHS Screen Session Format: Face to Face Environmental Check Screening was not completed at this time due to: Another adult present /es/ TAYLER ROSALES, MSN, RN, CNL PRIMARY CARE TEAM NURSE Signed: 07/26/2023 08:10 T[facility]ER ROSALES [facility]
--- OUTSIDE RECORDS SUMMARY | 2024-05-23 09:03 | XMS_ITS | Encounter Summary ---
Author Name [facility] [place] [facility] [place] Address [address] [place] [id number] Care Team Providers Care Assistant Film Editor Name Role Phone JULIO CÉSAR ALMEIDA Primary [...] STAND AMEE SELF Apr 21, 1997 [id number] [phone] TINO DYE PATIENT BS MA FEP PREFERRED PROVIDER ORGANIZAT ION (PPO) STAND AMEE INDIV IDUAL Apr 21, 1997 104 [id number] TINO DYE PATIENT [facility] PRESCRIPT ION [id number] 1 Apr 18, 2020 [id number] [phone] MARNIETINO RODRIGUEZ PATIENT [facility] PRESCRIPT ION [id number] 1 Apr 18, 2020 [id number] MARNIETINO RODRIGUEZ PATIENT [facility] FEPRX PLAN PRESCRIPT ION BCBS FEP Apr 18, 2010 [id number] TINO DYE PATIENT CAR[facility]ARK-F EP BCBS PRESCRIPT ION FEP CAREM ARK Apr 18, 2010 [id number] TINO DYE PATIENT OPTUM RX PRESCRIPT ION RX Apr 18, 2022 [id number] TINO DYE PATIENT [facility] USFHP Apr 18, 2020 USP [id number] [phone] TINO DYE PATIENT [facility] BRIGH TON DAVE E Apr 18, 2020 [id number] TINO DYE PATIENT Selected Encounter This section includes the information on record at [place] for the Encounter. Date/Time Encounter Type Encounter Description Reason Provider Source Jul 22, 2023 08:00 AM PSYTX W PT 60 MINUTES [facility] - IND ICD-10-CM F43.12 Post-traumatic stress disorder, chronic GAUTAM ALEJANDRE [facility] Encounter Template Text not used by [place] Assessments - Encounter Diagnoses This section includes the primary and secondary diagnoses documented for the Encounter. Date/Time Primary/Secondary Diagnosis Diagnosis Name Provider Source Jul 22, 2023 09:17 AM PRIMARY Post-traumatic stress disorder, chronic GAUTAM LAEJANDRE [place] Plan of Treatment: Future Appointments (+ 6 months) and Future Tests (+/- 45 days) The Plan of Treatment section includes future care activities for the patient from all [place] treatmentfacilities. This section includes future appointments and future orders which are active, pending or scheduled. Future Appointments This section includes appointments that were scheduled to occur 6 months from the date of the Encounter, up to a maximum of 20 appointments. The data comes from all [place] treatment facilities. Appointment Date/Time Appointment Type Appointme nt Facility Name Jul 26, 2023 08:00 AM AMBULATORY - MEDICINE [facility] [place] [facility] Aug 09, 2023 03:15 PM AMBULATORY - MEDICINE [facility] [place] [facility] August 26, 2023 08:00 AM AMBULATORY - PSYCHIATRY [facility] Sep 20, 2023 08:00 AM AMBULATORY - REHAB MEDICIN E [place] [facility] Sep 30, 2023 08:00 AM AMBULATORY - PSYCHIATRY [facility] Nov 04, 2023 11:00 AM AMBULATORY - PSYCHIATRY [facility] Nov 08, 2023 01:30 PM AM[facility]ULATORY [facility] MEDICINE [facility] [place] [facility] Nov 21, 2023 09:00 AM AMBULATORY - REHAB MEDICIN E [facility] [place] [facility] Dec 02, 2023 01:00 PM AMBULATORY - PSYCHIATRY [facility] Dec 23, 2023 08:00 AM AMBULATORY - REHAB MEDICIN E [facility] [place] [facility] Dec 27, 2023 10:30 AM AMBULATORY - MEDICINE [facility] [place] [facility] Dec 29, 2023 08:00 AM AMBULATORY - REHAB MEDICIN E [facility] [place] [facility] Jan 16, 2024 10:45 AM AMBULATORY - MEDICINE [facility] Jan 17, 2024 08:00 AM AMBULATORY - MEDICINE [facility] [place] [place] [facility] Jan 18, 2024 10:00 AM AMBULATORY - REHAB MEDICIN E [facility] [place] [facility] Jan 18, 2024 01:00 PM AMBULATORY - PSYCHIATRY [facility] Advance Directives: All historical and current Section Date Range: From patient's date of to the date document was created. This section includes ALL of a patient's completed or amended [place] Advance and Rescinded Directives. The entries below indicate that a directive exists for the patient, but an actual copy is not included with this document. The data comes from all [place] facilities. Date Advance Directives Provider Source Dec 21, 2023 ADVANCE DIRECTIVE DESIREE OLIVAREZ [place] [facility] Encounter Notes: All associated encounter notes This section contains the clinical notes associated to the Encounter. Date/Time Encounter Note(s) Provider Source Jul 22, 2023 08:00 AM SOCIAL WORK NOTE: LOCAL TITLE: SOCIAL WORK NOTE STANDARD TITLE: SOCIAL WORK NOTE DATE OF NOTE: JUL 22, 2023@08:00 ENTRY DATE: JUL 22, 2023@09:10:01 AUTHOR: GAUTAM ALEJANDRE COSIGNER: URGENCY: STATUS: COMPLETED INFORMED CONSENT REVIEWED: At beginning of session reviewed rights and limits of confidentiality, mandatory reporting situations, duty to warn and protect, Calix Warning, (if treatment team finds patient to be an acute danger to himself or others, that this information could be relayed to a court of law and presented to a inventory checker), and DOD access for active duty service members. Provided Suicide Prevention Hotline number, and other contact numbers as necessary. VISIT DURATION 60 minutes DIAGNOSES: PTSD Unspecified (F43.12) VETERANS STATEMENT OF GOALS/CONCERNS: I have decided to retire on October 16. SESSION FOCUS: Met with [place] face to face for individual counseling. stated she just came from and is slightly out of breath. She stated she decided on October 16 to retire and is counting the days. She wants to do some travelling after her senior care and help take care of her and his appointments. [place] stated her job continues to cause her stress. Not so much the job but her co- workers. They do not have the same work ethics as she does and she gets frustrated with them. Asked what she will do when she is not facing this frustration on a daily basis. She stated that is a good question. Overall she is doing well and has the support of family. INTERVENTIONS: Psychotherapeutic Interventions: SC; Reflective listening and support ASSESSMENT: BRIEF ASSESSMENT [...] PLAN FOR FOLLOW-UP: Next session planned for: 08/26/23 at 8am /gustabo/ GAUTAM ALEJANDRE [facility] Bulk Plant Agent Mental Health Signed: 07/22/2023 09:17 GAUTAM ALEJANDRE [place]
--- OUTSIDE RECORDS SUMMARY | 2024-05-23 09:03 | XMS_ITS ---
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 Name Role Phone JULIO CÉSAR ALMEIDA Primary [...] Name Patient's Relationship to Policy Stoddard [facility] CT FEDERAL PREFERRED PROVIDER ORGANIZAT ION (PPO) STAND AMEE SELF Apr 21, 1997 [id number] [phone] TINO DYE PATIENT BS MA FEP PREFERRED PROVIDER ORGANIZAT ION (PPO) STAND AMEE INDIV IDUAL Apr 21, 1997 104 [id number] TINO DYE PATIENT CAREM[facility] PRESCRIPT ION [id number] 1 Apr 18, 2020 [id number] [phone] TINO DYE PATIENT [facility] PRESCRIPT ION [id number] 1 Apr 18, 2020 [id number] TINO DYE PATIENT [facility] FEPRX PLAN PRESCRIPT ION BCBS FEP Apr 18, 2010 [id number] TINO DYE PATIENT CAR[facility]ARK-F EP BCBS PRESCRIPT ION FEP CAREM ARK Apr 18, 2010 [id number] TINO DYE PATIENT OPTUM RX PRESCRIPT ION RX Apr 18, 2022 [id number] [phone] TINO DYE PATIENT [facility] USP Apr 18, 2020 USP [id number] TINO DYE PATIENT [facility] BRIGH TON DAVE E Apr 18, 2020 [id number] TINO DYE PATIENT Selected Encounter This section includes the information on record at [place] for the Encounter. Date/Time Encounter Type Encounter Description Reason Pro vider Source Aug 10, 2023 02:42 PM Outpatient Encounter ADMIN PAT ACTIVTIES (MASNONCT) IHE Encounter Template Text not used by [place] Plan of Treatment: Future Appointments (+ 6 months) and Future Tests (+/- 45 days) The Plan of Treatment section includes future care activities for the patient [facility] [place] [facility]. This section includes future appointments and future orders which are active, pending or scheduled. Future Appointments This section includes appointments that were scheduled to occur 6 months from the date of the Encounter, up to a maximum of 20 appointments. The data comes from all [place] treatment facilities. Appointment Date/Time Appointment Type Appointme nt Facility Name August 26, 2023 08:00 AM AMBULATORY - PSYCHIATRY [facility] Sep 20, 2023 08:00 AM AMBULATORY [place] [facility] Sep 30, 2023 08:00 AM AMBULATORY - PSYCHIATRY [facility] Nov 04, 2023 11:00 AM AMBULATORY - PSYCHIATRY [facility] Nov 08, 2023 01:30 PM AMBULATORY [place]ICINE [place] [facility] Nov 21, 2023 09:00 AM AMBULATORY - [place] [facility] Dec 02, 2023 01:00 PM AMBULATORY - PSYCHIATRY [facility] Dec 23, 2023 08:00 AM AMBULATORY - [place] [facility] [facility] Dec 27, 2023 10:30 AM AMBULATORY - MEDICINE [facility] [place] [facility] Dec 29, 2023 08:00 AM AMBULATORY - REHAB MEDICIN E [facility] [place] [facility] Jan 16, 2024 10:45 AM AMBULATORY - MEDICINE [facility] Jan 17, 2024 08:00 AM AMBULATORY - MEDICINE [facility] [place] [facility] Jan 18, 2024 10:00 AM AMBULATORY - REHAB MEDICIN E [facility] [place] [facility] Jan 18, 2024 01:00 PM AMBULATORY - PSYCHIATRY [facility] Jan 24, 2024 08:00 AM AMBULATORY - MEDICINE [facility] [place] [facility] Jan 26, 2024 01:30 PM AMBULATORY - REHAB MEDICIN E [facility] [place] [facility] Jan 31, 2024 08:00 AM AMBULATORY - MEDICINE [facility] [place] [facility] Feb 09, 2024 01:30 PM AMBULATORY - REHAB MEDICIN E [facility] [place] [facility] Social History: Smoking Status (Most [...] took place. Date/Time Current Smoking Status Comment [facility] May 27, 2023 09:30 AM VA-TOBACCO FORMER USER [place] [facility] Tobacco Use History This section includes a history of the smoking, or tobacco-related health factors, that were collected on or before the date of the Encounter. The data comes from the [place] facility where the Encounter took place. Date/Time Smoking Status/Tobac co Use Comment Facility May 27, 2023 09:30 AM VA-TOBACCO QUIT 15 YRS OR MORE [facility] [facility] Feb 02, 2022 08:30 AM VA-TOBACCO FORMER USER [facility] [facility] Feb 02, 2022 08:30 AM VA-TOBACCO QUIT 15 YRS OR MORE [place] [facility] [place] [facility] Dec 09, 2020 10:00 AM VA-TOBACCO FORMER USER [facility] [place] [facility] Dec 09, 2020 10:00 AM VA-TOBACCO QUIT 15 YRS OR MORE [facility] Nov 28, 2019 11:26 AM [facility]-TOBACCO [facility] Nov 28, 2019 11:26 AM VA-TOBACCO QUIT 15 YRS OR MORE [facility] Oct 23, 2018 02:51 PM VA-TOBACCO FORMER USER [place] [facility] Oct 23, 2018 02:51 PM VA-TOBACCO QUIT 15 YRS OR MORE [facility] Oct 17, 2017 09:14 AM QUIT TOBACCO USE > 7 YEARS AGO [facility] September 15, 2016 08:50 AM QUIT TOBACCO USE > 7 YEARS AGO [facility] Jul 02, 2015 09:15 AM QUIT TOBACCO USE > 7 YEARS AGO non tobacco user since 1998 [facility] Advance Directives: All historical and [...] Dec 21, 2023 ADVANCE DIRECTIVE DESIREE OLIVAREZ [facility] Encounter Notes: All associated encounter notes This section contains the clinical notes associated to the Encounter. Date/Time Encounter Note(s) Provider Source Aug 10, 2023 02:42 PM PHARMACY OUTPATIEN T MEDICATION MGT NOTE: LOCAL TITLE: [facility] PRES[facility] NOTE STANDARD TITLE: PHARMACY OUTPATIENT MEDICATION MGT NOTE DATE OF NOTE: AUG 10, 2023@14:42 ENTRY DATE: AUG 10, 2023@14:42:20 AUTHOR: JAN GARCIA COSIGNER: URGENCY: STATUS: COMPLETED Patient presented to [place] pharmacy requesting the below medication/prescription be filled; or the below medication was faxed to [place] pharmacy requesting to be filled for KENY DYE. THE BELOW MEDICATION(S) ARE NON-FORMULARY ===== === NON-VA PRESCRIPTION DETAILS ===== === Rx written:08/10/23 Medication:BREZTRI Dose/Directions:2 PUFFS TWICE DAILY Quantity:1 Refills:6 Prescriber:MELISA SHANIKANSKI Practice site:[address] [place] [address] [address] HARTMAN JOEY: NPI (if available):[id number] ===== === ELIGIBILITY TO FILL NON-VA RX: ===== === Community Care Consult: Yes Type of Service Consult:PULMONARY Medical history relevant to request:COPD ===== === ACTION TAKEN/STATUS OF NON-VA RX: ===== === [ ] Initiate request for Non-formulary or Prior Authorization medication ( ) Contacted provider's office to consider a formulary therapeutic alternative ( ) Contacted provider's office for additional necessary information to review PA & N/F ( ) Requested PA & NF to be reviewed by Clinical Pharmacist Specialist ( ) Medication approved and processed (X ) Medication does not meet criteria and therapeutic alternative suggested FAXED TO [facility] OFF[facility] Melisa Buckner [address] [place] [id number] RE: Keny Dye (1960) Per [place] formulary Breztri may be approved if the following requirements are met: - Documented difficulty adhering to 3-drug therapy via 2 separate inhalers (ICS/LABA +LAMA or LABA/LAMA +ICS) - Uncontrolled COPD symptoms using a 3-drug therapy via 2 separate inhalers. - Unable to use multiple inhalers due to underlying conditions (e.g., cognitive deficits, dexterity or visual impairment,etc) Per [facility] dispensing history [place] [facility] has not trialed any of our formulary options. This request has been denied. Please refer to the formulary options below to provided triple therapy. ICS: Mometasone Ciclesonide LAMA Spiriva Respimat LABA/ICS: Wixela LABA/LAMA: Stiolto Time Spent:15 MIN /gustabo/ J[facility]IA [facility] Signed: 08/10/2023 14:45 JAN GARCIA [place] [facility] [facility]
--- OUTSIDE RECORDS SUMMARY | 2024-05-23 09:03 | XMS_ITS ---
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 Name Role Phone JULIO CÉSAR ALMEIDA [...] Patient's Relationship to Policy Stoddard [facility] FEDERAL PREFERRED PROVIDER ORGANIZAT ION (PPO) STAND AMEE SELF Apr 21, 1997 [id number] TINO DYE PATIENT BS MA FEP PREFERRED PROVIDER ORGANIZAT ION (PPO) STAND AMEE INDIV IDUAL Apr [birth year], 1997 [id number] TINO DYE PATIENT CAREMARK PRESCRIPT ION [id number] 1 Apr 18, 2020 [id number] [phone] MARNIETINO NET PATIENT CAREMARK PRESCRIPT ION [id number] 1 Apr 18, 2020 [id number] TINO DYE PATIENT CAREMARK FEPRX PLAN PRESCRIPT ION BCBS FEP Apr 18, 2010 [id number] TINO DYE PATIENT CAREMARK-F EP BCBS PRESCRIPT ION FEP CAREM ARK Apr 18, 2010 [id number] TINO DYE PATIENT OPTUM RX PRESCRIPT ION RX Apr 18, 2022 [id number] TINO DYE PATIENT [facility] USP Apr 18, 2020 USP [id number] TINO DYE PATIENT [facility] DANTE DAVE E Apr 18, 2020 [id number] TINO DYE PATIENT Selected Encounter This section includes the information on record at PR for the Encounter. Date/Time Encounter Type Encounter Description Reason Pro vider Source Feb 22, 2024 10:45 AM Outpatient Encounter COMMUNITY CARE CONSULT IHE Encounter Template Text not used by PR Plan of Treatment: Future Appointments (+ 6 months) and Future Tests (+/- 45 days) The Plan of Treatment section includes future care activities for the patient from all PR treatmentfacilities. This section includes future appointments and future orders which are active, pending or scheduled. Future Appointments This section includes appointments that were scheduled to occur 6 months from the date of the Encounter, up to a maximum of 20 appointments. The data comes from all PR treatment facilities. Appointment Date/Time Appointment Type Appointme nt Facility Name Feb 23, 2024 10:30 AM AMBULATORY - MEDICINE [facility] [place] [facility] Mar 05, 2024 09:00 AM AMBULATORY - MEDICINE [place] C [facility] [place] [facility] Mar 07, 2024 10:00 AM AMBULATORY - REHAB MEDICIN E [facility] [place] [facility] Mar 07, 2024 10:30 AM AMBULATORY - NONE [place] [facility] [place] [facility] Mar 09, 2024 09:15 AM AMBULATORY - MEDICINE [place] C [facility] [place] [facility] Mar 09, 2024 01:00 PM AMBULATORY - MEDICINE [place] C [facility] [place] [facility] Mar 27, 2024 01:00 PM AMBULATORY - PSYCHIATRY [facility] Apr 24, 2024 03:00 PM AMBULATORY - MEDICINE [place] C [facility] [place] [facility] May 01, 2024 02:00 PM AMBULATORY - PSYCHIATRY [facility] May 18, 2024 10:00 AM AMBULATORY - MEDICINE [facility] [place] [place] [facility] May 29, 2024 01:00 PM AMBULATORY - PSYCHIATRY [facility] May 30, 2024 01:00 PM AMBULATORY - REHAB MEDICIN E [facility] [place] [facility] Jul 31, 2024 11:00 AM AMBULATORY - [facility]ICINE [facility] Lab Results: +/- 30 days of the encounter This section includes the Chemistry and Hematology Lab Results on record with PR for the patient. Radiology Reports and Pathology Reports are provided separately, in subsequent sections. Lab Results This section contains the Chemistry/Hematology Results that were resulted 30 days before or 30 daysafter the date of the Encounter. Date/Time Source Result Type Result - Unit Interpretation Reference Range Comment Mar 05, 2024 10:02 AM [facility] MAGNESIUM Specimen Type: SERUM No comment entered. Ordering Provider: JULIO CÉSAR ALMEIDA Report Released Date/Time: Mar 05, 2024 09:42 AM Reporting Lab: [facility] [place] [facility] [address] [facility] [address] Performing Lab: [facility] [address] [facility] [address] MAGNESIUM 2.3 mg/dL 1.6-2.6 Mar 05, 2024 10:02 AM [facility] FERRITIN Specimen Type: SERUM No comment entered. Ordering Provider: JULIO CÉSAR ALMEIDA Report Released Date/Time: Mar 05, 2024 09:42 AM Reporting Lab: [facility] [place] [place] [facility] [address] [facility] [address] Performing Lab: [facility]TR[facility] [address] [facility] [address] FERRITIN 509 ng/mL H 10-200 Mar 05, 2024 10:02 AM [facility] LIPID PANEL FASTING Specimen Type: SERUM No comment entered. Ordering Provider: JULIO CÉSAR ALMEIDA Report Released Date/Time: Mar 05, 2024 09:42 AM Reporting Lab: [facility] [address] [facility] [address] Performing Lab: [facility] [address] [facility] [address] CHOLESTEROL 183 mg/dL TRIGLYCERIDE 109 mg/dL 0-150 LDL calculated 116 mg/dL 0-129 CHOL/HDL 4.1 HDL CHOLESTEROL 45 mg/dL 40-60 Mar 05, 2024 10:02 AM [facility] LIVER FUNCTION Specimen Type: SERUM No comment entered. Ordering Provider: JULIO CÉSAR ALMEIDA Report Released Date/Time: Mar 05, 2024 09:42 AM Reporting Lab: [facility] [address] [facility] [address] Performing Lab: [address] [address] PROTEIN,TOTAL 6.4 g/dL 6.0-8.3 ALBUMIN 3.5 g/dL 3.5-5.0 ALKALINE PHOSPHATASE 80 U/L 40-150 AST 22 U/L 5-34 ALT 34 U/L BILIRUBIN, TOTAL 0.4 mg/dL 0.2-1.2 Mar 05, 2024 10:02 AM [facility] BASIC METABOLIC PANEL (non-fasting) Specimen Type: SERUM No comment entered. Ordering Provider: JULIO CÉSAR ALMEIDA Report Released Date/Time: Mar 05, 2024 09:42 AM Reporting Lab: [address] [address] Performing Lab: [address] [address] UREA NITROGEN 22 mg/dL 7-25 GLUCOSE 92 mg/dL 65-100 SODIUM 140 mmol/L 135-145 POTASSIUM 4.2 mmol/L 3.5-5.0 CHLORIDE 109 mmol/L 100-110 CO2 22 meq/L 20-30 CREATININE, Serum 0.78 mg/dL 0.50-1.40 eGFR(CKD-EPI 2020) 85 mL/min >60 Mar 05, 2024 10:02 AM [facility] HEMOGLOBIN A1C PANEL Specimen Type: BLOOD Comment: [...] Mar 05, 2024 09:42 AM Reporting Lab: [address] [address] Performing Lab: [facility] [address] [address] HEMOGLOBIN A1C 5.5 4.0-5.6 Mar 05, 2024 10:02 AM [facility] TSH Specimen Type: SERUM No comment entered. Ordering Provider: JULIO CÉSAR ALMEIDA Report Released Date/Time: Mar 05, 2024 09:42 AM Reporting Lab: [address] [address] Performing Lab: [facility] [address] TSH 2.43 u[IU]/mL 0.35-5.00 Mar 05, 2024 10:02 AM [facility] CBC AND DIFF (AUTO) Specimen Type: BLOOD No comment entered. Ordering Provider: JULIO CÉSAR ALMEIDA Report Released Date/Time: Mar 05, 2024 09:42 AM Reporting Lab: [address] [address] Performing Lab: [facility] [address] WBC 5.14 10*3/uL 4.50-11.00 RBC 4.77 10*6/uL [...] 0.0 0.0-0.0 NRBC, ABS 0.00 10*3/uL 0.00-0.00 Social History: Smoking Status (Most current) and Tobacco Use (All prior to encounter date) This section includes the most current, and the historical, smoking and tobacco- related health factors from the PR facility where the Encounter took place. Current Smoking Status This section includes the most current smoking, or tobacco-related health factor, from the PR facility where the Encounter took place. Date/Time Current Smoking Status Comment [facility] May 27, 2023 09:30 AM VA-TOBACCO FORMER USER [facility] Tobacco Use History This section includes a history of the smoking, or tobacco-related health factors, that were collected on or before the date of the Encounter. The data comes from the PR facility where the Encounter took place. Date/Time Smoking Status/Tobac co Use Comment Facility May 27, 2023 09:30 AM VA-TOBACCO QUIT 15 YRS OR MORE [facility] [place] Feb 02, 2022 08:30 AM VA-TOBACCO FORMER USER [place] [facility]TR [place] [facility] Feb 02, 2022 08:30 AM VA-TOBACCO QUIT 15 YRS OR MORE [facility] [place] Dec 09, 2020 10:00 AM VA-TOBACCO FORMER USER [facility] Dec 09, 2020 10:00 AM VA-TOBACCO QUIT 15 YRS OR MORE [facility] [place] Nov 28, 2019 11:26 AM VA-TOBACCO FORMER USER [facility] Nov 28, 2019 11:26 AM VA-TOBACCO QUIT 15 YRS OR MORE [facility] Oct 23, 2018 02:51 PM VA-TOBACCO FORMER USER [facility] Oct 23, 2018 02:51 PM VA-TOBACCO QUIT 15 YRS OR MORE [facility] Oct 17, 2017 09:14 AM QUIT TOBACCO USE > 7 YEARS AGO [facility] September 15, 2016 08:50 AM QUIT TOBACCO USE > 7 YEARS AGO [facility] Jul 02, 2015 09:15 AM QUIT TOBACCO USE > 7 YEARS AGO non tobacco user since 1998 [facility] Advance Directives: All historical and current Section Date Range: From patient's date of to the date document was created. This section includes ALL of a patient's completed or amended PR Advance and Rescinded Directives. The entries below indicate that a directive exists for the patient, but an actual copy is not included with this document. The data comes from all [facility]. Date Advance Directives Provider Source Dec 21, 2023 ADVANCE DIRECTIVE DESIREE OLIVAREZ [facility] Radiology Reports: +/- 30 days of the [...] the Encounter. The data comes from all PR treatment facilities. Date/Time Radiology Report Provider Source Mar 09, 2024 09:15 AM OUTSIDE MAMMO/SCRE ENING, INCLUDING CAD, BILAT: MARNIEKENY OSMANY [id number] -1960 F Exm Date: MAR 09, 2024@09:15 Req Phys: JULIO CÉSAR ALMEIDA Loc: CWM/NO/PACT 5 (Req'g Loc) Img Loc: OUTSIDE GENERAL RADIOLOGY Service: Unknown (Case [id number] COMPLETE) OUTSIDE MAMMO/SCREENING, INCLUDIN(RAD Detailed) CPT:85481 Reason for Study: annual sreening mammogram Clinical History: Report Status: Electronically Filed Date Reported: MAR 09, 2024 Report: Community care exam; see CPRS/JLV for outside radiology report/results Impression: Community care exam; see CPRS/JLV for outside radiology report/results Primary Diagnostic Code: BI-RADS CATEGORY 0 (Incomplete: Need Additional Imaging Evaluation) VERIFIED BY: / *ELECTRONICALLY FILED* [facility] Mar 07, 2024 10:39 AM ULTRASOUND NECK (THYROID,HEAD,SOFT TISSUE): KENY DYE [id number] -1960 F Exm Date: MAR 07, 2024@10:39 Req Phys: JULIO CÉSAR ALMEIDA Loc: CWM/NO/PACT 5 (Req'g Loc) Img Loc: ULTRASOUND Service: [place] [address] (Case [id number] COMPLETE) ULTRASOUND NECK (THYROID,HEAD,SOF(US Detailed) CPT:04656 Reason for Study: left arm nodule Clinical History: Report Status: Verified Date Reported: MAR 07, 2024 Date Verified: MAR 07, 2024 Airways Control Specialist E-Sig:/ES/EZ DELGADO JR Report: Study: Soft tissue [...] Primary Interpreting Staff: EZ DELGADO JR, Radiologist (Airways Control Specialist) /EZ LARA JR [facility] Encounter Notes: All associated encounter notes This section contains the clinical notes associated to the Encounter. Date/Time Encounter Note(s) Provider Source Feb 22, 2024 10:45 AM NONVA NOTE: LOCAL TITLE: COMMUNITY CARE-CARE COORDINATION PLAN NOTE STANDARD TITLE: NONVA NOTE DATE OF NOTE: FEB 22, 2024@10:45 ENTRY DATE: FEB 22, 2024@10:45:30 AUTHOR: ENMANUEL ANDERSEN COSIGNER: URGENCY: STATUS: COMPLETED COMMUNITY CARE-CARE COORDINATION PLAN NOTE Has ADDENDA [facility] Pulmonary provider: [facility] [address] [place] [address] [place] [address] Appt. 02/20 at 0900. PACT-please enter new CC pulm consult for continuity of care if in agreement. Thank you. /gustabo/ ENMANUEL ANDERSEN Community Care RN Signed: 02/22/2024 10:46 Receipt Acknowledged By: 02/22/2024 13:13 /gustabo/ EVY RICHARDSON, MS,PA-C PHYSICIAN FIELD SALES ENGINEER for JULIO CÉSAR ALMEIDA 02/22/2024 13:08 /gustabo/ JOSE ALFREDO ENCISO REGISTERED NURSE 02/22/2024 ADDENDUM STATUS: COMPLETED Community care consult entered held for signature /per ENCISO REGISTERED NURSE Signed: 02/22/2024 13:08 ENMANUEL ANDERSEN [facility]
--- OUTSIDE RECORDS SUMMARY | 2024-05-23 09:03 | XMS_ITS | Encounter Summary ---
Author Name Department of Vetera ns Affairs ([place]) Organization Department of Veter[place] [facility] [place] Address [address] [place] [address] Care Team Providers Care Optical Sales Associate Name Role Phone JULIO CÉSAR ALMEIDA Primary [...] Name Patient's Relationship to Policy Stoddard [facility] FEDERAL PREFERRED PROVIDER ORGANIZAT ION (PPO) STAND AMEE SELF Apr 21, 1997 [id number] TINO DYE PATIENT BS MA FEP PREFERRED PROVIDER ORGANIZAT ION (PPO) STAND AMEE INDIV IDUAL Apr 21, 1997 [id number] TINO DYE PATIENT CAREMARK PRESCRIPT ION [id number] 1 Apr 18, 2020 [id number] MARNIETINO RODRIGUEZ PATIENT CAREMARK PRESCRIPT ION [id number] 1 Apr 18, 2020 [id number] MARNIETINO RODRIGUEZ PATIENT CAREMARK FEPRX PLAN PRESCRIPT ION BCBS FEP Apr 18, 2010 [id number] TINO DYE PATIENT CAREMARK-F EP BCBS PRESCRIPT ION FEP CAREM ARK Apr 18, 2010 [id number] TINO DYE PATIENT OPTUM RX PRESCRIPT ION RX Apr 18, 2022 [id number] TINO DYE PATIENT [facility] USFHP Apr 18, 2020 USP [phone] [id number] TINO DYE PATIENT [facility] BRIGH TON DAVE E Apr 18, 2020 [id number] TINO DYE PATIENT Selected Encounter This section includes the information on record at PR for the Encounter. Date/Time Encounter Type Encounter Description Reason Provider Source Dec 02, 2023 01:00 PM PSYTX W PT 60 MINUTES [facility] ICD-10-CM F43.12 Post-traumatic stress disorder, chronic GAUTAM ALEJANDRE [facility] Encounter Template Text not used by PR Assessments - Encounter Diagnoses This section includes the primary and secondary diagnoses documented for the Encounter. Date/Time Primary/Secondary Diagnosis Diagnosis Name Provider Source Dec 02, 2023 03:48 PM PRIMARY Post-traumatic stress disorder, chronic GAUTAM ALEJANDRE HECTOR Plan of Treatment: Future Appointments (+ 6 months) and Future Tests (+/- 45 days) The Plan of Treatment section includes future care activities for the patient from all [place] [facility]. This section includes future appointments and future orders which are active, pending or scheduled. Future Appointments This section includes appointments that were scheduled to occur 6 months from the date of the Encounter, up to a maximum of 20 appointments. The data comes from all PR treatment facilities. Appointment Date/Time Appointment Type Appointme nt Facility Name Dec 23, 2023 08:00 AM AMBULATORY - REHAB MEDICIN E [facility] [place] [facility] Dec 27, 2023 10:30 AM AMBULATORY - MEDICINE [facility] [place] [facility] Dec 29, 2023 08:00 AM AMBULATORY - REHAB MEDICIN E [facility] [place] [facility] Jan 16, 2024 10:45 AM AMBULATORY - MEDICINE [facility] Jan 17, 2024 08:00 AM AMBULATORY - MEDICINE [facility] [place] [facility] Jan 18, 2024 10:00 AM AMBULATORY - REHAB MEDICIN E [facility] [place] [facility] Jan 18, 2024 01:00 PM AMBULATORY - PSYCHIATRY [facility] Jan 24, 2024 08:00 AM AMBULATORY - MEDICINE [facility] [place] [place] [facility] Jan 26, 2024 01:30 PM AMBULATORY - REHAB MEDICIN E [facility] [place] [facility] Jan 31, 2024 08:00 AM AMBULATORY - MEDICINE [facility] [place] [facility] Feb 09, 2024 01:30 PM AMBULATORY - REHAB MEDICIN E [facility] [place] [facility] Feb 20, 2024 01:00 PM AMBULATORY - PSYCHIATRY [facility] Feb 21, 2024 09:00 AM AMBULATORY - MEDICINE [facility] [place] [facility] Feb 23, 2024 10:30 AM AMBULATORY - MEDICINE [facility] [place] [facility] Mar 05, 2024 09:00 AM AMBULATORY - MEDICINE [facility] [place] [facility] Mar 07, 2024 10:00 AM AMBULATORY - REHAB MEDICIN E [facility] [place] [facility] Mar 07, 2024 10:30 AM AMBULATORY - NONE [facility] [place] [facility] Mar 09, 2024 09:15 AM AMBULATORY - MEDICINE [facility] [place] [facility] Mar 09, 2024 01:00 PM AMBULATORY - MEDICINE [facility] [place] [facility] Mar 27, 2024 01:00 PM AMBULATORY - PSYCHIATRY [facility] Advance Directives: All historical and current Section Date Range: From patient's date of to the date document was created. This section includes ALL of a patient's completed or amended [place] Advance and Rescinded Directives. The entries below indicate that a directive exists for the patient, but an actual copy is not included with this document. The data comes from all PR facilities. Date Advance Directives Provider Source Dec 21, 2023 ADVANCE DIRECTIVE DESIREE OLIVAREZ [place] [facility] [place] [facility] Radiology Reports: +/- 30 days of the [...] 02:04 PM CALCANEOUS 2 VIEWS: KENY DYE [id number] -1960 F Exm Date: NOV 08, 2023@14:04 Req Phys: LALITOTRE Airam [place] Loc: CWM/NO/PODIATRY A (Req'g Loc) Img Loc: [facility] 1 Service: Unknown [facility] , (Case [id number] COMPLETE) CALCANEOUS 2 VIEWS (RAD Detailed) CPT:71174 Proc Modifiers : RIGHT Reason for Study: pain heel 9 mons Clinical History: Report Status: Verified Date Reported: NOV 08, 2023 Date Verified: NOV 08, 2023 Core Layer Machine Operator E-Sig:/ES/EZ DELGADO JR Report: Study: AP and [...] Primary Interpreting Staff: EZ DELGADO JR, Radiologist (Core Layer Machine Operator) /EZ LARA JR [facility] Encounter Notes: All associated encounter notes This section contains the clinical notes associated to the Encounter. Date/Time Encounter Note(s) Provider Source Dec 02, 2023 01:00 PM SOCIAL WORK NOTE: LOCAL TITLE: SOCIAL WORK NOTE STANDARD TITLE: SOCIAL WORK NOTE DATE OF NOTE: DEC 02, 2023@13:00 ENTRY DATE: DEC 02, 2023@15:42:32 AUTHOR: GAUTAM ALEJANDRE EXP COSIGNER: URGENCY: STATUS: COMPLETED INFORMED CONSENT REVIEWED: At beginning of session reviewed rights and limits of confidentiality, mandatory reporting situations, duty to warn and protect, Calix Warning, (if treatment team finds patient to be an acute danger to himself or others, that this information could be relayed to a court of law and presented to a breeder service technician), and DOD access for active duty service members. Provided Suicide Prevention Hotline number, and other contact numbers as necessary. VISIT DURATION 60 minutes DIAGNOSES: PTSD chronic (F43.12) [employer] STATEMENT OF GOALS/CONCERNS: I'm pretty good. SESSION FOCUS: Met with face to face for individual counseling. stated she continues to get frustrated with people. Her sister in law had surgery and is now monopolizing her 's time. He is going to the house to take care of her. stated she should be up and about by now but is taking advantage of her 's help. spoke about her relationship with her . It is good overall and they enjoy spending time together. However at times their communication is off. She states she has difficulty hearing at times, then he gets frustrated. She states he will start a conversation without a beginning and she gets frustrated. stated [place] going to [place] in [place] She is hoping to find a rental for a few months in the winter. INTERVENTIONS: Psychotherapeutic Interventions: [place]; Reflective listening and support ASSESSMENT: BRIEF ASSESSMENT [...] PLAN FOR FOLLOW-UP: Next session planned for: 01/18/24 at 1pm /es/ GAUTAM ALEJANDRE MANAGER HEART FAILURE Office Inspector Mental Health Signed: 12/02/2023 15:48 GAUTAM ALEJANDREFIELD
--- OUTSIDE RECORDS SUMMARY | 2024-05-23 09:03 | XMS_ITS | Encounter Summary ---
Author Name [facility] [place] [facility] [place] Address [address] [place] [id number] Care Team Providers Care Retail Grocer Name Role Phone JULIO CÉSAR ALMEIDA Primary [...] STAND AMEE SELF Apr 21, 1997 [id number] TINO DYE PATIENT BS MA FEP PREFERRED PROVIDER ORGANIZAT ION (PPO) STAND AMEE INDIV IDUAL Apr 21, 1997 104 [id number] TINO DYE PATIENT CAREMARK PRESCRIPT ION [id number] 1 Apr 18, 2020 [id number] [phone] MARNIETINO RODRIGUEZ PATIENT CAREMARK PRESCRIPT ION [id number] 1 Apr 18, 2020 [id number] AMRNIETINO RODRIGUEZ PATIENT CAREMARK FEPRX PLAN PRESCRIPT ION BCBS FEP Apr 18, 2010 [id number] TINO DYE PATIENT CAREMARK-F EP BCBS PRESCRIPT ION FEP CAREM ARK Apr 18, 2010 [id number] TINO DYE PATIENT OPTUM RX PRESCRIPT ION RX Apr 18, 2022 [id number] TINO DYE PATIENT [facility] USFHP Apr 18, 2020 [id number] TINO DYE PATIENT [facility] BRIGH TON DAVE E Apr 18, 2020 [id number] [phone] TINO DYE PATIENT Selected Encounter This section includes the information on record at [place] for the Encounter. Date/Time Encounter Type Encounter Description Reason Provider Source Mar 27, 2024 01:00 PM PSYTX W PT 60 MINUTES [facility] ICD-10-CM F43.12 Post-traumatic stress disorder, chronic GAUTAM ALEJANDRE [facility] Encounter Template Text not used by [place] Assessments - Encounter Diagnoses This section includes the primary and secondary diagnoses documented for the Encounter. Date/Time Primary/Secondary Diagnosis Diagnosis Name Provider Source Mar 27, 2024 04:07 PM PRIMARY Post-traumatic stress disorder, chronic GAUTAM ALEJANDRE [facility] Plan of Treatment: Future Appointments (+ 6 months) and Future Tests (+/- 45 days) The Plan of Treatment section includes future care activities for the patient from all [place] treatmentfacilities. This section includes future appointments and future orders which are active, pending or scheduled. Future Appointments This section includes appointments that were scheduled to occur 6 months from the date of the Encounter, up to a maximum of 20 appointments. The data comes from all [place] treatment facilities. Appointment Date/Time Appointment Type Appointme nt Facility Name Apr 24, 2024 03:00 PM [facility]UL[facility] May 01, 2024 02:00 PM AMBULATORY - PSYCHIATRY [facility] May 18, 2024 10:00 AM [facility]BUL[facility] - [facility] May 29, 2024 01:00 PM AMBULATORY - PSYCHIATRY [facility] May 30, 2024 01:00 PM [facility] Jul 31, 2024 11:00 AM AMBULATORY - MEDICINE [facility] Lab Results: +/- 30 days of the encounter This section includes the Chemistry and Hematology Lab Results on record with [place] for the patient. Radiology Reports and Pathology Reports are provided separately, in subsequent sections. Lab Results This section contains the Chemistry/Hematology Results that were resulted 30 days before or 30 daysafter the date of the Encounter. Date/Time Source Result Type Result - Unit Interpretation Reference Range Comment Mar 05, 2024 10:02 AM [facility] MAGNESIUM Specimen Type: SERUM No comment entered. Ordering Provider: JULIO CÉSAR ALMEIDA Report Released Date/Time: Mar 05, 2024 09:42 AM Reporting Lab: [address] [address] Performing Lab: [address] [address] MAGNESIUM 2.3 mg/dL 1.6-2.6 Mar 05, 2024 10:02 AM [facility] FERRITIN Specimen Type: SERUM No comment entered. Ordering Provider: JULIO CÉSAR ALMEIDA Report Released Date/Time: Mar 05, 2024 09:42 AM Reporting Lab: [address] [address] Performing Lab: [address] [address] FERRITIN 509 ng/mL H 10-200 Mar 05, 2024 10:02 AM [facility] LIPID PANEL FASTING Specimen Type: SERUM No comment entered. Ordering Provider: JULIO CÉSAR ALMEIDA Report Released Date/Time: Mar 05, 2024 09:42 AM Reporting Lab: [address] [address] Performing Lab: [address] [address] CHOLESTEROL 183 mg/dL TRIGLYCERIDE 109 mg/dL 0-150 LDL calculated 116 mg/dL 0-129 CHOL/HDL 4.1 HDL CHOLESTEROL 45 mg/dL 40-60 Mar 05, 2024 10:02 AM [facility] BASIC METABOLIC PANEL (non-fasting) Specimen Type: SERUM No comment entered. Ordering Provider: JULIO CÉSAR ALMEIDA Report Released Date/Time: Mar 05, 2024 09:42 AM Reporting Lab: [facility] [address] [address] Performing Lab: [facility] [address] [address] UREA NITROGEN 22 mg/dL 7-25 GLUCOSE 92 mg/dL 65-100 SODIUM 140 mmol/L 135-145 POTASSIUM 4.2 mmol/L 3.5-5.0 CHLORIDE 109 mmol/L 100-110 CO2 22 meq/L 20-30 CREATININE, Serum 0.78 mg/dL 0.50-1.40 eGFR(CKD-EPI 2020) 85 mL/min >60 Mar 05, 2024 10:02 AM [facility] HEMOGLOBIN A1C PANEL Specimen Type: [...] Mar 05, 2024 09:42 AM Reporting Lab: [facility] [address] [address] Performing Lab: [address] [address] HEMOGLOBIN A1C 5.5 4.0-5.6 Mar 05, 2024 10:02 AM [facility] TSH Specimen Type: SERUM No comment entered. Ordering Provider: JULIO CÉSAR ALMEIDA Report Released Date/Time: Mar 05, 2024 09:42 AM Reporting Lab: [facility] [address] [address] Performing Lab: [facility] [address] [address] TSH 2.43 u[IU]/mL 0.35-5.00 Mar 05, 2024 10:02 AM [facility] LIVER FUNCTION Specimen Type: SERUM No comment entered. Ordering Provider: JULIO CÉSAR ALMEIDA Report Released Date/Time: Mar 05, 2024 09:42 AM Reporting Lab: [address] [address] Performing Lab: [address] [address] PROTEIN,TOTAL 6.4 g/dL 6.0-8.3 ALBUMIN 3.5 g/dL 3.5-5.0 ALKALINE PHOSPHATASE 80 U/L 40-150 AST 22 U/L 5-34 ALT 34 U/L BILIRUBIN, TOTAL 0.4 mg/dL 0.2-1.2 Mar 05, 2024 10:02 AM [facility] CBC AND DIFF (AUTO) Specimen Type: BLOOD No comment entered. Ordering Provider: JULIO CÉSAR ALMEIDA Report Released Date/Time: Mar 05, 2024 09:42 AM Reporting Lab: [address] [address] Performing Lab: [address] [address] WBC 5.14 10*3/uL 4.50-11.00 RBC 4.77 10*6/uL [...] ALL of a patient's completed or amended [place] Advance and Rescinded Directives. The entries below indicate that a directive exists for the patient, but an actual copy is not included with this document. The data comes from all [place] facilities. Date Advance Directives Provider Source Dec 21, 2023 ADVANCE DIRECTIVE DESIREE OLIVAREZ [place] [facility] Radiology Reports: +/- 30 days [...] the Encounter. The data comes from all [place] treatment facilities. Date/Time Radiology Report Provider Source Mar 09, 2024 09:15 AM OUTSIDE MAMMO/SCRE ENING, INCLUDING CAD, BILAT: KENY DYE [id number] -1960 F Exm Date: MAR 09, 2024@09:15 Req Phys: JULIO CÉSAR ALMEIDA Pat Loc: CWM/NO/PACT 5 (Req'g Loc) Img Loc: OUTSIDE GENERAL RADIOLOGY Service: Unknown (Case [id number] COMPLETE) OUTSIDE MAMMO/SCREENING, INCLUDIN(RAD Detailed) CPT:54858 Reason for Study: annual sreening mammogram Clinical History: Report Status: Electronically Filed Date Reported: MAR 09, 2024 Report: Community care exam; see CPRS/JLV for outside radiology report/results Impression: Community care exam; see CPRS/JLV for outside radiology report/results Primary Diagnostic Code: BI-RADS CATEGORY 0 (Incomplete: Need Additional Imaging Evaluation) VERIFIED BY: / *ELECTRONICALLY FILED* [facility] Mar 07, 2024 10:39 AM ULTRASOUND NECK (THYROID,HEAD,SOFT TISSUE): KENY DYE [id number] -[id number] F Exm Date: MAR 07, 2024@10:39 Req Phys: JULIO CÉSAR ALMEIDA Loc: CWM/NO/PACT 5 (Req'g Loc) Img Loc: ULTRASOUND Service: [place] [address] (Case [id number] COMPLETE) ULTRASOUND NECK (THYROID,HEAD,SOF(US Detailed) CPT:97263 Reason for Study: left arm nodule Clinical History: Report Status: Verified Date Reported: MAR 07, 2024 Date Verified: MAR 07, 2024 Surgery Attendant E-Sig:/ES/EZ DELGADO JR Report: Study: Soft tissue [...] Primary Interpreting Staff: EZ DELGADO JR, Radiologist (Surgery Attendant) /EZ LARA JR [facility] Encounter Notes: All associated encounter notes This section contains the clinical notes associated to the Encounter. Date/Time Encounter Note(s) Provider Source Mar 27, 2024 01:00 PM SOCIAL WORK NOTE: LOCAL TITLE: SOCIAL WORK NOTE STANDARD TITLE: SOCIAL WORK NOTE DATE OF NOTE: MAR 27, 2024@13:00 ENTRY DATE: MAR 27, 2024@13:55:47 AUTHOR: GAUTAM ALEJANDRE EXP COSIGNER: URGENCY: STATUS: COMPLETED INFORMED CONSENT REVIEWED: At beginning of session reviewed rights and limits of confidentiality, mandatory reporting situations, duty to warn and protect, [employer] Warning, (if treatment team finds patient to be an acute danger to himself or others, that this information could be relayed to a court of law and presented to a branch operations coordinator), and [facility] access for active duty service members. Provided Suicide Prevention Hotline number, and other contact numbers as necessary. VISIT DURATION 60 minutes identified with 2 identifiers: Full Name, Facial Recognition DIAGNOSES: PTSD chronic (F43.12) [employer] STATEMENT OF GOALS/CONCERNS: I'm good, [place]. SESSION FOCUS: Met with face to face for individual counseling. [place] stated Thanksgiving was good, they spent it with husbands family. They then flew to [place] to put an offer on a house in [place]. stated she put a down payment and then had second thoughts. She is worried about her and his declining health. We discussed this and that there is a very large [place] hospital close to where they would be living. She agreed, the more we talked, the more confident she felt about moving there. She is going to talk to the bond broker mal. INTERVENTIONS: Psychotherapeutic Interventions: AK; Reflective listening and support ASSESSMENT: BRIEF ASSESSMENT [...] PLAN FOR FOLLOW-UP: Next session planned for: 05/01/24 at 2pm /es/ MEREDITH BRYANT [facility] Signed: 03/27/2024 16:07 GAUTAM ALEJANDRE
--- OUTSIDE RECORDS SUMMARY | 2024-05-23 09:03 | XMS_ITS ---
Author Name [facility] [place] [facility] [place] Organization [facility] [place] Address [address] [place] [id number] Care Team Providers Care Tail Sawyer Name Role Phone JULIO CÉSAR ALMEIDA Primary [...] Name Patient's Relationship to Policy Stoddard [facility]ANNA[facility] FEDERAL PREFERRED PROVIDER ORGANIZAT ION (PPO) STAND AMEE SELF Apr 21, 1997 [id number] TINO DYE PATIENT BS MA FEP PREFERRED PROVIDER ORGANIZAT ION (PPO) STAND AMEE INDIV IDUAL Apr 21, 1997 [id number] TINO DYE PATIENT CAREMARK PRESCRIPT ION [id number] 1 Apr 18, 2020 [id number] [id number] TINO DYE PATIENT CAREMARK PRESCRIPT ION [id number] 1 Apr 18, 2020 [id number] TINO DYE PATIENT CAREMARK FEPRX PLAN PRESCRIPT ION BCBS FEP Apr 18, 2010 [id number] [phone] TINO DYE PATIENT CAREMARK-F EP BCBS PRESCRIPT ION FEP CAREM ARK Apr 18, 2010 [id number] TINO DYE PATIENT OPTUM RX PRESCRIPT ION RX Apr 18, 2022 [id number] TINO DYE PATIENT [facility] USP Apr 18, 2020 [id number] [phone] TINO DYE PATIENT [facility] DANTE DAVE E Apr 18, 2020 [id number] TINO DYE PATIENT Selected Encounter This section includes the information on record at NH for the Encounter. Date/Time Encounter Type Encounter Description Reason Provider Source Mar 07, 2024 10:00 AM THERAPEUTIC EXERCISES PHYSICAL THERAPY ICD-10-CM M47.896 Other spondylosis, lumbar region PARKER PALOMINO [facility] Encounter Template Text not used by NH Assessments - Encounter Diagnoses This section includes the primary and secondary diagnoses documented for the Encounter. Date/Time Primary/Secondary Diagnosis Diagnosis Name Provider Source Mar 07, 2024 03:25 PM PRIMARY Other spondylosis, lumbar region PAKRER PALOMINO [facility] Plan of Treatment: Future Appointments (+ 6 months) and Future Tests (+/- 45 days) The Plan of Treatment section includes future care activities for the patient from all NH treatmentfacilities. This section includes future appointments and future orders which are active, pending or scheduled. Future Appointments This section includes appointments that were scheduled to occur 6 months from the date of the Encounter, up to a maximum of 20 appointments. The data comes from all [place] treatment facilities. Appointment Date/Time Appointment Type Appointme nt Facility Name Mar 09, 2024 09:15 AM AMBULATORY - MEDICINE [facility] Mar 09, 2024 01:00 PM AMBULATORY - MEDICINE [facility] Mar 27, 2024 01:00 PM AMBULATORY - [facility] Apr 24, 2024 03:00 PM AMBULATORY - MEDICINE [facility] May 01, 2024 02:00 PM AMBULATORY - PS[facility]CHIATRY [facility] May 18, 2024 10:00 AM AMBULATORY - MEDICINE [place] [facility] [place] [facility] May 29, 2024 01:00 PM AMBULATORY - PS[facility]CHIATRY [facility] May 30, 2024 01:00 PM AMBULATORY - REHAB MEDICIN E [facility] [place] [facility] Jul 31, 2024 11:00 AM AMBULATORY - MEDICINE [facility] Lab Results: +/- 30 days of the encounter This section includes the Chemistry and Hematology Lab Results on record with NH for the patient. Radiology Reports and Pathology Reports are provided separately, in subsequent sections. Lab Results This section contains the Chemistry/Hematology Results that were resulted 30 days before or 30 daysafter the date of the Encounter. Date/Time Source Result Type Result - Unit Interpretation Reference Range Comment Mar 05, 2024 10:02 AM [facility] MAGNESIUM Specimen Type: SERUM No comment entered. Ordering Provider: JULIO CÉSAR ALMEIDA Report Released Date/Time: Mar 05, 2024 09:42 AM Reporting Lab: [facility] [place] [facility] [address] [facility] [address] Performing Lab: [facility] [address] [address] MAGNESIUM 2.3 mg/dL 1.6-2.6 Mar 05, 2024 10:02 AM [facility] FERRITIN Specimen Type: SERUM No comment entered. Ordering Provider: JULIO CÉSAR ALMEIDA Report Released Date/Time: Mar 05, 2024 09:42 AM Reporting Lab: [facility] [place] [facility] [address] [facility] [address] Performing Lab: [facility] [address] [address] FERRITIN 509 ng/mL H 10-200 Mar 05, 2024 10:02 AM [facility] LIPID PANEL FASTING Specimen Type: SERUM No comment entered. Ordering Provider: JULIO CÉSAR ALMEIDA Report Released Date/Time: Mar 05, 2024 09:42 AM Reporting Lab: [facility] [address] [address] Performing Lab: [facility] [address] [facility] [address] CHOLESTEROL 183 mg/dL TRIGLYCERIDE 109 mg/dL 0-150 LDL calculated 116 mg/dL 0-129 CHOL/HDL 4.1 HDL CHOLESTEROL 45 mg/dL 40-60 Mar 05, 2024 10:02 AM [facility] LIVER FUNCTION Specimen Type: SERUM No comment entered. Ordering Provider: JULIO CÉSAR ALMEIDA Report Released Date/Time: Mar 05, 2024 09:42 AM Reporting Lab: [facility] [address] [facility] [address] Performing Lab: [address] [address] PROTEIN,TOTAL 6.4 g/dL 6.0-8.3 ALBUMIN 3.5 g/dL 3.5-5.0 ALKALINE PHOSPHATASE 80 U/L 40-150 AST 22 U/L 5-34 ALT 34 U/L BILIRUBIN, TOTAL 0.4 mg/dL 0.2-1.2 Mar 05, 2024 10:02 AM [facility] BASIC METABOLIC PANEL (non-fasting) Specimen Type: SERUM No comment entered. Ordering Provider: JULIO CÉSAR ALMEIDA Report Released Date/Time: Mar 05, 2024 09:42 AM Reporting Lab: [address] [address] Performing Lab: [address] [address] UREA NITROGEN 22 mg/dL 7-25 GLUCOSE 92 mg/dL 65-100 SODIUM 140 mmol/L 135-145 POTASSIUM 4.2 mmol/L 3.5-5.0 CHLORIDE 109 mmol/L 100-110 CO2 22 meq/L 20-30 CREATININE, Serum 0.78 mg/dL 0.50-1.40 eGFR(CKD-EPI 2020) 85 mL/min >60 Mar 05, 2024 10:02 AM [facility] HEMOGLOBIN A1C PANEL Specimen Type: BLOOD Comment: [...] Mar 05, 2024 09:42 AM Reporting Lab: [facility] [address] [address] Performing Lab: [facility] [address] HEMOGLOBIN A1C 5.5 4.0-5.6 Mar 05, 2024 10:02 AM [facility] TSH Specimen Type: SERUM No comment entered. Ordering Provider: JULIO CÉSAR ALMEIDA Report Released Date/Time: Mar 05, 2024 09:42 AM Reporting Lab: [facility] [address] [address] Performing Lab: [facility] [address] TSH 2.43 u[IU]/mL 0.35-5.00 Mar 05, 2024 10:02 AM [facility] CBC AND DIFF (AUTO) Specimen Type: BLOOD No comment entered. Ordering Provider: JULIO CÉSAR ALMEIDA Report Released Date/Time: Mar 05, 2024 09:42 AM Reporting Lab: [facility] [address] [address] Performing Lab: [facility] [address] [address] WBC 5.14 10*3/uL 4.50-11.00 RBC 4.77 10*6/uL [...] and tobacco- related health factors from the NH facility where the Encounter took place. Current Smoking Status This section includes the most current smoking, or tobacco-related health factor, from the NH facility where the Encounter took place. Date/Time Current Smoking Status Comment [facility] May 27, 2023 09:30 AM VA-TOBACCO QUIT 15 YRS OR MORE [facility] Tobacco Use History This section includes a history of the smoking, or tobacco-related health factors, that were collected on or before the date of the Encounter. The data comes from the NH facility where the Encounter took place. Date/Time Smoking Status/Tobac co Use Comment Facility May 27, 2023 09:30 AM VA-TOBACCO QUIT 15 YRS OR MORE [place] [facility] [facility] Feb 02, 2022 08:30 AM VA-TOBACCO FORMER USER [place] [facility] [place] [facility] Feb 02, 2022 08:30 AM VA-TOBACCO QUIT 15 YRS OR MORE [place] [facility] [facility] Dec 09, 2020 10:00 AM VA-TOBACCO FORMER USER [place] [facility] [place] [facility] Dec 09, 2020 10:00 AM VA-TOBACCO QUIT 15 YRS OR MORE [place] [facility] [place] [facility] Nov 28, 2019 11:26 AM VA-TOBACCO FORMER USER [facility] Nov 28, 2019 11:26 AM VA-TOBACCO QUIT 15 YRS OR MORE [facility] Oct 23, 2018 02:51 PM VA-TOBACCO FORMER USER [facility] Oct 23, 2018 02:51 PM VA-TOBACCO QUIT 15 YRS OR MORE [facility] Oct 17, 2017 09:14 AM QUIT TOBACCO USE > 7 YEARS AGO [facility] September 15, 2016 08:50 AM QUIT TOBACCO USE > 7 YEARS AGO [facility] Jul 02, 2015 09:15 AM QUIT TOBACCO USE > 7 YEARS AGO non tobacco user since 1998 [facility] Advance Directives: All historical and current Section Date Range: From patient's date of to the date document was created. This section includes ALL of a patient's completed or amended [place] Advance and Rescinded Directives. The entries below indicate that a directive exists for the patient, but an actual copy is not included with this document. The data comes from all NH facilities. Date Advance Directives Provider Source Dec 21, 2023 ADVANCE DIRECTIVE DESIREE OLIVAREZ [facility] Radiology Reports: +/- 30 days of [...] the Encounter. The data comes from all [place] treatment facilities. Date/Time Radiology Report Provider Source Mar 09, 2024 09:15 AM OUTSIDE MAMMO/SCRE ENING, INCLUDING CAD, BILAT: MARNIEKENYN [id number] -1960 F Exm Date: MAR 09, 2024@09:15 Req Phys: JULIO CÉSAR ALMEIDA Pat Loc: CWM/NO/PACT 5 (Req'g Loc) Img Loc: OUTSIDE GENERAL RADIOLOGY Service: Unknown (Case [id number] COMPLETE) OUTSIDE MAMMO/SCREENING, INCLUDIN(RAD Detailed) CPT:82790 Reason for Study: annual sreening mammogram Clinical History: Report Status: Electronically Filed Date Reported: MAR 09, 2024 Report: Community care exam; see CPRS/JLV for outside radiology report/results Impression: Community care exam; see CPRS/JLV for outside radiology report/results Primary Diagnostic Code: BI-RADS CATEGORY 0 (Incomplete: Need Additional Imaging Evaluation) VERIFIED BY: / *ELECTRONICALLY FILED* [facility] Mar 07, 2024 10:39 AM ULTRASOUND NECK (THYROID,HEAD,SOFT TISSUE): KENY DYE [id number] -1960 F Exm Date: MAR 07, 2024@10:39 Req Phys: JULIO CÉSAR ALMEIDA Pat Loc: CWM/NO/PACT 5 (Req'g Loc) Img Loc: ULTRASOUND Service: [place] [address] (Case [id number] COMPLETE) ULTRASOUND NECK (THYROID,HEAD,SOF(US Detailed) CPT:10895 Reason for Study: left arm nodule Clinical History: Report Status: Verified Date Reported: MAR 07, 2024 Date Verified: MAR 07, 2024 Leasing Sales Consultant E-Sig:/ES/EZ DELGADO JR Report: Study: Soft tissue [...] Primary Interpreting Staff: EZ DELGADO JR, Radiologist (Leasing Sales Consultant) /EZ LARA JR [place] [facility] [place] [facility] Encounter Notes: All associated encounter notes This section contains the clinical notes associated to the Encounter. Date/Time Encounter Note(s) Provider Source Mar 07, 2024 03:18 PM PHYSICAL THERAPY DISCHARGE NOTE: LOCAL TITLE: PHYSICAL THERAPY DISCHARGE NOTE STANDARD TITLE: PHYSICAL THERAPY DISCHARGE NOTE DATE OF NOTE: MAR 07, 2024@15:18 ENTRY DATE: MAR 07, 2024@15:18:54 AUTHOR: PARKER PALOMINO COSIGNER: URGENCY: STATUS: COMPLETED Initial Evaluation date: 12/29/23 Progress Note Date: n/a Treatment #: 4 Treatment time: 30min Diagnosis: Spondylosis lumbar region Provider: bong VENTURA Treatment Precautions: n/a Patient identified by full name and date of SUBJECTIVE: It still feels about the same, I'm doing the exercises, I haven't been going down into the gym in the basement though I got it out of my routine OBJECTIVE: Pain currently 6/10 on average, 7-8/10 in the mornings, reports consistency with HEP PROGRESS CHECK MINUTES: 10 Lumbar AROM: Flexion: decreased by 25% * Extension: Full R SB: impaired by 25% * L SB: Full Resisted Tests: Hip Flexion (L2-L4): L:5 R:5 Hip Extension(L5-S2): L:4- R:4 Knee Extension(L2-L4): L:5 R:5 Ankle Dorsiflexion(L4): L:5 R:5 Ankle Plantarflexion (S1-2) L:5 R:5 Ankle Eversion (S1): L:5 R:5 Great Toe Extension(L5): L:5 R:5 Hip Abduction (L5-S1) L:4+ R:4 Goals (4 Weeks) 1. Pt will decrease pain to by 1 pt on VAS to improve ability to return to walking program- NOT MET 2. Pt to demonstrate with B hip abd 5/5 to aid in negotiating stairs- NOT MET 3. I and consistency with HEP for improved carryover- MET THERAPEUTIC EXERCISE: MINUTES: 20 - nustep x7min L1-2 - PN 2x10 - Paloff press green band 2x10 - side step with resisted band red band 10'x4 SELF CARE/EDUCATION: MINUTES: -- HEP modified, encouraged regular low impact activity and implementing it into her daily routine Access Code: [email or web address] URL: [email or web address]/ Date: 12/29/2023 Prepared by: [facility] Patient education was provided for all aspects of care during this clinical encounter. ASSESSMENT: tolerated treatment well currently is independent with HEP, some goals have been met, pain rating remains fairly high, weakness in the hips remain however, HEP is maximized at this time, she is established with physiatry and reports she will be considering injections to assist in pain management. She is aware of importance of continued ther ex and HEP progression PLAN: discharge from therapy with stable HEP in place, pt to call the clinic with any further questions /es/ PARKER PALOMINO PT PHYSICAL THERAPIST Signed: 03/07/2024 15:27 PARKER PALOMINO [facility]
--- OUTSIDE RECORDS SUMMARY | 2024-05-23 09:03 | XMS_ITS | Encounter Summary ---
Author Name [facility] [facility] [place] [facility] [place] Address [address] [place] [id number] Care Team Providers Care Hotel Front Desk Clerk Name Role Phone JULIO CÉSAR ALMEIDA Primary [...] Relationship to Policy Stoddard [facility]NA[facility] CT FEDERAL PREFERRED PROVIDER ORGANIZAT ION (PPO) STAND AMEE SELF Apr 21, 1997 [id number] TINO DYE PATIENT BS MA FEP PREFERRED PROVIDER ORGANIZAT ION (PPO) STAND AMEE INDIV IDUAL Apr 21, 1997 [id number] TINO DYE PATIENT CAREMARK PRESCRIPT ION [id number] 1 Apr 18, 2020 [id number] MARNIETINO RODRIGUEZ PATIENT CAREMARK PRESCRIPT ION [id number] 1 Apr 18, 2020 [id number] MARNIETINO RODRIGUEZ PATIENT CAREMARK FEPRX PLAN PRESCRIPT ION BCBS FEP Apr 18, 2010 [id number] TINO DYE PATIENT CAREMARK-F EP BCBS PRESCRIPT ION FEP CAREM ARK Apr 18, 2010 [id number] TINO DYE PATIENT OPTUM RX PRESCRIPT ION RX Apr 18, 2022 [id number] TINO DYE PATIENT [facility] Apr 18, 2020 USP [id number] TINO DYE PATIENT [facility] BRIGH TON DAVE E Apr 18, 2020 [id number] TINO DYE PATIENT Selected Encounter This section includes the information on record at [place] for the Encounter. Date/Time Encounter Type Encounter Description Reason Provider Source Nov 04, 2023 11:00 AM PSYTX W PT 60 MINUTES [facility] - IND ICD-10-CM F43.12 Post-traumatic stress disorder, chronic GAUTAM ALEJANDRE [facility] Encounter Template Text not used by [place] Assessments - Encounter Diagnoses This section includes the primary and secondary diagnoses documented for the Encounter. Date/Time Primary/Secondary Diagnosis Diagnosis Name Provider Source Nov 04, 2023 12:05 PM PRIMARY Post-traumatic stress disorder, chronic GAUTAM ALEJANDRE [place] Plan of Treatment: Future Appointments (+ 6 [...] Appointment Type Appointme nt Facility Name Nov 08, 2023 01:30 PM AMBULATORY - MEDICINE [place] [facility] [facility] Nov 21, 2023 09:00 AM AMBULATORY - REHAB MEDICIN E [facility] [place] [facility] Dec 02, 2023 01:00 PM AMBULATORY - PSYCHIATRY [facility] Dec 23, 2023 08:00 AM AMBULATORY - REHAB MEDICIN E [facility] [place] [facility] Dec 27, 2023 10:30 AM AMBULATORY - MEDICINE [facility] [place] [facility] Dec 29, 2023 08:00 AM AMBULATORY - REHAB MEDICIN E [facility] [place] [facility] Jan 16, 2024 10:45 AM AMBULATORY - MEDICINE [facility] Jan 17, 2024 08:00 AM AMBULATORY - MEDICINE [place] [facility] [place] [place] [facility] Jan 18, 2024 10:00 AM AMBULATORY - REHAB MEDICIN E [facility] [place] [facility] Jan 18, 2024 01:00 PM AMBULATORY - PSYCHIATRY [facility] Jan 24, 2024 08:00 AM AMBULATORY - MEDICINE [facility] [place] [facility] Jan 26, 2024 01:30 PM AMBULATORY - REHAB MEDICIN E [facility] [place] [facility] Jan 31, 2024 08:00 AM AMBULATORY - MEDICINE [facility] [place] [facility] Feb 09, 2024 01:30 PM AMBULATORY - REHAB MEDICIN E [facility] [place] [facility] Feb 20, 2024 01:00 PM AMBULATORY - PSYCHIATRY [facility] Feb 21, 2024 09:00 AM AMBULATORY - MEDICINE [facility] [place] [facility] Feb 23, 2024 10:30 AM AMBULATORY - MEDICINE [facility] [place] [facility] Mar 05, 2024 09:00 AM AMBULATORY - MEDICINE [facility] [place] [facility] Mar 07, 2024 10:00 AM AMBULATORY - REHAB MEDICIN E [facility] [place] [facility] Mar 07, 2024 10:30 AM AMBULATORY - NONE [facility] [place] [facility] Advance Directives: All historical and current Section Date Range: From patient's date of to the date document was created. This section includes ALL of a patient's completed or amended [place] Advance and Rescinded Directives. The entries below indicate that a directive exists for the patient, but an actual copy is not included with this document. The data comes from all [place] facilities. Date Advance Directives Provider Source Dec 21, 2023 ADVANCE DIRECTIVE DESIREE OLIVAREZ [facility] Radiology Reports: +/- 30 days [...] the Encounter. The data comes from all [place] treatment facilities. Date/Time Radiology Report Provider Source Nov 08, 2023 02:04 PM CALCANEOUS 2 VIEWS: KENY DYE [id number] -1960 F Exm Date: NOV 08, 2023@14:04 Req Phys: TRE STARKEY Loc: CWM/NO/PODIATRY A (Req'g Loc) Img Loc: [facility] 1 Service: Unknown [facility] , (Case [id number] COMPLETE) CALCANEOUS 2 VIEWS (RAD Detailed) CPT:28787 Proc Modifiers : RIGHT Reason for Study: pain heel 9 mons Clinical History: Report Status: Verified Date Reported: NOV 08, 2023 Date Verified: NOV 08, 2023 [place] [employer] Operator E-Sig:/ES/EZ DELGADO JR Report: Study: AP [...] Primary Interpreting Staff: EZ DELGADO JR, Radiologist ([employer] Operator) /EZ LARA JR [facility] Encounter Notes: All associated encounter notes This section contains the clinical notes associated to the Encounter. Date/Time Encounter Note(s) Provider Source Nov 04, 2023 11:00 AM SOCIAL WORK NOTE: LOCAL TITLE: SOCIAL WORK NOTE STANDARD TITLE: SOCIAL WORK NOTE DATE OF NOTE: NOV 04, 2023@11:00 ENTRY DATE: NOV 04, 2023@11:59:56 AUTHOR: HILL,GAUTAM EXP COSIGNER: URGENCY: STATUS: COMPLETED INFORMED CONSENT REVIEWED: At beginning of session reviewed rights and limits of confidentiality, mandatory reporting situations, duty to warn and protect, Calix Warning, (if treatment team finds patient to be an acute danger to himself or others, that this information could be relayed to a court of law and presented to a writing manager), and DOD access for active duty service members. Provided Suicide Prevention Hotline number, and other contact numbers as necessary. 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 SESSION FOCUS: Met with [place] face to face for individual counseling. [place] stated she is now retired and enjoying her time. She is able to sleep later and she and her are doing more activities together. stated she constantly gets annoyed with people. We spoke about what she has control over and it's not other people. She agreed. She has control of how she reacts to others. Kelly has gone on a few short trips with her and again she is enjoying the freedom. They have plans for the immediate future. INTERVENTIONS: Psychotherapeutic Interventions: SC; Reflective listening and [...] PLAN FOR FOLLOW-UP: Next session planned for: 12/02/23 at 1pm /es/ GAUTAM ALEJANDRE [facility] Visual Specialist Mental Health Signed: 11/04/2023 12:05 GAUTAM ALEJANDRE
--- OUTSIDE RECORDS SUMMARY | 2024-05-23 09:03 | XMS_ITS ---
Author Name [facility] [place] Organization [facility] [place] Address [address] [place] [id number] Care Team Providers Care Exploitation Analyst Name Role Phone JUAN PABLOJULIO CÉSAR GOLDMAN [...] Name Patient's Relationship to Policy Stoddard HANNAH [facility] CT FEDERAL PREFERRED PROVIDER ORGANIZAT ION (PPO) STAND AMEE SELF Apr 21, 1997 [id number] TINO DYE PATIENT BS MA FEP PREFERRED PROVIDER ORGANIZAT ION (PPO) STAND AMEE INDIV IDUAL Apr 21, 1997 [id number] TINO DYE PATIENT [facility] PRESCRIPT ION [id number] 1 Apr 18, 2020 [id number] [phone] TINO DYE PATIENT [facility] PRESCRIPT ION [id number] 1 Apr 18, 2020 [id number] [phone] TINO DYE PATIENT [facility] FEPRX PLAN PRESCRIPT ION BCBS FEP Apr 18, 2010 [id number] TINO DYE PATIENT CAR[facility]ARK-F EP BCBS PRESCRIPT ION FEP CAREM ARK Apr 18, 2010 [id number] TINO DYE PATIENT OPTUM RX PRESCRIPT ION RX Apr 18, 2022 [id number] TINO DYE PATIENT [facility] USFHP Apr 18, 2020 [id number] TINO DYE PATIENT [facility] [place]RLUKE ABELN E Apr 18, 2020 [id number] [phone] TINO DYE PATIENT Selected Encounter This section includes the information on record at [place] for the Encounter. Date/Time Encounter Type Encounter Description Reason Provider Source Jan 31, 2024 08:00 AM MANUAL THERAPY 1/> [employer] ICD-10-CM M54.59 Other low back pain PETER JEFFERS [facility] Encounter Template Text not used by ME Assessments - Encounter Diagnoses This section includes the primary and secondary diagnoses documented for the Encounter. Date/Time Primary/Secondary Diagnosis Diagnosis Name Provider Source Jan 31, 2024 08:28 AM PRIMARY Other low back pain PETER JEFFERS [facility] Plan of Treatment: Future Appointments (+ 6 months) and Future Tests (+/- 45 days) The Plan of Treatment section includes future care activities for the patient from all [place] treatmentfacilities. This section includes future appointments and future orders which are active, pending or scheduled. Future Appointments This section includes appointments that were scheduled to occur 6 months from the date of the Encounter, up to a maximum of 20 appointments. The data comes from all [place] treatment facilities. Appointment Date/Time Appointment Type Appointme nt Facility Name Feb 09, 2024 01:30 PM [facility] Feb 20, 2024 01:00 PM AMBULATORY - PSYCHIATRY [facility] Feb 21, 2024 09:00 AM [facility] Feb 23, 2024 10:30 AM AMBUL[facility]ORY - MEDICINE [facility] Mar 05, 2024 09:00 AM [facility] [place] [facility] Mar 07, 2024 10:00 AM AMBULATORY - [facility]ICIN [facility] [place] [facility] Mar 07, 2024 10:30 AM AMBULATORY - NONE [facility] [place] [facility] Mar 09, 2024 09:15 AM AMBULATORY - MEDICINE [facility] [place] [facility] Mar 09, 2024 01:00 PM AMBULATORY - MEDICINE [facility] [place] [facility] Mar 27, 2024 01:00 PM AMBULATORY - PSYCHIATRY [facility] Apr 24, 2024 03:00 PM AMBULATORY - MEDICINE [facility] [place] [facility] May 01, 2024 02:00 PM AMBULATORY - PSYCHIATRY [facility] May 18, 2024 10:00 AM AMBULATORY - MEDICINE [facility] [place] [facility] May 29, 2024 01:00 PM AMBULATORY - PSYCHIATRY [facility] May 30, 2024 01:00 PM AMBULATORY - REHAB MEDICIN E [facility] [place] [facility] Jul 31, 2024 11:00 AM AMBULATORY - MEDICINE [facility] [place] [facility] Social History: Smoking Status (Most current) and Tobacco Use (All prior to encounter date) This section includes the most current, and the historical, smoking and tobacco- related health factors from the ME facility where the Encounter took place. Current Smoking Status This section includes the most current smoking, or tobacco-related health factor, from the ME facility where the Encounter took place. Date/Time Current Smoking Status Comment Becka hi May 27, 2023 09:30 AM VA-TOBACCO FOR[facility] USER [facility] Tobacco Use History This section includes a history of the smoking, or tobacco-related health factors, that were collected on or before the date of the Encounter. The data comes from the ME facility where the Encounter took place. Date/Time Smoking Status/Tobac co Use Comment Facility May 27, 2023 09:30 AM VA-TOBACCO QUIT 15 YRS OR MORE [facility] [place] [facility] Feb 02, 2022 08:30 AM VA-TOBACCO FORMER USER [facility] [place] [facility] Feb 02, 2022 08:30 AM VA-TOBACCO QUIT 15 YRS OR MORE [facility] [place] [facility] Dec 09, 2020 10:00 AM VA-TOBACCO FORMER USER [facility] [place] [facility] Dec 09, 2020 10:00 AM VA-TOBACCO QUIT 15 YRS OR MORE [facility] [place] [facility] Nov 28, 2019 11:26 AM VA-TOBACCO FORMER USER [facility] [place] [facility] Nov 28, 2019 11:26 AM VA-TOBACCO QUIT 15 YRS OR MORE [facility] [place] [facility] Oct 23, 2018 02:51 PM VA-TOBACCO FORMER USER [facility] [place] [facility] Oct 23, 2018 02:51 PM VA-TOBACCO QUIT 15 YRS OR MORE [facility] Oct 17, 2017 09:14 AM QUIT TOBACCO USE > 7 YEARS AGO [facility] [place] [facility] September 15, 2016 08:50 AM QUIT TOBACCO USE > 7 YEARS AGO [facility] Jul 02, 2015 09:15 AM QUIT TOBACCO USE > 7 YEARS AGO non tobacco user [facility] Advance Directives: All historical and current [...] Dec 21, 2023 ADVANCE DIRECTIVE [facility] Encounter Notes: All associated encounter notes This section contains the clinical notes associated to the Encounter. Date/Time Encounter Note(s) Provider Source Jan 31, 2024 08:00 AM CHIROPRACTIC NOTE: LOCAL TITLE: CHIROPRACTOR PROGRESS NOTE STANDARD TITLE: CHIROPRACTIC NOTE DATE OF NOTE: JAN 31, 2024@08:00 ENTRY DATE: JAN 31, 2024@08:00:59 AUTHOR: EPTER JEFFERS COSIGNER: URGENCY: STATUS: COMPLETED KENY DYE is a 63 DECLINED TO ANSWER FEMALE with prior history of COMBAT SERVICE INDICATED: No POS: PERIOD OF SERVICE - OTHER OR NONE SERVICE BRANCH: Service Connected Disabilities with % Eligibility: Active Problem Lumbago M54.50 07/26/2023 JUAN PABLOJULIO CÉSAR Solitary nodule of lung R91.1 04/29/2022 EBONI [...] for calcaneal spur Surgeries - None [facility] with C/C of low back pain, bilat. After the last visit she felt relief for a few hours. She reports lbp when folding laundry which involves reaching down and pulling up. Part of the challenge is the knee pain. ----- She C/O Numbness in R anterior [...] last year Physical therapy. She went to [facility] for 4 sessions Difficult getting up from floor Prior home care provider: about 30-40 years ago Exercise/Activities: stretching causes pain for about 30 minutes Pending appt with [facility] Plans to drive to [place] this TuesdayDec 30 GOALS: go for longer walks; be able to bend and get off the floor. Patient denies bowel/bladder dysfunction saddle anesthesia, recent fevers, infections, night sweats, unexplained weight loss, dysphagia, dysarthria, numbness, diploplia Reviewed Radiologist's reports: FEB 03, 2022 Report: SPINE LUMBOSACRAL MIN 2 VIEWS History: low back pain Comparison: None. Findings: There are 5 tks-svq-vsxgyqs lumbar vertebrae. Vertebral body heights are normal. [...] Supine gluteal stretching as per palpation objectives 01/31/24 hypertonicity and tenderness lumbar, L/S Restrictions lumbar [...] and pain modulation. Plan: Trial Chiropractic Visit 5 F/U with PT and Med Rehab Seek urgent care as needed. CMT: chiropractic manipulative therapy SMT: Spinal Manipulative Therapy F/D: Flexion Distraction MFR: Myofascial Release S-I: Sacroiliac MFTP: Myofascial Trigger Point NRS: Numeric Rating Scale N/T: Numbness/Tingling PIR: Post isometric relaxation 15 /es/ PETER JEFFERS D.C. CHIROPRACTOR Signed: 01/31/2024 08:28 PETER EJFFERS [facility]
--- OUTSIDE RECORDS SUMMARY | 2024-05-23 09:03 | XMS_ITS | Encounter Summary ---
Author Name [facility] [place] Organization [place] Address [address] [place] [id number] Care Team Providers Care Automatic Engraver Name Role Phone JUAN PABLOMARIAH GOLDMAN Primary Care Provider Unavailabl e Insurance [...] Name Patient's Relationship to Policy Stoddard HANNAH [facility] CT FEDERAL PREFERRED PROVIDER ORGANIZAT ION (PPO) STAND AMEE SELF Apr 21, 1997 [id number] TINO DYE PATIENT BS MA FEP PREFERRED PROVIDER ORGANIZAT ION (PPO) STAND AMEE INDIV IDUAL Apr 21, 1997 [id number] TINO DYE PATIENT [facility] PRESCRIPT ION [id number] 1 Apr 18, 2020 [id number] TINO DYE NET PATIENT [facility] PRESCRIPT ION [id number] 1 Apr 18, 2020 [id number] [phone] TINO DYE PATIENT [facility] FEPRX PLAN PRESCRIPT ION BCBS FEP Apr 18, 2010 [id number] TINO DYE PATIENT CAREMARK-F EP BCBS PRESCRIPT ION FEP CAREM ARK Apr 18, 2010 [id number] TINO DYE PATIENT OPTUM RX PRESCRIPT ION RX Apr 18, 2022 [id number] [phone] TINO DYE PATIENT [facility] USP Apr 18, 2020 [id number] TINO DYE PATIENT [facility] [place] Apr 18, 2020 [id number] [phone] TINO DYE PATIENT Selected Encounter This section includes the information on record at [place] for the Encounter. Date/Time Encounter Type Encounter Description Reason Pro vider Source May 18, 2024 11:01 AM Outpatient Encounter PRIMARY CARE/MEDICINE [facility] Encounter Template Text not used by [place] Plan of Treatment: Future Appointments (+ 6 [...] 29, 2024 01:00 PM AMBULATORY - PS[facility]CHIATRY [facility] May 30, 2024 01:00 PM [facility] [place] [facility] Jul 31, 2024 11:00 AM [facility] [place] [facility] Active, Pending, and Scheduled Orders This section includes a listing of several types of active, pending, and scheduled orders, including clinic medications orders, diagnostic test orders, procedure orders and consult orders; where the start date of the order is 45 days before the date of the Encounter or 45 days after the date of theEncounter. The data comes from all [place] treatment facilities. Test Date/Time Test Type Test Details Facility Name May 18, 2024 11:18 AM Consult Order COMMUNITY CARE-MRI Cons Waterworks Supervisor's Choice [facility] [place] [facility] Vital Signs: All taken on the encounter date This section contains inpatient and outpatient Vital Signs collected on the date of the Encounter. Date/Time Temperature Pulse Blood Pressure Respiratory Rate SP02 Pain Height Weight Body Mass Index Source May 18, 2024 10:24 AM 98 76 128/83 18 96 2 238.3 33 [place] [facility] [place] [facility] Social History: Smoking Status (Most [...] took place. Date/Time Current Smoking Status Comment [facility] May 27, 2023 09:30 AM VA-TOBACCO FORMER USER [place] [facility] [place] [facility] Tobacco Use History This section includes a history of the smoking, or tobacco-related health factors, that were collected on or before the date of the Encounter. The data comes from the [place] facility where the Encounter took place. Date/Time Smoking Status/Tobac co Use Comment Facility May 27, 2023 09:30 AM VA-TOBACCO QUIT 15 YRS OR MORE [facility] [place] [facility] Feb 02, 2022 08:30 AM VA-TOBACCO FORMER USER [facility] [place] [facility] Feb 02, 2022 08:30 AM VA-TOBACCO QUIT 15 YRS OR MORE [facility] [place] [facility] Dec 09, 2020 10:00 AM VA-TOBACCO FORMER USER [facility] [place] [facility] Dec 09, 2020 10:00 AM VA-TOBACCO QUIT 15 YRS OR MORE [facility] [place] [facility] Nov 28, 2019 11:26 AM VA-TOBACCO FORMER USER [facility] [place] [facility] Nov 28, 2019 11:26 AM VA-TOBACCO QUIT 15 YRS OR MORE [facility] [place] [facility] Oct 23, 2018 02:51 PM VA-TOBACCO FORMER USER [facility] [place] [facility] Oct 23, 2018 02:51 PM VA-TOBACCO QUIT 15 YRS OR MORE [facility] [place] [facility] Oct 17, 2017 09:14 AM QUIT TOBACCO USE > 7 YEARS AGO [facility] September 15, 2016 08:50 AM QUIT TOBACCO USE > 7 [facility]ARS AGO [facility] Jul 02, 2015 09:15 AM QUIT TOBACCO USE > 7 YEARS AGO non tobacco user since 1998 [facility] Advance Directives: All historical and current [...] Dec 21, 2023 ADVANCE DIRECTIVE DESIREE OLIVAREZ [facility] Encounter Notes: All associated encounter notes This section contains the clinical notes associated to the Encounter. Date/Time Encounter Note(s) Provider Source May 18, 2024 11:18 AM [facility] DIALOG NOTE: LOCAL TITLE: SECURE MESSAGING STANDARD TITLE: [facility] DIALOG NOTE DATE OF NOTE: MAY 18, 2024@11:18 ENTRY DATE: MAY 18, 2024@11:18:51 AUTHOR: MARIAH ALMEIDA EXP COSIGNER: URGENCY: STATUS: COMPLETED SECURE MESSAGING Has ADDENDA Dr José Miguel Robles called me to discuss and we agreed that the next best step would be to get an MRI of your C spine (neck) to see if anything going on there that could be causing the symptoms and tingling in your arm. [facility] from [facility] should be calling you to get that scheduled and we can go from there. Please reach back out if you have any questions otherwise will let you know results once that is done and also see you in july for routine visit take good care Mariah MEJIA /gustabo/ JACKIE SPENCER Nurse Practitioner Signed: 05/18/2024 11:20 Receipt Acknowledged By: 05/18/2024 13:54 /gustabo/ JOSE ALFREDO ENCISO REGISTERED NURSE 05/18/2024 ADDENDUM STATUS: COMPLETED Secure message sent. /gustabo/ JOSE ALFREDO ENCISO REGISTERED NURSE Signed: 05/18/2024 13:54 MARIAH ALMEIDA [facility]
--- OUTSIDE RECORDS SUMMARY | 2024-05-23 09:03 | XMS_ITS | Continuity of Care Document ---
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 It does not include entries that were removed or entered in error. Problem Status Onset Date Problem Type Date of Resolution Comments Source Bilateral tinnitus Active Condition [facility] COPD - Chronic Obstructive Pulmonary Disease ([facility] [id number]) Active Condition Feb 02, 2022 Entered By: SALVADOR SONG Comment: following nonVA Pulmonary [facility] Exposure to potentially hazardous substance Active Condition [facility] Female urinary stress incontinence Active Condition [facility] Former smoker Active Condition Jan Entered By: SALVADOR SONG Comment: quit around 4720-1704 [facility] Lumbago Active Condition [facility] Menopausal flushing Active Condition [facility] Myalgia Active Condition [facility] Overweight Active Condition [facility] PE - Pulmonary embolism Active Condition Jul 02, 2015 Entered By: BEVERLY MC Comment: b/l lower lobe PE 09/2014 on HRT s/p 6mo coumadin [facility] Perimenopausal atrophic vaginitis Active Condition [facility] Posttraumatic stress disorder Active Condition [facility] Shoulder pain Active Condition [facility] Solitary nodule of lung Active Condition Apr 29, 2022 Entered By: SALVADOR SONG Comment: 0.3mm nodule on ct 02/[address] [facility] sensorineural hearing loss bilateral Active Condition [facility] tinnitus subjective bilateral Active Condition [facility] Diagnosis: ICD-10-CM 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, subcu of left arm Active Diagnosis [facility] Diagnosis: ICD-10-CM F43.12 Post-traumatic stress disorder, chronic Active Diagnosis [facility] Diagnosis: ICD-10-CM R20.2 Paresthesia of skin Active Diagnosis [facility] ([id number]) Diagnosis: ICD-10-CM M47.896 Other spondylosis, lumbar region Active Diagnosis [facility] Diagnosis: ICD-10-CM R22.9 Localized swelling, mass and lump, unspecified Active Diagnosis [facility] Diagnosis: ICD-10-CM M54.50 Low back pain, unspecified Active Diagnosis [facility] Diagnosis: ICD-10-CM M54.59 Other low back pain Active Diagnosis [facility] Diagnosis: ICD-10-CM J44.9 Chronic obstructive pulmonary disease, unspecified Active Diagnosis [facility] Diagnosis: ICD-10-CM Z23 Encounter for immunization Active Diagnosis [facility] Diagnosis: ICD-10-CM H90.3 Sensorineural hearing loss, bilateral Active Diagnosis [facility] Diagnosis: ICD-10-CM S93.611A Sprain of tarsal ligament of right foot, initial encounter Active Diagnosis [facility] Diagnosis: ICD-10-CM R91.1 Solitary pulmonary nodule Active Diagnosis [facility] Diagnosis: ICD-10-CM M62.830 Muscle spasm of back Active Diagnosis [facility] Diagnosis: ICD-10-CM M72.2 Plantar fascial fibromatosis Active Diagnosis [facility] Diagnosis: ICD-10-CM Z02.89 Encounter for other administrative examinations Active Diagnosis [facility] Medications Combined list of outpatient medications from Department of Defense and Veterans Affairs facilities.Medications provided include 1) outpatient medications from the last 15 months, and 2) patient-reported medications. Medication Details Route Status Patient Instructions Prescription Expires Prescription Number Last Dispense Date Ordering Provider Order Date Order Qty Source ACETAMINOPH EN 325MG TAB TAKE TWO TABLETS BY MOUTH THREE TIMES DAILY NEEDED FOR PAIN ORAL SUSPEND ED 11/21/2024 [id number] KRYSTA NICHOLAS 2023 300 [facility] ALBUTEROL 90MCG/ACTUA T (CFC-F) INHL,ORAL,8 .5GM DOSE COUNTER INHALE 2 PUFFS BY MOUTH EVERY 4 HOURS NEEDED FOR BREATHIN G RESPIR ATORY (INHAL ATION) ACTIVE 07/26/2024 [id number] JUAN PABLO, JULIO CÉSAR TANIA 2023 3 [facility] ALBUTEROL 90MCG/ACTUA T (CFC-F) INHL,ORAL,8 .5GM DOSE COUNTER INHALE 1 PUFF BY MOUTH RESPIR ATORY (INHAL ATION) ACTIVE RA CIARA SOGN 2021 [facility] ALBUTEROL SO4 3MG/IPRATRO PIUM BR 0.5MG/3ML INHL,3ML INHALE 1 VIAL (3ML) IN NEBULIZE R EVERY 6 HOURS NEEDED FOR WHEEZING RESPIR ATORY (INHAL ATION) ACTIVE 01/13/2024 [id number] APRYL HERNÁNDEZ 2023 120 [facility] ASCORBIC ACID 500MG TAB TAKE ONE TABLET BY MOUTH ONCE DAILY FOR VITAMIN/ NUTRITIO N SUPPLEME NT ORAL ACTIVE 07/26/2024 [id number] JUAN PABLO, JULIO CÉSAR TANIA 2023 100 [facility] ASPIRIN 81MG TAB,EC TAKE ONE TABLET BY MOUTH ONCE DAILY TO PREVENT STROKE/H EART ATTACK ORAL ACTIVE 07/26/2024 [id number] 4 JUAN PABLO, JULIO CÉSAR TANIA 2023 120 [facility] ATORVASTATI N CA 40MG TAB TAKE ONE-HALF TABLET BY MOUTH ONCE DAILY FOR HIGH CHOLESTE ROL ORAL SUSPEND ED 07/26/2024 [id number] JULIO CÉSAR ALMEIDA 2023 45 [facility] BUDESONIDE 160/GLYCOPY R 9/FORMOTER 4.8MCG/ACT INHL,ORAL,1 0.7GM INHALE 2 INHALATI ONS BY MOUTH TWICE DAILY -RINSE MOUTH AFTER USE RESPIR ATORY (INHAL ATION) SUSPEND ED 09/02/2024 [id number] APRYL HERNÁNDEZ 2023 1 [facility] CELECOXIB 100MG CAP TAKE ONE CAPSULE BY MOUTH ONCE DAILY FOR ARTHRITI S ORAL SUSPEND ED 02/23/2025 [id number] KRYSTA NICHOLAS 2023 90 [facility] CHOLECALCIF MARY KAY 50MCG (2,000UNIT) TAB TAKE ONE TABLET BY MOUTH ONCE DAILY FOR VITAMIN SUPPLEME NTATION ORAL ACTIVE 07/26/2024 [id number] JULIO CÉSAR ALMEIDA 2023 100 [facility] FERROUS SO4 325MG TAB TAKE ONE TABLET BY MOUTH TWICE A WEEK NEEDED TO SUPPLEME NT IRON ORAL ACTIVE 07/26/2024 [id number] JULIO CÉSAR ALMEIDA 2023 30 [facility] FLUTICASONE /UMECLID/ LANT (TRELEGY 200) INHL,ORAL INHALE BY MOUTH ONCE DAILY RESPIR ATORY (INHAL ATION) ACTIVE JULIO CÉSAR ALMEIDA 2023 [facility] FLUTICASONE /VILANTEROL (BREO) INHL,ORAL INHALE BY MOUTH ONCE DAILY RESPIR ATORY (INHAL ATION) ACTIVE RA CIARA SONG 2021 [facility] IPRATROPIUM BR 0.03% SOLN,SPRAY, NASAL INSTILL 2 SPRAYS INTO EACH NOSTRIL TWICE DAILY FOR NASAL IRRITATI ON/CONGE STION NASAL ACTIVE 11/02/2024 [id number] APRYL HERNÁNDEZ 2023 30 [facility] LIDOCAINE 5% OINT,TOP APPLY DIRECTED TOPICALL Y TWICE DAILY NEEDED FOR MINOR SKIN WOUND PAIN TOPICA L ACTIVE 05/27/2024 [id number] PATRICE ONEAL 2023 105 [facility] LOSARTAN 25MG TAB TAKE ONE TABLET BY MOUTH ONCE DAILY FOR BLOOD PRESSURE /HEART ORAL ACTIVE 07/26/2024 [id number] JUAN PABLO, JULIO CÉSAR TANIA 2023 90 [facility] MONTELUKAST NA 10MG TAB TAKE ONE TABLET BY MOUTH AT BEDTIME FOR ASTHMA ORAL ACTIVE 03/06/2025 [id number] 4 JUAN PABLO, JULIO CÉSAR TANIA 2023 90 [facility] MONTEL[place]AST NA 10MG TAB TAKE ONE TABLET BY MOUTH AT BEDTIME FOR ASTHMA ORAL DISCONT INUED 12/14/2024 [id number] APRYL HERNÁNDEZ 2023 30 [facility] Immunizations Combined list of available immunizations from the Department of Defense and Veterans Affairs facilities. Immunization Series Date Given Administered By Site Reaction Lot Number CVX Code Drug Machine Stemmer Status Comments Source INFLUENZA, SPLIT VIRUS, TRIVALENT, PF 2023 CUBA AQUINO LEFT DELTO ID [id number] 140 complet ed [facility] COVID-19 (MODERNA), MRNA, LNP-S, PF, 50 MCG/0.5 ML (AGES 12+ YEARS) 2023 312 [facility] INFLUENZA, UNSPECIFIED FORMULATION 2023 88 complet [facility] RSV, RECOMBINANT, PROTEIN SUBUNIT RSVPREF, ADJUVANT RECONSTITUTED , 0.5 ML, PF 2022 303 complet ed [facility] COVID-19 (MODERNA), MRNA, LNP-S, PF, 50 MCG/0.5 ML (AGES 12+ YEARS) 1 2022 312 complet ed [facility] INFLUENZA, UNSPECIFIED FORMULATION 2022 88 complet ed [facility] COVID-19 (MODERNA), MRNA, LNP-S, BIVALENT BOOSTER, PF, 50 MCG/0.5 ML OR 25MCG/0.25 ML DOSE 1 2021 229 complet ed MOD; [id number]; 3 [facility] PNEUMOCOCCAL CONJUGATE PCV20, POLYSACCHARID E [id number] CONJUGATE, ADJUVANT, PF 2021 216 complet ed [facility] INFLUENZA, INJECTABLE, QUADRIVALENT, PRESERVATIVE FREE 2021 150 complet ed [facility] COVID-19 (PFIZER), MRNA, LNP-S, PF, 30 MCG/0.3 ML DOSE 4 2021 208 complet ed [facility] COVID-19 (PFIZER), MRNA, LNP-S, PF, 30 MCG/0.3 ML DOSE 3 2020 208 complet ed [facility] INFLUENZA, INJECTABLE, QUADRIVALENT, PRESERVATIVE FREE 2020 150 complet ed [facility] ZOSTER RECOMBINANT 2 2020 187 complet ed [facility] COVID-19 (PFIZER), MRNA, LNP-S, PF, 30 MCG/0.3 ML DOSE 2 2020 208 complet ed PFR; [id number]; 1 [facility] COVID-19 (PFIZER), MRNA, LNP-S, PF, 30 MCG/0.3 ML DOSE 1 2020 208 complet ed PFR; [id number]; 1 [facility] INFLUENZA, INJECTABLE, QUADRIVALENT, PRESERVATIVE FREE 2019 150 complet ed [facility] TD(ADULT) UNSPECIFIED FORMULATION 2019 139 complet ed Site: Right Deltoid [facility] ZOSTER RECOMBINANT 1 2019 187 complet ed [facility] PNEUMOCOCCAL POLYSACCHARID E PPV23 2018 33 complet ed [facility] INFLUENZA, SEASONAL, INJECTABLE 2017 141 complet ed [facility] INFLUENZA, SEASONAL, INJECTABLE 2016 141 complet ed [facility] FLU,3 YRS (HISTORICAL) 2014 88 complet ed with [facility] Influenza, seasonal, injectable, preservative free 1 2014 Unknown, Provider [id number] [employer] ([facility]) complet ed Influenza , seasonal, injectabl e, preservat maurilio free DoD Influenza, seasonal, injectable, preservative free 19 2013 [id number] 140 [facility] [employer] ([facility]) complet ed Influenza , seasonal, injectabl e, preservat maurilio free DoD Influenza, injectable, Madin Mentor Canine Kidney, preservative free 0 2012 [id number] 153 Nov[employer] Check-Captica l Jaswant. (NOV) complet ed Influenza , injectabl e, Madin Ritika Canine Kidney, preservat maurilio free DoD Influenza, seasonal, injectable, preservative free 17 2011 [id number] 140 [facility] [employer] (L) complet ed Influenza , seasonal, injectabl e, preservat maurilio free DoD Influenza, seasonal, injectable 1 2010 [id number] 141 [employer] Check[employer]Capt[employer] Jaswant. (NOV) complet ed Influenza , seasonal, injectabl e DoD DTAP, UNSPECIFIED FORMULATION 2010 107 complet ed [facility] TET-DIP-A/PER TUSSIS (HISTORICAL) 2010 139 complet ed [employer] [facility] tetanus toxoid, reduced diphtheria toxoid, and acellular pertu is vaccine, adsorbed 1 2010 [id number] 115 Sanofi Pasteur ([facility]) complet ed tetanus toxoid, reduced diphtheri a toxoid, and acellular pertussis vaccine, adsorbed DoD influenza virus vaccine, split virus (incl. purified surface antigen)-reti red CODE 2 2009 15 Unknown (UNK) comple t ed influenza virus vaccine, split virus (incl. purified surface antigen)- retired CODE DoD ANTHRAX 2009 24 complet ed #1 given 05/25/09, #2 06/21/09 [employer] [facility] anthrax vaccine 2 2009 [id number] 24 [employer] Simone (MIP) complet ed anthrax vaccine DoD anthrax vaccine 1 2009 [id number] [employer] [place] (MIP) complet ed anthrax vaccine DoD Novel influenza-H1N 1-09, injectable 1 2009 [id number] 1 127 [employer]. (NOV) complet ed Novel influenza -G4P4-71, injectabl e DoD influenza virus vaccine, live, attenuated, for intranasal use 1 2008 [id number] 111 [employer]. (MED) complet ed influenza virus vaccine, live, attenuate d, for intranasa l use DoD hepatitis B vaccine, adult dosage 3 2008 [id number] 43 Merck (MSD) complet ed hepatitis B vaccine, adult dosage DoD influenza virus vaccine, split virus (incl. purified surface antigen)-reti red CODE 1 2007 [id number] 15 SmithKline (SKB) complet ed influenza virus vaccine, split virus (incl. purified surface antigen)- retired CODE DoD hepatitis B vaccine, adult dosage 2 2007 [id number] 43 Merck (MSD) complet ed hepatitis B vaccine, adult dosage DoD TYPHOID (HISTORICAL) 2007 91 complet ed ViCPs [employer] [facility] hepatitis B vaccine, adult dosage 1 2007 [id number] 43 Merck (MSD) complet ed hepatitis B vaccine, adult dosage DoD typhoid Vi capsular polysaccharid e vaccine 1 2007 [id number] 101 Sanofi Pasteur (PMC) complet ed typhoid Vi capsular polysacch aride vaccine DoD influenza virus vaccine, split virus (incl. purified surface antigen)-reti red CODE 1 2006 [id number] 15 SmithHeavyine (SKB) complet ed influenza virus vaccine, split virus (incl. purified surface antigen)- retired CODE DoD influenza virus vaccine, split virus (incl. purified surface antigen)-reti red CODE 1 2005 [id number] 15 Other (OTH) complet ed influenza virus vaccine, split virus (incl. purified surface antigen)- retired CODE DoD typhoid vaccine, parenteral, other than acetone-kille d, dried 1 2005 [id number] 41 Sanofi Pasteur ([facility]) complet ed typhoid vaccine, parentera l, other than acetone-k illed, dried DoD influenza virus vaccine, split virus (incl. purified surface antigen)-reti red CODE 1 2004 [id number] 15 Sanofi Pasteur ([facility]) complet ed influenza virus vaccine, split virus (incl. purified surface antigen)- retired CODE DoD influenza virus vaccine, live, attenuated, for intranasal use 0 2004 [id number] 111 [employer]. (MED) complet ed influenza virus vaccine, live, attenuate d, for intranasa l use DoD typhoid vaccine, parenteral, other than acetone-kille d, dried 0 2003 [id number] 41 Sanofi Pasteur ([facility]) complet ed typhoid vaccine, parentera l, other than acetone-k illed, dried DoD influenza virus vaccine, whole virus 0 2002 [id number] 16 Sanofi Pasteur ([facility]) complet ed influenza virus vaccine, whole virus DoD tuberculin skin test; purified protein derivative solution, intradermal 1 2002 Unknown, Provider [id number] 96 Sanofi Pasteur ([facility]) complet ed tuberculi n skin test; purified protein derivativ e solution, intraderm al DoD influenza virus vaccine, whole virus 0 2001 [id number] 16 Sanofi Pasteur ([facility]) complet ed influenza virus vaccine, whole virus DoD YELLOW FEVER 2001 37 complet ed [employer] [facility] yellow fever vaccine 0 2001 [id number] 37 Sanofi Pasteur ([facility]) complet ed yellow fever vaccine DoD tuberculin skin test; purified protein derivative solution, intradermal 1 2001 Unknown, Provider [id number] 96 Sanofi Pasteur ([facility]) complet ed tuberculi n skin test; purified protein derivativ e solution, intraderm al DoD influenza virus vaccine, whole virus 0 2000 [id number] 16 Sanofi Pasteur ([facility]) complet ed influenza virus vaccine, whole virus DoD tuberculin skin test; purified protein derivative solution, intradermal 1 2000 Unknown, Provider [id number] 96 Sanofi Pasteur ([facility]) complet ed tuberculi n skin test; purified protein derivativ e solution, intraderm al DoD influenza virus vaccine, whole virus 0 2000 16 () complet ed influenza virus vaccine, whole virus DoD tetanus and diphtheria toxoids, adsorbed, preservative free, for adult use (2 Lf of tetanus toxoid and 2 Lf of diphtheria toxoid) 0 1999 [id number] Carlajuan c (CON) complet ed tetanus and diphtheri a toxoids, adsorbed, preservat maurilio free, for adult use (2 Lf of tetanus toxoid and 2 Lf of diphtheri a toxoid) DoD tuberculin skin test; purified protein derivative solution, intradermal 1 1999 Unknown, Provider [id number] 96 [facility] (CON) complet ed tuberculi n skin test; purified protein derivativ e solution, intraderm al DoD influenza virus vaccine, whole virus 0 [id number] 16 Eric (WAL) complet ed influenza virus vaccine, whole virus DoD typhoid vaccine, live, oral 0 1998 [id number] 25 Acacia (BP) complet ed typhoid vaccine, live, oral DoD hepatitis A vaccine, adult dosage 2 1998 [id number] 52 Merck (MSD) complet ed hepatitis A vaccine, adult dosage DoD MENINGOCOCCAL POLYSACCHARID E VACCINE (HISTORICAL) 1998 108 complet ed [employer] [facility] meningococcal polysaccharid e vaccine (MPSV4) 0 [id number] 32 Allegra (CON) complet ed meningoco ccal polysacch aride vaccine (MPSV4) DoD MMR 1997 03 complet ed [employer] [facility] measles, mumps and rubella virus vaccine 0 1997 [id number] 03 Alegria (AB) complet ed measles, mumps and rubella virus vaccine DoD influenza virus vaccine, whole virus 0 [id number] 16 Allegra (CON) complet ed influenza virus vaccine, whole virus DoD hepatitis A vaccine, adult dosage 1 1997 [id number] 52 Merck (MSD) complet ed hepatitis A vaccine, adult dosage DoD influenza virus vaccine, whole virus 0 19961507 [id number] 16 Allegra (CON) complet ed influenza virus vaccine, whole virus DoD influenza virus vaccine, whole virus 0 1995 16 () complet ed influenza virus vaccine, whole virus DoD typhoid vaccine, parenteral, acetone-kille d, dried (U.S. ) 2 19951611 [id number] 53 Allegra (CON) complet ed typhoid vaccine, parentera l, acetone-k illed, dried (U.S. ) DoD yellow fever vaccine 0 19921547 [id number] 37 Allegra (CON) complet ed yellow fever vaccine DoD tetanus and diphtheria toxoids, adsorbed, preservative free, for adult use (2 Lf of tetanus toxoid and 2 Lf of diphtheria toxoid) 0 1989 09 () complet ed tetanus and diphtheri a toxoids, adsorbed, preservat maurilio free, for adult use (2 Lf of tetanus toxoid and 2 Lf of diphtheri a toxoid) DoD CHOLERA, UNSPECIFIED FORMULATION 1983 26 complet ed [employer] [facility] cholera vaccine, unspecified formulation 0 [id number] 26 Allegra (CON) complet ed cholera vaccine, unspecifi ed formulati on DoD TRIVALENT OPV 1981 02 complet ed Oral [employer] [facility] trivalent poliovirus vaccine, live, oral 0 1981 02 () complet ed trivalent polioviru s vaccine, live, oral DoD Results Combined list of recent chemistry, hematology and other laboratory results from Department of Defense and Veterans Affairs, ranging from 15 months to all on record, depending upon the facility. Order Name Results Value Reference Range Date Interpretation Specimen Comments Source MAGNESIUM MAGNESIUM [MASS/VOLUM E] IN SERUM OR PLASMA 2.3 mg/dL 1.6 - 2.6 03/05 Specimen Type: SERUM No comment entered. Ordering Provider: DENNY ALMEIDA SA Report Released Date/Time: Mar 05, 2024 09:42 AM Reporting Lab: [facility] [address] [facility] [facility] [address] Performing Lab: [facility] [place] [facility] [address] [facility] [address] [facility] FERRITIN FERRITIN [MASS/VOLUM E] IN SERUM OR PLASMA 509 ng/mL 10 - 200 03/05 H Specimen Type: SERUM No comment entered. Ordering Provider: DENNY ALMEIDA SA Report Released Date/Time: Mar 05, 2024 09:42 AM Reporting Lab: [facility] [place] [facility] [address] [facility] [facility] [address] Performing Lab: [facility] [place] [facility] [address] [facility] [facility] [address] [facility] [place] [facility] LIPID PANEL FASTING CHOLESTEROL [MASS/VOLUM E] IN SERUM OR PLASMA 183 mg/dL 03/05 Specimen Type: SERUM No comment entered. Ordering Provider: DENNY ALMEIDA SA Report Released Date/Time: Mar 05, 2024 09:42 AM Reporting Lab: [facility] [place] [facility] [address] [facility] [facility] [address] Performing Lab: [facility] [place] [facility] [address] [facility] [address] [facility] LIPID PANEL FASTING TRIGLYCERID E [MASS/VOLUM E] IN SERUM OR PLASMA 109 mg/dL 0 - 150 03/05 Specimen Type: SERUM No comment entered. Ordering Provider: DENNY ALMEIDA SA Report Released Date/Time: Mar 05, 2024 09:42 AM Reporting Lab: [facility] [place] [facility] [address] [facility] [address] Performing Lab: [facility] [place] [facility] [address] [facility] [facility] [address] [facility] [place] [facility] LIPID PANEL FASTING CHOLESTEROL IN LDL [MASS/VOLUM E] IN SERUM OR PLASMA BY CALCULATION 116 mg/dL 0 - 129 03/05 Specimen Type: SERUM No comment entered. Ordering Provider: DENNY ALMEIDA SA Report Released Date/Time: Mar 05, 2024 09:42 AM Reporting Lab: [facility] [address] [facility] [facility] [address] Performing Lab: [facility] [address] [facility] [facility] [address] [facility] LIPID PANEL FASTING CHOLESTEROL .TOTAL/CHOL ESTEROL IN HDL [MASS RATIO] IN SERUM OR PLASMA 4.1 03/05 Specimen Type: SERUM No comment entered. Ordering Provider: DENNY ALMEIDA SA Report Released Date/Time: Mar 05, 2024 09:42 AM Reporting Lab: [facility]TR[facility] [address] [facility] [address] Performing Lab: [facility]ITALTRN [facility] [address] [facility] [facility] [address] [facility] LIPID PANEL FASTING CHOLESTEROL IN HDL [MASS/VOLUM E] IN SERUM OR PLASMA 45 mg/dL 40 - 60 03/05 Specimen Type: SERUM No comment entered. Ordering Provider: DENNY ALMEIDA SA Report Released Date/Time: Mar 05, 2024 09:42 AM Reporting Lab: [facility] [address] [facility] [facility] [address] Performing Lab: [facility]ITALTRN [facility] [address] [facility] [facility] [address] [facility] BASIC METABOLIC PANEL (non-fast ing) UREA NITROGEN [MASS/VOLUM E] IN SERUM OR PLASMA 22 mg/dL 7 - 25 03/05 Specimen Type: SERUM No comment entered. Ordering Provider: DENNY ALMEIDA SA Report Released Date/Time: Mar 05, 2024 09:42 AM Reporting Lab: [facility]ITALTRN [facility] [address] [facility] [facility] [address] Performing Lab: [facility]ITALTRN [facility] [address] [facility] [address] [facility] BASIC METABOLIC PANEL (non-fast ing) GLUCOSE [MASS/VOLUM E] IN SERUM OR PLASMA 92 mg/dL 65 - 100 03/05 Specimen Type: SERUM No comment entered. Ordering Provider: DENNY ALMEIDA SA Report Released Date/Time: Mar 05, 2024 09:42 AM Reporting Lab: [facility] [address] [facility] [address] Performing Lab: [facility] [address] [facility] [address] [facility] BASIC METABOLIC PANEL (non-fast ing) SODIUM [MOLES/VOLU ME] IN SERUM OR PLASMA 140 mmol/L 135 - 145 03/05 Specimen Type: SERUM No comment entered. Ordering Provider: DENNY ALMEIDA SA Report Released Date/Time: Mar 05, 2024 09:42 AM Reporting Lab: [facility] [address] [facility] [address] Performing Lab: [facility] [address] [facility] [address] [facility] BASIC METABOLIC PANEL (non-fast ing) POTASSIUM [MOLES/VOLU ME] IN SERUM OR PLASMA 4.2 mmol/L 3.5 - 5.0 03/05 Specimen Type: SERUM No comment entered. Ordering Provider: DENNY ALMEIDA SA Report Released Date/Time: Mar 05, 2024 09:42 AM Reporting Lab: [facility] [address] [facility] [address] Performing Lab: [facility] [address] [facility] [address] [facility] BASIC METABOLIC PANEL (non-fast ing) CHLORIDE [MOLES/VOLU ME] IN SERUM OR PLASMA 109 mmol/L 100 - 110 03/05 Specimen Type: SERUM No comment entered. Ordering Provider: DENNY ALMEIDA SA Report Released Date/Time: Mar 05, 2024 09:42 AM Reporting Lab: [facility] [address] [facility] [address] Performing Lab: [facility] [address] [facility] [address] [facility] BASIC METABOLIC PANEL (non-fast ing) CARBON DIOXIDE, TOTAL [MOLES/VOLU ME] IN SERUM OR PLASMA 22 meq/L 20 - 30 03/05 Specimen Type: SERUM No comment entered. Ordering Provider: DENNY ALMEIDA SA Report Released Date/Time: Mar 05, 2024 09:42 AM Reporting Lab: [address] [address] Performing Lab: [address] [address] [facility] BASIC METABOLIC PANEL (non-fast ing) CREATININE [MASS/VOLUM E] IN SERUM OR PLASMA 0.78 mg/dL 0.50 - 1.40 03/05 Specimen Type: SERUM No comment entered. Ordering Provider: DENNY ALMEIDA SA Report Released Date/Time: Mar 05, 2024 09:42 AM Reporting Lab: [address] [address] Performing Lab: [address] [address] [facility] BASIC METABOLIC PANEL (non-fast ing) GLOMERULAR FILTRATION RATE/1.73 SQ M.PREDICTED [VOLUME RATE/AREA] IN SERUM, PLASMA OR BLOOD BY CREATININE- BASED FORMULA (CKD-EPI 2020) 85 mL/min 60 03/05 Specimen Type: SERUM No comment entered. Ordering Provider: DENNY ALMEIDA SA Report Released Date/Time: Mar 05, 2024 09:42 AM Reporting Lab: [address] [address] Performing Lab: [address] [address] [facility] HEMOGLOBI N A1C PANEL HEMOGLOBIN A1C/HEMOGLO BIN.TOTAL IN BLOOD BY HPLC 5.5 4.0 - 5.6 03/05 Specimen Type: BLOOD Comment: Values obtained from A1C measurement s can vary. For atypical A1C assays, a reported value of 7.0 could actually be between 6.72 and 7.28 if measured by a reference method. A reported value of 9.0 could actually be between 8.73 and 9.27. Ref: http://www. ngsp.org/[place] Pdata.asp Ordering Provider: DENNY ALMEIDA SA Report Released Date/Time: Mar 05, 2024 09:42 AM Reporting Lab: [facility] [address] [facility] [address] Performing Lab: [facility] [address] [facility] [address] [facility] LIVER FUNCTION PROTEIN [MASS/VOLUM E] IN SERUM OR PLASMA 6.4 g/dL 6.0 - 8.3 03/05 Specimen Type: SERUM No comment entered. Ordering Provider: DENNY ALMEIDA SA Report Released Date/Time: Mar 05, 2024 09:42 AM Reporting Lab: [facility] [address] [address] Performing Lab: [facility] [address] [facility] [address] [facility] LIVER FUNCTION ALBUMIN [MASS/VOLUM E] IN SERUM OR PLASMA 3.5 g/dL 3.5 - 5.0 03/05 Specimen Type: SERUM No comment entered. Ordering Provider: DENNY ALMEIDA SA Report Released Date/Time: Mar 05, 2024 09:42 AM Reporting Lab: [facility] [address] [address] Performing Lab: [facility] [address] [address] [facility] LIVER FUNCTION ALKALINE PHOSPHATASE [ENZYMATIC ACTIVITY/VO LUME] IN SERUM OR PLASMA 80 U/L 40 - 150 03/05 Specimen Type: SERUM No comment entered. Ordering Provider: DENNY ALMEIDA SA Report Released Date/Time: Mar 05, 2024 09:42 AM Reporting Lab: [facility] [address] [address] Performing Lab: [facility] [address] [address] [facility] LIVER FUNCTION ASPARTATE AMINOTRANSF ERASE [ENZYMATIC ACTIVITY/VO LUME] IN SERUM OR PLASMA 22 U/L 5 - 34 03/05 Specimen Type: SERUM No comment entered. Ordering Provider: DENNY ALMEIDA SA Report Released Date/Time: Mar 05, 2024 09:42 AM Reporting Lab: [facility] [address] [facility] [address] Performing Lab: [facility] [address] [facility] [address] [facility] LIVER FUNCTION ALANINE AMINOTRANSF ERASE [ENZYMATIC ACTIVITY/VO LUME] IN SERUM OR PLASMA 34 U/L 03/05 Specimen Type: SERUM No comment entered. Ordering Provider: DENNY ALMEIDA SA Report Released Date/Time: Mar 05, 2024 09:42 AM Reporting Lab: [facility] [address] [facility] [address] Performing Lab: [facility] [address] [facility] [address] [facility] LIVER FUNCTION BILIRUBIN.T OTAL [MASS/VOLUM E] IN SERUM OR PLASMA 0.4 mg/dL 0.2 - 1.2 03/05 Specimen Type: SERUM No comment entered. Ordering Provider: DENNY ALMEIDA SA Report Released Date/Time: Mar 05, 2024 09:42 AM Reporting Lab: [facility] [address] [facility] [address] Performing Lab: [facility] [address] [facility] [address] [facility] TSH THYROTROPIN [UNITS/VOLU ME] IN SERUM OR PLASMA 2.43 u[IU]/ mL 0.35 - 5.00 03/05 Specimen Type: SERUM No comment entered. Ordering Provider: DENNY ALMEIDA SA Report Released Date/Time: Mar 05, 2024 09:42 AM Reporting Lab: [facility] [address] [facility] [address] Performing Lab: [facility] [address] [facility] [address] [facility] CBC AND DIFF (AUTO) LEUKOCYTES [#/VOLUME] IN BLOOD BY AUTOMATED COUNT 5.14 10*3/u L 4.50 - 11.00 03/05 Specimen Type: BLOOD No comment entered. Ordering Provider: DENNY ALMEIDA SA Report Released Date/Time: Mar 05, 2024 09:42 AM Reporting Lab: [facility] [facility] [address] [facility] [address] Performing Lab: [facility] [address] [facility] [address] [facility] CBC AND DIFF (AUTO) ERYTHROCYTE S [#/VOLUME] IN BLOOD BY AUTOMATED COUNT 4.77 10*6/u L 3.93 - 5.16 03/05 Specimen Type: BLOOD No comment entered. Ordering Provider: DENNY ALMEIDA SA Report Released Date/Time: Mar 05, 2024 09:42 AM Reporting Lab: [facility] [address] [facility] [address] Performing Lab: [facility] [facility] [address] [facility] [address] [facility] CBC AND DIFF (AUTO) HEMOGLOBIN [MASS/VOLUM E] IN BLOOD 14.4 g/dL 12 - 15.2 03/05 Specimen Type: BLOOD No comment entered. Ordering Provider: DENNY ALMEIDA SA Report Released Date/Time: Mar 05, 2024 09:42 AM Reporting Lab: [facility] [address] [facility] [address] Performing Lab: [facility] [facility] [address] [facility] [address] [facility] CBC AND DIFF (AUTO) HEMATOCRIT [VOLUME FRACTION] OF BLOOD BY AUTOMATED COUNT 43.2 36.6 - 45.6 03/05 Specimen Type: BLOOD No comment entered. Ordering Provider: DENNY ALMEIDA SA Report Released Date/Time: Mar 05, 2024 09:42 AM Reporting Lab: [facility] [address] [facility] [address] Performing Lab: [facility] [address] [facility] [address] [facility] CBC AND DIFF (AUTO) MCV [ENTITIC VOLUME] BY AUTOMATED COUNT 90.6 fL 82 - 99 03/05 Specimen Type: BLOOD No comment entered. Ordering Provider: DENNY ALMEIDA SA Report Released Date/Time: Mar 05, 2024 09:42 AM Reporting Lab: [facility] [address] [facility] [address] Performing Lab: [facility] [facility] [address] [facility] [address] [facility] CBC AND DIFF (AUTO) MCHC [MASS/VOLUM E] BY AUTOMATED COUNT 33.3 g/dL 30.8 - 35.1 03/05 Specimen Type: BLOOD No comment entered. Ordering Provider: DENNY ALMEIDA SA Report Released Date/Time: Mar 05, 2024 09:42 AM Reporting Lab: [facility] [address] [facility] [address] Performing Lab: [facility] [facility] [address] [facility] [address] [facility] CBC AND DIFF (AUTO) PLATELETS [#/VOLUME] IN BLOOD BY AUTOMATED COUNT 233 10*3/u L 140 - 360 03/05 Specimen Type: BLOOD No comment entered. Ordering Provider: DENNY ALMEIDA SA Report Released Date/Time: Mar 05, 2024 09:42 AM Reporting Lab: [facility] [facility] [address] [facility] [address] Performing Lab: [facility] [address] [facility] [address] [facility] CBC AND DIFF (AUTO) ERYTHROCYTE DISTRIBUTIO N WIDTH [RATIO] BY AUTOMATED COUNT 12.7 12.0 - 16.0 03/05 Specimen Type: BLOOD No comment entered. Ordering Provider: DENNY ALMEIDA SA Report Released Date/Time: Mar 05, 2024 09:42 AM Reporting Lab: [facility] [facility] [address] [facility] [address] Performing Lab: [facility] [facility] [address] [facility] [address] [facility] CBC AND DIFF (AUTO) MONOCYTES [#/VOLUME] IN BLOOD BY AUTOMATED COUNT 0.48 10*3/u L 0.30 - 1.10 03/05 Specimen Type: BLOOD No comment entered. Ordering Provider: DENNY ALMEIDA SA Report Released Date/Time: Mar 05, 2024 09:42 AM Reporting Lab: [facility] [facility] [address] [facility] [address] Performing Lab: [facility] [facility] [address] [facility] [address] [facility] CBC AND DIFF (AUTO) MCH [ENTITIC MASS] BY AUTOMATED COUNT 30.2 pg 26.2 - 32.6 03/05 Specimen Type: BLOOD No comment entered. Ordering Provider: DENNY ALMEIDA SA Report Released Date/Time: Mar 05, 2024 09:42 AM Reporting Lab: [facility] [facility] [address] [facility] [address] Performing Lab: [facility] [facility] [address] [facility] [address] [facility] CBC AND DIFF (AUTO) NEUTROPHILS /100 LEUKOCYTES IN BLOOD BY AUTOMATED COUNT 61.5 43.7 - 75.8 03/05 Specimen Type: BLOOD No comment entered. Ordering Provider: DENNY ALMEIDA SA Report Released Date/Time: Mar 05, 2024 09:42 AM Reporting Lab: [facility] [facility] [address] [facility] [address] Performing Lab: [facility] [facility] [address] [facility] [address] [facility] CBC AND DIFF (AUTO) LYMPHOCYTES /100 LEUKOCYTES IN BLOOD BY AUTOMATED COUNT 26.8 14.0 - 42.3 03/05 Specimen Type: BLOOD No comment entered. Ordering Provider: DENNY ALMEIDA SA Report Released Date/Time: Mar 05, 2024 09:42 AM Reporting Lab: [facility] [address] [facility] [address] Performing Lab: [facility] [address] [facility] [address] [facility] CBC AND DIFF (AUTO) MONOCYTES/1 00 LEUKOCYTES IN BLOOD BY AUTOMATED COUNT 9.3 5.1 - 13.7 03/05 Specimen Type: BLOOD No comment entered. Ordering Provider: DENNY ALMEIDA SA Report Released Date/Time: Mar 05, 2024 09:42 AM Reporting Lab: [facility] [address] [place] [address] Performing Lab: [facility] [address] [place] [address] [facility] CBC AND DIFF (AUTO) EOSINOPHILS /100 LEUKOCYTES IN BLOOD BY AUTOMATED COUNT 1.8 0.4 - 6.8 03/05 Specimen Type: BLOOD No comment entered. Ordering Provider: DENNY ALMEIDA SA Report Released Date/Time: Mar 05, 2024 09:42 AM Reporting Lab: [facility] [address] [address] Performing Lab: [facility] [address] [place] [address] [facility] CBC AND DIFF (AUTO) BASOPHILS/1 00 LEUKOCYTES IN BLOOD BY AUTOMATED COUNT 0.4 0.1 - 2.0 03/05 Specimen Type: BLOOD No comment entered. Ordering Provider: DENNY ALMEIDA SA Report Released Date/Time: Mar 05, 2024 09:42 AM Reporting Lab: [facility] [address] [place] [address] Performing Lab: [facility] [facility] [address] [facility] [address] [facility] CBC AND DIFF (AUTO) NEUTROPHILS [#/VOLUME] IN BLOOD BY AUTOMATED COUNT 3.16 10*3/u L 2.20 - 7.60 03/05 Specimen Type: BLOOD No comment entered. Ordering Provider: DENNY ALMEIDA SA Report Released Date/Time: Mar 05, 2024 09:42 AM Reporting Lab: [facility] [address] [facility] [address] Performing Lab: [facility] [facility] [address] [facility] [address] [facility] CBC AND DIFF (AUTO) LYMPHOCYTES [#/VOLUME] IN BLOOD BY AUTOMATED COUNT 1.38 10*3/u L 1.00 - 3.20 03/05 Specimen Type: BLOOD No comment entered. Ordering Provider: DENNY ALMEIDA SA Report Released Date/Time: Mar 05, 2024 09:42 AM Reporting Lab: [facility] [address] [address] Performing Lab: [facility] [facility] [address] [facility] [address] [facility] CBC AND DIFF (AUTO) EOSINOPHILS [#/VOLUME] IN BLOOD BY AUTOMATED COUNT 0.09 10*3/u L 0.03 - 0.44 03/05 Specimen Type: BLOOD No comment entered. Ordering Provider: DENNY ALMEIDA SA Report Released Date/Time: Mar 05, 2024 09:42 AM Reporting Lab: [facility] [address] [facility] [address] Performing Lab: [facility] [facility] [address] [facility] [address] [facility] CBC AND DIFF (AUTO) BASOPHILS [#/VOLUME] IN BLOOD BY AUTOMATED COUNT 0.02 10*3/u L 0.01 - 0.13 03/05 Specimen Type: BLOOD No comment entered. Ordering Provider: DENNY ALMEIDA SA Report Released Date/Time: Mar 05, 2024 09:42 AM Reporting Lab: [facility] [address] [facility] [address] Performing Lab: [facility] [facility] [address] [facility] [address] [facility] CBC AND DIFF (AUTO) IMMATURE GRANULOCYTE S/100 LEUKOCYTES IN BLOOD BY AUTOMATED COUNT 0.2 0.0 - 0.7 03/05 Specimen Type: BLOOD No comment entered. Ordering Provider: DENNY ALMEIDA SA Report Released Date/Time: Mar 05, 2024 09:42 AM Reporting Lab: [facility] [address] [facility] [address] Performing Lab: [facility] [address] [address] [facility] CBC AND DIFF (AUTO) IMMATURE GRANULOCYTE S [#/VOLUME] IN BLOOD 0.01 10*3/u L 0.00 - 0.06 03/05 Specimen Type: BLOOD No comment entered. Ordering Provider: DENNY ALMEIDA SA Report Released Date/Time: Mar 05, 2024 09:42 AM Reporting Lab: [facility] [address] [address] Performing Lab: [facility] [address] [address] [facility] CBC AND DIFF (AUTO) NRBC % 0.0 0.0 - 0.0 03/05 Specimen Type: BLOOD No comment entered. Ordering Provider: DENNY ALMEIDA SA Report Released Date/Time: Mar 05, 2024 09:42 AM Reporting Lab: [facility] [address] [address] Performing Lab: [facility] [address] [address] [facility] CBC AND DIFF (AUTO) NRBC, ABS 0.00 10*3/u L 0.00 - 0.00 03/05 Specimen Type: BLOOD No comment entered. Ordering Provider: DENNY ALMEIDA SA Report Released Date/Time: Mar 05, 2024 09:42 AM Reporting Lab: [facility] [address] [facility] [address] Performing Lab: [facility] [address] [facility] [address] [facility] Vital Signs Combined list of inpatient and outpatient Vital Signs from Department of Defense and Veterans Affairs, ranging from 12 months to all on record, depending upon the facility. Vital Sign Value Date Comments Source SYSTOLIC BLOOD PRESSURE 128 05/18/19 25 10:24:33 [facility] DIASTOLIC BLOOD PRESSURE 83 025 10:24:33 [facility] PULSE OXIMETRY 96 05/18/2024 10:24:33 [facility] WEIGHT 238.3 05/18/2024 10:24:33 [facility] BMI 33kg/m2 05/18/2024 10:24:33 [facility] PAIN 2 05/18/2024 10:24:33 [facility] TEMPERATURE 98 05/18/2024 10:24:33 [facility] PULSE 76 05/18/2024 10:24:33 [facility] RESPIRATION 18 05/18/2024 10:24:33 [facility] SYSTOLIC BLOOD PRESSURE 138 03/09/20 24 13:14:04 [facility] DIASTOLIC BLOOD PRESSURE 85 024 13:14:04 [facility] PULSE OXIMETRY 97 03/09/2024 13:14:04 [facility] WEIGHT 234.2 03/09/2024 13:14:04 [facility] BMI 33kg/m2 03/09/2024 13:14:04 [facility] PAIN 7 03/09/2024 13:14:04 [facility] TEMPERATURE 97 03/09/2024 13:14:04 [facility] PULSE 76 03/09/2024 13:14:04 [facility] RESPIRATION 18 03/09/2024 13:14:04 [facility] SYSTOLIC BLOOD PRESSURE 158 03/05/20 24 09:08:14 [facility] DIASTOLIC BLOOD PRESSURE 89 024 09:08:14 [facility] PULSE OXIMETRY 96 03/05/2024 09:08:14 [facility] WEIGHT 233 03/05/2024 09:08:14 [facility] BMI 33kg/m2 03/05/2024 09:08:14 [facility] TEMPERATURE 98.5 03/05/2024 09:08:14 [facility] PULSE 75 03/05/2024 09:08:14 [facility] RESPIRATION 16 03/05/2024 09:08:14 [facility] SYSTOLIC BLOOD PRESSURE 100 02/23/20 24 10:29:38 [facility] DIASTOLIC BLOOD PRESSURE 70 024 10:29:38 [facility] PULSE OXIMETRY 96 02/23/2024 10:29:38 [facility] PAIN 3 02/23/2024 10:29:38 [facility] PULSE 70 02/23/2024 10:29:38 [facility] RESPIRATION 16 02/23/2024 10:29:38 [facility] SYSTOLIC BLOOD PRESSURE 140 11/21/19 24 09:00:39 [facility] DIASTOLIC BLOOD PRESSURE 70 024 09:00:39 [facility] PAIN 2 11/21/2023 09:00:39 [facility] Encounters Combined list of: 1) Encounters from Department of Veterans Affairs facilities going back up to thelast 18 months. 2) Encounters from the Department of Defense facilities going back up to 280 months. Location Location Details Encounter Type Encounter Number Reason For Visit Attending Provider ADM Date DC Date Status Disposition Source [facility]) OUTPATIENT [id number] [employer] +STS referra BE Burns 01/01 Released w/o Limitations [facility]( [facility] [place] [facility] [place] 60 MINUTES [id number] Diagnos is: ICD-10- CM F43.12 Post-tr aumatic stress disorde r, chronic
KARIN ALEJANDRE 12/24 [place] [facility] Outpatient Encounter [id number] 01/16 [facility] [place] [facility] [facility] PT 60 MINUTES [id number] Diagnos is: ICD-10- CM F43.12 Post-tr aumatic stress disorde r, chronic
JONELLE ALEJANDREOR 01/25 [place] [facility] Out[facility] Encounter [id number] 02/26 [facility] En[facility] [id number] 03/01 [facility] En[facility] [id number] 03/02 [facility] [place] W PT 60 MINUTES [id number] Diagnos is: ICD-10- CM F43.12 Post-tr aumatic stress disorde r, chronic
KARIN ALEJANDRE 03/04 [facility] [place] PSY[place] W PT 60 MINUTES [id number] Diagnos is: ICD-10- CM F43.12 Post-tr aumatic stress disorde r, chronic
KARIN ALEJANDRE 04/19 [facility] Outpatient Encounter [id number] 04/19 [facility] Outpatient Encounter [id number] 05/05 [facility] Outpatient Encounter [id number] Diagnos is: ICD-10- CM Z02.89 Encount er for other adminis trative examina tions<b r/> DMITRY EFNG 05/18 [facility] Outpatient Encounter [id number] 05/18 [facility] LD PSYTX W PT 60 MINUTES [id number] Diagnos is: ICD-10- CM F43.12 Post-tr aumatic stress disorde r, chronic
KARIN ALEJANDRE 05/19 [facility] OFFICE O/P EST LOW 20 MIN [id number] Diagnos is: ICD-10- CM M72.2 Plantar fascial fibroma tosis<b r/> Airam ONEAL 05/27 [facility] OFFICE O/P EST LOW 20 MIN [id number] Diagnos is: ICD-10- CM M62.830 Muscle spasm of back
DEE DEE MC JEOVANNY 05/27 [facility] [place] PSY[place] W PT 60 MINUTES [id number] Diagnos is: ICD-10- CM F43.12 Post-tr aumatic stress disorde r, chronic
HILL,[place]OR 06/23 [place] S[facility]F C[facility] MNGMENT TRAINING [id number] Diagnos is: ICD-10- CM M54.50 Low back pain, unspeci fied
DANNEN,[facility] 06/23 [place] THERAPEUT[place] EXERCISES [id number] Diagnos is: ICD-10- CM M54.50 Low back pain, unspeci fied
[facility] 07/14 [place] THERAPEUT[place] EXERCISES [id number] Diagnos is: ICD-10- CM M54.50 Low back pain, unspeci fied
DANNEN,[facility] 07/21 [place] PSY[place] W PT 60 MINUTES [id number] Diagnos is: ICD-10- CM F43.12 Post-tr aumatic stress disorde r, chronic
HILL,JONELLEOR 07/21 [place] [facility] Outpatient Encounter [id number] 07/25 [facility] [place] [facility] OFFICE O/P EST MOD 30 MIN [id number] Diagnos is: ICD-10- CM R91.1 Solitar y pulmona ry nodule< br/> JUAN PABLO,L MACHELLE TANIA 07/25 [facility] Outpatient Encounter [id number] 08/03 [facility] [place] Outpatient Encounter [id number] 08/08 [facility] Outpatient Encounter [id number] 08/09 [facility] [place] [place] PSYTX W PT 60 MINUTES [id number] Diagnos is: ICD-10- CM F43.12 Post-tr aumatic stress disorde r, chronic
HILLDEBOR AH 08/25 [place] [facility] Outpatient Encounter [id number] NASIR ROSALES L 08/31 [facility] [place] [facility] (6[facility] QNHP OL DIG ASSMT&MGMT - 91178-3.63 [id number] Diagnos is: ICD-10- CM J44.9 Chronic obstruc tive pulmona ry disease , unspeci fied
VAMSHI JAMES 09/01 [facility] (631[facility] OFFICE O/P NEW MOD 45 MIN [id number] Diagnos is: ICD-10- CM M54.50 Low back pain, unspeci fied
Airam NICHOLAS 09/19 [facility] [place] [place] PSYTX W PT 60 MINUTES [id number] Diagnos is: ICD-10- CM F43.12 Post-tr aumatic stress disorde r, chronic
KARIN ALEJANDRE AH 09/29 [place] [facility] Outpatient Encounter [id number] 11/01 [facility] [place] [facility] [place] PSYTX W PT 60 MINUTES [id number] Diagnos is: ICD-10- CM F43.12 Post-tr aumatic stress disorde r, chronic
JONELLE ALEJANDREOR 11/03 [place] [facility] OFFICE O/P EST MOD 30 MIN [id number] Diagnos is: ICD-10- CM S93.611 A Sprain of tarsal ligamen t of right foot, initial encount er
RAKESH STARKEY D 11/07 [facility] [id number] 1.11/07 [facility] En[facility] [id number] 1. RAKESH STARKEY RLMARIBEL D 11/09 [facility] OFFICE O/P EST LOW 20 MIN [id number] Diagnos is: ICD-10- CM M54.50 Low back pain, unspeci fied
Airam NICHOLAS 11/20 [facility] MIN[facility] [id number] Diagnos is: ICD-10- CM F43.12 Post-tr aumatic stress disorde r, chronic
JONELLE ALEJANDREOR 12/01 [place] [facility] En[facility] [id number] 12/13 [facility] HEARING AID FITTING/CH ECKING [id number] Diagnos is: ICD-10- CM H90.3 Sensori neural hearing loss, bilater al
KELLY RICE 12/22 [facility] [place] OFFICE O/P NEW MOD 45 MIN [id number] Diagnos is: ICD-10- CM M54.59 Other low back pain
JUDITH JEFFERS RA 12/26 [facility] [place] OFFICE O/P NEW LOW 30 MIN [id number] Diagnos is: ICD-10- CM M47.896 Other spondyl osis, lumbar region< br/> GEORGETTELESLY POLLARD EUGENIO 12/28 [facility] Outpatient Encounter [id number] 1.01/15 [facility] [place] ADMIN [id number] Diagnos is: ICD-10- CM Z23 Encount er for immuniz ation<b r/> PJ AQUINO R 01/15 [facility] MANUAL THERAPY 1/> [place] [id number] Diagnos is: ICD-10- CM M54.59 Other low back pain
JUDITH JEFFERS RA 01/16 [facility] [place] THERAPEUTI C EXERCISES [id number] 1. Diagnos is: ICD-10- CM M47.896 Other spondyl osis, lumbar region< br/> NIEVESLESLY LUBIN ATUL EUGENIO 01/17 [facility] [place] PSYTX W PT 60 MINUTES [id number] [id number] Diagnos is: ICD-10- CM F43.12 Post-tr aumatic stress disorde r, chronic
KARIN ALEJANDRE 01/17 [place] [facility] MANUAL THERAPY 1/> [place] [id number] Diagnos is: ICD-10- CM M54.59 Other low back pain
JUDITH JEFFERS RA 01/23 [facility] Outpatient Encounter [id number] 01/23 [facility] HC PRO PHONE CALL 11-20 MIN [id number] Diagnos is: ICD-10- CM J44.9 Chronic obstruc tive pulmona ry disease , unspeci fied
JARMOLOWIC Z,OMI 01/23 [facility] THERAPEUTI C EXERCISES [id number] 1. Diagnos is: ICD-10- CM M47.896 Other spondyl osis, lumbar region< br/> SIMLESLY LUBIN YESENIAEY EUGENIO 01/25 [facility] MANUAL THERAPY /> [place] [id number] Diagnos is: ICD-10- CM M54.59 Other low back pain
JUDITH JEFFERS RA 01/30 [facility] THERAPEUTI C EXERCISES [id number] Diagnos is: ICD-10- CM M54.50 Low back pain, unspeci fied
GEORGETTE,LESLY TNEY EUGENIO 02/08 [facility] [place] PSYTX W PT 60 MINUTES [id number] [id number] 25 Diagnos is: ICD-10- CM F43.12 Post-tr aumatic stress disorde r, chronic
KARIN ALEJANDRE AH 02/19 [place] [facility] Outpatient Encounter [id number] 02/20 [facility] Outpatient Encounter [id number] 02/21 [facility] OFFICE O/P EST LOW 20 MIN [id number] Diagnos is: ICD-10- CM M54.50 Low back pain, unspeci fied
Airam NICHOLAS 02/22 [facility] Outpatient Encounter [id number] MARGA SEAMAN H 02/28 [facility] OFFICE O/P EST MOD 30 MIN [id number] Diagnos is: ICD-10- CM R22.9 Localiz ed swellin g, mass and lump, unspeci fied
Eze ALMEIDA MACHELLENita MARIN 03/05 [facility] THERAPEUTI C EXERCISES [id number] 1. Diagnos is: ICD-10- CM M47.896 Other spondyl osis, lumbar region< br/> LESLY PALOMINO EUGENIO 03/07 [facility] Outpatient Encounter [id number]/09 [facility] OFF/OP CNSLTJ NEW/EST MOD 40 [id number] 1. 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
KARIN ALEJANDRE 03/27 [place] [facility] En[facility] [id number] 1. Josesito ENCISO 03/27 [facility] En[facility] [id number] 1.03/27 [facility] Encounter [id number] 1.03/27 [facility] (6[facility] NRV CNDJ TEST 7-8 STUDIES 15170-5.63 1GE. 64 Diagnos is: ICD-10- CM R20.2 Paresth esia of skin
ASHLEY ROSARIO AMMAD 04/24 [facility] (6[facility] [place] PSYTX W PT 60 MINUTES [id number] [id number] Diagnos is: ICD-10- CM F43.12 Post-tr aumatic stress disorde r, chronic
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 Procedure Procedure Type Code Date Perfomer Comments [facility] e Audiometry Tone Decay Test Audiometry Tone Decay Test 32081 01/02/2015 BE DURAN [facility] Comprehensive Audiometry Comprehensive Audiometry 72727 01/02/2015 BE DURAN [facility] Tympanometry With Reflex Threshold Measurements Tympanometry With Reflex Threshold Measurements 55919 01/02/2015 BE DURAN [facility] TONE DECAY TEST 01/01/2015 [facility] Social History Combined list of available smoking, tobacco, and other social history from Department of Defense and Veterans Affairs facilities. Social History Type Response Date Comment Source Tobacco smoking status [facility] VA-TOBACCO FORMER USER 05/27/2023 [facility] History of tobacco use GA-TOBACCO QUIT 15 YRS OR MORE 05/27/2023 [facility] History of tobacco use VA-TOBACCO FORMER USER 02/02/2022 [facility] History of tobacco use VA-TOBACCO FORMER USER 12/09/2020 [facility] History of tobacco use VA-TOBACCO FORMER USER 11/28/2019 [facility] History of tobacco use VA-TOBACCO QUIT 15 YRS OR MORE 10/23/2018 [facility] History of tobacco use QUIT TOBACCO USE > 7 YEARS AGO 10/17/2017 [facility] History of tobacco use QUIT TOBACCO USE > 7 YEARS AGO 09/15/2016 [facility] History of tobacco use QUIT TOBACCO USE > 7 YEARS AGO 07/02/2015 non tobacco user since 1998 [facility] This section is an empty social history section. [facility] Plan of Care List of future care activities from [facility] facilities. Additional future care activities may be listed in the Assessment and Plan section. Date/Time Care Activity Care Activity Detail [facility] 05/29/2024 AMBULATORY - PSYCHIATRY AMBULATORY - PSYC [facility] 05/30/2024 AMBULATORY - REHAB MEDICINE AMBULATORY - REHAB MEDICINE [facility] 07/31/2024 AMBULATORY - MEDICINE AMBULATORY - MEDICI NE [facility] 05/18/2024 Consult Order [facility] [employer] Project Manager's Choice [facility] Advance Directives List of completed, amended, or rescinded Advance Directives on record at Department [facility] facilities. An actual copy of the Directive is not included. Date Advance Directive Provider Source 12/21/2023 ADVANCE DIRECTIVE DESIREE OLIVAREZ [facility]
== END 2024-05-23 09:32 | disposition home or self-care (01) ==
PROVIDERS: PCP Nurse Practitioner Gerontology; Visit Provider Nurse Practitioner Family
DX: J44.9 Chronic obstructive pulmonary disease, unspecified (principal); Z91.09 Other allergy status, other than to drugs and biological substances; Z87.891 Personal history of nicotine dependence; R06.09 Other forms of dyspnea
CPT/HCPCS: 99214

== ENCOUNTER → 2024-05-23 08:53 | Outpatient (BNVA) | payer OTHER, SELFPAY | PROVIDERS: PCP Nurse Practitioner Gerontology; Visit Provider Nurse Practitioner Family | DX: I49.9 Cardiac arrhythmia, unspecified (principal); J44.9 Chronic obstructive pulmonary disease, unspecified; R06.09 Other forms of dyspnea; Z91.09 Other allergy status, other than to drugs and biological substances; Z87.891 Personal history of nicotine dependence | CPT/HCPCS: 99212 ==